=== PATIENT | female | born 1950 | race Caucasian/White ===

== ENCOUNTER 2023-10-31 00:42 | Outpatient (CLI) | payer MEDICARE, BC, SELFPAY ==
--- OUTSIDE RECORDS SUMMARY | 2023-11-02 17:06 | XMS_ITS | Encounter Summary ---
Author Organization [employer] Address [address], [place] [address] Care Team Providers Care Radiation Safety Officer Name Role Phone Trey Forrest PA-C Primary Care Provider [phone] Reason for Visit * Reason Onset Date Comments UPDATE 11/01/2023 Post-surgery upd ate. Encounter Details Date Type Department Care Team (Late st Contact Info) Description 11/01/2023 Telephone [facility] [phone] [facility] [place] [address] Kathy Sauceda, RN UPDATE (Post-surgery update.) Social History Tobacco Use Types Packs/Day Years [...] as of this encounter Nursing Notes * Kathy Sauceda RN - 11/01/2023 12:05 PM CDT Breast Cancer Post-Operative Call Surgery: Left seed localized lumpectomy with left sentinel lymph node biopsy Date: 10/27/[address] Kirkland Incision(s): No concerns. She tells me she is healing well. Activity: Completing ADL. Eboni called this morning to let me know that she had a syncopal episode on Wednesday, 10/29. She was on the toilet and passed out. Her was there to catch her and guideher on to the floor, so no injury. She tells me she had a loss of consciousness for about one minute. Prior to this time she had some sharp abdominal pain and diarrhea. [facility] called [facility] Lab work and CT scan were negative, with the exception of some atelectasis in her LLL. Output: No concerns. Except for the episode of diarrhea on Wednesday. Intake: No concerns. She did have some nausea on Wednesday prior to her syncopal episode, but this is now resolved. Pain: Patient has not require any medication to manage pain. She did not take oxycodone and only 2 ibuprofen. Plan: Will call patient once pathology report is available. Eboni is feeling better today. She was unable to get into see her PCP, so is following-up with a PA today. We discussed that this is likelyrelated to anesthesia and dehydration after surgery. We discussed pushing fluids and changing positions slowly. She will let us know if the PA is wanting to do anything further. They were to leave today for the [facility] today. However, now, her was worried enough to cancel this trip. She knows to call with any questions or concerns. OZZY Hussein, RN, OCN, CBCN Breast Cancer Nurse Navigator [phone] documented in this encounter Plan of Treatment Upcoming Encounters Date Type Department Care Team (Late st Contact Info) Description 11/09/2023 11:50 AM CDT Appointment Special[facility] 3931 General Surgery 39[address] [facility] [address] [place] [address] Viviana Kirkland MD [address] [facility] [address] [place] [address] 11/09/2023 2:30 PM CDT Appointment [facility] Care at [facility] Oncology [address] [place] [address] Shayla Bland MBBS [address] [place] [address] 11/15/2023 11:00 AM CDT Appointment [facility] [address] [place] [address] Thomas Hanks, OD [address] [place] [phone] documented as of this encounter Visit Diagnoses Not on filedocumented in this encounter Care Teams Radiation Safety Officer Relationship Specialty Start Date End Date Trey Forrest PA-C [address] [place] [address] [place] [address] PCP - General Physician Diversified Crops Supervisor 11/01/23 documented as of this encounter
--- OUTSIDE RECORDS SUMMARY | 2023-11-02 17:06 | XMS_ITS | Encounter Summary ---
Author Organization [facility] Address [address], [place] [address] Care Team Providers Care Heavy Lift Rigger Name Role Phone Connie Kuhn MD Primary Care Provider [phone] Reason for Referral * Procedure/Equipment (Routine) - Incomplete Specialty Diagnoses / Procedures Referred By Charlie t Referred To Contact Diagnoses Mass of left breast, unspecified quadrant Procedures NM Breast Sent Node Inj Lt Viviana Kirkland MD [address] [facility] [address] [place] [address] Referral ID Status Reason Start Date Expiration Date V isits Requested Visits Authorized [id number] Incomplete 10/12/2023 01/10/2025 6 6 Reason for Visit * Auth/Cert (Routine) Specialty Diagnoses / Procedures Referred By Charlie christianson Referred To Contact Diagnoses Mass of left breast, unspecified quadrant Procedures LUMPECTOMY LEFT BREAST WITH SEED LOCALIZATION AND SENTINEL LYMPH NODE BIOPSY Referral ID Status Reason Start Date Expiration Date Visits Re quested Visits Authorized [id number] 1 1 Encounter Details Date Type Department Care Team (Late st Contact Info) Description 10/27/2023 8:39 AM CDT - 10/27/2023 11:59 PM CDT Hospital Encounter [facility] [address] [facility] [place] [address] Viviana Kirkland MD [address] [facility] [address] [place] [address] Mass of left breast, unspecified quadrant Discharge [...] General Surgery [address] [facility] [address] [place] [address] Viviana Kirkland MD [address] [facility] [address] [place], [place] [address] 11/09/2023 2:30 PM CDT [facility]ment [facility] Oncology [address] [place] [address] Shayla Bland MBBS [address] [place] [address] 11/15/2023 11:00 AM CDT Appointment [facility] [address] [place] [address] Thomas Hanks, OD [address] [place] [phone] documented as of this encounter Procedures Procedure [...] millicuries documented in this encounter Care Teams Heavy Lift Rigger Relationship Specialty Start Date End Date Connie Kuhn MD [address] [place] [address] PCP - General Family Practice 05/23/18 10/31/23 documented as of this encounter
--- OUTSIDE RECORDS SUMMARY | 2023-11-02 17:06 | XMS_ITS | Encounter Summary ---
Author Organization [email or web address] Address [address] [address] Care Team Providers Care Mask Designer Name Role Phone Trey Shanks PA-C Primary Care Provider [phone] Reason for Visit * Reason Comments Appt. Work In Request Patient Calling Back Encounter Details Date Type Department Care Team (Late st Contact Info) Description 10/31/2023 Telephone [facility] [address] [place] [address] Connie Kuhn MD [address] [place] [address] [place] [address] Appt. Work In Request; Patient Calling Back Social History Tobacco Use [...] as of this encounter Nursing Notes * Fatoumata Dorman RN - 11/02/2023 1:53 PM CDT Spoke with patient. She has decided to change PCP to Trey Shanks PA-C. No other needs at this time. * Connie Kuhn MD - 11/01/2023 12:56 PM CDT I recommend she keep the apt as scheduled as my next same day slot is 11/15. She can follow up with me on 11/15 after she sees the provider today if she would like. * Yesika Hughes RN - 11/01/2023 9:22 AM CDT Clinician Action: Hospital Discharge Work-in Request Clinician Next Step: Route to CSS (Clinical Manager Search Engine) pool to follow up Specific Request(s): 1. Pt is requesting a hospital discharge visit within 2 days. Please advise. Pt was seen at [facility] for a syncopal episode on 10/30/23 and would like to seeP for follow up. Pt voices having had a breast biopsy on 10/27/23 and multiple health concerns recently that may have been related. Has upcoming appt with another provider today as below, pt voices she does not want to see another provider if at all possible. Future Appointments Date Time Provider Department Center 11/01/2023 11:30 AM Trey Shanks PA-C [facility] 11/09/2023 11:50 AM Viviana Kirkland MD [id number] [facility] PN 3931 11/09/2023 2:30 PM Shayla Bland MBBS [facility] 11/15/2023 11:00 AM Thomas Hanks, OD [facility] Routing to PCP * Sylvia Gillette - 11/01/2023 8:56 AM CDT The pt is calling back regarding seeing primary today for an ER F/U. * Winter Payne - 10/31/2023 9:59 AM CDT Appointments - Same Day/Next Day Is this a symptom? No Patient would like appointment with: PCP- Dr. Kuhn If requested clinician is unavailable, is it okay to be seen by another clinician? Yes Patient requesting appointment for: Hospital Discharge Wants/Needs to be seen within: 2 day(s) Additional comments: Preferred communication method: Phone Call. Is it okay to leave a detailed message on your voicemail? Yes documented in this encounter Plan of Treatment Upcoming Encounters Date Type Department Care Team (Late st Contact Info) Description 11/09/2023 11:50 AM CDT Appointment [facility] General Surgery [address] [facility] [address] [place], [place] [address] Viviana Kirkland MD [address] [facility] [address] [place], [place] [address] 11/09/2023 2:30 PM CDT Appointment [facility] Oncology [address] [place] [address] Shayla Bland MBBS [facility] [place], [place] [address] 11/15/2023 11:00 AM CDT Appointment [facility] [address] [place] [address] Thomas Hanks, OD [address] [place] [phone] documented as of this encounter Visit Diagnoses Not on filedocumented in this encounter Care Teams Mask Designer Relationship Specialty Start Date End Date Trey Shanks PA-C [address] [place] [id number] PCP - General Physician Water Softener Service Supervisor 11/01/23 documented as of this encounter
--- OUTSIDE RECORDS SUMMARY | 2023-11-02 17:06 | XMS_ITS | Encounter Summary ---
Author Organization [employer] Address [address], [place] [address] Care Team Providers Care Accelerator Operator Name Role Phone Connie Kuhn MD Primary Care Provider [phone] Encounter Details Date Type Department Care Team (Latest Contact Info) Description 10/27/2023 Orders Only HIM DEPARTMENT Provider, [place] [address] Social History Tobacco Use Types Packs/Day Years [...] Appointment [facility] 39[address] General Surgery [address] [facility] [address] [place] [address] Viviana Kirkland MD [address] [facility] [address] [place] [address] 11/09/2023 2:30 PM CDT Appointment [facility] [address] [place] [address] Shayla Bland MBBS [address] [place] [address] 11/15/2023 11:00 AM CDT Appointment [facility] [address] [place] [address] Thomas Hanks, OD [address] [place] [phone] documented as of this encounter Procedures Procedure Name Priority Date/Time Associated Diagnosis Comments EKG 10/27/2023 documented in this encounter Results * EKG (10/27/2023) Interface Provider EKG documented in this encounter Visit Diagnoses Not on filedocumented in this encounter Care Teams Accelerator Operator Relationship Specialty Start Date End Date Connie Kuhn MD [address] [place] [place] [id number] PCP - General Family Practice 05/23/18 10/31/23 documented as of this encounter
--- OUTSIDE RECORDS SUMMARY | 2023-11-02 17:06 | XMS_ITS | Clinical Summary ---
[facility] Organization [facility] Address [address] [address] Care Team Providers Care Pumping Station Supervisor Name Role Phone Trey Forrest PA-C Primary Care Provider [phone] Source Comments You are receiving this document as you are listed as the primary care provider,follow-up provider, or the patient has been referred to you for consultation.This is in compliance with the Medicare and[facility] EHR Incentive Program,which states Providers who transition their patient to another setting of careor provider of care or refers their patient to another provider of care shouldprovide summary care record for each transition of care or referral. [email or web address] Allergies No known active allergies Medications Medication [...] in clinic. 5 mL 1 08/03/2023 Active Additional Information Patient not taking.Reported on 11/01/2023 sertraline (ZOLOFT) 25 MG tabletIndications:M ixed emotional [...] Overview: Added automatically from request for surgery [id number] Acute iritis, left eye 07/19/2012 Adenomatous polyp of colon 04/11/2009 Overview: Colonoscopy completed 07/2020. Repeat in 5 years (07/2025). Pure hypercholesterolemia 11/17/2007 Overview: Not currently on treatment Prolapse of vaginal wall 10/22/2004 Overview: LW Onset: ; Rectocele Resolved Problems Problem Noted Date Diagnosed Date Resolved Date Sinusitis 06/12/2021 07/30/2022 S/P tonsillectomy 08/13/2014 07/30/2022 S/P bunionectomy 08/13/2014 07/30/2022 Overview: left foot, 2010 Anxiety 08/16/2012 09/16/2016 Emotional depression 08/16/2012 017 Acute upper respiratory infection 07/27/2007 07/26/2015 Overview: Upper Respiratory Infection Obesity 10/26/2005 10/09/2021 Overview: LW Onset: [id number] Depressive disorder 10/22/2004 10/23/19 Overview: LW Onset: 57Haj71 ; Depression NOS Symptomatic menopausal or fe male climacteric states 10/22/2004 03/07/2006 Overview: LW Onset: 78Qlp26 ; Hot Flashes 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 07/19/2012 Overview: LW Onset: 82Ani46 ; Iritis Encounters Date Type Department Care Team Description 11/01/2023 11:30 AM CDT Office Visit [facility] [address] [place] [address] Trey Forrest, PAVikasC Hospital discharge follow-up (Primary Dx); Vasovagal syncope; Mass of left breast, unspecified quadrant; Malignant neoplasm of overlapping sites of left breast in female, estrogen receptor negative (HRC); Elevated BP without diagnosis of hypertension; Mixed emotional features as adjustment reaction (HRC) 11/01/2023 Telephone [facility] [address] [place] [facility] [place], [place] [id number] Kathy Sauceda RN UPDATE (Post-surgery update.) 10/31/2023 Telephone [facility] [address] [place] [address] Connie Kuhn MD Appt. Work In Request; Patient Calling Back 10/27/2023 9:09 AM CDT Anesthesia Event [facility] [address] [place] [address]. [place] [address] Harris Conner MD Varberg, Lauren K, APRN, NICCI 10/27/2023 9:00 AM CDT Ancillary Procedure [facility] at [facility] [place] [address] [place] [address]. [place] [address] Viviana Kirkland MD Mass of left breast, unspecified quadrant 10/27/2023 8:39 AM CDT - 10/27/2023 11:59 PM CDT Hospital Encounter [facility] [address] [place] [address]. [place] [address] Viviana Kirkland MD Mass of left breast, unspecified quadrant Discharge Disposition: Home 10/27/2023 8:20 AM CDT - 10/27/2023 10:55 AM CDT Surgery [facility] [address] [place] [address]. [place] [address] Viviana Kirkland MD LUMPECTOMY LEFT BREAST WITH SEED LOCALIZATION AND SENTINEL LYMPH NODE BIOPSY 10/27/2023 6:38 AM CDT - 10/27/2023 1:07 PM CDT Hospital Encounter [facility] [address] [place] [address]. [place] [address] Viviana Kirkland MD Mass of left breast, unspecified quadrant Discharge Disposition: Home 10/27/2023 Orders Only HIM DEPARTMENT Provider, MD Nikita 10/25/2023 9:20 AM CDT Office Visit [facility] [address] [place] [address] Maria Alejandra Patel MD Pseudophakia, right eye (Primary Dx) 10/21/2023 11:00 AM CDT Lab Visit [facility] [address] [facility] [place] [address] Preop examination 10/21/2023 9:00 AM CDT Pre-Op Visit [facility] [address] [place] [address] Amelia Johnson PA-C Preop examination (Primary Dx) 10/20/2023 9:30 AM CDT Ancillary Procedure [facility] Mammography at [facility] [place] [address] [place] [address]. [place] [address] Viviana Kirkland MD Mass of left breast, unspecified quadrant 10/20/2023 9:00 AM CDT Ancillary Procedure [facility] [place] [facility] at [facility] [place] [address] [address] [facility] [place] [address] Viviana Kirkland MD Mass of left breast, unspecified quadrant 10/19/2023 9:20 AM CDT Office Visit [facility] [address] [place] [address] Maria Alejandra Patel MD Pseudophakia, right eye (Primary Dx) 10/18/2023 1:40 PM CDT - 10/18/2023 2:20 PM CDT Surgery [facility] [address] [place] [address] Maria Alejandra Patel MD CATARACT EXTRACTION WITH INTRAOCULAR LENS IMPLANT 10/18/2023 12:46 PM CDT Anesthesia Event [facility] [address] [place] [address] Owen Bar MD Jerdee, Jeremy J, HAND WORKER, SEPARATOR INSERTER 10/18/2023 11:50 AM CDT - 10/18/2023 1:27 PM CDT Hospital Encounter [facility] [address] [place] [address] Maria Alejandra Patel MD Combined forms of age-related cataract of both eyes Discharge Disposition: Home 10/15/2023 Telephone [facility] - General Surgery [address] [facility] [place], [place] [address] Jacqueline Gonzalez RN Pre-op Teaching 10/12/2023 11:30 AM CDT Office Visit [facility] 3931 General Surgery [address] [facility] [address] [place] [address] Viviana Kirkland MD Mass of left breast, unspecified quadrant (Primary Dx); Mild intermittent asthma without complication (HRC) 10/11/2023 1:00 PM CDT Office Visit [facility] [address] [place] [address] Thomas Hanks OD Postop check (Primary Dx); Pseudophakia, left eye; Abrasion of left conjunctiva, initial encounter 10/08/2023 E-Visit [address] [place] [address] Mychart, Generic Provider 10/08/2023 E-Visit [address] [place] [address] Mychart, Generic Provider 10/08/[address] [place] [address] Kathy Sauceda RN RESULTS, TEST (Breast biopsy results) 10/07/2023 1:30 PM CDT Ancillary Procedure [facility] at [facility] and [address] [place] [address] Connie Kuhn MD Abnormal finding on breast imaging 10/07/2023 1:00 PM CDT Ancillary Procedure [facility] at [facility] and [address] [place] [address] Connie Kuhn MD Abnormal finding on breast imaging (Primary Dx) 10/05/2023 10:30 AM CDT Ancillary Procedure [facility] at [facility] [place] [address] [address] [facility] [place] [address] Connie Kuhn MD Abnormal mammogram 10/05/2023 10:00 AM CDT Ancillary Procedure [facility] at [facility] [place] [address] [place] [address]. [place] [address] Connie Kuhn MD Abnormal mammogram 10/05/2023 8:00 AM CDT Office Visit [facility] [address] [place] [address] Maria Alejandra Patel MD Pseudophakia, left eye (Primary Dx) 10/04/2023 1:40 PM CDT - 10/04/2023 2:20 PM CDT Surgery [facility] [address] [place] [address] Maria Alejandra Patel MD CATARACT EXTRACTION WITH INTRAOCULAR LENS IMPLANT 10/04/2023 12:58 PM CDT Anesthesia Event [facility] [address] [place] [address] Nolan Stoner MD 10/04/2023 12:14 PM CDT - 10/04/2023 1:46 PM CDT Hospital Encounter [facility] [address] [place] [address] Maria Alejandra Patel MD Combined forms of age-related cataract of both eyes Discharge Disposition: Home 10/01/2023 10:50 AM CDT Lab Visit [facility] [address] [facility] [place], [place] [id number] Screening for diabetes mellitus; Screening, lipid 10/01/2023 10:40 AM CDT Ancillary Procedure [facility] at [facility] [place] [address] [address] [place] [address] Connie Kuhn MD Visit for screening mammogram 10/01/2023 9:00 AM CDT Office Visit [address] [place] [address] Connie Kuhn MD Encounter for Medicare annual wellness exam (Primary Dx); Screening, lipid; Screening for diabetes mellitus; Mixed emotional features as adjustment reaction (HRC); Pure hypercholesterolemi a; Mild intermittent asthma without complication (HRC) 10/01/20[address] [place] [address] Connie Kuhn MD Test Results 09/23/2023 9:30 AM CDT Pre-Op Visit [address] [place] [address] Amelia Johnson PA-C Preop examination (Primary Dx) 08/03/2023 Telephone [facility] 3900 Ophthalmology 3900 [facility] [place] [address] Maria Alejandra Patel MD CATARACTS (Pt sched surgery on 10-03 & 10-18-23. Pt would like combo easy drop from [facility]. ) from Last 3 Months Immunizations Name Administration Dates Next Due Flu Vac Preserv Free (3+yrs) 01/19/2013, 02/29/2012,02/11/2011,2008,02/27/2008,02/16/2007,02/17/2006 H1n1 Miv Sanofi 3+ Yr (Injected) 03/05/2009 Influenza IIV3 (Trivalent) F luzone Highdose, 65+ Yrs (37019) 03/20/2019,03/14/2018 Influenza IIV4 (Quadrivalent ) 0.5mL (97547) 03/23/2017,02/06/2016,01/31/2015,2013 Influenza IIV4 (Quadrivalent ) Fluad, 65+ Yrs 03/10/2021 Influenza IIV4 (Quadrivalent ) Fluzone, 65+ Yrs 01/28/2023,02/27/2022 Influenza, Unspecified Formulation 03/25/2003 Moderna 12+ 07/14/2023,01/28/2023 Moderna Bivalent 12+ 08/21/2022,02/27/2022 Moderna Monovalent 12+ 07/24/2021,2020,07/06/2020,2020 PCV20 ([id number]) 10/09/2021 TDAP (ADACEL) 11/17/2007 Td 06/05/1999 Tdap [...] Sign Reading Time Taken Comments Blood Pressure 151/88 11/01/2023 11:17 AM CDT Pulse 67 11/01/2023 11:17 AM CDT Temperature 36.7 ??C (98 ??F) 11/01/2023 11:14 AM CDT Respiratory Rate 16 10/27/2023 12:50 PM CDT [...] Appointment [facility] 3931 General Surgery 3931 [facility] [address] [place] [address] Viviana Kirkland MD [address] [facility] [address] [place] [address] 11/09/2023 2:30 PM CDT Appointment [facility] [address] [place], [place] [address] Shayla Bland MBBS [address] [place], [place] [address] 11/15/2023 11:00 AM CDT Appointment [facility] [address] [place], [place] [address] Thomas Hanks, PJ [address] [place] [phone] Health Maintenance Due Date Last Done Comments Influenza (#1) 2023 01/28/2023, 07/2021, 03/10/2021, Additional history exists Mammogram 2024 10/01/2023, 2023, 09/10/2021, Additional history exists Medicare Annual Wellness Visit 2024 10/01/2023, 09/29/2022, 10/09/2021, Additional history exists Colonoscopy 08/22/2025 08/22/2020, 09/25, 06/19/2011 (Completed), Additional history exists Dexa 01/13/2028 01/12/2023 DTaP/Tdap/Td (3 - Tdap) 05/23/2028 05/23/19, 11/17/2007, 06/05/1999 Cholesterol 2028 10/01/2023, 10/2022, 10/09/2021, [...] this topic Medical Devices Implanted Type Area Stenographer Secretary Device Identifier Shelf Expiration Date Model / Serial / Lot Lens Intraocular Dib00 21.5 - Eyhance - [id number] Implanted:Qty: 1 on 10/04/2023 by Maria Alejandra Patel MD at [facility] DEVICE Left: EYE [employer] 07/25/2026 [id number] / [id number] / Lens Intraocular Dib00 21.0 - Eyhance - [id number] Implanted:Qty: 1 on 10/18/2023 by Maria Alejandra Patel MD at [facility] DEVICE Right: EYE [employer] 05/03/2026 [id number] / [id number] / Procedures Procedure Name Priority Date/Time Associated Diagnosis Comments MM BREAST SPECIMEN Routine 10/27/2023 10 :04 AM CDT Mass of left breast, unspecified quadrant NM BREAST SENT NODE INJ LT Routine 10/26 8:58 AM CDT Mass of left breast, unspecified quadrant BREAST BIOPSY WITH RADIOACTIVE SEED LOCALIZATION AND SENTINEL LYMPH NODE BIOPSY 10/27/2023 8:42 AM CDT Mass of left breast, unspecified [...] 10/05/2023 10:3 1 AM CDT Abnormal mammogram YMM MAMMOGRAM DIAG LT W 3D ERIC Routine [...] Basic Metabolic Panel (10/21/2023 9:22 AM CDT) Pathologist [facility] Sodium 140 136 - 145 mmol/L 10/21/2023 5:04 PM [facility] Potassium 4.3 3.5 - 5.1 mmol/L 10/21/2023 5:04 PM [facility] Chloride 105 98 - 109 mmol/L 10/21/2023 5:04 PM [facility] CO2 24 20 - 29 mmol/L 10/21/2023 5:04 PM [facility] Anion Gap 11 6 - 16 mmol/L 10/21/2023 5:04 PM [facility] Calcium 9.8 8.4 - 10.4 mg/dL 10/21/2023 5:04 PM [facility] BUN 26 7 - 26 mg/dL 10/21/2023 5:04 PM [facility] Creatinine 0.99 0.55 - 1.02 mg/dL 10/21/2023 5:04 PM [facility] Glucose 99 70 - 100 mg/dL 10/21/2023 5:04 PM [facility] Comment:The given reference range is for the fasting state. Non-fasting reference range for glucose is 70 - 180 mg/dL. GFR, Estimated >60 >60 mL/min/1.7 3m2 10/21/2023 5:04 PM [facility] Hours Fasting 14.0 8 - 12 Hours 10/21/2023 5:04 PM [facility] (PN) Blood Venipuncture / Unknown 10/21/2023 9:22 AM CDT 10/21/2023 9:22 AM CDT Amelia Johnson PA-C LAB_1 [facility] [address] [place] [address], [facility] (PN) [address] [place] [address] * ECG 12 Lead Outpatient (10/21/2023 9:07 AM CDT) Ventricular Rate 61 BPM [facility] Atrial Rate 61 BPM [facility] P-R Interval 164 ms [facility] QRS Duration 76 ms [facility] QT 398 ms [facility] QTc 400 ms [facility] P [place] 62 degrees [facility] R [place] 18 degrees [facility] T [place] 48 degrees [facility] 10/21/2023 9:07 AM CDT Narrative [facility] - 10/21/2023 9:48 AM CDT Sinus rhythm Normal ECG When compared with ECG of 16-SEP-2016 10:20, Premature ventricular complexes are no longer Present Confirmed by Kuldeep Henning ([id number]) on 10/21/2023 9:48:51 AM Procedure Note Kuldeep Henning MD - 10/21/2023 Sinus rhythm Normal ECG When compared with ECG of 16-SEP-2016 10:20, Premature ventricular complexes are no longer Present Confirmed by Kuldeep Henning ([id number]) on 10/21/2023 9:48:51 AM Amelia Johnson PA-C PN ECG ORDERABLES Performing Organization Address City/State/[facility] Co de Phone Number [facility] [address] [place] [address] * MM Post Mammogram Lt (10/20/2023 9:02 [...] CK Mj, AE1AE3, 34BE12, CK5-6, S100, ER, NM, CD31, Sox10 and Gata3. ??The findings are [...] for CK Mj, AE1AE3,34BE12, CK5-6, S100, ER, NM, CD31, Sox10 and Gata3. The findings are notentirely specific, but a breast metaplastic carcinoma is favored over aprimary sarcoma or malignant phyllodes tumor. Recommend excision fordefinitive diagnosis. ? RAD/PATH CONCORDANCE: Concordant RECOMMENDATION: Surgical consultation Connie Kuhn MD RAD LEIA * Surgical Path, Breast (10/07/2023 11:51 AM CDT) Case Report Surgical Pathology ?Case: [id number] ? Authorizing Provider: ??Connie Kuhn MD ? Collected: ? 10/07/2023 1151 ? Ordering Location: ? [facility] ? Received: ?10/07/2023 1439 ? [facility] [place] [facility] [place] [address] ? Pathologist: ? Kyle Upton MD ? Specimen: ?Breast, left, 9: o'clock ultrasound ? 10/15/2023 1:37 PM CDT [facility] FINAL DIAGNOSIS A. Breast, left, 9: o'clock ultrasound, needle core biopsy: Malignant spindle cell neoplasm with necrosis, see comment Comment: Immunohistochemical stains performed show the neoplasm stains positive for p63, patchy positive for SMA, negative for CK Mj, AE1AE3, 34BE12, CK5-6, S100, ER, NM, CD31, Sox10 and Gata3. The findings are not entirely specific, but a breast metaplastic carcinoma is favored over a primary sarcoma or malignant phyllodes tumor. Recommend excision for definitive diagnosis. [facility] has reviewed this case and concurs with the diagnosis. 10/15/2023 1:37 PM CDT [facility] Addendum electronically signed by Kyle Upton [...] ?? Comment(s): ?HER2 Technical component performed at [place], [place] 10/15/2023 1:37 PM CDT [facility] Clinical Information non palpable 10/15/2023 1:37 PM CDT [facility] Microscopic Description Microscopic examination is performed. 10/15/2023 1:37 PM CDT [facility] Special Stains The stain controls have been reviewed and stain appropriately. 10/15/2023 1:37 PM CDT [facility] Gross Description A: The specimen is [...] 1 cassette. DJ 10/15/2023 1:37 PM CDT [facility] Embedded Images 10/15/2023 1:37 PM CDT [facility] Tissue BREAST STRUCTURE / Unknown 10/07/2023 11:51 AM CDT 10/07/2023 2:39 PM CDT Connie Kuhn MD LAB PATHOLOGY [facility] [address] * (ABNORMAL) [facility] US Breast Lt (10/05/2023 10:31 AM [...] with the patient and her . [facility] will attempt to schedule the [...] discussed with thepatient and her . [facility] will attempt to schedule the recommendedfollow up with the patient. IMPRESSION: ACR BI-RADS CATEGORY 4: Suspicious. Connie Kuhn MD RAD LE[facility] * (ABNORMAL) [facility] Mammogram Diag Lt W 3[address] Eric [...] with the patient and her . [facility] will attempt to schedule the [...] discussed with thepatient and her . The [facility] will attempt to schedule the recommendedfollow [...] the patient. As a result of the Century Cures Act, all medical imaging exams are released immediately to [facility]. ??You may be viewing this report [...] 0 - 199 mg/dL 10/01/2023 4:49 PM CDT [facility] Triglyceride 71 <=149 mg/dL 10/01/2023 4:49 PM T [facility] HDL Cholesterol 74 >=40 mg/dL 4 4:49 PM T [facility] LDL, Calculated 194(H) <130 mg/dL 4 4:49 PM [facility] Non HDL Chol, Calculated 208(H) <=159 mg/dL 10/01/2023 4:49 PM [facility] Cholesterol/HDL Ratio 3.8 <=5.0 10/01/2023 4:49 PM [facility] Hours Fasting 12.0 8 - 12 Hours 10/01/2023 4:49 PM [facility] (PN) Blood Venipuncture / Unknown 10/01/2023 9:53 AM CDT 10/01/2023 9:53 AM CDT Connie Kuhn MD LAB_1 [facility] [address] [place] [address], [facility] (PN) [address] [place] [address], [facility] * Glucose (10/01/2023 9:53 AM CDT) Glucose 85 70 - 100 mg/dL 10/01/2023 4:49 PM T [facility] Comment:The given reference range is for the fasting state. Non-fasting reference range for glucose is 70 - 180 mg/dL. Hours Fasting 12.0 8 - 12 Hours 10/01/2023 4:49 PM [facility]T [facility] (PN) Blood Venipuncture / Unknown 10/01/2023 9:53 AM CDT 10/01/2023 9:53 AM CDT Connie Kuhn MD LAB_1 [facility] [address] [place] [address] (PN) [address] [place] [address] * DXA Bone Density Spine/Hip (01/12/2023 8:55 AM CDT) DXA Hip Left Bone Mineral Density 0.849 [...] not included. Patient Name: Eboni Waggoner Densitometer: Snaps W Appt Dept/Resource: Pires Bone Density PIRES [...] trabecular bone, and is derived from the [id number] changes of bone density embedded in the [...] ? colon polyps. Providers: ? Leonardo Armando, Flro Ventura Referring MD: ?Connie Otooleser Medicines: ? Midazolam 4 mg IV, Fentanyl 150 ? micrograms IV Complications: ? No immediate complications. Procedure: ? After I obtained informed consent, ? the scope was passed under direct ? vision. Throughout the procedure, the ? patient's blood pressure, pulse, and ? oxygen saturations were monitored ? continuously. The [id number] was ? introduced through the anus and [...] Procedure Code(s): ?? --- Professional --- ? 07384, Colonoscopy, flexible; with ? removal of tumor(s), polyp(s), or ? other lesion(s) by snare technique ? 54631, Moderate sedation; each ? additional 15 minutes [...] (additional time may ? be reported with [address], as ? appropriate) Diagnosis Code(s): ?? --- Professional --- ? Z86.010, Personal history of colonic ? polyps ? K64.8, Other hemorrhoids ? K63.5, Polyp of colon CPT copyright 2019 [employer]. All rights reserved. The codes documented in this report are preliminary and upon curb hop review may be revised to meet current [...] note, her father had colon polyps. Providers: Leonardo Armando, Flor Ventura Referring MD: Connie Kuhn Medicines: Midazolam 4 mg IV, Fentanyl 150 micrograms IV Complications: No immediate complications. Procedure: After I obtained informed consent, the scope was passed under direct vision. Throughout the procedure, the patient's blood pressure, pulse, and oxygen saturations were monitored continuously. The [id number] was introduced through the anus and advanced [...] the patient. Procedure Code(s): --- Professional --- 54759, Colonoscopy, flexible; with removal of tumor(s), polyp(s), or other lesion(s) by snare technique 00381, Moderate sedation; each additional 15 minutes intraservice time G0500, Moderate sedation services provided by the same physician or other qualified health insurance healthcare consultant performing a gastrointestinal endoscopic service that sedation supports, requiring the presence of an independent trained observer to assist in the monitoring of the patient's level of consciousness and physiological status; initial 15 minutes of intra-service time; patient age 5 years or older (additional time may be reported with 99057, as appropriate) Diagnosis Code(s): --- Professional --- Z86.010, Personal history of colonic polyps K64.8, Other hemorrhoids K63.5, Polyp of colon CPT copyright 2019 [employer]. All rights reserved. The codes documented in this report are preliminary and upon curb hop review may be revised to meet current compliance requirements. Leonardo Armando, 08/22/2020 12:05:21 PM Number of Addenda: 0 Note Initiated On: 08/22/2020 11:16 AM Endoscopy Report Connie Kuhn MD PN GI PROCEDURE ORD ERABLES Performing Organization Address [facility] de Phone Number GI (PROVATION) [place], [place] * Hepatitis C Antibody, with Reflex (08/01/2013 5:15 PM CDT) Hepatitis C Antibody Non-React Non-Reacti ve HP CONVERSION Urine:clean catch 08/01/2013 5:15 PM CDT Karen Munson MD LAB_1 Performing Organization Address [facility] de Phone Number HP CONVERSION from Last 3 Months or [...] 11:05 AM 08/23/2014 2:05 PM Care Teams Pumping Station Supervisor Relationship Specialty Start Date End Date Trey Forrest, PAVikasC [address] [place] [id number] PCP - General Physician Supervisor Weaving 11/01/23
--- OUTSIDE RECORDS SUMMARY | 2023-11-02 17:06 | XMS_ITS | Encounter Summary ---
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 Pt reports she took a gummy on an empty stomach and had horrible stomach pain and passed out on Wednesday- I did it to myself, I fasted all day on Wednesday to support my . Pt was transported to [facility]. She reports she has malignant breast cancer but has not received all the results back from the biopsy. Encounter Details Date Type Department Care Team (Late st Contact Info) Description 11/01/2023 11:30 AM CDT Office Visit [facility] [address] [place], [place] [address] Trey Shanks PA-C [address] [place] [phone] Hospital discharge follow-up (Primary Dx); Vasovagal syncope; Mass of left breast, unspecified quadrant; Malignant neoplasm of overlapping sites of left breast in female, estrogen receptor negative (HRC); Elevated BP without diagnosis of hypertension; Mixed emotional features as adjustment reaction (HRC) Social History Tobacco Use Types Packs/Day [...] ??F) 11/01/2023 11:14 AM CDT Respiratory Rate - - Oxygen Saturation - - Inhaled Oxygen Concentration - - Weight - - Height - - Body Mass Index - - documented in this encounter Patient Instructions * Patient Instructions* Trey Shanks PA-C - 11/01/2023 11:30 AM CDT It was a pleasure to see you in clinic today! Continue to monitor for return of the syncopal episode/symptoms. If returns, I recommend ziopatch, further lab work (thyroid, vitamins, etc) May continue with IF, though no more than 14-16 hour fast Continue to monitor mental health, may consider going up on sertraline if stress continues Take BP at home 2-3 times per week, if consistently >140 or >90 reach out to myself or PCP documented in this encounter Progress Notes * Trey Shanks PA-C - 11/01/2023 11:30 AM CDT Yanna Campbell [id number] SUBJECTIVE: YANNA CAMPBELL is a 73 y.o. female who presents to the clinic for follow up regarding a recent emergency department visit. Patient recently had lumpectomy with sentinel lymph node biopsy for unspecified malignancy noted on core needle biopsy of the left breast. This took place 10/27/2023. Patient woke up overnight 10/30/2023 with intense stomach pain, diarrhea, tinnitus. Patient had a witnessed syncopal event while sitting on the toilet. Did not hit her head. Came to after an unspecified periodof time, likely seconds and immediately felt normal. Of note, patient was intermittent fasting all day for approximately 24- 30 hours prior to when this syncopal event happened. Despite feeling well, she went to the emergency department. Had a largely negative workup including negative EKG, normal electrolyte function, negative head CT, negative chest x- ray, negative troponin. Patient was discharged after receiving 1 L of fluids. Patient notes that she has not had any return of symptoms and feels as though her symptoms were attributed to dehydration. Additionally endorses that she was under a lot of stress as she was currently waiting final pathology reports of her lumpectomy and unclear cancer diagnosis. Denies any headaches, dizziness, chest pain, palpitations, difficulty breathing, abdominal symptoms. She has been eating and drinking per her normal over the past few days. Patient endorses that though her stress level is high, she feels like her mental health was well-controlled on sertraline 25 mg. She did try increasing to 50 mg in the past though did not wake the way she felt on this dosage. She has no additional concerns she would like to discuss today. PAST MEDICAL AND SURGICAL HISTORY REVIEWED IN [facility] FAMILY AND SOCIAL HISTORY REVIEWED IN [facility] MEDICATIONS: Outpatient Medications Prior to Visit Medication Sig ALBUterol sulfate HFA 108 (90 Base) MCG/ACT inhaler Inhale 2 Puffs every 4 hours as needed for Wheezing. oxyCODONE (ROXICODONE) 5 MG immediate release tablet Take 1 Tablet (5 mg) by mouth every 4 hours asneeded for Pain. hctqnsnuzpoc-uprgqbgfsvgl-xhhjohzrk (EASY DROPS) 1-0.5-0.075 % SUSP Place 1 Drop into left eye 4 times a day. Starting 1 day BEFORE cataract surgery, place 1 drop in the LEFT eye 4 times per day. Then follow the drop instructions given in clinic. cpvgilkfvihi-qiwzxcglwzds-vznlvggow (EASY DROPS) 1-0.5-0.075 % SUSP Place 1 Drop into right eye 4 times a day. Starting 1 day BEFORE cataract surgery, place 1 drop into the RIGHT eye 4 times per day.Then follow the drop instructions given in clinic. (Patient not taking: Reported on 11/01/2023) sertraline (ZOLOFT) 25 MG tablet Take 1 Tablet (25 mg) by mouth daily. Facility-Administered Medications Prior to Visit Medication Dose Frequency Provider Last Admin moxifloxacin (VIGAMOX) 0.5 % ophthalmic solution 1 Drop 1 Drop Other (See Comments) Maria Alejandra Patel MD moxifloxacin (VIGAMOX) 0.5 % ophthalmic solution 1 Drop 1 Drop Other (See Comments) Maria Alejandra Patel MD ALLERGIES: Patient has no known allergies. ROS:NO fever, chills, unexplained fatigue. No chest pain, shortness of breath, palpitations. No abdominal pain, nausea, vomiting, diarrhea. No black or bloody stools. No urinary symptoms. No abnormalheadaches or dizziness. OBJECTIVE BP (!) 151/88 (BP Location: Right Arm, BP Cuff Size: Large) Pulse 67 Temp 36.7 ??C (98 ??F) (Oral) GENERAL: This is a well-developed, well-nourished female in no acute distress. HEENT: Head AT/NC. External ears normal. TMs clear, bony landmarks visible. Nares patent, turbinates without lesions or drainage. Oropharynx non- erythematous. Uvula midline. Dentition in good condition. NECK: Supple, thyroid without enlargement or nodules. No lymphadenopathy. LUNGS: Symmetrical expansion, CTA in all ortiz bilaterally. HEART: Regular rate and rhythm. No murmurs. ABDOMEN: Soft, non-tender, no guarding or masses. No HSM. EXTREMITIES: No edema. Strong and equal peripheral pulses. SKIN: No obvious rashes or suspicious lesions PSYCH: Well-oriented. Appropriate mood and affect. NEURO: Speech and gait are normal. ASSESSMENT/PLAN: Yanna was seen today for hospital discharge follow-up. Diagnoses and all orders for this visit: Hospital discharge follow-up Vasovagal syncope Mass of left breast, unspecified quadrant Malignant neoplasm of overlapping sites of left breast in female, estrogen receptor negative (HRC) Elevated BP without diagnosis of hypertension Mixed emotional features as adjustment reaction (HRC) Patient stable on recheck today. We discussed that her vasovagal syncope was likely multifactorial in etiology. There was likely components of stress, dehydration, low blood sugar contributing. I didrecommend further lab evaluation for cause of the syncopal event with TSH, looking for vitamin deficiencies, ZIO patch though patient declined at this time. She understandably would like to wait until the results of her pathology report. Discussed that if she was return of symptoms, she should reach out to me and we will reconsider further lab workup. Additionally discussed with the patient that if she ever has desire in the future we can increase sertraline to 50 mg. For elevated BP, likely att ributed to stress. I recommend taking her BP 2 to 3 times per week at home and reaching out if consistently greater than 140 systolic or greater than 90 diastolic. Trey Shanks PA-C NB: A voice recognition dictation system was used for this note. Please excuse any typographical errors. documented in this encounter Plan of Treatment Upcoming Encounters Date Type Department Care Team (Late st Contact Info) Description 11/09/2023 11:50 AM CDT Appointment [facility] 39[facility] General Surgery [address] [facility] [address] [place], [place] [phone] Viviana Kirkland MD [address] [facility] [address] [place], [place] [address] 11/09/2023 2:30 PM CDT Appointment [facility] Care at [facility] Oncology [address] [place], [place] [address] Shayla Bland MBBS [address] [place], [place] [address] 11/15/2023 11:00 AM CDT Appointment [facility] [address] [place], [place] [address] Thomas Hanks, OD [address] [place] [phone] documented as of this encounter Visit Diagnoses Diagnosis Hospital discharge follow-up- Primary Other follow-up examination Vasovagal syncope Syncope and collapse Mass of left breast, unspecified quadrant Malignant neoplasm of overlapping sites of left breast in female, estrogen receptor negative (HRC) Elevated BP without diagnosis of hypertension Mixed emotional features as adjustment reaction (HRC) Adjustment disorder with mixed anxiety and depressed mood documented in this encounter Care Teams Tire Repairer Relationship Specialty Start Date End Date Trey Shanks PA-C [address] [facility] [place] [phone] PCP - General Physician Tung Nut Grower 11/01/23 documented as of this encounter
--- OUTSIDE RECORDS SUMMARY | 2023-11-02 17:07 | XMS_ITS | Encounter Summary ---
Author Organization [employer] Address [address], [place] [address] Care Team Providers Care Examination Grader Name Role Phone Connie Kuhn MD Primary Care Provider [phone] Reason for Visit * Reason Comments PRE-OP EXAM Encounter Details Date Type Department Care Team (Late st Contact Info) Description 10/21/2023 9:00 AM CDT Pre-Op Visit [facility] [address] [place] [address] [place] [id number] Amelia Johnson PA-C [address] [place] [address] [place] [id number] Preop examination (Primary Dx) Social History Tobacco [...] described above. In addition, please stop all snnx-wos-oqktflk medications including aspirin, ibuprofen (Advil, Motrin), naproxen [...] LOCALIZATION AND SENTINEL LYMPH NODE BIOPSY Location [facility] Procedure Date 10/27/2023 Donal Lyn is a [...] Note: Added automatically from request for surgery [id number] Acute iritis, left eye 07/19/2012 Adenomatous polyp [...] MCG/ACT inhaler 2 Puffs, Inhalation, Q4H PRN cakvlaitsitd-ienxommuhyqg-isbwinoza (EASY DROPS) 1-0.5-0.075 % SUSP 1 Drop, Left Eye, QID, Starting1 day BEFORE cataract surgery, place 1 drop in the LEFT eye 4 times per day. Then follow the drop instructions given in clinic. emlkxanynuqn-jnjthgsxyndd-qvhtrallx (EASY DROPS) 1-0.5-0.075 % SUSP 1 Drop, Right Eye, QID, Starting 1 day BEFORE cataract surgery, place 1 drop into the RIGHT eye 4 times per day. Then follow the drop instructions given in clinic. 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 ICD-10-CM 1. Preop examination Z01.818 Basic Metabolic Panel ECG 12 Lead Outpatient Special risks: Patient's pulmonary status medically optimized. Medication recommendations: Patient Instructions Follow your individualized medication recommendations as described above. In addition, please stop all nirh-udh-qqbymxk medications including aspirin, ibuprofen (Advil, Motrin), naproxen [...] [address] [facility] [address] [place] [address] Viviana Kirkland MD [address] [facility] [address] [place] [address] 11/09/2023 2:30 PM CDT Appointment [facility] Oncology [address] [place] [address] Shayla Bland MBBS [address] [place] [address] 11/15/2023 11:00 AM CDT Appointment [facility] [address] [place] [address] Thomas Hanks, OD [address] [place] [phone] documented as of this encounter Procedures Procedure Name Priority Date/Time Associated Diagnosis Comments ECG 12 LEAD OUTPATIENT Routine 10/21/2023 9:07 AM CDT Preop examination documented in this encounter Results * Basic Metabolic Panel (10/21/2023 9:22 AM CDT) Sodium 140 136 - 145 mmol/L 10/21/2023 5:04 PM [facility] Potassium 4.3 3.5 - 5.1 mmol/L 10/21/2023 5:04 PM [facility] Chloride 105 98 - 109 mmol/L 10/21/2023 5:04 PM [facility] CO2 24 20 - 29 mmol/L 10/21/2023 5:04 PM [facility] Anion Gap 11 6 - 16 mmol/L 10/21/2023 5:04 PM [facility] Calcium 9.8 8.4 - 10.4 mg/dL 10/21/2023 5:04 PM [facility] BUN 26 7 - 26 mg/dL 10/21/2023 5:04 PM [facility] Creatinine 0.99 0.55 - 1.02 mg/dL 10/21/2023 5:04 PM [facility] Glucose 99 70 - 100 mg/dL 10/21/2023 5:04 PM [facility] Comment:The given reference range is for the fasting state. Non-fasting reference range for glucose is 70 - 180 mg/dL. GFR, Estimated >60 >60 mL/min/1.7 3m2 10/21/2023 5:04 PM [facility] Hours Fasting 14.0 8 - 12 Hours 10/21/2023 5:04 PM [facility] (PN) Blood Venipuncture / Unknown 10/21/2023 9:22 AM CDT 10/21/2023 9:22 AM CDT Amelia Johnson PA-C LAB_1 [facility] [address] [place] [address], [facility] (PN) [address] [place] [address] * ECG 12 Lead Outpatient (10/21/2023 9:07 AM CDT) Ventricular Rate 61 BPM MUSE GHP Atrial Rate 61 BPM MUSE GHP P-R Interval 164 ms MUSE GHP QRS Duration 76 ms MUSE GHP QT 398 ms MUSE GHP QTc 400 ms MUSE GHP P Welda 62 degrees MUSE GHP R Welda 18 degrees MUSE GHP T Welda 48 degrees MUSE GHP 10/21/2023 9:07 AM CDT Narrative MUSE GHP - 10/21/2023 9:48 AM CDT Sinus rhythm Normal ECG When compared with ECG of 16-SEP-2016 10:20, Premature ventricular complexes are no longer Present Confirmed by Kuldeep Henning ([id number]) on 10/21/2023 9:48:51 AM Procedure Note Kuldeep Henning MD - 10/21/2023 Sinus rhythm Normal ECG When compared with ECG of 16-SEP-2016 10:20, Premature ventricular complexes are no longer Present Confirmed by Kuldeep Henning ([id number]) on 10/21/2023 9:48:51 AM Amelia Johnson PA-C PN ECG ORDERABLES MUSE [facility] [address] [place] [address] documented in this encounter Visit Diagnoses Diagnosis Preop examination- Primary Preoperative examination, unspecified documented in this encounter Care Teams Examination Grader Relationship Specialty Start Date End Date Connie Kuhn MD [address] [place] [address] PCP - General Family Practice 05/23/18 10/31/23 documented as of this encounter
--- OUTSIDE RECORDS SUMMARY | 2023-11-02 17:07 | XMS_ITS | Encounter Summary ---
Author Organization [employer] Address [address], [place] [address] Care Team Providers Care Lead Assistant Manager Name Role Phone Connie Kuhn MD Primary Care Provider [phone] Reason for Visit * Auth/Cert (Routine) Specialty Diagnoses / Procedures Referred By Charlie christianson Referred To Contact Diagnoses Mass of left breast, unspecified quadrant Procedures LUMPECTOMY LEFT BREAST WITH SEED LOCALIZATION AND SENTINEL LYMPH NODE BIOPSY Referral ID Status Reason Start Date Expiration Date Visits Re quested Visits Authorized [id number] 1 1 Encounter Details Date Type Department Care Team (Late st Contact Info) Description 10/27/2023 9:09 AM CDT Anesthesia Event [facility] Operating Room [address] [facility]. [place], [place] [address] Harris Conner MD [address] [place], [place] [address] Birdie Mcdonald APRN, CRNA [address] [place], [place] [phone] Anesthesia Record Procedure Summary Procedure Name Responsible [...] report Electronically signed by Birdie Mcdonald APRN, FORMWORK CARPENTER [id number] An Stop Care transferre d. Meds [...] Conner MD - 10/27/2023 2:04 PM CDT [facility] Anesthesia Post-op Note Patient: Eboni Waggoner Post-Op [...] Conner MD - 10/27/2023 7:00 AM CDT [facility] Anesthesia Pre-op Evaluation Procedure: LUMPECTOMY LEFT BREAST [...] LAP CHOLECYSTECTOMY 09/23/2016 Viviana Kirkland MD at [facility] SINUS SURGERY 05/24/2018 FESS, fungal ball removal TONSILLECTOMY VAGINAL HYSTERECTOMY LW Problem: Hysterectomy Vaginal s/p LW Modifier: w/ SSF, TVT 2000 LW Onset: Outpatient Medications as of 10/27/2023 Medication Sig ALBUterol sulfate HFA 108 (90 Base) MCG/ACT inhaler Inhale 2 Puffs every 4 hours as needed for Wheezing. zhmchdrectjj-hyoehvvgxqss-ktniszkju (EASY DROPS) 1-0.5-0.075 % SUSP Place 1 Drop into left eye 4 times a day. Starting 1 day BEFORE cataract surgery, place 1 drop in the LEFT eye 4 times per day. Then follow the drop instructions given in clinic. joejlsqvgzkc-qshtchzamwsm-wyqkxayuk (EASY DROPS) 1-0.5-0.075 % SUSP Place 1 [...] Appointment [facility] 3931 General Surgery [address] [facility] [address] [place] [address] Viviana Kirkland MD [address] [facility] [address] [place], [place] [address] 11/09/2023 2:30 PM CDT Appointment [facility] Oncology [address] [place], [place] [address] Shayla Bland MBBS [address] [place] [address] 11/15/2023 11:00 AM CDT Appointment [facility] [address] [place] [address] Thomas Hanks OD [address] [place] [phone] documented as of this encounter Visit Diagnoses [...] mL/hr documented in this encounter Care Teams Lead Assistant Manager Relationship Specialty Start Date End Date Connie Kuhn MD [address] [place] [address] PCP - General Family Practice 05/23/18 10/31/23 documented as of this encounter
--- OUTSIDE RECORDS SUMMARY | 2023-11-02 17:07 | XMS_ITS | Encounter Summary ---
Author Organization [employer] Address [address], [place] [address] Care Team Providers Care Call Box Wirer Name Role Phone Connie Kuhn MD Primary Care Provider [phone] Reason for Visit * Procedure/Equipment (Routine) - Incomplete Specialty Diagnoses / Procedures Referred By Charlie t Referred To Contact Diagnoses Mass of left breast, unspecified quadrant Procedures MM Breast Specimen Viviana Kirkland MD [address] [facility] [address] [place] [address] Referral ID Status Reason Start Date Expiration Date V isits Requested Visits Authorized [id number] Incomplete 10/12/2023 01/10/2025 1 1 Encounter Details Date Type Department Care Team (Late st Contact Info) Description 10/27/2023 9:00 AM CDT Ancillary Procedure [facility] Mamm[facility] at [facility] [place] [address] [address] [facility] [place], [place] [address] Viviana Kirkland MD [address] [facility] [address] [place], [place] [address] Mass of left breast, unspecified quadrant Social [...] Specialty Center 39[address] Surgery [address] [facility] [address] [place] [address] Viviana Kirkland MD [address] [facility] [address] [place] [address] 11/09/2023 2:30 PM CDT Appointment [facility] Oncology [address] [place] [address] Shayla Bland MBBS [address] [place] [address] 11/15/2023 11:00 AM CDT Appointment [facility] [address] [place] [address] Thomas Hanks, PJ [address] [place] [phone] documented as of this encounter Procedures Procedure [...] quadrant documented in this encounter Care Teams Call Box Wirer Relationship Specialty Start Date End Date Connie Kuhn MD [address] [place] [address] PCP - General Family Practice 05/23/18 10/31/23 documented as of this encounter
--- OUTSIDE RECORDS SUMMARY | 2023-11-02 17:07 | XMS_ITS | Encounter Summary ---
Author Organization [facility] Address [address], [place] [address] Care Team Providers Care Curb And Gutter Laborer Name Role Phone Trey Forrest PA-C Primary Care Provider [phone] Encounter Details Date Type Department Care Team (Late Contact Info) Description 10/08/2023 E-Visit [facility] [address] [facility] [address] [facility] [place] [address] [place], [place] [address] Social History Tobacco Use Types Packs/Day Years [...] Specialty Center 3931 General Surgery [address] [facility] [address] [place], [place] [address] Viviana Kirkland MD [address] [facility] [address] [place], [place] [phone] 11/09/2023 2:30 PM CDT Appointment [facility] Cancer Care at [facility] [place] [facility] [address] [place] [address] Shayla Bland MBBS [address] [place] [address] 11/15/2023 11:00 AM CDT Appointment [facility] [address] [place] [address] Thomas Hanks, OD [address] [place] [phone] documented as of this encounter Visit Diagnoses Not on filedocumented in this encounter Care Teams Curb And Gutter Laborer Relationship Specialty Start Date End Date Trey Forrest PA-C [address] [place] [address] [place] [address] PCP - General Physician Stars Analytical Lead 11/01/23 documented as of this encounter
--- OUTSIDE RECORDS SUMMARY | 2023-11-02 17:07 | XMS_ITS | Encounter Summary ---
Author Organization [employer] Address [address] [address] Care Team Providers Care Solution Make Up Operator Name Role Phone Connie Kuhn MD Primary Care Provider [phone] Reason for Referral * Procedure/Equipment (Routine) - Incomplete Specialty Diagnoses / Procedures Referred By Contac t Referred To Contact Diagnoses Mass of left breast, unspecified quadrant Procedures MM US Breast Seed Loc Lt Viviana Kirkland MD [address] [facility] [address] [place] [address] Referral ID Status Reason Start Date Expiration Date V isits Requested Visits Authorized [id number] Incomplete 10/12/2023 01/10/2025 1 1 * Procedure/Equipment (Routine) - Incomplete Specialty Diagnoses / Procedures Referred By Contac t Referred To Contact Diagnoses Mass of left breast, unspecified quadrant Procedures NM Breast Sent Node Inj Lt Viviana Kirkland MD [address] [facility] [address] [place] [address] Referral ID Status Reason Start Date Expiration Date V isits Requested Visits Authorized [id number] Incomplete 10/12/2023 01/10/2025 6 6 * Procedure/Equipment (Routine) - Incomplete Specialty Diagnoses / Procedures Referred By Charlie christianson Referred To Contact Diagnoses Mass of left breast, unspecified quadrant Procedures Case Request OR - General/Vascular Surg: LUMPECTOMY LEFT WITH SEED LOCALIZATION AND SENTINEL LYMPH NODE BIOPSY Viviana Kirkland MD [address] [facility] [address] [place] [address] Referral ID Status Reason Start Date Expiration Date V isits Requested Visits Authorized [id number] Incomplete 10/12/2023 01/10/2025 1 1 Reason for Visit * Reason Comments CONSULT Encounter Details Date Type Department Care Team (Late st Contact Info) Description 10/12/2023 11:30 AM CDT Office Visit Specialty Center 3931 General Surgery [address] [facility] [address] [place] [address] Viviana Kirkland MD [address] [facility] [address] [place] [address] Mass of left breast, unspecified quadrant (Primary [...] 5' 7 (170.2 cm) Wt 190 lb (10580 g) BMI 29.76 kg/m?? Alert and oriented, [...] multi-disciplinary nature of treatment of this at [facility] was discussed with the patient and her [...] the method in which this is performed. Daggett node biopsy will only be helpful in [...] Appointment Specialty Center 3931 General Surgery [address] [facility] [address] [place] [address] Viviana Kirkland MD [address] [facility] [address] [place], [place] [address] 11/09/2023 2:30 PM CDT Appointment [facility] Cancer Care at [facility] Oncology [address] [place] [address] Shayla Bland MBBS [address] [place] [address] 11/15/2023 11:00 AM CDT Appointment [facility] [address] [place], [place] [address] Thomas Hanks OD [address] [place] [phone] documented as of this encounter Results * [...] the left breast. Viviana Kirkland MD [facility] documented in this encounter Visit Diagnoses Diagnosis Mass of left breast, unspecified quadrant- Primary Mild intermittent asthma without complication (HRC) Unspecified asthma Mass of left breast, unspecified quadrant Mass of left breast, unspecified quadrant documented in this encounter Care Teams Solution Make Up Operator Relationship Specialty Start Date End Date Connie Kuhn MD [address] [place] [address] PCP - General Family Practice 05/23/18 10/31/23 documented as of this encounter
--- OUTSIDE RECORDS SUMMARY | 2023-11-02 17:07 | XMS_ITS | Encounter Summary ---
Author Organization [employer] Address [address] [address] Care Team Providers Care Fiber Optic Central Office Installer Name Role Phone Connie Kuhn MD Primary Care Provider [phone] Reason for Visit * Reason Comments Pre-op Teaching Encounter Details Date Type Department Care Team (Late st Contact Info) Description 10/15/2023 Telephone [facility] Specialty Center - General Surgery [address] [place], [place] [address] Jacqueline Gonzalez RN Pre-op Teaching Social History [...] if appropriate, 400-600 mg. of Ibuprofen every rshus-zy-xqf hours as needed. May alternate with Acetaminophen 650-1000 mg. every ckzba-ie-ace hours as needed. Recommended taking the narcotic [...] Surgery [address] [facility] [address] [place] [address] Viviana Kirkland MD [address] [facility] [address] [place] [address] 11/09/2023 2:30 PM CDT Appointment [facility] Cancer Care at [facility] Oncology [address] [place] [address] Shayla Bland, JAMES [address] [place] [address] 11/15/2023 11:00 AM CDT Appointment [facility] [address] [place], [place] [phone] Thomas Hanks, OD [address] [place] [phone] documented as of this encounter Visit Diagnoses Not on filedocumented in this encounter Care Teams Fiber Optic Central Office Installer Relationship Specialty Start Date End Date Connie Kuhn MD [address] [place] [id number] PCP - General Family Practice 05/23/18 10/31/23 documented as of this encounter
--- OUTSIDE RECORDS SUMMARY | 2023-11-02 17:07 | XMS_ITS | Encounter Summary ---
Author Organization [employer] Address [address], [place] [address] Care Team Providers Care Coding Quality Analyst Name Role Phone Connie Kuhn MD Primary Care Provider [phone] Reason for Visit * Auth/Cert (Routine) Specialty Diagnoses / Procedures Referred By Charlie t Referred To Contact Diagnoses Mass of left breast, unspecified quadrant Procedures LUMPECTOMY LEFT BREAST WITH SEED LOCALIZATION AND SENTINEL LYMPH NODE BIOPSY Referral ID Status Reason Start Date Expiration Date Visits Re quested Visits Authorized [id number] 1 1 Encounter Details Date Type Department Care Team (Late st Contact Info) Description 10/27/2023 6:38 AM CDT - 10/27/2023 1:07 PM T Hospital Encounter [facility] [address] [facility] [place], [place] [address] Viviana Kirkland MD [address] [facility] [address] [place], [place] [address] Mass of left breast, unspecified quadrant Discharge [...] 8 pm Please call surgery clinic at [phone] Isael Phillips's nurse if [...] LOCALIZATION AND SENTINEL LYMPH NODE BIOPSY Location [facility] Procedure Date 10/27/2023 Donal Lyn is a [...] Note: Added automatically from request for surgery [id number] Acute iritis, left eye 07/19/2012 Adenomatous polyp [...] LAP CHOLECYSTECTOMY 09/23/2016 Viviana Kirkland MD at [facility] SINUS SURGERY 05/24/2018 FESS, fungal ball removal TONSILLECTOMY VAGINAL HYSTERECTOMY LW Problem: Hysterectomy Vaginal s/p LW Modifier: w/ SSF, TVT 2000 LW Onset: Current Outpatient Medications Medication Instructions ALBUterol sulfate HFA 108 (90 Base) MCG/ACT inhaler 2 Puffs, Inhalation, Q4H PRN godsrylosxfk-toeggjnztacz-xzazytmzp (EASY DROPS) 1-0.5-0.075 % SUSP 1 Drop, Left Eye, QID, Starting1 day BEFORE cataract surgery, place 1 drop in the LEFT eye 4 times per day. Then follow the drop instructions given in clinic. pyxprgixqwtp-sypyragsgdou-zsybrpeat (EASY DROPS) 1-0.5-0.075 % SUSP 1 Drop, Right Eye, QID, Starting 1 day BEFORE cataract surgery, place 1 drop into the RIGHT eye 4 times per day. Then follow the drop instructions given in clinic. 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 ICD-10-CM 1. Preop examination Z01.818 Basic Metabolic Panel ECG 12 Lead Outpatient Special risks: Patient's pulmonary status medically optimized. Medication recommendations: Patient Instructions Follow your individualized medication recommendations as described above. In addition, please stop all rkmc-uhu-qnkqiok medications including aspirin, ibuprofen (Advil, Motrin), naproxen [...] PROCEDURES: 1. left breast partial mastectomy using [employer] SmartClip navigation. 2. left deep axillary sentinel [...] removed. N/A ATTENDING SURGEON: Viviana Kirkland MD PRESIDENT CELEBRITY ACQUISTION: Chantell Lewis MD - [facility] [place] [facility] Surgery Resident ANESTHESIA: General EBL: 30 [...] [facility] [address] [place] [address] Viviana Kirkland MD [address] [facility] [address] [place] [address] 11/09/2023 2:30 PM CDT Appointment [facility] Oncology [address] [place] [address] Shayla Bland, MBBS [address] [place] [address] 11/15/2023 11:00 AM CDT Appointment [facility] [address] [place], [place] [address] Thomas Hanks, OD [address] [place] [phone] Pending Results Name Type Priority Associated Diagnoses Date /Time Surgical Path Lab Routine Mass of left breast, unspecified quadrant 10/27/2023 9:59 AM CDT Scheduled Orders Name Type Priority Associated Diagnoses Orde r Schedule Surgical Path Lab Routine Mass of left breast, unspecified quadrant Release Upon Ordering for 1 Occurrences starting 10/27/2023 until 10/31/2023, 1 completed documented as of this encounter Procedures Procedure Name Priority Date/Time Associated Diagnosis Comments BREAST BIOPSY WITH RADIOACTIVE SEED LOCALIZATION AND SENTINEL LYMPH NODE BIOPSY 10/27/2023 8:42 AM CDT Mass of left breast, unspecified quadrant documented in this encounter Visit Diagnoses Diagnosis Mass of left breast, unspecified quadrant documented in this encounter Admitting Diagnoses Diagnosis Mass of left breast Lump or mass in breast documented in this encounter Administered Medications Inactive Administered Medications - up to 3 most recent administrations Medication Order MAR Action Action Date Dose Rate Site BUPivacaine-EPINEPHrine (SENSORCAINE) 0.25% -1:292279 injection ONCE PRN, Starting on Wed10/27/23 at [...] [id number] (Given - Provider: Birdie Mcdonald APRN, NICCI) Continuous Medication Order 10/25/2023 10/26/2023 10/27/2023 lactated [...] (all pain scores)., Post-op BUPivacaine-EPINEPHrine (SENSORCAINE) 0.25% -1:286622 injection ONCE PRN, Starting on Wed10/27/23 at [...] Pre-op documented in this encounter Care Teams Coding Quality Analyst Relationship Specialty Start Date End Date Connie Kuhn MD [address] [place] [address] PCP - General Family Practice 05/23/18 10/31/23 documented as of this encounter
--- OUTSIDE RECORDS SUMMARY | 2023-11-02 17:07 | XMS_ITS | Encounter Summary ---
Author Organization [employer] Address [address] [address] Care Team Providers Care Oil Mixer Name Role Phone Connie Kuhn MD Primary Care Provider [phone] Reason for Visit * Reason Comments Post-Op Check Encounter Details Date Type Department Care Team (Late st Contact Info) Description 10/19/2023 9:20 AM CDT Office Visit [facility] [address] [place] [address] [place] [address] [place], [place] [address] Pseudophakia, right eye (Primary Dx) Social History [...] Alejandra Patel MD Comprehensive [facility] documented in this encounter Plan of Treatment Upcoming Encounters Date Type Department Care Team (Late st Contact Info) Description 11/09/2023 11:50 AM CDT Appointment Specialty Center 3931 General Surgery [address] [facility] [address] [place] [address] Viviana Kirkland MD [address] [facility] [address] [place] [address] 11/09/2023 2:30 PM CDT Appointment [facility] Cancer Care at [facility] Oncology [address] [place] [address] Shayla Bland MBBS [address] [place] [address] 11/15/2023 11:00 AM CDT Appointment [facility] [address] [place] [address] Thomas Hanks, OD [address] [place] [phone] documented as of this encounter Visit Diagnoses Diagnosis Pseudophakia, right eye- Primary Lens replaced by other means documented in this encounter Care Teams Oil Mixer Relationship Specialty Start Date End Date Connie Kuhn MD [address] [place] [address] PCP - General Family Practice 05/23/18 10/31/23 documented as of this encounter
--- OUTSIDE RECORDS SUMMARY | 2023-11-02 17:07 | XMS_ITS | Encounter Summary ---
Author Organization [employer] Address [address], [place] [address] Care Team Providers Care Sample Washer Name Role Phone Connie Kuhn MD Primary Care Provider [phone] Encounter Details Date Type Department Care Team (Late st Contact Info) Description 10/21/2023 11:00 AM CDT Lab Visit [facility] [address] [place] [address] [id number] Preop examination Social History Tobacco Use Types [...] Surgery [address] [facility] [address] [place], [place] [address] Viviana Kirkland MD [address] [facility] [address] [place], [place] [address] 11/09/2023 2:30 PM CDT Appointment [facility] Oncology [address] [place], [place] [address] Shayla Bland MBBS [address] [place] [address] 11/15/2023 11:00 AM CDT Appointment [facility] [address] [place], [place] [address] Thomas Hanks, OD [address] [place] [phone] documented as of this encounter Procedures Procedure Name Priority Date/Time Associated Diagnosis Comments BASIC METABOLIC PANEL Routine 10/21/2023 9:22 AM CDT Preop examination documented in this encounter Results * Basic Metabolic Panel (10/21/2023 9:22 AM CDT) Sodium 140 136 - 145 mmol/L 10/21/2023 5:04 PM [facility] Potassium 4.3 3.5 - 5.1 mmol/L 10/21/2023 5:04 PM [facility] Chloride 105 98 - 109 mmol/L 10/21/2023 5:04 PM [facility] CO2 24 20 - 29 mmol/L 10/21/2023 5:04 PM [facility] Anion Gap 11 6 - 16 mmol/L 10/21/2023 5:04 PM [facility] Calcium 9.8 8.4 - 10.4 mg/dL 10/21/2023 5:04 PM [facility] BUN 26 7 - 26 mg/dL 10/21/2023 5:04 PM [facility] Creatinine 0.99 0.55 - 1.02 mg/dL 10/21/2023 5:04 PM [facility] Glucose 99 70 - 100 mg/dL 10/21/2023 5:04 PM [facility] Comment:The given reference range is for the fasting state. Non-fasting reference range for glucose is 70 - 180 mg/dL. GFR, Estimated >60 >60 mL/min/1.7 3m2 10/21/2023 5:04 PM CDT [facility] Hours Fasting 14.0 8 - 12 Hours 10/21/2023 5:04 PM CDT [facility] (PN) Blood Venipuncture / Unknown 10/21/2023 9:22 AM CDT 10/21/2023 9:22 AM CDT Amelia Johnson PA-C LAB_1 [facility] [address] [place] [address], [facility] (PN) [facility] [place] [address] documented in this encounter Visit Diagnoses Diagnosis Preop examination Preoperative examination, unspecified documented in this encounter Care Teams Sample Washer Relationship Specialty Start Date End Date Connie Kuhn MD [address] [place] [address] [place] [address] PCP - General Family Practice 05/23/18 10/31/23 documented as of this encounter
--- OUTSIDE RECORDS SUMMARY | 2023-11-02 17:07 | XMS_ITS | Encounter Summary ---
Author Organization [employer] Address [address], [place] [address] Care Team Providers Care Assistant Director Of Plant Operations Name Role Phone Connie Kuhn MD Primary Care Provider [phone] Reason for Visit * Auth/Cert (Routine) Specialty Diagnoses / Procedures Referred By Charlie t Referred To Contact Diagnoses Combined forms of age-related cataract of both eyes Procedures CATARACT EXTRACTION WITH INTRAOCULAR LENS IMPLANT Referral ID Status Reason Start Date Expiration Date Visits Re quested Visits Authorized [id number] 1 1 Encounter Details Date Type Department Care Team (Late st Contact Info) Description 10/18/2023 1:40 PM CDT - 10/18/2023 2:20 PM CDT [facility] [address] [place] [phone] [place] [address] [place], [place] [address] CATARACT EXTRACTION WITH INTRAOCULAR LENS IMPLANT Social [...] AM CDT PPA call completed by calling [phone] and spoke to patient. Advised of arrival [...] Amb PreOp Assessment Details Procedure Cataracts Location [facility] Ambulatory Surgery Procedure Date 10/04/2023 Second [...] Note: Added automatically from request for surgery [id number] Acute iritis, left eye 07/19/2012 Adenomatous polyp [...] LAP CHOLECYSTECTOMY 09/23/2016 Viviana Kirkland MD at [facility] SINUS SURGERY 05/24/2018 FESS, fungal ball removal [...] Then follow the instructions given in clinic. anspqxevxluz-vhkhoyrljldj-lfhmawqdy (EASY DROPS) 1-0.5-0.075 % SUSP 1 Drop, Left Eye, QID, Starting1 day BEFORE cataract surgery, place 1 drop in the LEFT eye 4 times per day. Then follow the drop instructions given in clinic. zqdjfttskbfm-ncvumupwbrpy-yyzhurroe (EASY DROPS) 1-0.5-0.075 % SUSP 1 Drop, Right Eye, QID, Starting 1 day BEFORE cataract surgery, place 1 drop into the RIGHT eye 4 times per day. Then follow the drop instructions given in clinic. 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 In addition, please stop all hlch-mwk-lfrchwx medications including aspirin, ibuprofen (Advil, Motrin), naproxen [...] diopter lens SURGEON: Maria Alejandra Patel MD COW PUNCHER: None. ANESTHESIA: Monitored anesthesia care/Topical and intraocular [...] Implant Name Type Inv. Item Serial No. Vending Machine Operator Lot No. LRB No. Used Action LENS INTRAOCULAR DIB00 21.0 - EYHANCE - [id number] DEVICE LENS INTRAOCULAR DIB00 21.0 - EYHANCE [id number] [employer] Right 1 Implanted documented in this encounter Plan of Treatment Upcoming Encounters Date Type Department Care Team (Late st Contact Info) Description 11/09/2023 11:50 AM CDT Appointment Specialty Center 3931 General Surgery [address] [facility] [address] [place] [address] Viviana Kirkland MD [address] [facility] [address] [place] [address] 11/09/2023 2:30 PM CDT Appointment [facility] at [facility] Oncology [address] [place] [address] Shayla Bland MBBS [address] [place] [address] 11/15/2023 11:00 AM CDT Appointment [facility] [address] [place] [address] Thomas Hanks, OD [address] [place] [phone] documented as of this encounter Procedures Procedure [...] (SUBLIMAZE) injection 50 mcg 50 mcg, Intravenous, [id number], Pain, The immediate postop period when faster [...] (DEMEROL) injection 12.5 mg 12.5 mg, Intravenous, [id number], Shivering, Starting on Wed10/18/23 at 1156, Until [...] (SUBLIMAZE) injection 50 mcg 50 mcg, Intravenous, [id number], Pain, The immediate postop period when faster [...] (DEMEROL) injection 12.5 mg 12.5 mg, Intravenous, [id number], Shivering, Starting on Wed10/18/23 at 1156, Until [...] Pre-op documented in this encounter Care Teams Assistant Director Of Plant Operations Relationship Specialty Start Date End Date Connie Kuhn MD [address] [place] [address] PCP - General Family Practice 05/23/18 10/31/23 documented as of this encounter
--- OUTSIDE RECORDS SUMMARY | 2023-11-02 17:07 | XMS_ITS | Encounter Summary ---
Author Organization [employer] Address [address] [address] Care Team Providers Care Stonecutter Name Role Phone Connie Kuhn MD Primary Care Provider [phone] Reason for Visit * Auth/Cert (Routine) Specialty Diagnoses / Procedures Referred By Charlie christianson Referred To Contact Diagnoses Mass of left breast, unspecified quadrant Procedures LUMPECTOMY LEFT BREAST WITH SEED LOCALIZATION AND SENTINEL LYMPH NODE BIOPSY Referral ID Status Reason Start Date Expiration Date Visits Re quested Visits Authorized [id number] 1 1 Encounter Details Date Type Department Care Team (Late st Contact Info) Description 10/27/2023 8:20 AM CDT - 10/27/2023 10:55 AM CDT Surgery [facility] Operating [facility] [address] [facility] [place], [place] [address] Viviana Kirkland MD [address] [facility] [address] [place], [place] [address] LUMPECTOMY LEFT BREAST WITH SEED LOCALIZATION AND [...] 8 pm Please call surgery clinic at [phone] Isael Phillips's nurse if [...] LOCALIZATION AND SENTINEL LYMPH NODE BIOPSY Location [facility] Procedure Date 10/27/2023 Donal Lyn is a [...] Note: Added automatically from request for surgery [id number] Acute iritis, left eye 07/19/2012 Adenomatous polyp [...] [facility] SINUS SURGERY 05/24/2018 FESS, fungal ball removal TONSILLECTOMY VAGINAL HYSTERECTOMY LW Problem: Hysterectomy Vaginal s/p LW Modifier: w/ SSF, TVT 2000 LW Onset: Current Outpatient Medications Medication Instructions ALBUterol sulfate HFA 108 (90 Base) MCG/ACT inhaler 2 Puffs, Inhalation, Q4H PRN vkoegbyxbffx-qzvqadcircju-ioojqodlr (EASY DROPS) 1-0.5-0.075 % SUSP 1 Drop, Left Eye, QID, Starting1 day BEFORE cataract surgery, place 1 drop in the LEFT eye 4 times per day. Then follow the drop instructions given in clinic. oiqfostrrdbl-pryieycjoect-qwmsjbvsc (EASY DROPS) 1-0.5-0.075 % SUSP 1 Drop, Right Eye, QID, Starting 1 day BEFORE cataract surgery, place 1 drop into the RIGHT eye 4 times per day. Then follow the drop instructions given in clinic. 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 ICD-10-CM 1. Preop examination Z01.818 Basic Metabolic Panel ECG 12 Lead Outpatient Special risks: Patient's pulmonary status medically optimized. Medication recommendations: Patient Instructions Follow your individualized medication recommendations as described above. In addition, please stop all nkqb-yht-jjxmxdz medications including aspirin, ibuprofen (Advil, Motrin), naproxen [...] PROCEDURES: 1. left breast partial mastectomy using [employer] SmartClip navigation. 2. left deep axillary sentinel [...] removed. N/A ATTENDING SURGEON: Viviana Kirkland MD SURFACER OPERATOR: Chantell Lewis MD - [facility] Surgery Resident ANESTHESIA: General EBL: 30 ccs [...] Appointment Specialty Center 3931 General Surgery [address] [facility] [address] [place] [address] Viviana Kirkland MD [address] [facility] [address] [place] [address] 11/09/2023 2:30 PM CDT Appointment [facility] Oncology [address] [place] [address] Shayla Bland, JAMES [address] [place] [address] 11/15/2023 11:00 AM CDT Appointment [facility] [address] [place], [place] [address] Thomas Hanks, OD [address] [place] [phone] Pending Results Name Type Priority Associated Diagnoses [...] Date Dose Rate Site BUPivacaine-EPINEPHrine (SENSORCAINE) 0.25% -1:232504 injection ONCE PRN, Starting on Wed10/27/23 at [...] (all pain scores)., Post-op BUPivacaine-EPINEPHrine (SENSORCAINE) 0.25% -1:298598 injection ONCE PRN, Starting on Wed10/27/23 at [...] Pre-op documented in this encounter Care Teams Stonecutter Relationship Specialty Start Date End Date Connie Kuhn MD [address] [place] [address] PCP - General Family Practice 05/23/18 10/31/23 documented as of this encounter
--- OUTSIDE RECORDS SUMMARY | 2023-11-02 17:07 | XMS_ITS | Encounter Summary ---
Author Organization [employer] Address [address] [address] Care Team Providers Care Medical Office Professional Instructor Name Role Phone Connie Kuhn MD Primary Care Provider [phone] Reason for Visit * Auth/Cert (Routine) Specialty Diagnoses / Procedures Referred By Charlie t Referred To Contact Diagnoses Combined forms of age-related cataract of both eyes Procedures CATARACT EXTRACTION WITH INTRAOCULAR LENS IMPLANT Referral ID Status Reason Start Date Expiration Date Visits Re quested Visits Authorized [id number] 1 1 Encounter Details Date Type Department Care Team (Latest Contact Info) Description 10/18/2023 11:50 AM CDT - 10/18/2023 1:27 PM CDT Hospital Encounter [facility] [address] [place] [phone] [place] [address] [place], [place] [address] Combined forms of age-related cataract of both [...] AM CDT PPA call completed by calling [phone] and spoke to patient. Advised of arrival [...] Amb PreOp Assessment Details Procedure Cataracts Location [facility] Ambulatory Surgery Procedure Date 10/04/2023 Second Procedure [...] Note: Added automatically from request for surgery [id number] Acute iritis, left eye 07/19/2012 Adenomatous polyp [...] [facility] SINUS SURGERY 05/24/2018 FESS, fungal ball removal [...] Then follow the instructions given in clinic. ffgxygkabcvo-ilwhttuhchqa-xkidatvit (EASY DROPS) 1-0.5-0.075 % SUSP 1 Drop, Left Eye, QID, Starting1 day BEFORE cataract surgery, place 1 drop in the LEFT eye 4 times per day. Then follow the drop instructions given in clinic. kckrrxlxwcho-pstppfbxaxee-kpvyafhsk (EASY DROPS) 1-0.5-0.075 % SUSP 1 Drop, [...] described above. In addition, please stop all ryiz-gzc-cswdjhn medications including aspirin, ibuprofen (Advil, Motrin), naproxen [...] diopter lens SURGEON: Maria Alejandra Patel MD VISUAL SPECIALIST: None. ANESTHESIA: Monitored anesthesia care/Topical and intraocular [...] Implant Name Type Inv. Item Serial No. Almond Blancher Hand Lot No. LRB No. Used Action LENS INTRAOCULAR DIB00 21.0 - EYHANCE - [id number] DEVICE LENS INTRAOCULAR DIB00 21.0 - EYHANCE [id number] Demario & Demario Vision Right 1 Implanted documented in this encounter Plan of Treatment Upcoming Encounters Date Type Department Care Team (Late st Contact Info) Description 11/09/2023 11:50 AM CDT Appointment Specialty [facility] 3931 General Surgery [address] [facility] [address] [place] [address] Viviana Kirkland MD [address] [facility] [address] [place] [address] 11/09/2023 2:30 PM CDT Appointment [facility] at [facility] Oncology [address] [place] [address] Shayla Bland MBBS [address] [place] [address] 11/15/2023 11:00 AM CDT Appointment [facility] [address] [place] [address] Thomas Hanks, OD [address] [place] [phone] documented as of this encounter Procedures Procedure [...] (SUBLIMAZE) injection 50 mcg 50 mcg, Intravenous, [id number], Pain, The immediate postop period when faster [...] (DEMEROL) injection 12.5 mg 12.5 mg, Intravenous, [id number], Shivering, Starting on Wed10/18/23 at 1156, Until [...] (SUBLIMAZE) injection 50 mcg 50 mcg, Intravenous, [id number], Pain, The immediate postop period when faster [...] (DEMEROL) injection 12.5 mg 12.5 mg, Intravenous, [id number], Shivering, Starting on Wed10/18/23 at 1156, Until [...] Pre-op documented in this encounter Care Teams Medical Office Professional Instructor Relationship Specialty Start Date End Date Connie Kuhn MD [address] [place] [address] PCP - General Family Practice 05/23/18 10/31/23 documented as of this encounter
--- OUTSIDE RECORDS SUMMARY | 2023-11-02 17:07 | XMS_ITS | Encounter Summary ---
Author Organization [employer] Address [address], [place] [address] Care Team Providers Care Application Support Consultant Name Role Phone Connie Kuhn MD Primary Care Provider [phone] Reason for Visit * Procedure/Equipment (Routine) - Incomplete Specialty Diagnoses / Procedures Referred By Charlie t Referred To Contact Diagnoses Mass of left breast, unspecified quadrant Procedures MM Post Mammogram Lt Viviana Kirkland MD [address] [facility] [address] [place] [address] Referral ID Status Reason Start Date Expiration Date V isits Requested Visits Authorized [id number] Incomplete 10/12/2023 01/10/2025 1 1 Encounter Details Date Type Department Care Team (Late st Contact Info) Description 10/20/2023 9:30 AM CDT Ancillary Procedure [facility] Mammography at [facility] and [facility] [place] [address] [address] [facility] [place], [place] [address] Viviana Kirkland MD [address] [facility] [address] [place], [place] [address] Mass of left breast, unspecified quadrant Social [...] Appointment Specialty Center 3931 General Surgery [address] [facility] [address] [place] [address] Viviana Kirkland MD [address] [facility] [address] [place], [place] [address] 11/09/2023 2:30 PM CDT Appointment [facility] Cancer Care at [facility] Oncology [address] [place] [address] Shayla Bland MBBS [address] [place] [address] 11/15/2023 11:00 AM CDT Appointment [facility] [address] [place] [address] Thomas Hanks, OD [address] [place] [phone] documented as of this encounter Procedures Procedure [...] the left breast. ?? Narrative Procedure Note aRni Garcia MD - 10/20/2023 IMPRESSION ULTRASOUND GUIDED [...] the left breast. Viviana Kirkland MD RAD [facility] documented in this encounter Visit Diagnoses Diagnosis Mass of left breast, unspecified quadrant Mass of left breast, unspecified quadrant documented in this encounter Care Teams Application Support Consultant Relationship Specialty Start Date End Date Connie Kuhn MD [address] [place] [address] PCP - General Family Practice 05/23/18 10/31/23 documented as of this encounter
--- OUTSIDE RECORDS SUMMARY | 2023-11-02 17:07 | XMS_ITS | Encounter Summary ---
Author Organization [employer] Address [address], [place] [address] Care Team Providers Care Trimmer Machine Name Role Phone Connie Kuhn MD Primary Care Provider [phone] Reason for Visit * Procedure/Equipment (Routine) - Incomplete Specialty Diagnoses / Procedures Referred By Charlyac t Referred To Contact Diagnoses Mass of left breast, unspecified quadrant Procedures MM US Breast Seed Loc Lt Viviana Kirkland MD [address] [facility] [address] [place] [address] Referral ID Status Reason Start Date Expiration Date V isits Requested Visits Authorized [id number] Incomplete 10/12/2023 01/10/2025 1 1 Encounter Details Date Type Department Care Team (Late st Contact Info) Description 10/20/2023 9:00 AM CDT Ancillary Procedure [facility] Mammography at [facility] and [facility] [place] [address] [address] [facility] [place], [place] [address] Viviana Kirkland MD [address] [facility] [address] [place], [place] [phone] Mass of left breast, unspecified quadrant Social [...] [facility] [address] [place] [address] Viviana Kirkland MD [address] [facility] [address] [place], [place] [address] 11/09/2023 2:30 PM CDT Appointment [facility] Oncology [address] [place] [address] Shayla Bland MBBS [address] [place] [address] 11/15/2023 11:00 AM CDT Appointment [facility] [address] [place] [address] Thomas Hansk, OD [address] [place] [phone] documented as of this encounter Procedures Procedure [...] the left breast. Viviana Kirkland MD RAD [facility] documented in this encounter Visit Diagnoses [...] Other documented in this encounter Care Teams Trimmer Machine Relationship Specialty Start Date End Date Connie Kuhn MD [address] [place] [address] PCP - General Family Practice 05/23/18 10/31/23 documented as of this encounter
--- OUTSIDE RECORDS SUMMARY | 2023-11-02 17:07 | XMS_ITS | Encounter Summary ---
Author Organization [facility] Address [address], [place] [address] Care Team Providers Care Hospice Spiritual Care Coordinator Name Role Phone Trey Forrest PA-C Primary Care Provider [phone] Encounter Details Date Type Department Care Team (Late Contact Info) Description 10/08/2023 E-Visit [facility] [address] [facility] [address] [place] [address] [place], [place] [address] Social History Tobacco Use Types Packs/Day Years [...] Appointment Specialty Center 3931 General Surgery [address] [facility] [address] [place], [place] [address] Viviana Kirkland MD [address] [facility] [address] [place], [place] [address] 11/09/2023 2:30 PM CDT [facility]ointment [facility] [address] [place] [address] Shayla Bland MBBS [address] [place] [address] 11/15/2023 11:00 AM CDT Appointment [facility] [address] [place] [address] Thomas Hanks, OD [address] [place] [phone] documented as of this encounter Visit Diagnoses Not on filedocumented in this encounter Care Teams Hospice Spiritual Care Coordinator Relationship Specialty Start Date End Date Trey Forrest PA-C [address] [place] [address] [place] [address] PCP - General Physician Storm Sash Maker 11/01/23 documented as of this encounter
--- OUTSIDE RECORDS SUMMARY | 2023-11-02 17:07 | XMS_ITS | Encounter Summary ---
Author Organization [employer] Address [address] [address] Care Team Providers Care Linen Room Custodian Name Role Phone Connie Kuhn MD Primary Care Provider [phone] Reason for Visit * Reason Comments Post-Op Check Encounter Details Date Type Department Care Team (Late st Contact Info) Description 10/25/2023 9:20 AM CDT Office Visit [facility] [address] [place] [address] [place] [address] [place], [place] [address] Pseudophakia, right eye (Primary Dx) Social History [...] Cylinder Dist VA Add Near VA Right [place] 20/15 +2.50 J1+ Left -0.50 [place] 20/15 [...] prn. Maria Alejandra Patel MD [facility] documented in this encounter Plan of Treatment Upcoming Encounters Date Type Department Care Team (Late st Contact Info) Description 11/09/2023 11:50 AM CDT Appointment Specialty Center 3931 General Surgery [address] [facility] [address] [place] [address] Viviana Kirkland MD [address] [facility] [address] [place], [place] [address] 11/09/2023 2:30 PM CDT Appointment [facility] Care at [facility] Oncology [address] [place] [address] Shayla Bland MBBS [address] [place] [address] 11/15/2023 11:00 AM CDT Appointment [facility] [address] [place], [place] [address] Thomas Hanks, OD [address] [place] [phone] documented as of this encounter Visit Diagnoses Diagnosis Pseudophakia, right eye- Primary Lens replaced by other means documented in this encounter Care Teams Linen Room Custodian Relationship Specialty Start Date End Date Connie Kuhn MD [address] [place] [id number] PCP - General Family Practice 05/23/18 10/31/23 documented as of this encounter
--- OUTSIDE RECORDS SUMMARY | 2023-11-02 17:07 | XMS_ITS | Encounter Summary ---
Author Organization [employer] Address [address] [address] Care Team Providers Care Sawdust Drier Name Role Phone Connie Kuhn MD Primary Care Provider [phone] Reason for Visit * Auth/Cert (Routine) Specialty Diagnoses / Procedures Referred By Contbabar t Referred To Contact Diagnoses Combined forms of age-related cataract of both eyes Procedures CATARACT EXTRACTION WITH INTRAOCULAR LENS IMPLANT Referral ID Status Reason Start Date Expiration Date Visits Re quested Visits Authorized [id number] 1 1 Encounter Details Date Type Department Care Team (Late st Contact Info) Description 10/18/2023 12:46 PM CDT Anesthesia Event [facility] [address] [place] [address] Owen Bar MD [facility] [place] [address] Riley Petersen APRN, CRNA [address] [place] [address] Anesthesia Record Procedure Summary Procedure Name Responsible Anesthesiologist Anesthesia Start Time Anesthesia Stop Time CATARACT EXTRACTION WITH INTRAOCULAR LENS IMPLANT (Right: Eye) Owen Bar MD 10/18/23 1246 10/18/23 1315 Events Date Time Event Comment 10/18/2023 1242 1246 An Start Anesthesia star t time denotes sedation started by OBEDIENCE TRAINER currently on case; patient continuously monitored to O.R. By OBEDIENCE TRAINER 1249 An Start Data 1250 MD/DO Present [...] 09/23/2016 Viviana Kirkland MD at [facility] SINUS SURGERY 05/24/2018 FESS, fungal ball [...] Appointment Specialty Center 3931 General Surgery 3931 [facility] [address] [place] [address] Viviana Kirkland MD 39[address] [facility] [address] [place], [place] [address] 11/09/2023 2:30 PM CDT [facility]ment [facility] Oncology [address] [place] [address] Shayla Bland MBBS [address] [place] [address] 11/15/2023 11:00 AM CDT Appointment [facility] [address] [place] [address] Thomas Hanks OD [address] [place] [phone] documented as of this encounter Visit Diagnoses [...] mL documented in this encounter Care Teams Sawdust Drier Relationship Specialty Start Date End Date Connie Kuhn MD [address] [place] [address] PCP - General Family Practice 05/23/18 10/31/23 documented as of this encounter
--- OUTSIDE RECORDS SUMMARY | 2023-11-02 17:07 | XMS_ITS | Encounter Summary ---
Author Organization [employer] Address [address], [place] [address] Care Team Providers Care Financial Services Internship Name Role Phone Connie Kuhn MD Primary Care Provider [phone] Reason for Visit * Reason Comments POST-OP,EXAM Encounter Details Date Type Department Care Team (Late st Contact Info) Description 10/11/2023 1:00 PM CDT Office Visit [facility] [address] [place], [place] [address] Thomas Hanks, OD [address] [place] [address] Postop check (Primary Dx); Pseudophakia, [...] Appointment Specialty Center 3931 General Surgery [address] [facility] [address] [place] [address] Viviana Kirkland MD [address] [facility] [address] [place], [place] [address] 11/09/2023 2:30 PM CDT Appointment [facility] Cancer Care at [facility] Oncology [address] [place] [address] Shayla Bland MBBS [address] [place] [address] 11/15/2023 11:00 AM CDT Appointment [facility] [address] [place] [address] Thomas Hanks, OD [address] [place] [phone] documented as of this encounter Visit Diagnoses Diagnosis Postop check- Primary Follow-up examination, following unspecified surgery Pseudophakia, left eye Lens replaced by other means Abrasion of left conjunctiva, initial encounter documented in this encounter Care Teams Financial Services Internship Relationship Specialty Start Date End Date Connie Kuhn MD [address] [place] [address] PCP - General Family Practice 05/23/18 10/31/23 documented as of this encounter
--- OUTSIDE RECORDS SUMMARY | 2023-11-02 17:08 | XMS_ITS | Encounter Summary ---
Author Organization [facility] Address [address], [place] [address] Care Team Providers Care Director Law Enforcement Name Role Phone Connie Kuhn MD Primary Care Provider [phone] Encounter Details Date Type Department Care Team (Latest Contact Info) Description 07/20/2023 Orders Only [facility] Provider, [place] [address] Social History Tobacco Use Types Packs/Day Years [...] [facility] [address] [place] [address] Viviana Kirkland MD [address] [facility] [address] [place] [address] 11/09/2023 2:30 PM CDT Appointment Replaced by [facility] Cancer Care at [facility] Oncology [address] [place] [address] Shayla Bland MBBS [address] [place] [address] 11/15/2023 11:00 AM CDT Appointment [facility] [address] [place], [place] [address] Thomas Hanks, OD [address] [place] [phone] documented as of this encounter Procedures Procedure Name Priority Date/Time Associated Diagnosis Comments EYE PENTACAM 07/20/2023 documented in this encounter Results * EYE PENTACAM (07/20/2023) Interface Provider MD DUMMY/OTHER/AR documented in this encounter Visit Diagnoses Not on filedocumented in this encounter Care Teams Director Law Enforcement Relationship Specialty Start Date End Date Connie Kuhn MD [address] [place] [address] PCP - General Family Practice 05/23/18 10/31/23 documented as of this encounter
--- OUTSIDE RECORDS SUMMARY | 2023-11-02 17:08 | XMS_ITS | Encounter Summary ---
Author Organization [employer] Address [address] [address] Care Team Providers Care Hydrotherapist Name Role Phone Connie Kuhn MD Primary Care Provider [phone] Reason for Visit * Auth/Cert (Routine) Specialty Diagnoses / Procedures Referred By Charlie t Referred To Contact Diagnoses Combined forms of age-related cataract of both eyes Procedures CATARACT EXTRACTION WITH INTRAOCULAR LENS IMPLANT Referral ID Status Reason Start Date Expiration Date Visits Re quested Visits Authorized [id number] 1 1 Encounter Details Date Type Department Care Team (Late st Contact Info) Description 10/04/2023 1:40 PM CDT - 10/04/2023 2:20 PM CDT Surgery [facility] [address] [place] [phone] [place] [address] [place], [place] [address] CATARACT EXTRACTION WITH INTRAOCULAR LENS IMPLANT Social [...] AM CDT PPA call completed by calling [phone] and spoke to patient. Advised of arrival [...] Note: Added automatically from request for surgery [id number] Acute iritis, left eye 07/19/2012 Adenomatous polyp of colon 04/11/2009 Overview Note: Colonoscopy completed 07/2020. Repeat in 5 years (07/2025). Pure hypercholesterolemia 11/17/2007 Overview Note: Not currently on treatment Prolapse of vaginal wall 10/22/2004 Overview Note: LW Onset: [id number] ; Rectocele Past Medical History: Diagnosis Date Breast injury 01/24/2019 left breast- fell. lateral breast bruise. large Cataract Iritis (ACG) S/P bunionectomy 08/13/2014 left foot, 2010 S/P foot surgery 08/23/2014 Left 2nd MTPJ capsule repair and metatarsal osteotomy S/P tonsillectomy 08/13/2014 Past Surgical History: Procedure Laterality Date ADENOIDECTOMY ECTOPIC SURGERY LAP CHOLECYSTECTOMY 09/23/2016 Viviana Kirkland MD at [facility] SINUS SURGERY 05/24/2018 FESS, fungal ball [...] Then follow the instructions given in clinic. blqmnfxdhbca-hajbjhjbktms-risjjuqrm (EASY DROPS) 1-0.5-0.075 % SUSP 1 Drop, Left Eye, QID, Starting1 day BEFORE cataract surgery, place 1 drop in the LEFT eye 4 times per day. Then follow the drop instructions given in clinic. ldanmgyicuqy-kieicpavuwmq-uesktiajd (EASY DROPS) 1-0.5-0.075 % SUSP 1 Drop, Right Eye, QID, Starting 1 day BEFORE cataract surgery, place 1 drop into the RIGHT eye 4 times per day. Then follow the drop instructions given in clinic. 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 In addition, please stop all gbrw-ety-bokkfbx medications including aspirin, ibuprofen (Advil, Motrin), naproxen [...] voiced understanding and wishes to proceed with [facility]. All questions were answered to the patient's satisfaction. The stated procedure is still clinically indicated. PROCEDURE: 1. Phacoemulsification and extraction of lens, Left eye 2. Intraocular lens implantation, Left eye LENS IMPLANT: Demario & Demario DIB00 21.5 diopter lens SURGEON: Maria Alejandra Patel MD VISION MIXER: None. ANESTHESIA: Monitored anesthesia care/Topical and intraocular [...] Implant Name Type Inv. Item Serial No. Microsoft Application Developer Lot No. LRB No. Used Action LENS INTRAOCULAR DIB00 21.5 - EYHANCE - [id number] DEVICE LENS INTRAOCULAR DIB00 21.5 - EYHANCE [id number] Demario & Demario Vision Left 1 Implanted documented in this encounter Plan of Treatment Upcoming Encounters Date Type Department Care Team (Late st Contact Info) Description 11/09/2023 11:50 AM CDT Appointment Specialty Center 3931 General Surgery [address] [facility] [address] [place] [address] Viviana Kirkland MD [address] [facility] [address] [place] [address] 11/09/2023 2:30 PM CDT Appointment [facility] Cancer Care at [facility] Oncology [address] [place] [address] Shayla Bland MBBS [address] [place], [place] [address] 11/15/2023 11:00 AM CDT Appointment [facility] [address] [place] [address] Thomas Hanks, OD [address] [place] [phone] documented as of this encounter Procedures Procedure [...] (SUBLIMAZE) injection 25 mcg 25 mcg, Intravenous, [id number], Pain, The immediate postop period when faster [...] (SUBLIMAZE) injection 25-50 mcg 25-50 mcg, Intravenous, [id number], Pain, Procedure, Starting on Wed10/04/23 at 1230, [...] (VERSED) injection 1-2 mg 1-2 mg, Intravenous, [id number], Sedation, Anxiety, Procedure, Starting on Wed10/04/23 at [...] (SUBLIMAZE) injection 25 mcg 25 mcg, Intravenous, [id number], Pain, The immediate postop period when faster [...] (SUBLIMAZE) injection 25-50 mcg 25-50 mcg, Intravenous, [id number], Pain, Procedure, Starting on Wed10/04/23 at 1230, [...] (VERSED) injection 1-2 mg 1-2 mg, Intravenous, [id number], Sedation, Anxiety, Procedure, Starting on Wed10/04/23 at [...] Pre-op documented in this encounter Care Teams Hydrotherapist Relationship Specialty Start Date End Date Connie Kuhn MD [address] [place] [address] PCP - General Family Practice 05/23/18 10/31/23 documented as of this encounter
--- OUTSIDE RECORDS SUMMARY | 2023-11-02 17:08 | XMS_ITS | Encounter Summary ---
Author Organization [employer] Address [address], [place] [address] Care Team Providers Care Banquet Pilot Name Role Phone Connie Kuhn MD Primary Care Provider [phone] Reason for Visit * Procedure/Equipment (Routine) - Incomplete Specialty Diagnoses / Procedures Referred By Charlie christianson Referred To Contact Diagnoses Abnormal mammogram Procedures [facility] Mammogram Diag Lt W 3D Eric Connie Kuhn MD [address] [place] [id number] Referral ID Status Reason Start Date Expiration Date V isits Requested Visits Authorized [id number] Incomplete 10/01/2023 12/30/2024 1 1 Encounter Details Date Type Department Care Team (Late st Contact Info) Description 10/05/2023 10:00 AM CDT Ancillary Procedure [facility] Mammography at [facility] [place] [address] [address] [facility] [place] [address] Connie Kuhn MD [address] [id number] Abnormal mammogram Social History Tobacco Use Types [...] Appointment Specialty Center 3931 General Surgery 3931 [facility] [address] [place] [address] Viviana Kirkland MD 3931 [facility] [address] [place] [address] 11/09/2023 2:30 PM CDT [facility]ointment [facility] at [facility] Oncology [address] [place] [address] Shayla Bland MBBS 3931 [place] [address] 11/15/2023 11:00 AM CDT Appointment [facility] [address] [place] [address] Thomas Hanks OD 3900 [place] [phone] documented as of this encounter Procedures Procedure Name Priority Date/Time Associated Diagnosis Comments [facility] MAMMOGRAM DIAG LT W 3D ERIC Routine 10/05/2023 10:00 AM CDT Abnormal mammogram documented in this encounter Results * (ABNORMAL) [facility] US Breast Lt (10/05/2023 10:31 AM [...] with the patient and her . [facility] will attempt to schedule the recommended follow [...] discussed with thepatient and her . [facility] will attempt to schedule the recommendedfollow up with the patient. IMPRESSION: ACR BI-RADS CATEGORY 4: Suspicious. Connie Kuhn MD RAD LEIA * (ABNORMAL) [facility] Mammogram Diag Lt W 3D Eric [...] with the patient and her . [facility] will attempt to schedule the recommended follow [...] discussed with thepatient and her . [facility] will attempt to schedule the recommendedfollow up with the patient. IMPRESSION: ACR BI-RADS CATEGORY 4: Suspicious. Connie Kuhn MD RAD LEIA documented in this encounter Visit Diagnoses Diagnosis Abnormal mammogram Abnormal mammogram, unspecified Abnormal mammogram Abnormal mammogram, unspecified documented in this encounter Care Teams Banquet Pilot Relationship Specialty Start Date End Date Connie Kuhn MD [address] [place] [address] PCP - General Family Practice 05/23/18 10/31/23 documented as of this encounter
--- OUTSIDE RECORDS SUMMARY | 2023-11-02 17:08 | XMS_ITS | Encounter Summary ---
Author Organization [employer] Address [address], [place] [address] Care Team Providers Care Health Researcher Name Role Phone Connie Kuhn MD Primary Care Provider [phone] Reason for Visit * Procedure/Equipment (Routine) - Incomplete Specialty Diagnoses / Procedures Referred By Charlie christianson Referred To Contact Diagnoses Abnormal finding on breast imaging Procedures [facility] Post Mammogram Lt Connie Kuhn MD [address] [place] [id number] Referral ID Status Reason Start Date Expiration Date V isits Requested Visits Authorized [id number] Incomplete 10/05/2023 01/03/2025 1 1 Encounter Details Date Type Department Care Team (Late st Contact Info) Description 10/07/2023 1:30 PM CDT Ancillary Procedure [facility] Mammography at [facility] and [facility] [place] [address] [place] [address]. [place] [address] Connie Kuhn MD [address] [id number] Abnormal finding on breast imaging Social History [...] Appointment Specialty Center 3931 General Surgery 3931 [facility] [address] [place] [address] Viviana Kirkland MD 3931 [facility] [address] [place] [address] 11/09/2023 2:30 PM CDT Appointment [facility] Oncology [address] [place] [address] Shayla Bland MBBS 3931 [place] [address] 11/15/2023 11:00 AM CDT Appointment [facility] [address] [place] [address] Thomas Hanks, OD [address] [place] [phone] documented as of this encounter Procedures Procedure [...] CK Mj, AE1AE3, 34BE12, CK5-6, S100, ER, [place], CD31, Sox10 and Gata3. ??The findings are [...] for CK Mj, AE1AE3,34BE12, CK5-6, S100, ER, [place], CD31, Sox10 and Gata3. The findings are [...] CK Mj, AE1AE3, 34BE12, CK5-6, S100, ER, [place], CD31, Sox10 and Gata3. ??The findings are [...] for CK Mj, AE1AE3,34BE12, CK5-6, S100, ER, [place], CD31, Sox10 and Gata3. The findings are [...] breast documented in this encounter Care Teams Health Researcher Relationship Specialty Start Date End Date Connie Kuhn MD [address] [place] [address] PCP - General Family Practice 05/23/18 10/31/23 documented as of this encounter
--- OUTSIDE RECORDS SUMMARY | 2023-11-02 17:08 | XMS_ITS | Encounter Summary ---
Author Organization [employer] Address [address], [place] [address] Care Team Providers Care Film Composer Name Role Phone Connie Kuhn MD Primary Care Provider [phone] Reason for Visit * Auth/Cert (Routine) Specialty Diagnoses / Procedures Referred By Charlie t Referred To Contact Diagnoses Combined forms of age-related cataract of both eyes Procedures CATARACT EXTRACTION WITH INTRAOCULAR LENS IMPLANT Referral ID Status Reason Start Date Expiration Date Visits Re quested Visits Authorized [id number] 1 1 Encounter Details Date Type Department Care Team (Latest Contact Info) Description 10/04/2023 12:14 PM CDT - 10/04/2023 1:46 PM CDT Hospital Encounter [facility] [address] [place] [phone] [place] [address] [place], [place] [address] Combined forms of age-related cataract of both [...] AM CDT PPA call completed by calling [phone] and spoke to patient. Advised of arrival [...] Amb PreOp Assessment Details Procedure Cataracts Location [facility] Procedure Date 10/04/2023 Second [...] Note: Added automatically from request for surgery [id number] Acute iritis, left eye 07/19/2012 Adenomatous polyp of colon 04/11/2009 Overview Note: Colonoscopy completed 07/2020. Repeat in 5 years (07/2025). Pure hypercholesterolemia 11/17/2007 Overview Note: Not currently on treatment Prolapse of vaginal wall 10/22/2004 Overview Note: LW Onset: 34Vyv72 ; Rectocele Past Medical History: Diagnosis Date Breast injury 01/24/2019 left breast- fell. lateral breast bruise. large Cataract Iritis (ACG) S/P bunionectomy 08/13/2014 left foot, 2010 S/P foot surgery 08/23/2014 Left 2nd MTPJ capsule repair and metatarsal osteotomy S/P tonsillectomy 08/13/2014 Past Surgical History: Procedure Laterality Date ADENOIDECTOMY ECTOPIC SURGERY LAP CHOLECYSTECTOMY 09/23/2016 Viviana Kirkland MD at [facility] SINUS SURGERY 05/24/2018 FESS, fungal ball [...] Then follow the instructions given in clinic. tcxecatbbbox-tbwghpjcgcql-uxazqwsxo (EASY DROPS) 1-0.5-0.075 % SUSP 1 Drop, Left Eye, QID, Starting1 day BEFORE cataract surgery, place 1 drop in the LEFT eye 4 times per day. Then follow the drop instructions given in clinic. wfubnoormhsp-ozjrvjvtefgz-lpgtctefg (EASY DROPS) 1-0.5-0.075 % SUSP 1 Drop, Right Eye, QID, Starting 1 day BEFORE cataract surgery, place 1 drop into the RIGHT eye 4 times per day. Then follow the drop instructions given in clinic. 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 In addition, please stop all hlmc-vsq-ysyphfp medications including aspirin, ibuprofen (Advil, Motrin), naproxen [...] voiced understanding and wishes to proceed with [facility]. All questions were answered to the patient's satisfaction. The stated procedure is still clinically indicated. PROCEDURE: 1. Phacoemulsification and extraction of lens, Left eye 2. Intraocular lens implantation, Left eye LENS IMPLANT: [employer] DIB00 21.5 diopter lens SURGEON: Maria Alejandra Patel MD MORTGAGE BROKER: None. ANESTHESIA: Monitored anesthesia care/Topical and intraocular [...] Implant Name Type Inv. Item Serial No. Sales And Distribution Clerk Lot No. LRB No. Used Action LENS INTRAOCULAR DIB00 21.5 - EYHANCE - [id number] DEVICE LENS INTRAOCULAR DIB00 21.5 - EYHANCE [id number] [employer] Vision Left 1 Implanted documented in this encounter Plan of Treatment Upcoming Encounters Date Type Department Care Team (Late st Contact Info) Description 11/09/2023 11:50 AM CDT Appointment Specialty Center 3931 General Surgery 3931 [facility] [address] [place] [address] Viviana Kirkland MD 3931 [facility] [address] [place] [address] 11/09/2023 2:30 PM CDT Appointment [facility] Cancer Care at [facility] Oncology [address] [place] [address] Shayla Bland MBBS 3931 [place], [place] [address] 11/15/2023 11:00 AM CDT Appointment [facility] [address] [place] [address] Thomas Hanks, OD [address] [place] [phone] documented as of this encounter Procedures Procedure [...] (SUBLIMAZE) injection 25 mcg 25 mcg, Intravenous, [id number], Pain, The immediate postop period when faster [...] (SUBLIMAZE) injection 25-50 mcg 25-50 mcg, Intravenous, [id number], Pain, Procedure, Starting on Wed10/04/23 at 1230, [...] (VERSED) injection 1-2 mg 1-2 mg, Intravenous, [id number], Sedation, Anxiety, Procedure, Starting on Wed10/04/23 at [...] (SUBLIMAZE) injection 25 mcg 25 mcg, Intravenous, [id number], Pain, The immediate postop period when faster [...] (SUBLIMAZE) injection 25-50 mcg 25-50 mcg, Intravenous, V5HTXSPG, Pain, Procedure, Starting on Wed10/04/23 at 1230, [...] (VERSED) injection 1-2 mg 1-2 mg, Intravenous, U5HZNJYV, Sedation, Anxiety, Procedure, Starting on Wed10/04/23 at [...] Pre-op documented in this encounter Care Teams Film Composer Relationship Specialty Start Date End Date Connie Kuhn MD [address] [place] [address] PCP - General Family Practice 05/23/18 10/31/23 documented as of this encounter
--- OUTSIDE RECORDS SUMMARY | 2023-11-02 17:08 | XMS_ITS | Encounter Summary ---
Author Organization [employer] Address [address], [place] [address] Care Team Providers Care Can Carrier Name Role Phone Connie Kuhn MD Primary Care Provider [phone] Reason for Visit * Reason Comments Test Results Encounter Details Date Type Department Care Team (Late st Contact Info) Description 10/01/2023 Telephone [facility] [address] [place] [address] [place] [phone] Connie Kuhn MD [address] [place], [place] [address] [phone] Test Results Social History Tobacco Use Types [...] test are you calling about? mammogram Primary Radiologic Technician: Connie Kuhn MD Who ordered the test? annual When and where was the test done? 10/01/23 [facility] Additional comments (related to the above concern): [...] Appointment Specialty Center 3931 General Surgery 3931 [facility] [address] [place] [address] Viviana Kirkland MD [address]31 [facility] [address] [place], [place] [address] 11/09/2023 2:30 PM CDT [facility] Oncology [address] [place] [address] Shayla Bland MBBS 3931 [place] [address] 11/15/2023 11:00 AM CDT Appointment [facility] [address] [place], [place] [address] Thomas Hanks, PJ [address]00 [place] [phone] documented as of this encounter Visit Diagnoses Not on filedocumented in this encounter Care Teams Can Carrier Relationship Specialty Start Date End Date Connie Kuhn MD [address] [place] [address] PCP - General Family Practice 05/23/18 10/31/23 documented as of this encounter
--- OUTSIDE RECORDS SUMMARY | 2023-11-02 17:08 | XMS_ITS | Encounter Summary ---
Author Organization [employer] Address [address] [address] Care Team Providers Care Rehabilitation Construction Specialist Name Role Phone Connie Kuhn MD Primary Care Provider [phone] Encounter Details Date Type Department Care Team (Late st Contact Info) Description 10/01/2023 10:50 AM CDT Lab Visit [facility] [address] [place] [address] [id number] Screening for diabetes mellitus; Screening, lipid Social [...] Appointment Specialty Center 3931 General Surgery 3931 [facility] [address] [place], [place] [address] Viviana Kirkland MD 3931 [facility] [address] [place], [place] [address] 11/09/2023 2:30 PM CDT [facility] [address] [place], [place] [address] Shayla Bland MBBS 3931 [place] [address] 11/15/2023 11:00 AM CDT Appointment [facility] [address] [place], [place] [phone] Thomas Hanks, OD 3900 [place] [phone] documented as of this encounter Procedures Procedure [...] - 199 mg/dL 10/01/2023 4:49 PM [facility] Triglyceride 71 <=149 mg/dL 10/01/2023 4:49 PM [facility] HDL Cholesterol 74 >=40 mg/dL 4:49 PM [facility] LDL, Calculated 194(H) <130 mg/dL 4:49 PM [facility] Non HDL Chol, Calculated 208(H) <=159 mg/dL 10/01/2023 4:49 PM [facility] Cholesterol/HDL Ratio 3.8 <=5.0 10/01/2023 4:49 PM [facility] Hours Fasting 12.0 8 - 12 Hours 10/01/2023 4:49 PM [facility] (PN) Blood Venipuncture / Unknown 10/01/2023 9:53 AM CDT 10/01/2023 9:53 AM CDT Connie Kuhn MD LAB_1 Performing Organization Address [facility]/ZIP Co de Phone Number [facility] [address] [place] [address], [facility] (PN) [address] [place] [phone] * Glucose (10/01/2023 9:53 AM CDT) [facility] Signature Glucose 85 70 - 100 mg/dL 10/01/2023 4:49 PM CDT [facility] Comment:The given reference range is for the fasting state. Non-fasting reference range for glucose is 70 - 180 mg/dL. Hours Fasting 12.0 8 - 12 Hours 10/01/2023 4:49 PM CDT [facility] (PN) Blood Venipuncture / Unknown 10/01/2023 9:53 AM CDT 10/01/2023 9:53 AM CDT Connie Kuhn MD LAB_1 Performing Organization Address [facility] Co de Phone Number [facility] [address] [place] [address], [facility] (PN) [address] [place] [phone] documented in this encounter Visit Diagnoses Diagnosis Screening for diabetes mellitus Screening, lipid Screening for lipoid disorders documented in this encounter Care Teams Rehabilitation Construction Specialist Relationship Specialty Start Date End Date Connie Kuhn MD [address] [place], [place] [address] [address] PCP - General Family Practice 05/23/18 10/31/23 documented as of this encounter
--- OUTSIDE RECORDS SUMMARY | 2023-11-02 17:08 | XMS_ITS | Encounter Summary ---
Author Organization [employer] Address [address], [place] [address] Care Team Providers Care Humanities Department Chair Name Role Phone Connie Kuhn MD Primary Care Provider [phone] Reason for Visit * Reason Comments PRE-OP EXAM Encounter Details Date Type Department Care Team (Late st Contact Info) Description 09/23/2023 9:30 AM CDT Pre-Op Visit [facility] [address] [place] [address] [place] [phone] Amelia Johnson PA-C [address] [place] [address] [place] [phone] Preop examination (Primary Dx) Social History Tobacco [...] described above. In addition, please stop all qrlm-khf-nqfzdin medications including aspirin, ibuprofen (Advil, Motrin), naproxen [...] Amb PreOp Assessment Details Procedure Cataracts Location [facility] Ambulatory Surgery Procedure Date 10/04/2023 [...] Note: Added automatically from request for surgery [id number] Acute iritis, left eye 07/19/2012 Adenomatous polyp [...] LAP CHOLECYSTECTOMY 09/23/2016 Viviana Kirkland MD at [facility] SINUS SURGERY 05/24/2018 FESS, fungal [...] Then follow the instructions given in clinic. jaawtxwcolgd-uogapgsfdwys-icuwxozrf (EASY DROPS) 1-0.5-0.075 % SUSP 1 Drop, Left Eye, QID, Starting1 day BEFORE cataract surgery, place 1 drop in the LEFT eye 4 times per day. Then follow the drop instructions given in clinic. xhesuzkqzlnt-slobummzyhko-unemckeao (EASY DROPS) 1-0.5-0.075 % SUSP 1 Drop, Right Eye, QID, Starting 1 day BEFORE cataract surgery, place 1 drop into the RIGHT eye 4 times per day. Then follow the drop instructions given in clinic. 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 In addition, please stop all mksy-rmk-yhoxnwo medications including aspirin, ibuprofen (Advil, Motrin), naproxen [...] Appointment Specialty Center 3931 General Surgery 3931 [facility] [address] [place] [address] Viviana Kirkland MD 3931 [facility] [address] [place] [address] 11/09/2023 2:30 PM CDT Appointment [facility] Cancer Care at [facility] Oncology [address] [place] [address] Shayla Bland MBBS [address] [place], [place] [address] 11/15/2023 11:00 AM CDT Appointment [facility] [address] [place] [address] Thomas Hanks, OD [address] [place] [phone] documented as of this encounter Visit Diagnoses Diagnosis Preop examination- Primary Preoperative examination, unspecified documented in this encounter Care Teams Humanities Department Chair Relationship Specialty Start Date End Date Connie Kuhn MD [address] [place] [address] PCP - General Family Practice 05/23/18 10/31/23 documented as of this encounter
--- OUTSIDE RECORDS SUMMARY | 2023-11-02 17:08 | XMS_ITS | Encounter Summary ---
Author Organization [employer] Address [address] [place] [address] Care Team Providers Care Television Tube Inspector Name Role Phone LenaNirmal beltranyamile Beltran PA-C Primary Care Provider [phone] Reason for Visit * Reason Comments Patient Calling Back Encounter Details Date Type Department Care Team (Late st Contact Info) Description 08/15/2012 Nurse Triage [facility] [address] [place], [place] [phone] Serina Landin MD [address] [place] [address] Patient Calling Back Social History Tobacco [...] Please advise on appt. for today. 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 Protocol: LLUIHXTPLA-JDWKM-XZ Affirmative: Patient sounds very upset or severely [...] Surgery 3931 [facility] [address] [place] [address] Viviana Kirkland MD [address]31 [facility] [address] [place] [address] 11/09/2023 2:30 PM CDT Appointment [facility] Cancer Care at [facility] Oncology [address] [place] [address] Shayla Bland MBBS [address] [place], [place] [address] 11/15/2023 11:00 AM CDT Appointment [facility] [address] [place] [address] Thomas Hanks, OD [address] [place] [phone] documented as of this encounter Visit Diagnoses Not on filedocumented in this encounter Care Teams Television Tube Inspector Relationship Specialty Start Date End Date Trey Forrest PA-C [address] [place] [phone] PCP - General Physician Service Unit Operator 11/01/23 documented as of this encounter
--- OUTSIDE RECORDS SUMMARY | 2023-11-02 17:08 | XMS_ITS | Encounter Summary ---
Author Organization [email or web address] Address [address] [address] Care Team Providers Care Electrician Elevator Maintenance Name Role Phone Connie Kuhn MD Primary Care Provider [phone] Reason for Visit * Auth/Cert (Routine) Specialty Diagnoses / Procedures Referred By Contac t Referred To Contact Diagnoses Combined forms of age-related cataract of both eyes Procedures CATARACT EXTRACTION WITH INTRAOCULAR LENS IMPLANT Referral ID Status Reason Start Date Expiration Date Visits Re quested Visits Authorized [id number] 1 1 Encounter Details Date Type Department Care Team (Late st Contact Info) Description 10/04/2023 12:58 PM CDT Anesthesia Event [facility] [address] [place] [phone] Nolan Stoner MD [address] [place] [address] Anesthesia Record Procedure Summary Procedure Name Responsible Anesthesiologist Anesthesia Start Time Anesthesia Stop Time CATARACT EXTRACTION WITH INTRAOCULAR LENS IMPLANT (Left: Eye) Nolan Stoner MD 10/04/23 1258 10/04/23 1326 Events Date Time Event Comment 10/04/2023 1253 1258 An Start Anesthesia star t time denotes sedation started by LAB TECHNICIAN currently on case; patient continuously monitored to O.R. By LAB TECHNICIAN 1301 An Start Data 1301 Nasal Canula/O2 [...] Eye; Left; 10/04/23; 1343 10/04/23 1309 by nAh Figueroa RN 10/04/23 1343 by Erika Wilde [...] LAP CHOLECYSTECTOMY 09/23/2016 Viviana Kirkland MD at [facility] SINUS SURGERY 05/24/2018 FESS, fungal ball removal [...] Appointment Specialty Center 3931 General Surgery 3931 [facility] [address] [place] [address] Viviana Kirkland MD 3931 [facility] [address] [place], [place] [address] 11/09/2023 2:30 PM CDT Appointment [facility] Care at [facility] [address] [place] [address] Shayla Bland MBBS [address] [place], [place] [address] 11/15/2023 11:00 AM CDT Appointment [facility] [address] [place], [place] [address] Thomas Hanks, OD [address] [place] [phone] documented as of this encounter Visit Diagnoses [...] mL documented in this encounter Care Teams Electrician Elevator Maintenance Relationship Specialty Start Date End Date Connie Kuhn MD [address] [place] [address] PCP - General Family Practice 05/23/18 10/31/23 documented as of this encounter
--- OUTSIDE RECORDS SUMMARY | 2023-11-02 17:08 | XMS_ITS | Encounter Summary ---
Author Organization [employer] Address [address] [address] Care Team Providers Care Speech Language Specialist Name Role Phone Connie Kuhn MD Primary Care Provider [phone] Reason for Visit * Reason Comments Medicare Annual Wellness Encounter Details Date Type Department Care Team (Late st Contact Info) Description 10/01/2023 9:00 AM CDT Office Visit [facility] [address] [facility] [place] [address] Connie Kuhn MD [address] [place] [address] [place] [address] Encounter for Medicare annual wellness exam [...] most cost-effective medications near you, go to https://www.Roomorama/hp/pharmacy/drug-cost/index.html You can also find more information in this handout. Health care can be complicated. Sometimes, it can help to share your health information with your family or caregivers. (Caregivers can be friends as well as family.) How much you share is up to you.Here is a helpful link: https://www.Anafore.Infoflow/blog/fzikyu-pkiv-mavet-benefits/ We care about nutrition, how much physical [...] effects. Heart Health: As recommended by the [place] [employer], we use information about your [...] General Surgery [address] [facility] [address] [place] [address] Viviana Kirkland MD [address] [facility] [address] [place], [place] [address] 11/09/2023 2:30 PM CDT [facility]ointment [facility] at [facility] Oncology [address] [place] [address] Shayla Bland MBBS [address] [place], [place] [address] 11/15/2023 11:00 AM CDT Appointment [facility] [address] [place], [place] [address] Thomas Hanks, PJ [address] [place] [phone] documented as of this encounter Results * (ABNORMAL) Lipid Panel & Direct LDL (if Needed) (10/01/2023 9:53 AM CDT) Cholesterol 282(H) 0 - 199 mg/dL 10/01/2023 4:49 PM [facility] Triglyceride 71 <=149 mg/dL 10/01/2023 4:49 PM [facility] HDL Cholesterol 74 >=40 mg/dL 4:49 PM [facility] LDL, Calculated 194(H) <130 mg/dL 4:49 PM [facility] Non HDL Chol, Calculated 208(H) <=159 mg/dL 10/01/2023 4:49 PM [facility] Cholesterol/HDL Ratio 3.8 <=5.0 10/01/2023 4:49 PM [facility] Hours Fasting 12.0 8 - 12 Hours 10/01/2023 4:49 PM [facility] (PN) Blood Venipuncture / Unknown 10/01/2023 9:53 AM CDT 10/01/2023 9:53 AM CDT Connie Kuhn MD LAB_1 Performing Organization Address [facility]/ZIP Co de Phone Number [facility] [address] [place] [address], [facility] (PN) [address] [place] [address] * Glucose (10/01/2023 9:53 AM CDT) Glucose 85 70 - 100 mg/dL 10/01/2023 4:49 PM CDT [facility] Comment:The given reference range is for the fasting state. Non-fasting reference range for glucose is 70 - 180 mg/dL. Hours Fasting 12.0 8 - 12 Hours 10/01/2023 4:49 PM [facility] (PN) Blood Venipuncture / Unknown 10/01/2023 9:53 AM CDT 10/01/2023 9:53 AM CDT Connie Kuhn MD LAB_1 Performing Organization Address [facility]/ZIP Co de Phone Number [facility] [address] [place] [address], [facility] (PN) [address] [facility] [place] [address], [facility] documented in this encounter Visit Diagnoses Diagnosis Encounter for Medicare annual wellness exam- Primary Screening, lipid Screening for lipoid disorders Screening for diabetes mellitus Mixed emotional features as adjustment reaction (HRC) Adjustment disorder with mixed anxiety and depressed mood Pure hypercholesterolemia Mild intermittent asthma without complication (HRC) Unspecified asthma documented in this encounter Care Teams Speech Language Specialist Relationship Specialty Start Date End Date Connie Kuhn MD [facility] [place] [id number] PCP - General Family Practice 05/23/18 10/31/23 documented as of this encounter
--- OUTSIDE RECORDS SUMMARY | 2023-11-02 17:08 | XMS_ITS | Encounter Summary ---
Author Organization [employer] Address [address] [address] Care Team Providers Care Care Associate Name Role Phone Connie Kuhn MD Primary Care Provider [phone] Encounter Details Date Type Department Care Team (Latest Contact Info) Description 07/26/2023 Orders Only HIM DEPARTMENT Provider, [place] [address] Social History Tobacco Use Types Packs/Day Years [...] Surgery [address] [facility] [address] [place] [address] Viviana Kirkland MD [address] [facility] [address] [place] [address] 11/09/2023 2:30 PM CDT Appointment [facility] Cancer Care at [facility] Oncology [address] [place] [address] Shayla Bland MBBS [address] [place] [address] 11/15/2023 11:00 AM CDT Appointment [facility] [address] [place] [address] Thomas Hanks, OD [address] [place] [phone] documented as of this encounter Procedures Procedure Name Priority Date/Time Associated Diagnosis Comments EYE PENTACAM 07/26/2023 documented in this encounter Results * EYE PENTACAM (07/26/2023) Interface Provider DUMMY/OTHER/AR documented in this encounter Visit Diagnoses Not on filedocumented in this encounter Care Teams Care Associate Relationship Specialty Start Date End Date Connie Kuhn MD [address] [id number] PCP - General Family Practice 05/23/18 10/31/23 documented as of this encounter
--- OUTSIDE RECORDS SUMMARY | 2023-11-02 17:08 | XMS_ITS | Encounter Summary ---
Author Organization [employer] Address [address] [address] Care Team Providers Care Vice President Of Business Development Name Role Phone Connie Kuhn MD Primary Care Provider [phone] Reason for Visit * Reason Comments Post-Op Check Encounter Details Date Type Department Care Team (Late st Contact Info) Description 10/05/2023 8:00 AM CDT Office Visit [facility] [address] [place] [address] [place] [address] [place], [place] [address] Pseudophakia, left eye (Primary Dx) Social History [...] prn. Maria Alejandra Patel MD [facility] documented in this encounter Plan of Treatment Upcoming Encounters Date Type Department Care Team (Late st Contact Info) Description 11/09/2023 11:50 AM CDT Appointment Specialty [facility] 3931 General Surgery [address] [facility] [address] [place] [address] Viviana Kirkland MD [address] [facility] [address] [place] [address] 11/09/2023 2:30 PM CDT Appointment [facility] Care at [facility] Oncology [address] [place] [address] Shayla Bland MBBS [address] [place] [address] 11/15/2023 11:00 AM CDT Appointment [facility] [address] [place] [address] Thomas Hanks, OD [address] [place] [phone] documented as of this encounter Visit Diagnoses Diagnosis Pseudophakia, left eye- Primary Lens replaced by other means documented in this encounter Care Teams Vice President Of Business Development Relationship Specialty Start Date End Date Connie Kuhn MD [address] [place] [address] PCP - General Family Practice 05/23/18 10/31/23 documented as of this encounter
--- OUTSIDE RECORDS SUMMARY | 2023-11-02 17:08 | XMS_ITS | Encounter Summary ---
Author Organization [employer] Address [address], [place] [address] Care Team Providers Care Cat Tender Name Role Phone Connie Kuhn MD Primary Care Provider [phone] Reason for Visit * Procedure/Equipment (Routine) - Incomplete Specialty Diagnoses / Procedures Referred By Charlie christianson Referred To Contact Diagnoses Visit for screening mammogram Procedures MM Mammogram Screening Bilat W 3D Eric W CAD Connie Kuhn MD [address] [place], [place] [address] Referral ID Status Reason Start Date Expiration Date V isits Requested Visits Authorized [id number] Incomplete 09/13/2023 12/12/2024 1 1 Encounter Details Date Type Department Care Team (Late st Contact Info) Description 10/01/2023 10:40 AM CDT [facility]illary [facility] [address] [address] Connie Kuhn MD [address] [place] [id number] Visit for screening [...] Surgery [address] [facility] [address] [place] [address] Viviana Kirkland MD [address] [facility] [address] [place] [address] 11/09/2023 2:30 PM CDT Appointment [facility] Cancer Care at [facility] Oncology [address] [place] [address] Shayla Bland MBBS 3931 [place] [address] 11/15/2023 11:00 AM CDT Appointment [facility] [address] [place] [address] Thomas Hanks, PJ [address] [place] [phone] documented as of this encounter Procedures Procedure [...] medical imaging exams are released immediately to [facility]. ??You may be viewing this report [...] mammogram documented in this encounter Care Teams Cat Tender Relationship Specialty Start Date End Date Connie Kuhn MD [address] [place] [address] PCP - General Family Practice 05/23/18 10/31/23 documented as of this encounter
--- OUTSIDE RECORDS SUMMARY | 2023-11-02 17:08 | XMS_ITS | Encounter Summary ---
Author Organization [employer] Address [address], [place] [address] Care Team Providers Care Contact Agent Name Role Phone Connie Kuhn MD Primary Care Provider [phone] Reason for Visit * Procedure/Equipment (Routine) - Incomplete Specialty Diagnoses / Procedures Referred By Charlie christianson Referred To Contact Diagnoses Abnormal mammogram Procedures [facility] Breast Connie Kuhn MD [address] [place] [id number] Referral ID Status Reason Start Date Expiration Date V isits Requested Visits Authorized [id number] Incomplete 10/01/2023 12/30/2024 1 1 Encounter Details Date Type Department Care Team (Late st Contact Info) Description 10/05/2023 10:30 AM CDT Ancillary Procedure [facility] at [facility] [place] [address] [place] [address]. [place] [address] Connie Kuhn MD [address] [place] [id number] Abnormal mammogram Social History Tobacco Use Types [...] Surgery [address] [facility] [address] [place] [address] Viviana Kirkland MD [address] [facility] [address] [place] [address] 11/09/2023 2:30 PM CDT Appointment [facility] Oncology [address] [place] [address] Shayla Bland MBBS [address]31 [place] [address] 11/15/2023 11:00 AM CDT Appointment [facility] [address] [place] [address] Thomas Hanks, OD [address] [place] [phone] documented as of this encounter Procedures Procedure Name Priority Date/Time Associated Diagnosis Comments [facility] US BREAST LT Routine 10/05/2023 10:3 1 AM CDT Abnormal mammogram documented in this encounter Results * (ABNORMAL) [facility] US Breast Lt (10/05/2023 10:31 AM [...] with the patient and her . [facility] will attempt to schedule the [...] discussed with thepatient and her . [facility] will attempt to schedule the recommendedfollow up with the patient. IMPRESSION: ACR BI-RADS CATEGORY 4: Suspicious. Connie Kuhn MD RAD LEIA * (ABNORMAL) [facility] Mammogram Diag Lt W 3D Eric [...] with the patient and her . [facility] will attempt to schedule the [...] thepatient and her . [facility] Breast [facility] will attempt to schedule the recommendedfollow up with the patient. IMPRESSION: ACR BI-RADS CATEGORY 4: Suspicious. Connie Kuhn MD RAD LEIA documented in this encounter Visit Diagnoses Diagnosis Abnormal mammogram Abnormal mammogram, unspecified Abnormal mammogram Abnormal mammogram, unspecified documented in this encounter Care Teams Contact Agent Relationship Specialty Start Date End Date Connie Kuhn MD [address] [place] [address] PCP - General Family Practice 05/23/18 10/31/23 documented as of this encounter
--- OUTSIDE RECORDS SUMMARY | 2023-11-02 17:08 | XMS_ITS | Encounter Summary ---
Author Organization [employer] Address [address] [address] Care Team Providers Care Office Machines Teacher Name Role Phone Connie Kuhn MD Primary Care Provider [phone] Encounter Details Date Type Department Care Team (Latest Contact Info) Description 07/20/2023 Orders Only HIM DEPARTMENT Provider, MD [place] [address] Social History Tobacco Use Types Packs/Day Years [...] Appointment Specialty [facility] 3931 General Surgery [address] [facility] [address] [place] [address] Viviana Kirkland MD [address] [facility] [address] [place] [address] 11/09/2023 2:30 PM CDT Appointment [facility] Cancer Care at [facility] Oncology [address] [place] [address] Shayla Bland MBBS [address] [place] [address] 11/15/2023 11:00 AM CDT Appointment [facility] [address] [place] [address] Thomas Hanks, OD [address] [place] [phone] documented as of this encounter Procedures Procedure Name Priority Date/Time Associated Diagnosis Comments EYE PENTACAM 07/20/2023 documented in this encounter Results * EYE PENTACAM (07/20/2023) Interface Provider DUMMY/OTHER/AR documented in this encounter Visit Diagnoses Not on filedocumented in this encounter Care Teams Office Machines Teacher Relationship Specialty Start Date End Date Connie Kuhn MD [address] [id number] PCP - General Family Practice 05/23/18 10/31/23 documented as of this encounter
--- OUTSIDE RECORDS SUMMARY | 2023-11-02 17:08 | XMS_ITS | Encounter Summary ---
Author Organization [employer] Address [address] [place] [address] Care Team Providers Care Customs Inspector Name Role Phone Connie Kuhn MD Primary Care Provider [phone] Reason for Visit * Reason Comments Procedure Encounter Details Date Type Department Care Team (Late st Contact Info) Description 07/26/2023 3:15 PM CDT Office Visit [facility] [address] [place] [address] Combined forms of age-related cataract of both [...] Appointment Specialty Center 3931 General Surgery [address] [facility] [address] [place] [address] Viviana Kirkland MD [address] [facility] [address] [place] [address] 11/09/2023 2:30 PM CDT Appointment [facility] Cancer Care at [facility] Oncology [address] [place] [address] Shayla Bland MBBS [address] [place], [place] [address] 11/15/2023 11:00 AM CDT Appointment [facility] [address] [place] [address] Thomas Hanks, OD [address] [place] [phone] documented as of this encounter Visit Diagnoses Diagnosis Combined forms of age-related cataract of both eyes- Primary Other and combined forms of senile cataract documented in this encounter Care Teams Customs Inspector Relationship Specialty Start Date End Date Connie Kuhn MD [address] [place] [address] PCP - General Family Practice 05/23/18 10/31/23 documented as of this encounter
--- OUTSIDE RECORDS SUMMARY | 2023-11-02 17:08 | XMS_ITS | Encounter Summary ---
Author Organization [employer] Address [address], [place] [address] Care Team Providers Care Trimmer Tailer Name Role Phone Connie Kuhn MD Primary Care Provider [phone] Reason for Visit * Reason Comments CATARACTS Pt sched surgery on 10-03 & 10-18-23. Pt would like combo easy drop from [facility]. Encounter Details Date Type Department Care Team (Late Contact Info) Description 08/03/[address] [facility] 3900 Ophthalmology [address] [facility] [address] [place] [address] [place] [id number] CATARACTS (Pt sched surgery on 10-03 & 10-18-23. Pt would like combo easy drop from [facility]. ) Social History Tobacco Use Types [...] Surgery [address] [facility] [address] [place] [address] Viviana Kirkland MD [address] [facility] [address] [place] [address] 11/09/2023 2:30 PM CDT Appointment [facility] Cancer Care at [facility] Oncology [address] [place] [address] Shayla Bland MBBS [address] [place], [place] [address] 11/15/2023 11:00 AM CDT Appointment [facility] [address] [place] [address] Thomas Hanks, OD [address] [place] [phone] documented as of this encounter Visit Diagnoses Not on filedocumented in this encounter Care Teams Trimmer Tailer Relationship Specialty Start Date End Date Connie Kuhn MD [address] [place] [address] PCP - General Family Practice 05/23/18 10/31/23 documented as of this encounter
--- OUTSIDE RECORDS SUMMARY | 2023-11-02 17:08 | XMS_ITS | Encounter Summary ---
Author Organization [email or web address] Address [address], [place] [address] Care Team Providers Care Potato Chip Sacking Machine Operator Name Role Phone Connie Kuhn MD Primary Care Provider [phone] Reason for Referral * Therapies (Routine) - New Request Specialty Diagnoses / Procedures Referred By Contac t Referred To Contact Diagnoses Malignant neoplasm of overlapping sites of left breast in female, estrogen receptor negative (HRC) Viviana Kirkland MD [address] [facility] [address] [place] [address] Referral ID Status Reason Start Date Expiration Date V isits Requested Visits Authorized [id number] New Request 10/13/2023 12/12/2023 1 1 Scheduling [...] with Dr. Kirkland on 10/27/23. Would like [facility]. * Consult/Transfer Care (Routine) - New Request Specialty Diagnoses / Procedures Referred By Charlie t Referred To Contact Diagnoses Malignant neoplasm of overlapping sites of left breast in female, estrogen receptor negative (HRC) Viviana Kirkland MD [address] [facility] [address] [place] [address] Referral ID Status Reason Start Date Expiration Date V isits Requested Visits Authorized [id number] New Request 10/13/2023 01/11/2025 1 1 Scheduling Instructions Your clinician has recommended an appointment with [facility]. You can quickly make your appointment online at [email or web address]. You can also call [phone] for help scheduling your appointment. We suggest [...] (Late st Contact Info) Description 10/08/2023 Telephone [facility] [address] [facility] [address] [facility] [place], [place] [id number] Celso Dejesus RN RESULTS, TEST (Breast biopsy [...] diagnosis of breast cancer. Introduced self as [facility] Breast Cancer Nurse Specialist and role as [...] Dr. Kirkland as she was a former [employer] and Dr. Kirkland also did her cholecystectomy. [] Genetic counseling. Does not meet criteria. [x] Radiation oncology consult. Will help arrange if lumpectomy is pursued. [x] Medical oncology consult. Will help arrange once surgery date is known. [x] Plastic surgery consult. Will offer to arrange if mastectomy is pursued. [x] Support services. Began discussion Demographics: Age: 73 [facility] Insurance: Medicare and BCBS Medicare supplement. Presentation: [...] no sisters. She has no known Ashkenazi Congregation ancestry. Other Relevant Medical History: Asthma, hypercholesterolemia, [...] daughter named Rani. 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 They just moved into her dream home in [place]. They are getting a new puppy this [...] targeted therapy. [x] Educational materials provided. [] GeoMehart message sent with written information. Breast cancer guide. [] GeoMehart message sent with surgical drain video. Patient aware this note will be routed to ordering provider to provide update regarding notification of breast cancer. Eboni had done some research on metaplastic breast cancer, <1% of all breast cancers, before I called her this afternoon. She is on vacation from 10/24 to 10/29 and then they will be driving their RV to the [facility] on 11/01. Will continue to follow case and be a resource for patient moving forward. Patient was encouraged to call with any questions or concerns. Direct phone number provided. Patient verbalized understanding of conversation. CARISA HusseinN, RN, OCN, CBCN Breast Cancer Nurse Navigator [phone] documented in this encounter Plan of Treatment Upcoming Encounters Date Type Department Care Team (Late st Contact Info) Description 11/09/2023 11:50 AM CDT Appointment Specialty Center 3931 General Surgery [address] [facility] [address] [place] [address] Viviana Kirkland MD 39[address] [facility] [address] [place] [address] 11/09/2023 2:30 PM CDT Appointment [facility] Oncology [address] [place] [address] Shayla Bland MBBS [address] [place] [address] 11/15/2023 11:00 AM CDT Appointment [facility] [address] [place] [address] Thomas Hanks, OD [address]00 [place] [phone] Scheduled Referrals Name Type Priority Associated Diagnoses [...] Primary documented in this encounter Care Teams Potato Chip Sacking Machine Operator Relationship Specialty Start Date End Date Connie Kuhn MD [address] [place] [address] PCP - General Family Practice 05/23/18 10/31/23 documented as of this encounter
--- OUTSIDE RECORDS SUMMARY | 2023-11-02 17:08 | XMS_ITS | Encounter Summary ---
Author Organization [employer] Address [address], [place] [address] Care Team Providers Care Childcare Aide Name Role Phone Trey Forrest PA-C Primary Care Provider [phone] Reason for Visit * Reason Comments BACK PAIN, LOW Encounter Details Date Type Department Care Team (Late st Contact Info) Description 10/06/2018 Nurse Triage [facility] [address] [place], [place] [id number] [place] [address] [place] [address] [place] [address] BACK PAIN, LOW Social History Tobacco Use [...] at times. 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[employer] and she said the hard rashid does [...] AND [2] one leg Protocols used: BACK [id number]-OH-MODIFIED FOR PNHS - PN TRIAGE ONLY * [...] General Surgery [address] [facility] [address] [place], [place] [address] Viviana Kirkland MD [address] [facility] [address] [place], [place] [address] 11/09/2023 2:30 PM CDT Appointment [facility] Cancer Care at [facility] Oncology [address] [place] [address] Shayla Bland MBBS [address] [place], [place] [address] 11/15/2023 11:00 AM CDT Appointment [facility] [address] [place] [address] Thomas Hanks, PJ [address] [place] [phone] documented as of this encounter Visit Diagnoses Not on filedocumented in this encounter Care Teams Childcare Aide Relationship Specialty Start Date End Date Trey Forrest PA-C [address] [place] [address] [place] [address] PCP - General Physician Development And Housing Director 11/01/23 documented as of this encounter
--- OUTSIDE RECORDS SUMMARY | 2023-11-02 17:08 | XMS_ITS | Encounter Summary ---
Author Organization [employer] Address [address] [address] Care Team Providers Care Reactor Kettle Operator Name Role Phone Connie Kuhn MD Primary Care Provider [phone] Reason for Visit * Procedure/Equipment (Routine) - Incomplete Specialty Diagnoses / Procedures Referred By Charlie christianson Referred To Contact Diagnoses Abnormal finding on breast imaging Procedures MM US Bx Breast Lt Connie Kuhn MD [address] [place] [address] Referral ID Status Reason Start Date Expiration Date V isits Requested Visits Authorized [id number] Incomplete 10/05/2023 01/03/2025 1 1 Encounter Details Date Type Department Care Team (Late st Contact Info) Description 10/07/2023 1:00 PM CDT Ancillary Procedure [facility] at [facility] [place] [address] [address] [facility] [place] [address] Connie Kuhn MD [address] [id number] Abnormal finding on breast imaging (Primary Dx) [...] [facility] [address] [place] [address] Viviana Kirkland MD [address] [facility] [address] [place], [place] [id number] 11/09/2023 2:30 PM CDT Appointment [facility] [address] [place] [address] Shayla Bland MBBS [address] [place] [address] 11/15/2023 11:00 AM CDT Appointment [facility] [address] [place], [place] [id number] Thomas Hanks OD [address] [place] [phone] documented as of this encounter Procedures Procedure [...] CK Mj, AE1AE3, 34BE12, CK5-6, S100, ER, KS, CD31, Sox10 and Gata3. ??The findings are [...] for CK Mj, AE1AE3,34BE12, CK5-6, S100, ER, KS, CD31, Sox10 and Gata3. The findings are [...] CK Mj, AE1AE3, 34BE12, CK5-6, S100, ER, KS, CD31, Sox10 and Gata3. ??The findings are [...] for CK Mj, AE1AE3,34BE12, CK5-6, S100, ER, KS, CD31, Sox10 and Gata3. The findings are notentirely specific, but a breast metaplastic carcinoma is favored over aprimary sarcoma or malignant phyllodes tumor. Recommend excision fordefinitive diagnosis. ? RAD/PATH CONCORDANCE: Concordant RECOMMENDATION: Surgical consultation Connie Kuhn MD RAD LEIA * Surgical Path, Breast (10/07/2023 11:51 AM CDT) Case Report Surgical Pathology ?Case: [id number] ? Authorizing Provider: ??Connie Kuhn MD ? Collected: ? 10/07/2023 1151 ? Ordering Location: ? [facility] ? Received: ?10/07/2023 1439 ? [facility] [place] ? [address] ? Pathologist: ? Kyle Upton MD ? Specimen: ?Breast, left, 9: o'clock ultrasound ? 10/15/2023 1:37 PM CDT [facility] FINAL DIAGNOSIS A. Breast, left, 9: o'clock ultrasound, needle core biopsy: Malignant spindle cell neoplasm with necrosis, see comment Comment: Immunohistochemical stains performed show the neoplasm stains positive for p63, patchy positive for SMA, negative for CK Mj, AE1AE3, 34BE12, CK5-6, S100, ER, KS, CD31, Sox10 and Gata3. The findings are not entirely specific, but a breast metaplastic carcinoma is favored over a primary sarcoma or malignant phyllodes tumor. Recommend excision for definitive diagnosis. [facility] has reviewed this case and concurs with the diagnosis. 10/15/2023 1:37 PM CDT [facility] Addendum electronically signed by Kyle Upton [...] ?? Comment(s): ?HER2 Technical component performed at [place], [place] 10/15/2023 1:37 PM CDT [facility] Clinical Information non palpable 10/15/2023 1:37 PM CDT [facility] Microscopic Description Microscopic examination is performed. 10/15/2023 1:37 PM CDT [facility] Special Stains The stain controls have been reviewed and stain appropriately. 10/15/2023 1:37 PM CDT [facility] Gross Description A: The specimen is [...] 1 cassette. DJ 10/15/2023 1:37 PM CDT [facility] Embedded Images 10/15/2023 1:37 PM CDT [facility] Tissue BREAST STRUCTURE / Unknown 10/07/2023 11:51 AM CDT 10/07/2023 2:39 PM CDT Connie Kuhn MD LAB PATHOLOGY [facility] [address] [place], [place] [address] documented in this encounter Visit [...] Other documented in this encounter Care Teams Reactor Kettle Operator Relationship Specialty Start Date End Date Connie Kuhn MD [facility] [place] [address] PCP - General Family Practice 05/23/18 10/31/23 documented as of this encounter
--- OUTSIDE RECORDS SUMMARY | 2023-11-02 17:08 | XMS_ITS | Encounter Summary ---
Author Organization [facility] Address [address], [place] [address] Care Team Providers Care Plant Safety Engineer Name Role Phone Connie Kuhn MD Primary Care Provider [phone] Encounter Details Date Type Department Care Team (Latest Contact Info) Description 07/26/2023 Orders Only [facility] DEPARTMENT Provider, [place] [address] Social History Tobacco Use Types Packs/Day Years [...] General Surgery [address] [facility] [address] [place] [address] Viviana Kirkland MD [address] [facility] [address] [place] [address] 11/09/2023 2:30 PM CDT Appointment [facility] [address] [place] [address] Shayla Bland MBBS [address] [place] [address] 11/15/2023 11:00 AM CDT Appointment [facility] [address] [place], [place] [address] Thomas Hanks, OD [address] [place] [phone] documented as of this encounter Procedures Procedure Name Priority Date/Time Associated Diagnosis Comments EYE PENTACAM 07/26/2023 documented in this encounter Results * EYE PENTACAM (07/26/2023) Interface Provider MD DUMMY/OTHER/AR documented in this encounter Visit Diagnoses Not on filedocumented in this encounter Care Teams Plant Safety Engineer Relationship Specialty Start Date End Date Connie Kuhn MD [address] [place] [address] PCP - General Family Practice 05/23/18 10/31/23 documented as of this encounter
== END 2023-10-31 00:43 | disposition home or self-care (01) ==
LOC: AMB 11-02 17:04
PROVIDERS: Visit Provider Internal Medicine
DX: R55 Syncope and collapse (principal)
CPT/HCPCS: A0425; A0427

== ENCOUNTER 2023-10-31 01:16 | Emergency (ER) | payer MEDICARE, BC, SELFPAY ==
[2023-10-31] VITALS (9 sets, daily range): BP systolic 155–173; BP diastolic 80–104; PULSE 64–79; RESP 18; TEMP 35.6; O2SAT 94–97; BMI 30.7
--- NOTE | 2023-10-31 01:19 | CRLHL7_ITS ---
For Patients: As a result of the Cures Act, medical imaging exams and procedure reports are released immediately into your electronic medical record. You may view this report before your referring provider. If you have questions, please contact your health care provider. INDICATION: Syncope TECHNIQUE: Chest radiograph 1 view COMPARISON: None FINDINGS: The sensitivity and specificity of the exam are moderately limited by the patient`s body habitus. Mediastinum: There is a mildly convex right mediastinal border which may be due to a tortuous or enlarged ascending aorta. The heart silhouette is normal in size and morphology. Lung: Linear scarring atelectasis is seen in the left lung base. No sign of pleural effusion seen. No pneumothorax is identified. Bone and Soft tissue: Unremarkable for age. IMPRESSION: 1. Linear scarring atelectasis is seen in the left lung base. Dictated by Selwyn Briseno MD @ 10/31/2023 1:42:57 AM Dictated by: Selwyn Briseno MD @ 10/31/2023 01:43:00 (Electronically Signed)
--- NOTE | 2023-10-31 01:19 | CRLHL7_ITS ---
For Patients: As a result of the Century Cures Act, medical imaging exams and procedure reports are released immediately into your electronic medical record. You may view this report before your referring provider. If you have questions, please contact your health care provider. INDICATION: Syncope, loss of consciousness TECHNIQUE: CT Head without i.v. contrast. Coronal and sagittal reformats were obtained. COMPARISON: None FINDINGS: CSF space: Unremarkable for age. Brain: No evidence of mass, acute infarction or hemorrhage is seen. No mass-effect or midline shift is seen. Mild diffuse cortical atrophy is noted. The brain parenchyma is otherwise normal in appearance with preservation of the huffman-white matter junction. Calvarium: The visualized paranasal sinuses are well aerated. The mastoid air cells are clear. The patient is status post prior bilateral cataract removal. The visualized orbits are grossly unremarkable. The calvarium is unremarkable in appearance with no fractures identified. IMPRESSION: 1. No evidence of acute infarction, intracranial hemorrhage, or mass-effect seen. Please note that all CT scans at this facility use dose modulation, iterative reconstruction, and/or weight-based dosing when appropriate to reduce radiation dose to as low as reasonably achievable. Dictated by: Selwyn Briseno MD @ 10/31/2023 01:59:36 (Electronically Signed)
--- NOTE | 2023-10-31 01:20 | ED.SYNCOPE ---
HPI - Syncope General Chief Complaint: Syncope/Fainted Stated Complaint: syncope Time Seen by Provider: 10/31/23 01:19 History of Present Illness HPI narrative: Patient is a 73-year-old woman who apparently is camping near . She had a lumpectomy several days ago and is healing well from her lumpectomy. She is fasting for reasons that are unclear to me and has had no solid-food last 24 hours she did have a small amount of water. She has had no fevers no chills no night sweats no cough no shortness of breath but did have some crampy abdominal pain when she got up to have a bowel movement she successfully made to the toilet but then passed out due to lightheadedness. Her caught her and the patient is on injured. She did not lose her consciousness or more than a few seconds and now is back feeling fine. She has had no change in her medication and otherwise has no complaints at this time. She came in by ambulance to make sure that there is not something more serious Curry. Related Data Home Medications ?Medication ?Instructions ?Recorded ?Confirmed sertraline 25 mg tablet (Zoloft) 25 mg PO DAILY 10/31/23 10/31/23 Allergies Allergy/AdvReac Type Severity Reaction Status Date / Time No Known Drug Allergies Allergy Verified 10/31/23 01:23 Review of Systems Status of ROS: Reports: 10 or more systems reviewed and unremarkable except as noted in History and below [facility] Social History Smoking Status: Never smoker Non-prescribed substance use: other Non-prescribed substance use details: [facility] [employer] service: No Exam Narrative: Exam Narrative: EXAM GENERAL: Patient appears comfortable and well. EYES: No scleral icterus. LYMPH: No supraclavicular or cervical lymphadenopathy. SKIN: Visible skin seen during exam normal or with benign process only. EXT: No dependent lower extremity pedal edema. HEART: Regular rate and rhythm with no murmurs, rubs, or gallops. LUNGS: Clear to auscultation bilaterally with no crackles or wheezes. ABD: Soft, non tender, non distended. PSYCH: Good eye contact, speech is not pressured. GCS 15 Neurologic cranial nerves 2-12 grossly intact no focal defects. Const: Vital Signs, click to edit/add: Vital Signs - 24 hr 10/31/23 01:19 Temperature 96.0 F L Pulse Rate [Left P ulse Oximeter] 69 Respiratory Rate 18 Blood Pressure [Ri ght Upper Arm] 155/80 H Pulse Oximetry 96 Oxygen Delivery Me thod Room Air Course Course ED Course: Patient seen and examined. CBC CT of the head chest x-ray basic metabolic panel troponin urinalysis pending. Vital Signs Vital signs: Initial Vital Signs Temperature 96.0 F L 10/31/23 01:19 Temperature Source Temporal Artery Scan 10/31/23 01:19 Pulse Rate 69 10/31/23 01:19 Pulse Rhythm Regular 10/31/23 01:19 Respiratory Rate 18 10/31/23 01:19 Blood Pressure 155/80 H 10/31/23 01:19 Blood Pressure Mean 105 10/31/23 01:19 Blood Pressure Position Semi-Fowlers 10/31/23 01:19 Pulse Oximetry 96 10/31/23 01:19 Oxygen Delivery Method Room Air 10/31/23 01:19 Vital Signs Temperature 96.0 F L 10/31/23 01:19 Pulse Rate 69 10/31/23 01:19 Respiratory Rate 18 10/31/23 01:19 Blood Pressure 155/80 H 10/31/23 01:19 Pulse Oximetry 96 10/31/23 01:19 Oxygen Delivery Method Room Air 10/31/23 01:19 Temperature 96.0 F L 10/31/23 01:19 Pulse Rate 69 10/31/23 01:19 Respiratory Rate 18 10/31/23 01:19 Blood Pressure 155/80 H 10/31/23 01:19 Pulse Oximetry 96 10/31/23 01:19 Oxygen Delivery Method Room Air 10/31/23 01:19 MDM - Syncope MDM Narrative Medical decision making narrative: Patient is a 73-year-old woman who has been fasting for 24 hours who had a syncope/presyncope episode while on the toilet. She did not fall and hit her head. She had no seizure activities. She has regained full level of functioning. EKG is reassuring. Blood count is reasonable. We were unable to do D-dimer electrolytes tonight. Point of care troponin is unremarkable chest x-ray shows no acute findings and CT of the head is unremarkable. At this time I offered reassurance and asked them not to continue their fast. They will advance her diet activity as tolerated follow-up with her primary physician as directed did give her L of normal saline differential diagnosis includes but not limited to dehydration hyponatremia seizure disorder a arrhythmia pulmonary embolism. Lab Data Labs: Lab Results 10/31/23 Range/Units 01:40 WBC 7.61 (4.50-11.00) K/uL RBC 4.87 (4.00-5.20) m/uL Hgb 14.2 (12.0-16.0) gm/dL Hct 43.2 (33.0-51.0) % MCV 89 (80-100) fL MCH 29 (26-34) pg MCHC 33 (32-36) gm/dL RDW Coeff of Tiffanie 12.5 (11.5-15.5) % Plt Count 211 (140-440) K/uL Neut % (Auto) 46.9 (42.0-72.0) % Lymph % (Auto) 40.5 (20-44) % Pratt % (Auto) 8.3 (0.0-11.0) % Eos % (Auto) 3.9 (0.0-7.0) % Baso % (Auto) 0.3 (0.0-3.0) % Neut # (Auto) 3.57 (1.7-7.0) K/uL Lymph # (Auto) 3.08 H (0.90-2.90) K/uL Pratt # (Auto) 0.60 (0.00-0.90) K/UL Eos # (Auto) 0.30 (0.00-0.50) K/uL Baso # (Auto) 0.02 (0.00-0.30) K/uL Abs Immat Gran (auto) 0.01 (0.00-0.30) K/uL Imm/Tot Granulo (auto) 0.1 % Discharge Plan Discharge Clinical Impression: Vasovagal syncope Patient Disposition: Home, Self-Care Condition: Stable Instructions: Syncope (ED) Additional Instructions: Hydrate Continue current medications Follow-up with your doctor within the next week. Activity Level: No Restrictions Discharge Diet: Regular Prescriptions: No Action sertraline [Zoloft] 25 mg tablet 25 mg PO DAILY Follow Up/Referrals: Provider,Not a Local [Primary Care Provider] - Stand Alone Forms: [employer] [facility] Info Instructions
[2023-10-31] MEDS: 0.9 % SODIUM CHLORIDE 1000 ml 1,000 ML IV (01:35)
[2023-10-31 01:45] LABS: Basophils Absolute Auto 0.02 K/uL (0.00-0.30); Basophils Percent Auto 0.3 % (0.0-3.0); Eosinophils Percent Auto 3.9 % (0.0-7.0); Hematocrit 43.2 % (33.0-51.0); Hemoglobin* 14.2 gm/dL (12.0-16.0); Immature Granulocytes Abs Auto 0.01 K/uL (0.00-0.30); Immature Granulocytes Pct Auto 0.1 %; Lymphocytes Absolute Auto 3.08 K/uL (0.90-2.90); Lymphocytes Percent Auto 40.5 % (20-44); Mean Corpuscular HGB Conc 33 gm/dL (32-36); Mean Corpuscular Hemoglobin 29 pg (26-34); Mean Corpuscular Volume 89 fL (80-100); Monocytes Percent Auto 8.3 % (0.0-11.0); Neutrophils Absolute Auto 3.57 K/uL (1.7-7.0); Neutrophils Percent Auto 46.9 % (42.0-72.0); Platelet Count* 211 K/uL (140-440); RDW Coefficient of Variation % 12.5 % (11.5-15.5); Red Blood Count 4.87 m/uL (4.00-5.20); White Blood Count* 7.61 K/uL (4.50-11.00)
[2023-10-31 01:58] LABS: Slide Review Reflex No
--- OUTSIDE RECORDS SUMMARY | 2023-10-31 02:15 | XMS_ITS | Encounter Summary ---
Author Organization [employer] Address [address], [place] [address] Care Team Providers Care Coconut Cooker Name Role Phone Connie Kuhn MD Primary Care Provider [phone] Encounter Details Date Type Department Care Team (Late st Contact Info) Description 10/21/2023 11:00 AM CDT Lab Visit [facility] [address] [place] [address] [phone] Preop examination Social History Tobacco Use Types Packs/Day Years Used Date Smoking Tobacco: Former Cigarettes 1 32 0 04/26/1968 - 04/26/1988 Smokeless Tobacco: Never Alcohol Use Standard Drinks/Week Comments Yes 1 (1 standard drink = 0.6 oz pur e alcohol) Social drinker...wine PHQ-2 Answer Date Recorded PHQ-2 Score 0 10/01/2023 Sex and Gender Information Value Date Recorded Sex Assigned at Not on file Gender Identity Not on file Sexual Orientation Not on file documented as of this encounter Plan of Treatment Upcoming Encounters Date Type Department Care Team (Late st Contact Info) Description 11/09/2023 11:50 AM CDT Appointment [facility] General Surgery [address] [facility] [address] [place], [place] [id number] Viviana Kirkland MD [address] [facility] [address] [place], [place] [address] 11/09/2023 2:30 PM CDT Appointment [facility] [address] [place], [place] [address] Shayla Bland MBBS [address] [place] [address] 11/15/2023 11:00 AM CDT Appointment [facility] [address] [place], [place] [id number] Thomas Hanks, OD [address] [place] [phone] documented as of this encounter Procedures Procedure Name Priority Date/Time Associated Diagnosis Comments BASIC METABOLIC PANEL Routine 10/21/2023 9:22 AM CDT Preop examination documented in this encounter Results * Basic Metabolic Panel (10/21/2023 9:22 AM CDT) Sodium 140 136 - 145 mmol/L 10/21/2023 5:04 PM [facility] Potassium 4.3 3.5 - 5.1 mmol/L 10/21/2023 5:04 PM [facility] Chloride 105 98 - 109 mmol/L 10/21/2023 5:04 PM [facility] CO2 24 20 - 29 mmol/L 10/21/2023 5:04 PM [facility] Anion Gap 11 6 - 16 mmol/L 10/21/2023 5:04 PM [facility] Calcium 9.8 8.4 - 10.4 mg/dL 10/21/2023 5:04 PM [facility] BUN 26 7 - 26 mg/dL 10/21/2023 5:04 PM [facility] Creatinine 0.99 0.55 - 1.02 mg/dL 10/21/2023 5:04 PM [facility] Glucose 99 70 - 100 mg/dL 10/21/2023 5:04 PM [facility] Comment:The given reference range is for the fasting state. Non-fasting reference range for glucose is 70 - 180 mg/dL. GFR, Estimated >60 >60 mL/min/1.7 3m2 10/21/2023 5:04 PM CDT [facility] Hours Fasting 14.0 8 - 12 Hours 10/21/2023 5:04 PM CDT ED LABORATORY (PN) Blood Venipuncture / Unknown 10/21/2023 9:22 AM CDT 10/21/2023 9:22 AM CDT Amelia Johnson PA-C LAB_1 [facility] [address] [place] [phone], [facility] (PN) [address] [place], [place] [address], [place] [address] documented in this encounter Visit Diagnoses Diagnosis Preop examination Preoperative examination, unspecified documented in this encounter Care Teams Coconut Cooker Relationship Specialty Start Date End Date Connie Kuhn MD [address] [place] [address] [place] [address] PCP - General Family Practice 05/23/18 documented as of this encounter
--- OUTSIDE RECORDS SUMMARY | 2023-10-31 02:15 | XMS_ITS | Encounter Summary ---
Author Organization [facility] Address [address], [place] [address] Care Team Providers Care Photographic Equipment Mechanic Name Role Phone Connie Kuhn MD Primary Care Provider [phone] Reason for Visit * Auth/Cert (Routine) Specialty Diagnoses / Procedures Referred By Charlie t Referred To Contact Diagnoses Mass of left breast, unspecified quadrant Procedures LUMPECTOMY LEFT BREAST WITH SEED LOCALIZATION AND SENTINEL LYMPH NODE BIOPSY Referral ID Status Reason Start Date Expiration Date Visits Re quested Visits Authorized [id number] 1 1 Encounter Details Date Type Department Care Team (Late st Contact Info) Description 10/27/2023 6:38 AM CDT - 10/27/2023 1:07 PM T Hospital Encounter [facility] Operating Room [address] [facility]. [place], [place] [address] Viviana Kirkland MD [address] [facility] [address] [place], [place] [address] Mass of left breast, unspecified quadrant Discharge Disposition: Home Social History Tobacco Use Types Packs/Day Years Used Date Smoking Tobacco: Former Cigarettes 1 32 0 04/26/1968 - 04/26/1988 Smokeless Tobacco: Never Alcohol Use Standard Drinks/Week Comments Yes 1 (1 standard drink = 0.6 oz pur e alcohol) Social drinker...wine Humiliation, Afraid, Rape, and Kick questionnair e Answer Date Recorded Fear of Current or Ex-Partner Not on file Within the last year, have y ou been humiliated or emotionally abused in other ways by your partner or ex-partner? No 10/27/2023 Within the last year, have y ou been kicked, hit, slapped, or otherwise physically hurt by your partner or ex-partner? No 10/27/2023 Within the last year, have y ou been raped or forced to have any kind of sexual activity by your partner or ex-partner? No 10/27/2023 PHQ-2 Answer Date Recorded PHQ-2 Score 0 10/01/2023 Sex and Gender Information Value Date Recorded Sex Assigned at Not on file Gender Identity Not on file Sexual Orientation Not on file documented as of this encounter Last Filed Vital Signs Vital Sign Reading Time Taken Comments Blood Pressure 112/68 10/27/2023 12:50 PM CDT Pulse 88 10/27/2023 12:50 PM CDT Temperature 36.2 ??C (97.1 ??F) 10/27/2023 11:22 AM C DT Respiratory Rate 16 10/27/2023 12:50 PM CDT Oxygen Saturation 96% 10/27/2023 12:50 PM CDT Inhaled Oxygen Concentration - - Weight 86.2 kg (190 lb) 10/27/2023 7:30 AM CDT Height 170.2 cm (5' 7) 10/15/2023 1:23 PM CDT Body Mass Index 29.76 10/15/2023 1:23 PM CDT documented in this encounter Discharge Instructions * Discharge Instr - Other Orders* Viviana Kirkland MD - 10/27/2023 9:06 AM CDT Diet: Regular diet as tolerated. Drink lots of fluids and stay hydrated. Activity: As tolerated. Wound Care: You may shower 24 hours after surgery; do not bathe/swim/soak incisions for 2 weeks or until fully healed. Surgical glue was used, this will flake off on its own - do not put lotions overthis for the first week after surgery Other: Do not drive a motor vehicle or operate heavy machinery while taking narcotic pain medication. Do not return to work while taking narcotic pain medication. Do not drive a motor vehicle until you feel comfortable slamming on the brakes if you would need to do so during an emergency. Unless you have been advised by your primary physician not to take ibuprofen or if you have kidney problems you should start alternating 600 mg of ibuprofen every 6 hours to help with pain control. You should also take acetaminophen in addition to this 1000 mg every 6 hours (not to exceed 4000 mg total of acetaminophen per 24 hour period.) For Example: Ibuprofen 600 mg at 8 am Tylenol 1000 mg at 11 am Ibuprofen 600 mg at 2 pm Tylenol 1000 mg at 5 pm Ibuprofen 600 mg at 8 pm Tylenol 1000 mg at 11 pm OR Ibuprofen 600 mg at 8 am and Tylenol 1000 mg at 8 am Ibuprofen 600 mg at 2 pm and Tylenol 1000 mg at 2 pm Ibuprofen 600 mg at 8 pm Tylenol 1000 mg at 8 pm Please call surgery clinic at [phone] Isael Phillips's nurse if you experience any of the following: -Fever 101.3 or greater. -New redness, swelling or purulent (cream colored) drainage from your incision. -New nausea/vomiting or inability to tolerate oral intake. -New/significant pain not relieved by pain medications. -Please call if you have any other questions or concerns. documented in this encounter Medications at Time of Discharge Medication Sig Dispensed Refills Start Date End Date ALBUterol sulfate HFA 108 (90 Base) MCG/ACT inhalerIndications:Mil d intermittent asthma without complication (HRC) Inhale 2 Puffs every 4 hours as needed for Wheezing. 8.5 g 3 10/01/2023 oxyCODONE (ROXICODONE) 5 MG immediate release tablet Take 1 Tablet (5 mg) by mouth every 4 hours as needed for Pain. 10 Tablet 10/27/2023 prednisolone-moxifloxa adam-bromfenac (EASY DROPS) 1-0.5-0.075 % SUSP Place 1 Drop into left eye 4 times a day. Starting 1 day BEFORE cataract surgery, place 1 drop in the LEFT eye 4 times per day. Then follow the drop instructions given in clinic. 5 mL 1 08/03/2023 prednisolone-moxifloxa adam-bromfenac (EASY DROPS) 1-0.5-0.075 % SUSP Place 1 Drop into right eye 4 times a day. Starting 1 day BEFORE cataract surgery, place 1 drop into the RIGHT eye 4 times per day. Then follow the drop instructions given in clinic. 5 mL 1 08/03/2023 sertraline (ZOLOFT) 25 MG tabletIndications:Mixe d emotional features as adjustment reaction (HRC) Take 1 Tablet (25 mg) by mouth daily. 90 Tablet 3 10/01/2023 2024 documented as of this encounter H&P Notes * Viviana Kirkland MD - 10/27/2023 9:04 AM CDT Surgery Update for Preop History and Physical For 10/27/2023 scheduled procedure Update to H&P includes: Patient and/or family denies any health changes since the H&P This patient has been evaluated by me today and has been found to be a suitable candidate for surgery. 10/27/2023 Source Note - Amelia Johnson PA-C - 10/21/2023 9:00 AM CDT Pre-Operative Assessment 10/21/2023 ET Amb PreOp Assessment Details Procedure LUMPECTOMY LEFT WITH SEED LOCALIZATION AND SENTINEL LYMPH NODE BIOPSY Location [facility] Procedure Date 10/27/2023 Donal Lyn is a 73 y.o. old female here for pre-operative evaluation for procedure noted above. 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 Repeat in 5 years (07/2025). Pure hypercholesterolemia 11/17/2007 Overview Note: Not currently on treatment Prolapse of vaginal wall 10/22/2004 Overview Note: LW Onset: ; Rectocele Past Medical History: Diagnosis Date Breast cancer (HRC) Cataract Iritis (ACG) S/P bunionectomy 08/13/2014 left foot, 2010 S/P foot surgery 08/23/2014 Left 2nd MTPJ capsule repair and metatarsal osteotomy S/P tonsillectomy 08/13/2014 Past Surgical History: Procedure Laterality Date ADENOIDECTOMY CATARACT REMOVAL Left 10/04/2023 [employer] DIB00 21.5 diopter lens CATARACT REMOVAL Right 10/18/2023 [employer] DIB00 21.0 diopter lens JSKL ECTOPIC SURGERY LAP CHOLECYSTECTOMY 09/23/2016 Viviana Kirkland MD at [facility] SINUS SURGERY 05/24/2018 FESS, fungal ball removal TONSILLECTOMY VAGINAL HYSTERECTOMY LW Problem: Hysterectomy Vaginal s/p LW Modifier: w/ SSF, TVT 2000 LW Onset: Current Outpatient Medications Medication Instructions ALBUterol sulfate HFA 108 (90 Base) MCG/ACT inhaler 2 Puffs, Inhalation, Q4H PRN csmbmgaktbnw-khsdbhzonqhh-lfkfokpvf (EASY DROPS) 1-0.5-0.075 % SUSP 1 Drop, Left Eye, QID, Starting1 day BEFORE cataract surgery, place 1 drop in the LEFT eye 4 times per day. Then follow the drop instructions given in clinic. ncsaxjkrvzyo-ipslfiykshmb-zitzwwedu (EASY DROPS) 1-0.5-0.075 % SUSP 1 Drop, Right Eye, QID, Starting 1 day BEFORE cataract surgery, place 1 drop into the RIGHT eye 4 times per day. Then follow the drop instructions given in clinic. 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 Patient is postmenopausal. Family History Problem Relation Age of Onset Coronary Artery Disease Mother 60 smoker Cataract Mother Hypertension Mother Heart Disease Mother Cancer, Lung Father Cancer Father Cancer, Breast Maternal Grandmother 60 Hypertension Brother Depression Brother Hyperlipidemia Brother Obesity Brother Glaucoma Negative Family History Retinal Detachment Negative Family History Macular Degeneration Negative Family History Amblyopia/Strabismus Negative Family History Review of Systems: 10/21/2023 ET Amb PreOp Assessment Sx Have you had a heart attack in the last 30 days? No Have you experienced chest tightening or chest pressure with activity? No Do you wake at night with difficulty breathing? No Do you have swelling in your feet or ankles? No Do you get short of breath if lying flat at night? No Do you hear wheezing or whistling when you breathe? No Have you had a cough, runny nose, or cold symptoms in the last 2 weeks? No Have you tested positive for Covid in the last 6 months? No Do you have a long-standing cough? No Do you snore or are you sleepy during the day? No Do you have any symptoms due to a recent concussion? No Do you or close relatives have bleeding or clotting problems? No Have you taken Aspirin, Ibuprofen (Advil) or Naproxen (Aleve) in the last 7 days? No Do you or close relatives have a history of a severe or life-threatening reaction to anesthesia? No Estimated Functional Capacity: Can you climb one flight of stairs, or walk up a gradual uphill without stopping? yes, functional capacity is more than or equal to 4 METS Objective BP 134/74 (BP Location: Right Arm, BP Cuff Size: Regular - Long) Pulse 63 Wt 190 lb (86.2 kg) BMI 29.76 kg/m?? Physical Exam: General Appearance: alert, well appearing, and in no apparent distress Eyes: lids normal, sclera clear, and conjunctiva normal ENT: oropharynx clear, ear canals clear, and TMs normal Neck: no lymphadenopathy and no thyromegaly or nodules Heart: regular rate and rhythm and no murmurs, gallops or rubs Lungs: clear to auscultation and no wheezes, rales or rhonchi Abdomen: soft, nondistended, nontender, no palpable masses, and no organomegaly Extremities: no edema Skin: no rashes or worrisome lesions Neurologic: normal speech, no facial droop, and normal gait Data: Labs: Yes: Sodium Date Value Ref Range Status 10/21/2023 140 136 - 145 mmol/L Final Potassium Date Value Ref Range Status 10/21/2023 4.3 3.5 - 5.1 mmol/L Final Creatinine Date Value Ref Range Status 10/21/2023 0.99 0.55 - 1.02 mg/dL Final Hemoglobin Date Value Ref Range Status 05/23/2018 15.1 11.8 - 15.5 g/dL Final HGB A1C Date Value Ref Range Status 05/23/2018 5.5 4.0 - 5.6 % Final Glucose Date Value Ref Range Status 10/21/2023 99 70 - 100 mg/dL Final Comment: The given reference range is for the fasting state. Non-fasting reference range for glucose is 70 -180 mg/dL. ECG: Today: Sinus rhythm Normal ECG When compared with ECG of 16-SEP-2016 10:20, Premature ventricular complexes are no longer Present Confirmed by Kuldeep Henning ([id number]) on 10/21/2023 9:48:51 AM Assessment/Plan Patient is medically optimized for planned procedure(s). ICD-10-CM 1. Preop examination Z01.818 Basic Metabolic Panel ECG 12 Lead Outpatient Special risks: Patient's pulmonary status medically optimized. Medication recommendations: Patient Instructions Follow your individualized medication recommendations as described above. In addition, please stop all xpno-kix-ysomdxe medications including aspirin, ibuprofen (Advil, Motrin), naproxen (Aleve, Naprosyn), herbal remedies and supplements one week prior to procedure unless directed otherwise by your care team. You may continue to take acetaminophen (Tylenol) up to the dayof your procedure. Continue all other medications as currently taking. Let your care team know if you have questions. On the day of your procedure, do not wear any hair product including hair sprays and gels and avoidusing body sprays and deodorants/antiperspirants. Bring with you to the site of the procedure: Any oral appliances or CPAP equipment related to sleep apnea Any other health-related equipment or devices you use daily Electronically signed by: Amelia Johnson PA-C 10/21/2023, 7:21 AM documented in this encounter Procedure Notes * Viviana Kirkland MD - 10/27/2023 10:50 AM CDT Operative Note 10/27/2023 SURGEON: Viviana Kirkland MD INDICATIONS: The patient is a 73 year-old female with biopsy-proven left breast carcinoma of undetermined etiology. The risks and benefits of a partial mastectomy and sentinel lymph node biopsy were discussed with the patient and she agreed to proceed. PREOPERATIVE DIAGNOSIS: Carcinoma of the left breast. POSTOPERATIVE DIAGNOSES: Carcinoma of the left breast. PROCEDURES: 1. left breast partial mastectomy using beModelisio SmartClip navigation. 2. left deep axillary sentinel lymph node biopsy. 3. Injection of Lymphazurin blue for sentinel lymph node mapping. 4. Injection of technetium labeled sulfur colloid for sentinel lymph node mapping. Operation performed with curative intent. Yes Tracer(s) used to identify sentinel nodes in the upfront surgery (non-neoadjuvant) setting (select all that apply). Dye and Radioactive tracer Tracer(s) used to identify sentinel nodes in the neoadjuvant setting (select all that apply). N/A All nodes (colored or non-colored) present at the end of a dye-filled lymphatic channel were Removed. Yes All significantly radioactive nodes were removed. Yes All palpably suspicious nodes were removed. N/A Biopsy-proven positive nodes marked with clips prior to chemotherapy were identified and removed. N/A ATTENDING SURGEON: Viviana Kirkland MD WATER PROJECT ENGINEER: Chantell Lewis MD - [facility] Surgery Resident ANESTHESIA: General EBL: 30 ccs OPERATIVE PROCEDURE IN DETAIL: After placement of a localizing SmartClip at the breast center, the patient was brought to surgery.General anesthesia was induced. A time out procedure was performed and then the patient's left breast was injected with 3 mL of Lymphazurin blue followed by an injection of 2 mL of technetium labeled sulfur colloid. The breast and axilla were then prepped and draped in the usual sterile fashion. A time out procedure with patient and procedural identification were performed. The approximate site of the Envisio SmartClip was located with the probe. A curved elliptical incision was made parallel to the areola over this location. Skin flaps were raised and then electrocautery was used to excise the tissue from the left breast. The SmartClip, probe and mammography were used to guide excision. A radiograph was obtained which confirmed the SmartClip and the biopsy marker were in the specimen in good position. The specimen was brought to Pathology for gross evaluation. Meanwhile, the Neoprobe was used to locate the approximate site of the sentinel lymph node. A small axillary incision was made over this location and electrocautery was used to dissect down through the subcutaneous tissues and into the deep axillary fat. All lymph nodes which were blue, radioactive or radioactive and blue lymph were found and excised. This specimen was sent for routine pathologic examination. We had now heard back from pathology and were told that immediate gross inspection revealed an adequate gross marginbut the anterior margin was 3 mm - as such this was re-excised. Both wounds were inspected for hemostasis which was satisfactory. Local anesthetic was instilled. Both incisions were then closed with interrupted subdermal 3-0 Vicryl sutures followed by running 4-0 subcuticular monocryl. Surgical glue was applied. At the completion of the procedure all sponge, needle and instrument counts were correct x2. The patient tolerated the procedure well, she was taken to the post-operative unit in good condition. Viviana Kirkland MD 10/27/2023, 10:52 AM documented in this encounter Plan of Treatment Upcoming Encounters Date Type Department Care Team (Late st Contact Info) Description 11/09/2023 11:50 AM CDT Appointment [facility] General Surgery [address] [facility] [address] [place] [address] Viviana Kirkland MD [address] [facility] [address] [place] [address] 11/09/2023 2:30 PM CDT Appointment [facility] [address] [place] [address] Shayla Bland, LESBS [address] [place] [address] 11/15/2023 11:00 AM CDT Appointment [facility] [address] [place], [place] [phone] Thomas Hanks, OD [address] [place] [phone] Pending Results Name Type Priority Associated Diagnoses Date /Time Surgical Path Lab Routine Mass of left breast, unspecified quadrant 10/27/2023 9:59 AM CDT Scheduled Orders Name Type Priority Associated Diagnoses Orde r Schedule Surgical Path Lab Routine Mass of left breast, unspecified quadrant Release Upon Ordering for 1 Occurrences starting 10/27/2023 until 10/31/2023, 1 completed documented as of this encounter Visit Diagnoses Diagnosis Mass of left breast, unspecified quadrant documented in this encounter Admitting Diagnoses Diagnosis Mass of left breast Lump or mass in breast documented in this encounter Administered Medications Inactive Administered Medications - up to 3 most recent administrations Medication Order MAR Action Action Date Dose Rate Site BUPivacaine-EPINEPHrine (SENSORCAINE) 0.25% -1:[id number] injection ONCE PRN, Starting on Wed10/27/23 at 1045, Until Wed10/27/23 at 1507, Intra-op Given 10/27/2023 10:45 AM CDT 40 mL isosulfan blue (LYMPHAZURIN) injection ONCE PRN, Starting on Wed10/27/23 at 0923, Until Wed10/27/23 at 1507, Intra-op Given 10/27/2023 9:23 AM CDT 2 mL lactated ringers infusion 25 mL/hr, Intravenous, CONTINUOUS, Starting on Wed10/27/23 at 0715, Administer on all preop surgery patients, ages 12 and older, unless specified differently in the Protocol for Preop Initiation of IV fluids Order Set., Pre-op Continued by Anesthesia 10/27/2023 9:09 AM CDT 25 mL/hr Started 10/27/2023 7:30 AM CDT 25 mL/hr 25 mL/hr lidocaine PF (XYLOCAINE) 1 % injection - ADS Override Pull Starting on Wed10/27/23 at 0650, For 1 dose, Carmelina Weeks: cabinet override lidocaine PF (XYLOCAINE) 1 % injection 0.1-0.3 mL 0.1-0.3 mL, Intradermal, ONCE, On Wed10/27/23 at 0715, For 1 dose, Lidocaine to be used for IV starts unless patient refuses., Pre-op Given 10/27/2023 7:25 AM CDT 0.2 mL lidocaine PF (XYLOCAINE) 1 % injection 0.1-0.3 mL 0.1-0.3 mL, Intradermal, PRN, Other, for additional IV starts, Starting on Wed10/27/23 at 0649, Pre-op octyl 2-cyanoacrylate (LIQUIBAND/DERMABOND) adhesive ONCE PRN, Starting on Wed10/27/23 at 0100, Intra-op Given 10/27/2023 1:00 AM CDT 1 Each Other (Comment) sodium chloride 0.9% injection 10 mL 10 mL, Intravenous, PRN SEE ADMIN INSTRUCTIONS, Line Patency, Starting on Wed10/27/23 at 0649, Until Wed10/27/23 at 1507, Pre-op documented in this encounter Active and Recently Administered Medications Times are shown in CDT. Scheduled Medication Order 10/25/2023 10/26/2023 10/27/2023 lidocaine PF (XYLOCAINE) 1 % injection 0.1-0.3 mL (COMPLETED)(Linked Group 1) 0.1-0.3 mL, Intradermal, ONCE, On Wed10/27/23 at 0715, For 1 dose, Lidocaine to be used for IV starts unless patient refuses., Pre-op 0725 (Given - Provid er: Carmelina Weeks RN) NO pre-op antibiotics needed (COMPLETED) ONCE, On Wed10/27/23 at 0715, For 1 dose, Pre-op 0657 (Noted - Provid er: Carmelina Weeks RN)0915 (Given - Provider: Birdie Mcdonald, FOOT GATHERER, WIND TURBINE MECHANICAL ENGINEER) Continuous Medication Order 10/25/2023 10/26/2023 10/27/2023 lactated ringers infusion 25 mL/hr, Intravenous, CONTINUOUS, Starting on Wed10/27/23 at 0715, Administer on all preop surgery patients, ages 12 and older, unless specified differently in the Protocol for Preop Initiation of IV fluids Order Set., Pre-op 0730 (Started - Prov ider: Carmelina Weeks RN)0909 (Continued by Anesthesia - Provider: Birdie Mcdonald APRN, NICCI)1035 (Infused - Provider: Birdie Mcdonald APRN, NICCI)1254 (Stopped - Provider: Michael Garcia RN) PRN Medication Order 10/25/2023 10/26/2023 10/27/2023 acetaminophen (TYLENOL) tablet 325-650 mg 325-650 mg, Oral, Q4H PRN, Other, Mild Pain (pain score 1-4), Starting on Wed10/27/23 at 1127, Until Wed10/27/23 at 1507, Give for mild pain or if patient prefers acetaminophen over other options for pain (all pain scores)., Post-op BUPivacaine-EPINEPHrine (SENSORCAINE) 0.25% -1:[id number] injection ONCE PRN, Starting on Wed10/27/23 at 1045, Until Wed10/27/23 at 1507, Intra-op 1045 (Given - Provid er: Viviana Kirkland MD) isosulfan blue (LYMPHAZURIN) injection ONCE PRN, Starting on Wed10/27/23 at 0923, Until Wed10/27/23 at 1507, Intra-op 0923 (Given - Provid er: Viviana Kirkland MD) lidocaine PF (XYLOCAINE) 1 % injection 0.1-0.3 mL(Linked Group 1) 0.1-0.3 mL, Intradermal, PRN, Other, for additional IV starts, Starting on Wed10/27/23 at 0649, Pre-op octyl 2-cyanoacrylate (LIQUIBAND/DERMABOND) adhesive ONCE PRN, Starting on Wed10/27/23 at 0100, Intra-op 0100 (Given - Provid er: Viviana Kirkland MD - Comment: Left breast and axilla) oxyCODONE (ROXICODONE) immediate release tablet 5-10 mg 5-10 mg, Oral, Q4H PRN, Other, Moderate Pain (pain score 5-7), Starting on Wed10/27/23 at 1127, Until Wed10/27/23 at 1507, Post-op sodium chloride 0.9% injection 10 mL 10 mL, Intravenous, PRN SEE ADMIN INSTRUCTIONS, Line Patency, Starting on Wed10/27/23 at 0649, Until Wed10/27/23 at 1507, Pre-op Linked Groups Order Group 1: lidocaine PF (XYLOCAINE) 1 % injection 0.1-0.3 mL (COMPLETED)Jump to med 0.1-0.3 mL, Intradermal, ONCE, On Wed10/27/23 at 0715, For 1 dose, Lidocaine to be used for IV starts unless patient refuses., Pre-op And lidocaine PF (XYLOCAINE) 1 % injection 0.1-0.3 mLJump to med 0.1-0.3 mL, Intradermal, PRN, Other, for additional IV starts, Starting on Wed10/27/23 at 0649, Pre-op documented in this encounter Care Teams Photographic Equipment Mechanic Relationship Specialty Start Date End Date Connie Kuhn MD [address] [place] [address] PCP - General Family Practice 05/23/18 documented as of this encounter
--- OUTSIDE RECORDS SUMMARY | 2023-10-31 02:15 | XMS_ITS | Encounter Summary ---
Author Organization [employer] Address [address], [place] [address] Care Team Providers Care Pc Network Technician Name Role Phone Connie Kuhn MD Primary Care Provider [phone] Encounter Details Date Type Department Care Team (Latest Contact Info) Description 10/27/2023 Orders Only HIM DEPARTMENT Provider, [place] [address] Social History Tobacco Use Types Packs/Day Years [...] Appointment [facility] [address] General Surgery [address] [facility] [address] [place] [address] Viviana Kirkland MD [address] [facility] [address] [place] [address] 11/09/2023 2:30 PM CDT Appointment [facility] Oncology [address] [place] [address] Shayla Bland MBBS [address] [place] [address] 11/15/2023 11:00 AM CDT Appointment [facility] [address] [place] [address] Thomas Hanks, OD [address] [place] [phone] documented as of this encounter Procedures Procedure Name Priority Date/Time Associated Diagnosis Comments EKG 10/27/2023 documented in this encounter Results * EKG (10/27/2023) Interface Provider EKG documented in this encounter Visit Diagnoses Not on filedocumented in this encounter Care Teams Pc Network Technician Relationship Specialty Start Date End Date Connie Kuhn MD [address] [place] [phone] PCP - General Family Practice 05/23/18 documented as of this encounter
--- OUTSIDE RECORDS SUMMARY | 2023-10-31 02:15 | XMS_ITS | Encounter Summary ---
Author Organization [employer] Address [address] [address] Care Team Providers Care Cloud Systems Architect Name Role Phone Connie Kuhn MD Primary Care Provider [phone] Reason for Visit * Procedure/Equipment (Routine) - Incomplete Specialty Diagnoses / Procedures Referred By Charlie t Referred To Contact Diagnoses Mass of left breast, unspecified quadrant Procedures MM Breast Specimen Viviana Kirkland MD [address] [facility] [address] [place] [address] Referral ID Status Reason Start Date Expiration Date V isits Requested Visits Authorized [id number] Incomplete 10/12/2023 01/10/2025 1 1 Encounter Details Date Type Department Care Team (Late st Contact Info) Description 10/27/2023 9:00 AM CDT Ancillary Procedure [facility] at [facility] [place] [address] [address] [facility] [place], [place] [id number] Viviana Kirkland MD [address] [facility] [address] [place], [place] [address] Mass of left breast, unspecified quadrant Social History Tobacco Use Types Packs/Day Years [...] General Surgery [address] [facility] [address] [place] [address] Viviana Kirkland MD [address] [facility] [address] [place] [address] 11/09/2023 2:30 PM CDT Appointment [facility] Oncology [address] [place] [address] Shayla Bland MBBS [address] [place] [address] 11/15/2023 11:00 AM CDT Appointment [facility] [address] [place] [address] Thomas Hanks, PJ [address] [place] [phone] documented as of this encounter Procedures Procedure Name Priority Date/Time Associated Diagnosis Comments MM BREAST SPECIMEN Routine 10/27/2023 10 :04 AM CDT Mass of left breast, unspecified quadrant documented in this encounter Results * MM Breast Specimen (10/27/2023 10:04 AM CDT) Anatomical Region Laterality Modality Breast Digital Radiogra phy 10/27/2023 10:0 4 AM CDT Impressions 10/27/2023 10:09 AM CDT Specimen radiograph was performed. The seed, coil marking clip and mass are within the specimen. Narrative Procedure Note Rani Garcia MD - 10/27/2023 IMPRESSION Specimen radiograph was performed. The seed, coil marking clip and massare within the specimen. Viviana Kirkland MD RAD [facility]IA documented in this encounter Visit Diagnoses Diagnosis Mass of left breast, unspecified quadrant documented in this encounter Care Teams Cloud Systems Architect Relationship Specialty Start Date End Date Connie Kuhn MD [address] [place] [address] PCP - General Family Practice 05/23/18 documented as of this encounter
--- OUTSIDE RECORDS SUMMARY | 2023-10-31 02:15 | XMS_ITS | Clinical Summary ---
Author Organization [facility] Address [address], [place] [address] Care Team Providers Care Cytotechnologist/Cytology Supervisor Name Role Phone Connie Kuhn MD Primary Care Provider [phone] Source Comments You are receiving this document as you are listed as the primary care provider,follow-up provider, or the patient has been referred to you for consultation.This is in compliance with the Medicare and[facility] EHR Incentive Program,which states Providers who transition their patient to another setting of careor provider of care or refers their patient to another provider of care shouldprovide summary care record for each transition of care or referral. [employer] Allergies No known active allergies Medications Medication Sig Dispensed Refills Start Date End Date Status prednisolone-moxifl oxacin-bromfenac (EASY DROPS) 1-0.5-0.075 % SUSP Place 1 Drop into left eye 4 times a day. Starting 1 day BEFORE cataract surgery, place 1 drop in the LEFT eye 4 times per day. Then follow the drop instructions given in clinic. 5 mL 1 08/03/2023 Active prednisolone-moxifl oxacin-bromfenac (EASY DROPS) 1-0.5-0.075 % SUSP Place 1 Drop into right eye 4 times a day. Starting 1 day BEFORE cataract surgery, place 1 drop into the RIGHT eye 4 times per day. Then follow the drop instructions given in clinic. 5 mL 1 08/03/2023 Active sertraline (ZOLOFT) 25 MG tabletIndications:M ixed emotional features as adjustment reaction (HRC) Take 1 Tablet (25 mg) by mouth daily. 90 Tablet 3 10/01/2023 2024 Active ALBUterol sulfate HFA 108 (90 Base) MCG/ACT inhalerIndications: Mild intermittent asthma without complication (HRC) Inhale 2 Puffs every 4 hours as needed for Wheezing. 8.5 g 3 10/01/2023 Active oxyCODONE (ROXICODONE) 5 MG immediate release tablet Take 1 Tablet (5 mg) by mouth every 4 hours as needed for Pain. 10 Tablet 10/27/2023 Active Hospital, Clinic, or Other Facility Administered Medication Ordered Dose Route Frequency Start Date End Date Status moxifloxacin (VIGAMOX) 0.5 % ophthalmic solution 1 DropIndications:Combin ed forms of age-related cataract of both eyes 1 Drop See Admin In OTHER 07/20/2023 Active moxifloxacin (VIGAMOX) 0.5 % ophthalmic solution 1 DropIndications:Combin ed forms of age-related cataract of both eyes 1 Drop See Admin In OTHER 07/20/2023 Active Active Problems Problem Noted Date Diagnosed Date Mass of left breast 10/12/2023 Malignant neoplasm of overla pping sites of left breast in female, estrogen receptor negative 10/08/2023 Mixed emotional features as adjustment reaction 10/01/2023 Combined forms of age-related cataract of both e yes 07/20/2023 Osteopenia of left hip 01/15/2023 Overview: Noted on DEXA December 2022 Mild intermittent asthma without complication Chronic maxillary sinusitis 05/20/2018 Overview: Added automatically from request for surgery [id number] Acute iritis, left eye 07/19/2012 Adenomatous polyp of colon 04/11/2009 Overview: Colonoscopy completed 07/2020. Repeat in 5 years (07/2025). Pure hypercholesterolemia 11/17/2007 Overview: Not currently on treatment Prolapse of vaginal wall 10/22/2004 Overview: LW Onset: 58Hqr10 ; Rectocele Resolved Problems Problem Noted Date Diagnosed Date Resolved Date Sinusitis 06/12/2021 07/30/2022 S/P tonsillectomy 08/13/2014 07/30/2022 S/P bunionectomy 08/13/2014 07/30/2022 Overview: left foot, 2010 Anxiety 08/16/2012 09/16/2016 Emotional depression 08/16/2012 017 Acute upper respiratory infection 07/27/2007 07/26/2015 Overview: Upper Respiratory Infection Obesity 10/26/2005 10/09/2021 Overview: LW Onset: [id number] Depressive disorder 10/22/2004 10/23/19 Overview: LW Onset: 91Fyj38 ; Depression NOS Symptomatic menopausal or fe male climacteric states 10/22/2004 03/07/2006 Overview: LW Onset: 64Xfp79 ; Hot Flashes 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 [place] [address] Harris Conner MD Varberg, Lauren K, CARTOON ARTIST, FLIGHT TEST SHOP MECHANIC 10/27/2023 9:00 AM CDT Ancillary Procedure [facility] Mammography at [facility] [address] [place] [address] Viviana Kirkland MD Mass of left breast, unspecified quadrant 10/27/2023 8:39 AM CDT - 10/27/2023 11:59 PM CDT Hospital Encounter [facility] [address] [place] [address]. [place] [address] Viviana Kirkland MD Mass of left breast, unspecified quadrant Discharge Disposition: Home 10/27/2023 8:20 AM CDT - 10/27/2023 10:55 AM CDT Surgery [facility] [address] [facility] [place] [address] Viviana Kirkland MD LUMPECTOMY LEFT BREAST WITH SEED LOCALIZATION AND SENTINEL LYMPH NODE BIOPSY 10/27/2023 6:38 AM CDT - 10/27/2023 1:07 PM CDT Hospital Encounter [facility] [address] [facility] [place] [address] Viviana Kirkland MD Mass of left breast, unspecified quadrant Discharge Disposition: Home 10/27/2023 Orders Only HIM DEPARTMENT Provider, MD Nikita 10/25/2023 9:20 AM CDT Office Visit [facility] [id number] [place] [address] Maria Alejandra Patel MD Pseudophakia, right eye (Primary Dx) 10/21/2023 11:00 AM CDT Lab Visit [facility] [address] [place] [address] Preop examination 10/21/2023 9:00 AM CDT Pre-Op Visit [facility] Medicine [address] [place] [address] Amelia Johnson PA-C Preop examination (Primary Dx) 10/20/2023 9:30 AM CDT Ancillary Procedure [facility] Mammography at [facility] [address] [place] [address] Viviana Kirkland MD Mass of left breast, unspecified quadrant 10/20/2023 9:00 AM CDT Ancillary Procedure [facility] Mammography at [facility] and [address] [place] [address] Viviana Kirkland MD Mass of left breast, unspecified quadrant 10/19/2023 9:20 AM CDT Office Visit [facility] [address] [place] [address] Maria Alejandra Patel MD Pseudophakia, right eye (Primary Dx) 10/18/2023 1:40 PM CDT - 10/18/2023 2:20 PM CDT Surgery [facility] [address] [place] [address] Maria Alejandra Patel MD CATARACT EXTRACTION WITH INTRAOCULAR LENS IMPLANT 10/18/2023 12:46 PM CDT Anesthesia Event [facility] [address] [place] [address] Owen Bar MD Jerdee, Jeremy J, CARTOON ARTIST, FLIGHT TEST SHOP MECHANIC 10/18/2023 11:50 AM CDT - 10/18/2023 1:27 PM CDT Hospital Encounter [facility] [address] [place] [address] Maria Alejandra Patel MD Combined forms of age-related cataract of both eyes Discharge Disposition: Home 10/15/2023 Telephone [facility] - General Surgery [address] [place], [place] [address] Jacqueline Gonzalez RN Pre-op Teaching 10/12/2023 11:30 AM CDT Office Visit [facility] [place] [address] [facility] [address] [place] [address] Viviana Kirkland MD Mass of left breast, unspecified quadrant (Primary Dx); Mild intermittent asthma without complication (HRC) 10/11/2023 1:00 PM CDT Office Visit [facility] [address] [place], [place] [phone] Thomas Hanks, PJ Postop check (Primary Dx); Pseudophakia, left eye; Abrasion of left conjunctiva, initial encounter 10/08/2023 E-Visit [address] [facility]. [place], [place] [id number] Mychart, Generic Provider 10/08/2023 E-Visit [address] [facility] [place] [address] Mychart, Generic Provider 10/08/[address] [place] [address] Kathy Sauceda, RN RESULTS, TEST (Breast biopsy results) 10/07/2023 1:30 PM CDT Ancillary Procedure [facility] Mammography at [address] [place] [address] Connie Kuhn MD Abnormal finding on breast imaging 10/07/2023 1:00 PM CDT Ancillary Procedure [facility] Mammography at [facility] and [address] [place] [address] Connie Kuhn MD Abnormal finding on breast imaging (Primary Dx) 10/05/2023 10:30 AM CDT Ancillary Procedure [facility] Mammography at [address] [place] [address] Connie Kuhn MD Abnormal mammogram 10/05/2023 10:00 AM CDT Ancillary Procedure [facility] Mammography at [address] [place] [address] Connie Kuhn MD Abnormal mammogram 10/05/2023 8:00 AM CDT Office Visit [facility] [address] [place] [address] Maria Alejandra Patel MD Pseudophakia, left eye (Primary Dx) 10/04/2023 1:40 PM CDT - 10/04/2023 2:20 PM CDT Surgery [facility] [address] [place] [phone] Maria Alejandra Patel MD CATARACT EXTRACTION WITH INTRAOCULAR LENS IMPLANT 10/04/2023 12:58 PM CDT Anesthesia Event [facility] [address] [place] [address] Nolan Stoner MD 10/04/2023 12:14 PM CDT - 10/04/2023 1:46 PM CDT Hospital Encounter [facility] [address] [place] [address] Maria Alejandra Patel MD Combined forms of age-related cataract of both eyes Discharge Disposition: Home 10/01/2023 10:50 AM CDT Lab Visit [facility] [address] [place] [address] Screening for diabetes mellitus; Screening, lipid 10/01/2023 10:40 AM CDT Ancillary Procedure [facility] Mammography at [facility] [place] [address] [address] [address] [place] [address] Connie Kuhn MD Visit for screening mammogram 10/01/2023 9:00 AM CDT Office Visit [facility] Medicine [address] [place] [address] Connie Kuhn MD Encounter for Medicare annual wellness exam (Primary Dx); Screening, lipid; Screening for diabetes mellitus; Mixed emotional features as adjustment reaction (HRC); Pure hypercholesterolemi a; Mild intermittent asthma without complication (HRC) 10/01/2023 Telephone [facility] Medicine [address] [place] [address] Connie Kuhn MD Test Results 09/23/2023 9:30 AM CDT Pre-Op Visit [address] [address] Amelia Johnson PA-C Preop examination (Primary Dx) 08/03/[address] [facility] [address] Ophthalmology [address] [place] [address] Maria Alejandra Patel MD CATARACTS (Pt sched surgery on 6-10 & 10-18-23. Pt would like combo easy drop from [facility]. ) from Last 3 Months Immunizations Name Administration Dates Next Due Flu Vac Preserv Free (3+yrs) 01/19/2013, 02/29/2012,02/11/2011,2008,02/27/2008,02/16/2007,02/17/2006 H1n1 Miv Sanofi 3+ Yr (Injected) 03/05/2009 Influenza IIV3 (Trivalent) F luzone Highdose, 65+ Yrs (59696) 03/20/2019,03/14/2018 Influenza IIV4 (Quadrivalent ) 0.5mL (74686) 03/23/2017,02/06/2016,01/31/2015,2013 Influenza IIV4 (Quadrivalent ) Fluad, 65+ Yrs 03/10/2021 Influenza IIV4 (Quadrivalent ) Fluzone, 65+ Yrs 01/28/2023,02/27/2022 Influenza, Unspecified Formulation 03/25/2003 Moderna 12+ 07/14/2023,01/28/2023 Moderna Bivalent 12+ 08/21/2022,02/27/2022 Moderna Monovalent 12+ 07/24/2021,2020,07/06/2020,2020 PCV20 ([id number]) 10/09/2021 TDAP (ADACEL) 11/17/2007 Td 06/05/1999 Tdap 05/23/2018 Zoster RZV (Shingrix) 12/01/2020,10/01/2020 Family History Medical History Relation Name Comments Cancer Father Father Cancer, Lung Father Father Cataract Mother Mother Coronary Artery Disease Mother Mother smok er Heart Disease Mother Mother Hypertension Mother Mother Depression Brother 1 Brother Hypertension Brother 1 Brother Hyperlipidemia Brother 2 Obesity Brother 2 Cancer, Breast Maternal Grandmother Amblyopia/Strabismus Negative Family History Glaucoma Negative Family History Macular Degeneration Negative Family History Retinal Detachment Negative Family History Relation Name Status Comments Father Father Mother Mother Brother 1 Brother Alive Brother 2 Alive Brother 3 Alive Brother 4 Alive Brother 5 Alive Maternal Grandmother Social History Tobacco Use Types Packs/Day Years Used Date Smoking Tobacco: Former Cigarettes 1 32 0 04/26/1968 - 04/26/1988 Smokeless Tobacco: Never Tobacco Cessation:Counseling Given: Not Answered Alcohol Use Standard Drinks/Week Comments Yes 1 [...] on file Sexual Orientation Not on file Last Filed Vital Signs Vital Sign Reading [...] Mass Index 29.76 10/15/2023 1:23 PM CDT Plan of Treatment Upcoming Encounters Date Type Department Care Team (Late st Contact Info) Description 11/09/2023 11:50 AM CDT Appointment [facility] [address] [facility] [address] [place] [address] Viviana Kirkland MD [address] [facility] [address] [place] [address] 11/09/2023 2:30 PM CDT [facility] Oncology [address] [place] [address] Shayla Bland MBBS [address] [place], [place] [address] 11/15/2023 11:00 AM CDT Appointment [facility] [address] [place] [address] Thomas Hanks, OD [address] [place] [phone] Health Maintenance Due Date Last Done Comments Influenza (#1) 2023 01/28/2023, 07/2021, 03/10/2021, Additional history exists Mammogram 2024 10/01/2023, 10/2022, 09/10/2021, Additional history exists Medicare Annual Wellness Visit 2024 10/01/2023, 09/29/2022, 10/09/2021, Additional history exists Colonoscopy 08/22/2025 08/22/2020, 09/25, 06/19/2011 (Completed), Additional history exists Dexa 01/13/2028 01/12/2023 DTaP/Tdap/Td (3 - Tdap) 05/23/2028 05/23/19 19, 11/17/2007, 06/05/1999 Cholesterol 2028 10/01/2023, 10/2022, 10/09/2021, Additional history exists Hep C Screening (Preventive Services) Completed 08/01/2013 Zoster/Shingles Completed 12/01/2020, 10/01/2020 Pneumococcal 65+ Yrs Completed 10/09/2021 COVID-19 Vaccine Completed 07/14/2023, 08/2022, 08/21/2022, Additional history exists HepA Aged Out No longer eligi ble based on patient's age to complete this topic HepB Aged Out No longer eligi ble based on patient's age to complete this topic Hib Aged Out No longer eligi ble based on patient's age to complete this topic IPV (Polio) Aged Out No longer eligi ble based on patient's age to complete this topic MCV4 Aged Out No longer eligi ble based on patient's age to complete this topic Medical Devices Implanted Type Area Customer Service Specialist Device Identifier Shelf Expiration Date Model / Serial / Lot Lens Intraocular Dib00 21.5 - [employer] - [id number] Implanted:Qty: 1 on 10/04/2023 by Maria Alejandra Patel MD at [facility] DEVICE Left: EYE [employer] 07/25/2026 [id number] / [id number] / Lens Intraocular Dib00 21.0 - [employer] - [id number] Implanted:Qty: 1 on 10/18/2023 by Maria Alej[facility] Patel MD at [facility] Right: EYE [employer] 05/03/2026 [id number] / [id number] / Procedures Procedure Name Priority Date/Time Associated Diagnosis Comments MM BREAST SPECIMEN Routine 10/27/2023 10 :04 AM CDT Mass of left breast, unspecified quadrant NM BREAST SENT NODE INJ LT Routine 10/26 8:58 AM CDT Mass of left breast, unspecified quadrant EKG 10/27/2023 BASIC METABOLIC PANEL Routine 10/21/2023 9:22 AM CDT Preop examination ECG 12 LEAD OUTPATIENT Routine 9:07 AM CDT Preop examination MM POST MAMMOGRAM LT Routine 10/20/2023 9:02 AM CDT Mass of left breast, unspecified quadrant MM US BREAST SEED LOC LT Routine 024 8:54 AM CDT Mass of left breast, unspecified quadrant PHACOEMULSIFICATION WITH IMPLANT INTRAOCULAR LENS 10/18/2023 12:44 PM CDT Combined forms of age-related cataract of both eyes MM POST MAMMOGRAM LT Routine 10/07/2023 1:18 PM CDT Abnormal finding on breast imaging MM US BX BREAST LT Routine 10/07/2023 1: 08 PM CDT Abnormal finding on breast imaging SURGICAL PATHOLOGY, BREAST Routine 10/06 11:51 AM CDT Abnormal finding on breast imaging YMM US BREAST LT Routine 10/05/2023 10:3 1 AM CDT Abnormal mammogram M MAMMOGRAM DIAG LT W 3D ERIC Routine 10/05/2023 10:00 AM CDT Abnormal mammogram PHACOEMULSIFICATION WITH IMPLANT INTRAOCULAR LENS 10/04/2023 12:55 PM CDT Combined forms of age-related cataract of both eyes MM MAMMOGRAM SCREENING BILAT W 3D ERIC W CAD Routine 10/01/2023 10:48 AM CDT Visit for screening mammogram LIPID PANEL & DIRECT LDL (IF NEEDED) Routine 10/01/2023 9:53 AM CDT Screening, lipid GLUCOSE Routine 10/01/2023 9:53 AM CDT Screening for diabetes mellitus DXA BONE DENSITY SPINE/HIP Routine 01/12 8:55 AM CDT Post-menopausal ENDOSCOPY, COLON, SCREENING/DIAGNOSTIC Routine 08/22/2020 11:16 AM CDT Screening for colon cancer HEPATITIS C ANTIBODY, WITH REFLEX Routine 08/01/2013 5:15 PM CDT Need for hepatitis C screening test from Last 3 Months or Most Recently Relevant to Health Maintenance Results * MM Breast Specimen (10/27/2023 10:04 [...] the specimen. Viviana Kirkland MD RAD LEIA * NM Breast Sent Node Inj Lt (10/27/2023 8:58 AM CDT) Anatomical Region Laterality Modality Breast Left Nuclear Medicine Narrative 10/27/2023 8:59 AM CDT These images were obtained during a surgical procedure. Viviana Kirkland MD RAD NM * EKG (10/27/2023) Interface Provider EKG * Basic Metabolic Panel (10/21/2023 9:22 AM CDT) Sodium 140 136 - 145 mmol/L 10/21/2023 5:04 PM [facility] Potassium 4.3 3.5 - 5.1 mmol/L 10/21/2023 5:04 PM [facility] Chloride 105 98 - 109 mmol/L 10/21/2023 5:04 PM [facility] CO2 24 20 - 29 mmol/L 10/21/2023 5:04 PM [facility] Anion Gap 11 6 - 16 mmol/L 10/21/2023 5:04 PM [facility] Calcium 9.8 8.4 - 10.4 mg/dL 10/21/2023 5:04 PM [facility] BUN 26 7 - 26 mg/dL 10/21/2023 5:04 PM [facility] Creatinine 0.99 0.55 - 1.02 mg/dL 10/21/2023 5:04 PM [facility] Glucose 99 70 - 100 mg/dL 10/21/2023 5:04 PM [facility] Comment:The given reference range is for the fasting state. Non-fasting reference range for glucose is 70 - 180 mg/dL. GFR, Estimated >60 >60 mL/min/1.7 3m2 10/21/2023 5:04 PM CDT [facility] Hours Fasting 14.0 8 - 12 Hours 10/21/2023 5:04 PM CDT [facility] ([facility]) Blood Venipuncture / Unknown 10/21/2023 9:22 AM CDT 10/21/2023 9:22 AM CDT Amelia Johnson PA-C LAB_1 Performing Organization Address [facility]/ZIP Co de Phone Number [facility] [address] [place] [address], [facility] (PN) [address] [place] [address] * ECG 12 Lead Outpatient (10/21/2023 9:07 AM CDT) Ventricular Rate 61 BPM [facility] Atrial Rate 61 BPM [facility] P-R Interval 164 ms [facility] QRS Duration 76 ms [facility] QT 398 ms [facility] QTc 400 ms [facility] P Welsh 62 degrees [facility] R Welsh 18 degrees [facility] T Welsh 48 degrees [facility] 10/21/2023 9:07 AM CDT Narrative [facility] - 10/21/2023 9:48 AM CDT Sinus rhythm Normal ECG When compared with ECG of 16-SEP-2016 10:20, Premature ventricular complexes are no longer Present Confirmed by Kuldeep Henning ([id number]) on 10/21/2023 9:48:51 AM Procedure Note Kuldeep Henning MD - 10/21/2023 Sinus rhythm Normal ECG When compared with ECG of 16-SEP-2016 10:20, Premature ventricular complexes are no longer Present Confirmed by Kuldeep Henning ([id number]) on 10/21/2023 9:48:51 AM Amelia Johnson PA-C PN ECG ORDERABLES Performing Organization Address City/[facility]/ZIP Co de Phone Number [facility] [address] [place] [address] * MM Post Mammogram Lt (10/20/2023 9:02 AM CDT) Only the most recent of2 resultswithin the time period is included. Anatomical Region Laterality Modality Breast Left Mammography 10/20/2023 9:02 AM CDT Impressions 10/20/2023 9:22 AM CDT ULTRASOUND GUIDED SMARTCLIP! PLACEMENT HISTORY: ??Malignant spindle cell neoplasm. Seed localization for surgical excision. PROCEDURE: ??The risks and benefits of the procedure, including the risks of bleeding and infection, were explained to the patient and the patient gave consent. ?? The patient was positioned on the ultrasound table. ??Sterile technique was utilized. ??The mass at 9 o'clock, 2 cm from the nipple was localized with ultrasound. ??4 mL 1% lidocaine was used for local anesthesia. Under ultrasound guidance, a pink SmartClip! was advanced to the mass from a lateral approach. ??There were no immediate complications. ?? POST PROCEDURE MAMMOGRAM: ??The seed is in satisfactory position. IMPRESSION: ??Successful ultrasound guided pink SmartClip! placement to the mass at the 9 o'clock position in the left breast. ?? Narrative Procedure Note Rani Garcia MD - 10/20/2023 IMPRESSION ULTRASOUND GUIDED SMARTCLIP! PLACEMENT HISTORY: Malignant spindle cell neoplasm. Seed localization for surgicalexcision. PROCEDURE: The risks and benefits of the procedure, including the risksof bleeding and infection, were explained to the patient and the patientgave consent. The patient was positioned on the ultrasound table. Sterile technique wasutilized. The mass at 9 o'clock, 2 cm from the nipple was localized withultrasound. 4 mL 1% lidocaine was used for local anesthesia. Underultrasound guidance, a pink SmartClip! was advanced to the mass from alateral approach. There were no immediate complications. POST PROCEDURE MAMMOGRAM: The seed is in satisfactory position. IMPRESSION: Successful ultrasound guided pink SmartClip! placement tothe mass at the 9 o'clock position in the left breast. Viviana Kirkland MD RAD [facility] * MM US Breast Seed Loc Lt (10/20/2023 8:54 AM CDT) Anatomical Region Laterality Modality Breast Left Ultrasound 10/20/2023 8:47 AM CDT Impressions 10/20/2023 9:22 AM CDT ULTRASOUND GUIDED SMARTCLIP! PLACEMENT HISTORY: ??Malignant spindle cell neoplasm. Seed localization for surgical excision. PROCEDURE: ??The risks and benefits of the procedure, including the risks of bleeding and infection, were explained to the patient and the patient gave consent. ?? The patient was positioned on the ultrasound table. ??Sterile technique was utilized. ??The mass at 9 o'clock, 2 cm from the nipple was localized with ultrasound. ??4 mL 1% lidocaine was used for local anesthesia. Under ultrasound guidance, a pink SmartClip! was advanced to the mass from a lateral approach. ??There were no immediate complications. ?? POST PROCEDURE MAMMOGRAM: ??The seed is in satisfactory position. IMPRESSION: ??Successful ultrasound guided pink SmartClip! placement to the mass at the 9 o'clock position in the left breast. ?? Narrative Procedure Note Rani Garcia MD - 10/20/2023 IMPRESSION ULTRASOUND GUIDED SMARTCLIP! PLACEMENT HISTORY: Malignant spindle cell neoplasm. Seed localization for surgicalexcision. PROCEDURE: The risks and benefits of the procedure, including the risksof bleeding and infection, were explained to the patient and the patientgave consent. The patient was positioned on the ultrasound table. Sterile technique wasutilized. The mass at 9 o'clock, 2 cm from the nipple was localized withultrasound. 4 mL 1% lidocaine was used for local anesthesia. Underultrasound guidance, a pink SmartClip! was advanced to the mass from alateral approach. There were no immediate complications. POST PROCEDURE MAMMOGRAM: The seed is in satisfactory position. IMPRESSION: Successful ultrasound guided pink SmartClip! placement tothe mass at the 9 o'clock position in the left breast. Viviana Kirkland MD RAD LEIA * MM US Bx Breast Lt (10/07/2023 1:08 PM CDT) Anatomical Region Laterality Modality Breast Left Ultrasound 10/07/2023 12:4 9 PM CDT Impressions 10/18/2023 8:45 AM CDT ULTRASOUND GUIDED BREAST BIOPSY ? HISTORY: ??Left breast mass measuring 1.6 cm at 9 o'clock position, 2 cm from nipple. PROCEDURE: ??The risks and benefits of the procedure were explained to the patient and the patient signed a written consent form. ??Patient identification, the proper side, and site of the procedure were verified. ??The patient was positioned on the ultrasound table. ??Sterile technique was utilized. ??The lesion was localized with ultrasound. 1% lidocaine was used for local anesthesia. ??Under ultrasound guidance, a 12 gauge Celero ??vacuum-assisted biopsy needle system was used to obtain 2 core specimens through the lesion from a lateral approach. ??A hydromark coil biopsy marking clip was placed. ??There were no immediate complications. ??Pressure was held at the biopsy site for 5 minutes. Discharge instructions were given. ?? POST PROCEDURE MAMMOGRAM FOR MARKER PLACEMENT: ?? The biopsy marking clip is in the expected location. ? SUMMARY: Ultrasound-guided biopsy of a mass in the left breast at 9 o'clock, 2 cm from the nipple, marked with a hydromark coil marking clip. PATHOLOGY: ?? FINAL DIAGNOSIS A. ??Breast, left, 9: o'clock ultrasound, needle core biopsy: - ??Malignant spindle cell neoplasm with necrosis, see comment Comment: ??Immunohistochemical stains performed show the neoplasm stains positive for p63, patchy positive for SMA, negative for CK Mj, AE1AE3, 34BE12, CK5-6, S100, ER, TX, CD31, Sox10 and Gata3. ??The findings are not entirely specific, but a breast metaplastic carcinoma is favored over a primary sarcoma or malignant phyllodes tumor. ??Recommend excision for definitive diagnosis. ? RAD/PATH CONCORDANCE: Concordant RECOMMENDATION: Surgical consultation ? Narrative Procedure Note Moraima Sal MD - 10/18/2023 IMPRESSION ULTRASOUND GUIDED BREAST BIOPSY HISTORY: Left breast mass measuring 1.6 cm at 9 o'clock position, 2 cmfrom nipple. PROCEDURE: The risks and benefits of the procedure were explained to thepatient and the patient signed a written consent form. Patientidentification, the proper side, and site of the procedure were verified.The patient was positioned on the ultrasound table. Sterile technique wasutilized. The lesion was localized with ultrasound. 1% lidocaine was usedfor local anesthesia. Under ultrasound guidance, a 12 gauge Celerovacuum-assisted biopsy needle system was used to obtain 2 core specimensthrough the lesion from a lateral approach. A hydromark coil biopsymarking clip was placed. There were no immediate complications. Pressurewas held at the biopsy site for 5 minutes. Discharge instructions weregiven. POST PROCEDURE MAMMOGRAM FOR MARKER PLACEMENT: The biopsy marking clipis in the expected location. SUMMARY: Ultrasound-guided biopsy of a mass in the left breast at 9o'clock, 2 cm from the nipple, marked with a hydromark coil markingclip. PATHOLOGY: FINAL DIAGNOSIS A. Breast, left, 9: o'clock ultrasound, needle core biopsy: - Malignant spindle cell neoplasm with necrosis, see comment Comment: Immunohistochemical stains performed show the neoplasm stainspositive for p63, patchy positive for SMA, negative for CK Mj, AE1AE3,34BE12, CK5-6, S100, ER, TX, CD31, Sox10 and Gata3. The findings are notentirely specific, but a breast metaplastic carcinoma is favored over aprimary sarcoma or malignant phyllodes tumor. Recommend excision fordefinitive diagnosis. ? RAD/PATH CONCORDANCE: Concordant RECOMMENDATION: Surgical consultation Connie Kuhn MD RAD [facility]IA * Surgical Path, Breast (10/07/2023 11:51 AM CDT) Case Report Surgical Pathology ?Case: [id number] ? Authorizing Provider: ??Connie Kuhn MD ? Collected: ? 10/07/2023 1151 ? Ordering Location: ? [facility] ? Received: ?10/07/2023 1439 ? [facility] ? [facility] [address] ? Pathologist: ? Kyle Upton, MD ? Specimen: ?Breast, left, 9: o'clock ultrasound ? 10/15/2023 1:37 PM CDT [facility] FINAL DIAGNOSIS A. Breast, left, 9: o'clock ultrasound, needle core biopsy: Malignant spindle cell neoplasm with necrosis, see comment Comment: Immunohistochemical stains performed show the neoplasm stains positive for p63, patchy positive for SMA, negative for CK Mj, AE1AE3, 34BE12, CK5-6, S100, ER, TX, CD31, Sox10 and Gata3. The findings are not entirely specific, but a breast metaplastic carcinoma is favored over a primary sarcoma or malignant phyllodes tumor. Recommend excision for definitive diagnosis. SMD has reviewed this case and concurs with the diagnosis. 10/15/2023 1:37 PM CDT [facility] Addendum electronically signed by Kyle Upton MD on 10/15/2023 at 1:37 PM Synoptic Report Breast Biomarker Reporting Template (Added in Addendum) BREAST BIOMARKER REPORTING TEMPLATE - All Specimens Protocol posted: 04/07/2023 ?? Test(s) Performed: ? Estrogen Receptor (ER) Status: ?Negative (less than 1%) ? : ?Internal control cells absent ? Test Type: ?Laboratory-develope d test ? Primary Antibody: ?EP1 ??Agilent/Dako ?? Test(s) Performed: ? Progesterone Receptor (PgR) Status: ?Negative (less than 1%) ? : ?Internal control cells absent ? Test Type: ?Laboratory-develope d test ? Primary Antibody: ?16 ?? Test(s) Performed: ? HER2 by Immunohistochemistry: ?Negative (Score 0) ? Test Type: ?Food and Drug Administration (FDA) cleared (test / vendor): Agilent/Dako ? Primary Antibody: ?HercepTest ?? Cold Ischemia and Fixation Times: ?Meet requirements specified in latest version of the ASCO / CAP Guidelines ?? Comment(s): ?HER2 Technical component performed at [place], [place] 10/15/2023 1:37 PM CDT [facility] Clinical Information non palpable 10/15/2023 1:37 PM CDT [facility] Microscopic Description Microscopic examination is performed. 10/15/2023 1:37 PM CDT [facility] Special Stains The stain controls have been reviewed and stain appropriately. 10/15/2023 1:37 PM CDT [facility] Gross Description A: The specimen is received in formalin and labeled with the patient's name and Breast, left, 9: o'clock ultrasound. The specimen consists of multiple (3) huffman-yellow soft tissue needle core biopsies ranging from 0.6 cm up to 1.5 cm in length and 0.2 cm in average diameter. The specimen is inked black. The specimen was collected and placed in formalin at 1:00 PM, 10/07/2023. The specimen is entirely submitted in 1 cassette. DJ 10/15/2023 1:37 PM CDT [facility] Embedded Images 10/15/2023 1:37 PM CDT [facility] Tissue BREAST STRUCTURE / Unknown 10/07/2023 11:51 AM CDT 10/07/2023 2:39 PM CDT Connie Kuhn MD LAB PATHOLOGY [facility] [address] [place] [address], [facility] * (ABNORMAL) [facility] US Breast Lt (10/05/2023 10:31 AM CDT) Anatomical Region Laterality Modality Breast Left Ultrasound 10/05/2023 10:1 9 AM CDT Impressions 10/05/2023 10:44 AM CDT HISTORY: callback COMPARISON: Mammogram dated 10/01/2023, 2022, 09/10/2021, 08/19/2020. ? FINDINGS: Left CC and MLO spot C-Views with tomosynthesis. There are scattered areas of fibroglandular density. Persistence of the mass with associated distortion posteriorly at the 9 o'clock position, middle depth. Left breast ultrasound at the 9 o'clock position, 2 cm from the nipple was performed. Hypoechoic 1.6 x 1.6 x 1.6 cm mass with indistinct margins, correlating with the mammogram finding. No left axillary lymph node enlargement. Findings were confirmed with real-time imaging. ?? RECOMMENDATIONS: ??Left breast ultrasound-guided biopsy at the 9 o'clock position, 2 cm from the nipple. Imaging findings and recommended and follow-up was discussed with the patient and her . The [facility] will attempt to schedule the recommended follow up with the patient. ?? IMPRESSION: ??ACR BI-RADS CATEGORY 4: ??Suspicious. Narrative Procedure Note Yoel Reyez MD - 10/05/2023 IMPRESSION HISTORY: callback COMPARISON: Mammogram dated 10/01/2023, 2022, 09/10/2021,08/19/2020. FINDINGS: Left CC and MLO spot C-Views with tomosynthesis. There arescattered areas of fibroglandular density. Persistence of the mass withassociated distortion posteriorly at the 9 o'clock position, middledepth. Left breast ultrasound at the 9 o'clock position, 2 cm from the nipple wasperformed. Hypoechoic 1.6 x 1.6 x 1.6 cm mass with indistinct margins,correlating with the mammogram finding. No left axillary lymph nodeenlargement. Findings were confirmed with real-time imaging. RECOMMENDATIONS: Left breast ultrasound-guided biopsy at the 9 o'clockposition, 2 cm from the nipple. Imaging findings and recommended and follow-up was discussed with thepatient and her . [facility] will attempt to schedule the recommendedfollow up with the patient. IMPRESSION: ACR BI-RADS CATEGORY 4: Suspicious. Connie Kuhn MD [facility] * (ABNORMAL) [facility] Mammogram Diag Lt W 3D Eric (10/05/2023 10:00 AM CDT) Anatomical Region Laterality Modality Breast Left Mammography 10/05/2023 10:0 0 AM CDT Impressions 10/05/2023 10:44 AM CDT HISTORY: callback COMPARISON: Mammogram dated 10/01/2023, 2022, 09/10/2021, 08/19/2020. ? FINDINGS: Left CC and MLO spot C-Views with tomosynthesis. There are scattered areas of fibroglandular density. Persistence of the mass with associated distortion posteriorly at the 9 o'clock position, middle depth. Left breast ultrasound at the 9 o'clock position, 2 cm from the nipple was performed. Hypoechoic 1.6 x 1.6 x 1.6 cm mass with indistinct margins, correlating with the mammogram finding. No left axillary lymph node enlargement. Findings were confirmed with real-time imaging. ?? RECOMMENDATIONS: ??Left breast ultrasound-guided biopsy at the 9 o'clock position, 2 cm from the nipple. Imaging findings and recommended and follow-up was discussed with the patient and her . The [facility] will attempt to schedule the recommended follow up with the patient. ?? IMPRESSION: ??ACR BI-RADS CATEGORY 4: ??Suspicious. Narrative Procedure Note Yoel Reyez MD - 10/05/2023 IMPRESSION HISTORY: callback COMPARISON: Mammogram dated 10/01/2023, 2022, 09/10/2021,08/19/2020. FINDINGS: Left CC and MLO spot C-Views with tomosynthesis. There arescattered areas of fibroglandular density. Persistence of the mass withassociated distortion posteriorly at the 9 o'clock position, middledepth. Left breast ultrasound at the 9 o'clock position, 2 cm from the nipple wasperformed. Hypoechoic 1.6 x 1.6 x 1.6 cm mass with indistinct margins,correlating with the mammogram finding. No left axillary lymph nodeenlargement. Findings were confirmed with real-time imaging. RECOMMENDATIONS: Left breast ultrasound-guided biopsy at the 9 o'clockposition, 2 cm from the nipple. Imaging findings and recommended and follow-up was discussed with thepatient and her . [facility] will attempt to schedule the recommendedfollow up with the patient. IMPRESSION: ACR BI-RADS CATEGORY 4: Suspicious. Connie Kuhn MD [facility] * (ABNORMAL) [facility] Mammogram Screening Bilat W 3D Eric W CAD (10/01/2023 10:48 AM CDT) Anatomical Region Laterality Modality Breast Bilateral Mammography Impressions 10/01/2023 11:30 AM CDT : ACR BI-RADS Category: 0 - Incomplete: Needs Additional Imaging Evaluation (left) RECOMMENDATION: Spot Tomosynthesis and Ultrasound The results and recommendations of this examination will be communicated to the patient and the imaging center will attempt to schedule any recommended follow up with the patient. As a result of the Cures Act, all medical imaging exams are released immediately to [facility]. ??You may be viewing this report before our scheduling staff and your referring provider. ??We will attempt to contact you by phone within one business day of this report to schedule any recommended follow-up exams. ??If you have questions, please contact your health care provider. Narrative 10/01/2023 11:30 AM CDT MM MAMMOGRAM SCREENING BILAT W 3D ERIC W CAD performed on 10/01/23 Compared to: 2022 [facility] Mammogram Screening Bilat W 3D Eric W CAD, 09/10/2021 [facility] Mammogram Screening Bilat W 3D Eric W CAD, and 08/19/2020 [facility] Mammogram Screening Bilat W 3D Eric W CAD ?? FINDINGS: Bilateral screening mammogram was performed with the assistance of Computer-Aided Detection and breast tomosynthesis. The breasts have scattered areas of fibroglandular density. There is a focal asymmetry in the left breast at the 8 o'clock position at middle depth. The remainder of the breast tissue is unremarkable. Connie Kuhn MD [facility] * (ABNORMAL) Lipid Panel & Direct LDL (if Needed) (10/01/2023 9:53 AM CDT) Cholesterol 282(H) 0 - 199 mg/dL 10/01/2023 4:49 PM [facility] Triglyceride 71 <=149 mg/dL 10/01/2023 4:49 PM [facility] HDL Cholesterol 74 >=40 mg/dL 4:49 PM [facility] LDL, Calculated 194(H) <130 mg/dL 4:49 PM [facility] Non HDL Chol, Calculated 208(H) <=159 mg/dL 10/01/2023 4:49 PM [facility] Cholesterol/HDL Ratio 3.8 <=5.0 10/01/2023 4:49 PM T [facility] Hours Fasting 12.0 8 - 12 Hours 10/01/2023 4:49 PM CDT [facility] ([facility]) Blood Venipuncture / Unknown 10/01/2023 9:53 AM CDT 10/01/2023 9:53 AM CDT Connie Kuhn MD LAB_1 Performing Organization Address [facility] de Phone Number [facility] [address] [place] [address], [facility] ([facility]) [address] [place] [id number] * Glucose (10/01/2023 9:53 AM CDT) [facility] Glucose 85 70 - 100 mg/dL 10/01/2023 4:49 PM CDT [facility] Comment:The given reference range is for the fasting state. Non-fasting reference range for glucose is 70 - 180 mg/dL. Hours Fasting 12.0 8 - 12 Hours 10/01/2023 4:49 PM CDT [facility] ([facility]) Blood Venipuncture / Unknown 10/01/2023 9:53 AM CDT 10/01/2023 9:53 AM CDT Connie Kuhn MD LAB_1 Performing Organization Address [facility] de Phone Number [facility] [address] [place] [address], [facility] (PN) [address] [place] [phone], [facility] * DXA Bone Density Spine/Hip (01/12/2023 8:55 AM CDT) [facility] DXA Hip Left Bone Mineral Density 0.849 gm/cm2 EXTERNAL RESULTS DXA Hip Left T-Score -0.8 EXTERNAL RESULTS DXA Hip Left Z-Score 0.8 EXTERNAL RESULTS DXA Femur Left Bone Mineral Density 0.719 gm/cm2 EXTERNAL RESULTS DXA Femur Left T-Score -1.2 EXTERNAL RESULTS DXA Femur Left Z-Score 0.6 EXTERNAL RESULTS DXA Lumbar Spine Bone Mineral Density 0.998 gm/cm2 EXTERNAL RESULTS DXA Lumbar Spine T-Score -0.4 EXTERNAL RESULTS DXA Lumbar Spine Z-Score 1.7 EXTERNAL RESULTS % Change Spine -7.2 % EXTER NAL RESULTS % Change Left Hip (Total) -14.1 % EXTERNAL RESULTS Anatomical Region Laterality Modality Lower Extremity, Spine, Hip, L-Spine Radiographic Imaging Narrative 01/15/2023 10:45 AM CDT Table formatting from the original result was not included. Patient Name: Eboni Waggoner Densitometer: [employer] [facility] W Appt Dept/Resource: [facility] BONE Demographics Age: 72 y.o. Gender: Female Height: 5' 7 (1.702 m) Height at age 27: 5.7 Weight: 187 lb (84.8 kg) Race: Medical/Surgical History Menstrual periods: None Age of menopause: 48 ?? Able to stand from a chair easily without use of the arms?: Yes, easily How many falls indoors/outdoors within the last 12 months?: 0 History of fractures in parents: No History of previous fractures?: No ?? Hip replacement?: No Oral cortisone or steroid medication for more than 3 months?: No ?? Currently or have taken medications to treat osteoporosis?: No ?? Taking any aromatase inhibitor medication for breast cancer - anti-estrogen excluding tamoxifen?: No ?? Have had the following medical conditions: None Dietary/Habit Alcohol 3 units or more per day on average?: No Currently smoking tobacco? No Daily servings of calcium rich food: 2 Do you take a daily calcium supplement?: No Dual-X-ray Absorptiometry (DXA) Results Skeletal Site BMD (gm/cm2) T-Score Z-Score % Change from Previous Scan dated: 03/26/2003 Spine (L1, L2, L3, L4) 0.998 -0.4 1.7 -7.2% Left Hip (Total) 0.849 -0.8 0.8 -14.1% Left Hip (Femoral neck) 0.719 -1.2 0.6 N/A ??*N/A indicates that measurements were either not needed or not valid TBS: Trabecular Bone Score (TBS): 1.135 FRAX Score: 10 Year Risk Hip Fracture: 1.5% 10 Year Risk Major Osteoporotic Fracture: 11.5% Comments: *Decrease in bone density of spine and hip is clinically significant. Diagnosis: *Low bone mass (osteopenia) of left hip. Patient has a mildly increased risk of fracture Recommendations:. *Recommend lifestyle modifications as needed, including proper calcium/vitamin d intake, weight bearing exercises, and fall prevention. *Consider follow up DXA in 4-5 years, unless clinical circumstances change. Changes of spine and total hip bone density = 0.03 g/cm2 are beyond densitometer precision error and generally are considered significant when the current and prior studies were done on the same densitometer. FRAX Explanation: The 10 year risks of hip and major osteoporotic fractures (clinical spine, forearm, hip or shoulder fracture) are calculated by the FRAX algorithm based on femoral neck bone density, age, gender, race/ethnicity, weight, height, previous fracture, parental hip fracture, smoking status, glucocorticoid intake, history of RA, secondary osteoporosis, and high alcohol consumption. FRAX fracture risk estimates are adjusted for Trabecular Bone Score (TBS) when available. Trabecular Bone Score (TBS) is a measure of the microarchitectural integrity of trabecular bone, and is derived from the [id number] changes of bone density embedded in the AP spine BMD image. TBS is only modestly correlated with BMD, and is modestly associated with incident major osteoporotic and hip fractures independent of BMD and other risk factors. FRAX Fracture Risk Categories in terms of major osteoporotic fractures: < 10% = low fracture risk = 10% and <15% = mildly increased fracture risk = 15% and <20% = moderately increased fracture risk = 20% and <30% = high fracture risk = 30% = very high fracture risk National Osteoporosis Foundation Treatment Guideline A clinician may consider FDA-approved medical therapies in postmenopausal women and men aged 50 years and older, if one or more of the following is present (clinical correlation required and therapy may not always be indicated): The patient has a hip or vertebral fracture. T-score = -2.5 at the femoral neck, hip, or spine after appropriate evaluation to exclude secondary causes. Low bone mass (T-score between -1.0 and -2.5 at the femoral neck, hip or spine) and a 10-year probability of a hip fracture = 3% or a 10-year probability of a major osteoporosis-related fracture = 20% based on the FRAX scores. ?? Connie Kuhn MD RAD [facility]EXA * Endoscopy, Colon, Screening/Diagnostic (08/22/2020 11:16 AM CDT) 08/22/2020 11:1 6 AM CDT Narrative GI ([facility]) - 08/22/2020 11:16 AM CDT Patient Name: Eboni Waggoner Procedure Date: 08/22/2020 11:16 AM Date of : 1950 Admit Type: Outpatient Age: 69 Gender: Female Note Status: Finalized Attending MD: Leonardo Armando , Procedure: ? Colonoscopy Indications: ? High risk colon cancer surveillance: ? Personal history of multiple (3 or ? more) adenomas, Last colonoscopy: ? September 2016. Of note, her father had ? colon polyps. Providers: ? Leonardo Armando, Flor Ventura Referring MD: ?Connie Kuhn Medicines: ? Midazolam 4 mg IV, Fentanyl 150 ? micrograms IV Complications: ? No immediate complications. Procedure: ? After I obtained informed consent, ? the scope was passed under direct ? vision. Throughout the procedure, the ? patient's blood pressure, pulse, and ? oxygen saturations were monitored ? continuously. The [id number] was ? introduced through the anus and ? advanced to the terminal ileum, with ? identification of the appendiceal ? orifice and IC valve. The colonoscopy ? was performed without difficulty. The ? patient tolerated the procedure well. ? The quality of the bowel preparation ? was good. Findings: ? The perianal and digital rectal examinations were ? normal. ? The terminal ileum appeared normal. ? Three sessile and semi-sessile polyps were found in ? the sigmoid colon, descending colon and cecum. The ? polyps were 4 to 5 mm in size. These polyps were ? removed with a cold snare. Resection and retrieval ? were complete. Verification of patient identification ? for the specimen was done. Estimated blood loss was ? minimal. ? Retroflexion in the right colon was performed. ? Non-bleeding internal hemorrhoids were found during ? retroflexion. ? The exam was otherwise normal throughout the examined ? colon. Moderate Sedation: ? Moderate (conscious) sedation was administered by the ? endoscopy nurse and supervised by the endoscopist. ? The following parameters were monitored: oxygen ? saturation, heart rate, blood pressure, and response ? to care. Total physician intraservice time was 24 ? minutes. Impression: ?- The examined portion of the ileum ? was normal. ? - Three 4 to 5 mm polyps in the ? sigmoid colon, in the descending ? colon and in the cecum, removed with ? a cold snare. Resected and retrieved. ? - Non-bleeding internal hemorrhoids. Recommendation: ?- Discharge patient to home. ? - Await pathology results. ? - Repeat colonoscopy for surveillance ? based on pathology results. ? - The findings and recommendations ? were discussed with the patient. Procedure Code(s): ?? --- Professional --- ? 73916, Colonoscopy, flexible; with ? removal of tumor(s), polyp(s), or ? other lesion(s) by snare technique ? 01497, Moderate sedation; each ? additional 15 minutes intraservice ? time ? G0500, Moderate sedation services ? provided by the same physician or ? other qualified health care ? professional performing a ? gastrointestinal endoscopic service ? that sedation supports, requiring the ? presence of an independent trained ? observer to assist in the monitoring ? of the patient's level of ? consciousness and physiological ? status; initial 15 minutes of ? intra-service time; patient age 5 ? years or older (additional time may ? be reported with 36403, as ? appropriate) Diagnosis Code(s): ?? --- Professional --- ? Z86.010, Personal history of colonic ? polyps ? K64.8, Other hemorrhoids ? K63.5, Polyp of colon CPT copyright 2019 [employer]. All rights reserved. The codes documented in this report are preliminary and upon hazardous waste material technician review may be revised to meet current compliance requirements. Leonardo Armando, 08/22/2020 12:05:21 PM Number of Addenda: 0 Note Initiated On: 08/22/2020 11:16 AM ? Endoscopy Report Procedure Note Provider, MD Nikita - 08/22/2020 Patient Name: Eboni Waggoner Procedure Date: 08/22/2020 11:16 AM Date of : 1950 Admit Type: Outpatient Age: 69 Gender: Female Note Status: Finalized Attending MD: Leonardo Armando , Procedure: Colonoscopy Indications: High risk colon cancer surveillance: Personal history of multiple (3 or more) adenomas, Last colonoscopy: September 2016. Of note, her father had colon polyps. Providers: Flor Berry Referring MD: Connie Kuhn Medicines: Midazolam 4 mg IV, Fentanyl 150 micrograms IV Complications: No immediate complications. Procedure: After I obtained informed consent, the scope was passed under direct vision. Throughout the procedure, the patient's blood pressure, pulse, and oxygen saturations were monitored continuously. The [id number] was introduced through the anus and advanced to the terminal ileum, with identification of the appendiceal orifice and IC valve. The colonoscopy was performed without difficulty. The patient tolerated the procedure well. The quality of the bowel preparation was good. Findings: The perianal and digital rectal examinations were normal. The terminal ileum appeared normal. Three sessile and semi-sessile polyps were found in the sigmoid colon, descending colon and cecum. The polyps were 4 to 5 mm in size. These polyps were removed with a cold snare. Resection and retrieval were complete. Verification of patient identification for the specimen was done. Estimated blood loss was minimal. Retroflexion in the right colon was performed. Non-bleeding internal hemorrhoids were found during retroflexion. The exam was otherwise normal throughout the examined colon. Moderate Sedation: Moderate (conscious) sedation was administered by the endoscopy nurse and supervised by the endoscopist. The following parameters were monitored: oxygen saturation, heart rate, blood pressure, and response to care. Total physician intraservice time was 24 minutes. Impression: - The examined portion of the ileum was normal. - Three 4 to 5 mm polyps in the sigmoid colon, in the descending colon and in the cecum, removed with a cold snare. Resected and retrieved. - Non-bleeding internal hemorrhoids. Recommendation: - Discharge patient to home. - Await pathology results. - Repeat colonoscopy for surveillance based on pathology results. - The findings and recommendations were discussed with the patient. Procedure Code(s): --- Professional --- 90237, Colonoscopy, flexible; with removal of tumor(s), polyp(s), or other lesion(s) by snare technique 19684, Moderate sedation; each additional 15 minutes intraservice time G0500, Moderate sedation services provided by the same physician or other qualified health career guidance technician performing a gastrointestinal endoscopic service that sedation supports, requiring the presence of an independent trained observer to assist in the monitoring of the patient's level of consciousness and physiological status; initial 15 minutes of intra-service time; patient age 5 years or older (additional time may be reported with 06393, as appropriate) Diagnosis Code(s): --- Professional --- Z86.010, Personal history of colonic polyps K64.8, Other hemorrhoids K63.5, Polyp of colon CPT copyright 2019 [employer]. All rights reserved. The codes documented in this report are preliminary and upon hazardous waste material technician review may be revised to meet current compliance requirements. Leonardo Armando, 08/22/2020 12:05:21 PM Number of Addenda: 0 Note Initiated On: 08/22/2020 11:16 AM Endoscopy Report Connie Kuhn MD PN GI PROCEDURE ORD ERABLES Performing Organization Address City/[facility] Co de Phone Number GI (PROVATION) [place], [place] * Hepatitis C Antibody, with Reflex (08/01/2013 5:15 PM CDT) Hepatitis C Antibody Non-React Non-Reacti ve HP CONVERSION Urine:clean catch 08/01/2013 5:15 PM CDT Karen Munson MD LAB_1 HP CONVERSION from Last 3 Months or Most Recently Relevant to Health Maintenance Advance Directives * Full Code (Latest Code Status on File) Date Activated Date Inactivated Comments 10/27/2023 9:10 AM 10/27/2023 3:12 PM * Full Code Date Activated Date Inactivated Comments 05/24/2018 3:15 PM 05/24/2018 6:41 PM * Full Code Date Activated Date Inactivated Comments 09/23/2016 1:42 PM 09/23/2016 6:36 PM * Full Code Date Activated Date Inactivated Comments 08/23/2014 11:05 AM 08/23/2014 2:05 PM Care Teams Cytotechnologist/Cytology Supervisor Relationship Specialty Start Date End Date Connie Kuhn MD [address] [place] [address] PCP - General Family Practice 05/23/18
--- OUTSIDE RECORDS SUMMARY | 2023-10-31 02:15 | XMS_ITS | Encounter Summary ---
Author Organization [employer] Address [address], [place] [address] Care Team Providers Care Entertainment Production Professional Name Role Phone Connie Kuhn MD Primary Care Provider [phone] Reason for Visit * Procedure/Equipment (Routine) - Incomplete Specialty Diagnoses / Procedures Referred By Charlie t Referred To Contact Diagnoses Mass of left breast, unspecified quadrant Procedures MM Post Mammogram Lt Viviana Kirkland MD [address] [facility] [address] [place] [address] Referral ID Status Reason Start Date Expiration Date V isits Requested Visits Authorized [id number] Incomplete 10/12/2023 01/10/2025 1 1 Encounter Details Date Type Department Care Team (Late st Contact Info) Description 10/20/2023 9:30 AM CDT Ancillary Procedure [facility] Mammography at [facility] [place] [address] [address] [facility] [place], [place] [address] Viviana Kirkland MD [address] [facility] [address] [place], [place] [address] Mass of left breast, unspecified quadrant Social [...] Appointment Specialty Center 3931 General Surgery [address] [facility] [address] [place] [address] Viviana Kirkland MD [address] [facility] [address] [place], [place] [address] 11/09/2023 2:30 PM CDT Appointment [facility] Cancer Care at [facility] Oncology [address] [place] [address] Shayla Bland MBBS [address] [place] [address] 11/15/2023 11:00 AM CDT Appointment [facility] [address] [place] [address] Thomas Hanks, OD [address] [place] [phone] documented as of this encounter Procedures Procedure Name Priority Date/Time Associated Diagnosis Comments MM POST MAMMOGRAM LT Routine 10/20/2023 9:02 AM CDT Mass of left breast, unspecified quadrant documented in this encounter Results * MM Post Mammogram Lt (10/20/2023 9:02 AM CDT) Anatomical Region Laterality Modality Breast [...] the left breast. Viviana Kirkland MD RAD [facility] documented in this encounter Visit Diagnoses Diagnosis Mass of left breast, unspecified quadrant Mass of left breast, unspecified quadrant documented in this encounter Care Teams Entertainment Production Professional Relationship Specialty Start Date End Date Connie Kuhn MD [address] [place] [address] PCP - General Family Practice 05/23/18 documented as of this encounter
--- OUTSIDE RECORDS SUMMARY | 2023-10-31 02:15 | XMS_ITS | Encounter Summary ---
Author Organization [employer] Address [address] [address] Care Team Providers Care Shipping And Receiving Supervisor Name Role Phone Connie Kuhn MD Primary Care Provider [phone] Reason for Visit * Auth/Cert (Routine) Specialty Diagnoses / Procedures Referred By Charlie christianson Referred To Contact Diagnoses Mass of left breast, unspecified quadrant Procedures LUMPECTOMY LEFT BREAST WITH SEED LOCALIZATION AND SENTINEL LYMPH NODE BIOPSY Referral ID Status Reason Start Date Expiration Date Visits Re quested Visits Authorized [id number] 1 1 Encounter Details Date Type Department Care Team (Late st Contact Info) Description 10/27/2023 8:20 AM CDT - 10/27/2023 10:55 AM CDT [facility] [address] [facility] [place], [place] [id number] Viviana Kirkland MD [address] [facility] [address] [place], [place] [phone] LUMPECTOMY LEFT BREAST WITH SEED LOCALIZATION AND SENTINEL LYMPH NODE BIOPSY Social History Tobacco Use Types Packs/Day Years [...] Sign Reading Time Taken Comments Blood Pressure 156/86 10/27/2023 7:30 AM CDT Pulse 79 10/27/2023 7:30 AM CDT Temperature 36.2 ??C (97.1 ??F) 10/27/2023 7:30 AM CD T Respiratory Rate 20 10/27/2023 7:30 AM CDT Oxygen Saturation 97% 10/27/2023 7:30 AM CDT Inhaled Oxygen Concentration - - Weight [...] 8 pm Please call surgery clinic at [phone] Isael Phillips's nurse if [...] LOCALIZATION AND SENTINEL LYMPH NODE BIOPSY Location [facility] Procedure Date 10/27/2023 Donal Lyn is a [...] Note: Added automatically from request for surgery [id number] Acute iritis, left eye 07/19/2012 Adenomatous polyp [...] LAP CHOLECYSTECTOMY 09/23/2016 Viviana Kirkland MD at [facility] SINUS SURGERY 05/24/2018 FESS, fungal ball removal TONSILLECTOMY VAGINAL HYSTERECTOMY LW Problem: Hysterectomy Vaginal s/p LW Modifier: w/ SSF, TVT 2000 LW Onset: Current Outpatient Medications Medication Instructions ALBUterol sulfate HFA 108 (90 Base) MCG/ACT inhaler 2 Puffs, Inhalation, Q4H PRN kvihnmknreqt-mqngmgtqnlwy-rfaphecnj (EASY DROPS) 1-0.5-0.075 % SUSP 1 Drop, Left Eye, QID, Starting1 day BEFORE cataract surgery, place 1 drop in the LEFT eye 4 times per day. Then follow the drop instructions given in clinic. iaakyaecrgay-jyuvtytbohxi-jpaakdzyb (EASY DROPS) 1-0.5-0.075 % SUSP 1 Drop, Right Eye, QID, Starting 1 day BEFORE cataract surgery, place 1 drop into the RIGHT eye 4 times per day. Then follow the drop instructions given in clinic. 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 ICD-10-CM 1. Preop examination Z01.818 Basic Metabolic Panel ECG 12 Lead Outpatient Special risks: Patient's pulmonary status medically optimized. Medication recommendations: Patient Instructions Follow your individualized medication recommendations as described above. In addition, please stop all adtg-nec-cqnyfbr medications including aspirin, ibuprofen (Advil, Motrin), naproxen [...] PROCEDURES: 1. left breast partial mastectomy using [employer] SmartClip navigation. 2. left deep axillary sentinel [...] removed. N/A ATTENDING SURGEON: Viviana Kirkland MD STRUCTURAL ANALYSIS ENGINEER: Chantell Lewis MD - [facility] Surgery Resident ANESTHESIA: General EBL: 30 ccs [...] Appointment Specialty Center 3931 General Surgery [address] [facility] [address] [place] [address] Viviana Kirkland MD [address] [facility] [address] [place] [address] 11/09/2023 2:30 PM CDT Appointment [facility] Oncology [address] [place] [address] Shayla Bland, JAMES [address] [place] [address] 11/15/2023 11:00 AM CDT Appointment [facility] [address] [place], [place] [address] Thomas Hanks, OD [address] [place] [phone] Pending Results Name Type Priority Associated Diagnoses [...] Date Dose Rate Site BUPivacaine-EPINEPHrine (SENSORCAINE) 0.25% -[id number] injection ONCE PRN, Starting on Wed10/27/23 at [...] Carmelina Weeks RN)0915 (Given - Provider: Birdie Mcdonald APRN, UMBRELLA TIPPER) Continuous Medication Order 10/25/2023 10/26/2023 10/27/2023 lactated [...] (all pain scores)., Post-op BUPivacaine-EPINEPHrine (SENSORCAINE) 0.25% -1:[id number] injection ONCE PRN, Starting on Wed10/27/23 at [...] Pre-op documented in this encounter Care Teams Shipping And Receiving Supervisor Relationship Specialty Start Date End Date Connie Kuhn MD [address] [place] [address] PCP - General Family Practice 05/23/18 documented as of this encounter
--- OUTSIDE RECORDS SUMMARY | 2023-10-31 02:15 | XMS_ITS | Encounter Summary ---
Author Organization [employer] Address [address] [address] Care Team Providers Care Cafeteria Manager Name Role Phone Connie Kuhn MD Primary Care Provider [phone] Reason for Visit * Reason Comments Post-Op Check Encounter Details Date Type Department Care Team (Late st Contact Info) Description 10/25/2023 9:20 AM CDT Office Visit [facility] [address] [place] [address] [place] [address] [place], [place] [phone] Pseudophakia, right eye (Primary Dx) Social History Tobacco Use Types Packs/Day Years [...] on file documented as of this encounter Progress Notes * Maria Alejandra Patel MD - 10/25/2023 9:20 AM CDT Comprehensive Ophthalmology: Visit Summary Chief Complaint: POW1 s/p phaco IOL, Right Eye Subjective: HPI Eboni Waggoner presents for 1 week PO #2 evaluation of PCIOL in right eye. Date of surgery: 10/18/23 Right Eye Target: plano 10/04/23 Left Eye Target: plano Context of the chief complaint/aggravating factors: She reports that she was diagnoses with breast cancer last week and is scheduled for a lumpectomy. Severity: mod Location: right eye Associated symptoms: She still sees an occasional arc of light in the LE but is getting better. Eye meds: Combo RE QID using BID LE last dose in 7am General Medical Observation: Alert, no apparent distress. Last edited by Inga Guerrero on 10/25/2023 9:06 AM. Review of Systems 10 systems reviewed, all negative except for what is documented in HPI. General medical evaluation: Eboni is in no acute distress. A&O x 3. Objective: Physical Exam Base Eye Exam Visual Acuity (Snellen - Linear) Right Left Dist sc 20/15 20/25 -2 Dist ph sc 20/20 +2 Tonometry (Applanation, 9:14 AM) Right Left Pressure 12 11 Slit Lamp and Fundus Exam External Exam Right Left External Normal Normal Slit Lamp Exam Right Left Lids/Lashes Normal Normal Conjunctiva/Sclera White and quiet White and quiet Cornea Clear Clear Anterior Chamber deep, rare cell deep, quiet Iris Round Round Lens PCIOL PCIOL Refraction Manifest Refraction Sphere Cylinder Dist VA Add Near VA Right Kenna 20/15 +2.50 J1+ Left -0.50 Sphere 20/15 +2.50 J1+ Assessment: ICD-10-CM 1. Pseudophakia, right eye Z96.1 Plan: Discussed findings and options in detail and answered questions. # POW1 s/p CE/PCIOL, Right Eye (10/18/23) - doing well - continue combo drop 3 times per day for 1 week, then 2 times per day for 1 week, then 1 time per day for 1 week, then stop. - No swimming pools/hot tubs for 1 more week - retinal detachment/endophthalmitis return precautions given, including but not limited to: increased pain/redness, decreased vision, flashers/floaters or any other concerns. # s/p CE/PCIOL, Left Eye (10/04/23) - doing well - complete drop taper as previously directed - MRx/DFE next visit RTC PO#3 as scheduled, sooner prn. Maria Alejandra Patel MD Comprehensive Ophthalmology [facility] documented in this encounter Plan of Treatment Upcoming Encounters Date Type Department Care Team (Late st Contact Info) Description 11/09/2023 11:50 AM CDT Appointment Specialty Center 3931 General Surgery [address] [facility] [address] [place] [address] Viviana Kirkland MD [address] [facility] [address] [place], [place] [address] 11/09/2023 2:30 PM CDT Appointment [facility] Cancer Care at [facility] Oncology [address] [place] [address] Shayla Bland MBBS [address] [place] [address] 11/15/2023 11:00 AM CDT Appointment [facility] [address] [place], [place] [address] Thomas Hanks, OD [address] [place] [phone] documented as of this encounter Visit Diagnoses Diagnosis Pseudophakia, right eye- Primary Lens replaced by other means documented in this encounter Care Teams Cafeteria Manager Relationship Specialty Start Date End Date Connie Kuhn MD [address] [place], [place] [id number] PCP - General Family Practice 05/23/18 documented as of this encounter
--- OUTSIDE RECORDS SUMMARY | 2023-10-31 02:15 | XMS_ITS | Encounter Summary ---
Author Organization [employer] Address [address], [place] [address] Care Team Providers Care Boston Cutter Name Role Phone Connie Kuhn MD Primary Care Provider [phone] Reason for Visit * Procedure/Equipment (Routine) - Incomplete Specialty Diagnoses / Procedures Referred By Charlyac t Referred To Contact Diagnoses Mass of left breast, unspecified quadrant Procedures MM US Breast Seed Loc Lt Viviana Kirkland MD [address] [facility] [address] [place] [address] Referral ID Status Reason Start Date Expiration Date V isits Requested Visits Authorized [id number] Incomplete 10/12/2023 01/10/2025 1 1 Encounter Details Date Type Department Care Team (Late st Contact Info) Description 10/20/2023 9:00 AM CDT Ancillary Procedure [facility] Mammography at [facility] [place] [address] [address] [facility] [place], [place] [address] Viviana Kirkland MD [address] [facility] [address] [place], [place] [id number] Mass of left breast, unspecified quadrant Social [...] Specialty Center [address] General Surgery [address] [facility] [address] [place] [address] Viviana Kirkland MD [address] [facility] [address] [place], [place] [address] 11/09/2023 2:30 PM CDT [facility] at [facility] Oncology [address] [place] [address] Shayla Bland MBBS [address] [place] [address] 11/15/2023 11:00 AM CDT Appointment [facility] [address] [place] [address] Thomas Hanks, OD [address] [place] [phone] documented as of this encounter Procedures Procedure Name Priority Date/Time Associated Diagnosis Comments MM US BREAST SEED LOC LT Routine 10/20/2023 8:54 AM CDT Mass of left breast, [...] the left breast. Viviana Kirkland MD RAD [facility] documented in this encounter Visit Diagnoses Diagnosis Mass of left breast, unspecified quadrant Mass of left breast, unspecified quadrant documented in this encounter Administered Medications Inactive Administered Medications - up to 3 most recent administrations Medication Order MAR Action Action Date Dose Rate Site lidocaine (XYLOCAINE) 1 % injection 10 mL 10 mL, Subcutaneous, ONCE, On Wed10/20/23 at 0915, For 1 dose Given 10/20/2023 8:54 AM CDT 4 mL Other documented in this encounter Care Teams Boston Cutter Relationship Specialty Start Date End Date Connie Kuhn MD [address] [place] [address] PCP - General Family Practice 05/23/18 documented as of this encounter
--- OUTSIDE RECORDS SUMMARY | 2023-10-31 02:15 | XMS_ITS | Encounter Summary ---
Author Organization [employer] Address [address], [place] [address] Care Team Providers Care Automotive Fuel Injection Servicer Name Role Phone Connie Kuhn MD Primary Care Provider [phone] Reason for Referral * Procedure/Equipment (Routine) - Incomplete Specialty Diagnoses / Procedures Referred By Charlie christianson Referred To Contact Diagnoses Mass of left breast, unspecified quadrant Procedures NM Breast Sent Node Inj Lt Viviana Kirkland MD [address] [facility] [address] [place] [address] Referral ID Status Reason Start Date Expiration Date V isits Requested Visits Authorized [id number] Incomplete 10/12/2023 01/10/2025 6 6 Reason for Visit * Auth/Cert (Routine) Specialty Diagnoses / Procedures Referred By Charlie christianson Referred To Contact Diagnoses Mass of left breast, unspecified quadrant Procedures LUMPECTOMY LEFT BREAST WITH SEED LOCALIZATION AND SENTINEL LYMPH NODE BIOPSY Referral ID Status Reason Start Date Expiration Date Visits Re quested Visits Authorized [id number] 1 1 Encounter Details Date Type Department Care Team (Late st Contact Info) Description 10/27/2023 8:39 AM CDT - 10/27/2023 11:59 PM CDT Hospital Encounter [facility] [address] [place] [address] Viviana Kirkland MD [address] [facility] [address] [place] [address] Mass of left breast, unspecified quadrant Discharge [...] on file documented as of this encounter Medications at Time of Discharge [...] 10/01/2023 2024 documented as of this encounter Plan of Treatment Upcoming Encounters Date Type Department Care Team (Late st Contact Info) Description 11/09/2023 11:50 AM CDT Appointment Specialty Center 3931 General Surgery [address] [facility] [address] [place] [address] Viviana Kirkland MD [address] [facility] [address] [place], [place] [address] 11/09/2023 2:30 PM CDT [facility] Oncology [address] [place] [address] Shayla Bland MBBS [address] [place] [address] 11/15/2023 11:00 AM CDT Appointment [facility] [address] [place] [address] Thomas Hanks, OD [address] [place] [phone] documented as of this encounter Procedures Procedure Name Priority Date/Time Associated Diagnosis Comments NM BREAST SENT NODE INJ LT Routine 10/27/2023 8:58 AM CDT Mass of left breast, unspecified quadrant documented in this encounter Results * NM Breast Sent Node Inj Lt (10/27/2023 8:58 AM CDT) Anatomical Region Laterality Modality Breast Left Nuclear Medicine Narrative 10/27/2023 8:59 AM CDT These images were obtained during a surgical procedure. Viviana Kirkland MD RAD [facility] documented in this encounter Visit Diagnoses Diagnosis Mass of left breast, unspecified quadrant documented in this encounter Administered Medications Inactive Administered Medications - up to 3 most recent administrations Medication Order MAR Action Action Date Dose Rate Site technetium TC-99M sodium thiosulfate filtered (SULFUR COLLOID) injection 2.17 millicurie 2.17 millicurie, Intradermal, ONCE, On Wed10/27/23 at 0915, For 1 dose, Radiology Given 10/27/2023 8:59 AM CDT 2.17 millicuries documented in this encounter Care Teams Automotive Fuel Injection Servicer Relationship Specialty Start Date End Date Connie Kuhn MD [address] [place] [address] PCP - General Family Practice 05/23/18 documented as of this encounter
--- OUTSIDE RECORDS SUMMARY | 2023-10-31 02:15 | XMS_ITS | Encounter Summary ---
Author Organization [employer] Address [address], [place] [address] Care Team Providers Care Commercial Lines Sales Executive Name Role Phone Connie Kuhn MD Primary Care Provider [phone] Reason for Visit * Reason Comments PRE-OP EXAM Encounter Details Date Type Department Care Team (Late st Contact Info) Description 10/21/2023 9:00 AM CDT Pre-Op Visit [facility] [address] [place] [address] [place] [id number] Amelia Johnson PA-C [address] [place] [address] [place] [phone] Preop examination (Primary Dx) Social History Tobacco Use Types [...] Sign Reading Time Taken Comments Blood Pressure 134/74 10/21/2023 8:48 AM CDT Pulse 63 10/21/2023 8:48 AM CDT Temperature - - Respiratory Rate - - Oxygen Saturation - - Inhaled Oxygen Concentration - - Weight 86.2 kg (190 lb) 10/21/2023 8:48 AM CDT Height - - Body Mass Index 29.76 10/15/2023 1:23 PM CDT documented in this encounter Patient Instructions * Patient Instructions* Amelia Johnson PA-C - 10/21/2023 9:00 AM CDT Follow your individualized medication recommendations as described above. In addition, please stop all srtq-qtm-wdgycqu medications including aspirin, ibuprofen (Advil, Motrin), naproxen [...] health-related equipment or devices you use daily documented in this encounter Progress Notes * Amelia Johnson PA-C - 10/21/2023 9:00 AM CDT Pre-Operative Assessment 10/21/2023 ET Amb PreOp Assessment Details Procedure LUMPECTOMY LEFT WITH SEED LOCALIZATION AND SENTINEL LYMPH NODE BIOPSY Location [facility] Procedure Date 10/27/2023 Donal Lyn is a [...] Note: Added automatically from request for surgery [id number] Acute iritis, left eye 07/19/2012 Adenomatous polyp [...] LAP CHOLECYSTECTOMY 09/23/2016 Viviana Kirkland MD at [facility] SINUS SURGERY 05/24/2018 FESS, fungal ball removal TONSILLECTOMY VAGINAL HYSTERECTOMY LW Problem: Hysterectomy Vaginal s/p LW Modifier: w/ SSF, TVT 2000 LW Onset: Current Outpatient Medications Medication Instructions ALBUterol sulfate HFA 108 (90 Base) MCG/ACT inhaler 2 Puffs, Inhalation, Q4H PRN rvitxkhtjsdo-jehfzzvlqoff-frytikqlv (EASY DROPS) 1-0.5-0.075 % SUSP 1 Drop, Left Eye, QID, Starting1 day BEFORE cataract surgery, place 1 drop in the LEFT eye 4 times per day. Then follow the drop instructions given in clinic. mtyfhqtanaol-udisrwiwcche-fdsshfzim (EASY DROPS) 1-0.5-0.075 % SUSP 1 Drop, Right Eye, QID, Starting 1 day BEFORE cataract surgery, place 1 drop into the RIGHT eye 4 times per day. Then follow the drop instructions given in clinic. 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 ICD-10-CM 1. Preop examination Z01.818 Basic Metabolic Panel ECG 12 Lead Outpatient Special risks: Patient's pulmonary status medically optimized. Medication recommendations: Patient Instructions Follow your individualized medication recommendations as described above. In addition, please stop all vtef-oup-vnyplqi medications including aspirin, ibuprofen (Advil, Motrin), naproxen [...] 10/21/2023, 7:21 AM documented in this encounter Plan of Treatment Upcoming Encounters Date Type Department Care Team (Late st Contact Info) Description 11/09/2023 11:50 AM CDT Appointment [facility] General Surgery 39[address] [facility] [address] [place] [address] Viviana Kirkland MD [address] [facility] [address] [place] [address] 11/09/2023 2:30 PM CDT Appointment [facility] Oncology [address] [place] [address] Shayla Bland MBBS [address] [place] [address] 11/15/2023 11:00 AM CDT Appointment [facility] [address] [place] [address] Thomas Hanks, OD [address] [place] [phone] documented as of this encounter Procedures Procedure Name Priority Date/Time Associated Diagnosis Comments ECG 12 LEAD OUTPATIENT Routine 10/21/2023 9:07 AM CDT Preop examination documented in this encounter Results * Basic Metabolic Panel (10/21/2023 9:22 AM CDT) Sodium 140 136 - 145 mmol/L 10/21/2023 5:04 PM [facility] Potassium 4.3 3.5 - 5.1 mmol/L 10/21/2023 5:04 PM [facility] Chloride 105 98 - 109 mmol/L 10/21/2023 5:04 PM [facility] CO2 24 20 - 29 mmol/L 10/21/2023 5:04 PM [facility] Anion Gap 11 6 - 16 mmol/L 10/21/2023 5:04 PM [facility] Calcium 9.8 8.4 - 10.4 mg/dL 10/21/2023 5:04 PM [facility] BUN 26 7 - 26 mg/dL 10/21/2023 5:04 PM [facility] Creatinine 0.99 0.55 - 1.02 mg/dL 10/21/2023 5:04 PM [facility] Glucose 99 70 - 100 mg/dL 10/21/2023 5:04 PM [facility] Comment:The given reference range is for the fasting state. Non-fasting reference range for glucose is 70 - 180 mg/dL. GFR, Estimated >60 >60 mL/min/1.7 3m2 10/21/2023 5:04 PM [facility] Hours Fasting 14.0 8 - 12 Hours 10/21/2023 5:04 PM [facility] (PN) Blood Venipuncture / Unknown 10/21/2023 9:22 AM CDT 10/21/2023 9:22 AM CDT Amelia Johnson PA-C LAB_1 [facility] [address] [place] [address], [facility] (PN) [address] [place] [address] * ECG 12 Lead Outpatient (10/21/2023 9:07 AM CDT) Ventricular Rate 61 BPM MUSE G[facility] Atrial Rate 61 BPM [facility]USE [facility] P-R Interval 164 ms MUSE GHP QRS Duration 76 ms MUSE GHP QT 398 ms MUSE GHP QTc 400 ms MUSE GHP P [place] 62 degrees MUSE GHP R [place] 18 degrees MUSE GHP T [place] 48 degrees MUSE GHP 10/21/2023 9:07 AM CDT Narrative MUSE [facility] - 10/21/2023 9:48 AM CDT Sinus rhythm Normal ECG When compared with ECG of 16-SEP-2016 10:20, Premature ventricular complexes are no longer Present Confirmed by Kuldeep Henning ([id number]) on 10/21/2023 9:48:51 AM Procedure Note Kuldeep Henning MD - 10/21/2023 Sinus rhythm Normal ECG When compared with ECG of 16-SEP-2016 10:20, Premature ventricular complexes are no longer Present Confirmed by Kuldeep Henning ([id number]) on 10/21/2023 9:48:51 AM Amelia Johnson PA-C PN ECG ORDERABLES MUSE [facility] [address] [place] [address] documented in this encounter Visit Diagnoses Diagnosis Preop examination- Primary Preoperative examination, unspecified documented in this encounter Care Teams Commercial Lines Sales Executive Relationship Specialty Start Date End Date Connie Kuhn MD [address] [place] [address] PCP - General Family Practice 05/23/18 documented as of this encounter
--- OUTSIDE RECORDS SUMMARY | 2023-10-31 02:15 | XMS_ITS | Encounter Summary ---
Author Organization [employer] Address [address] [address] Care Team Providers Care Proj Engineer Name Role Phone Connie Kuhn MD Primary Care Provider [phone] Reason for Visit * Auth/Cert (Routine) Specialty Diagnoses / Procedures Referred By Charlie christianson Referred To Contact Diagnoses Mass of left breast, unspecified quadrant Procedures LUMPECTOMY LEFT BREAST WITH SEED LOCALIZATION AND SENTINEL LYMPH NODE BIOPSY Referral ID Status Reason Start Date Expiration Date Visits Re quested Visits Authorized [id number] 1 1 Encounter Details Date Type Department Care Team (Late st Contact Info) Description 10/27/2023 9:09 AM CDT Anesthesia Event [facility] [address] [facility] [place], [place] [address] Harris Conner MD [address] [place], [place] [address] Birdie Mcdonald APRN, CRNA [address] [place], [place] [address] Anesthesia Record Procedure Summary Procedure Name Responsible Anesthesiologist Anesthesia Start Time Anesthesia Stop Time LUMPECTOMY LEFT BREAST WITH SEED LOCALIZATION AND SENTINEL LYMPH NODE BIOPSY (Left) Harris Conner MD 10/27/23 0909 10/27/23 1105 Events Date Time Event Comment 10/27/2023 0718 0909 An Start 0912 An Start Data 0915 An Induction 0915 MD/DO Present 0917 An LMA 1017 MD/DO Present 1055 MD/DO Present 1055 An LMA Removed Spontaneous r espirations with adequate air exchange. LMA removed without complications. Transported with oxygen to recovery. 1100 an stop data 1105 Care Handoff Note I discusse d with the receiving nurse and we: 1) Identified the patient, childress family member(s) or patient surrogate 2) Identified the responsible practitioner 3) Reviewed the pertinent medical history 4) Discussed the surgical/procedure course 5) Reviewed intra-op anesthesia management and issues during anesthesia 6) Set expectations for the post-procedure period 7) Allowed opportunity for questions and acknowledgement of understanding of report Electronically signed by Birdie Mcdonald APRN, LOAN REVIEWER 1105 An Stop Care transferre d. Meds Name Total midazolam injection 2 mg/2 mL (VERSED) 2 mg fentaNYL injection (SUBLIMAZE) 100 mcg lidocaine 1% PF injection (XYLOCAINE) 10 0 mg propofol 10 mg/mL for procedural sedatio n (aka diPRIvan) 160 mg propofol 10 mg/mL for procedural sedatio n (aka diPRIvan) 762.61 mg ondansetron injection (ZOFRAN) 4 mg dexamethasone 4 mg/mL injection (aka DEC ADRON) 8 mg phenylephrine 100 mcg/mL in NaCl 0.9% sy ringe 750 mcg ePHEDrine 10 mg/mL injection 15 mg NO pre-op antibiotics needed 1 Each dexmedeTOMIDine (PRECEDEX) 2 00 mcg in sodium chloride 0.9 % 50 mL (4 mcg/mL) infusion 31.83 mcg ketorolac 15 mg/mL injection (TORADOL) 1 5 mg lactated ringers infusion 500 mL dextrose 5% infusion 0 mL * Agents Name Identified Agent Name O2 N2O Air Sevoflurane (inspired) Nitrous Oxide () * Blood No blood administrations on file. Lines, Drains, and Airways Type Details Placement Removal Incision/Surgical Site 10/27/23; #1; No; Breast; Left 10/27/23 0000 by Sher Arrieta RN Incision/Surgical Site 10/27/23; #2; Axi lla; Left, Proximal 10/27/23 0000 by Sher Arrieta RN Peripheral IV Placement Date: 10/27/23; Placement Time: 727; Pre-existing: No; Inserted by?: RN; Size (Gauge): 20 G; Orientation: Right; Site Prep: ChloraPrep; Local Anesthetic: Injectable, Lidocaine 1%; Patient Tolerance: Tolerated well; Removal Date: 10/27/23; Removal Time: 125; Removal Reason: Patient discharged; Catheter Tip: Intact 10/27/23 0728 by Carmelina Weeks RN 10/27/23 1255 by Michael Garcia RN LMA Placement Date: 10/27/23; Placement Time: 916; Placed By: NICCI; Induction Type: Pre-O2, IV; Airway masking: Easy; Size (mm): 4; Placement details: Prepped and lubricated, Cuff inflated with minimum volume to create seal, Placed with ease; Difficulty: Easy; Placement verification: BBSE, auscultation, Positive EtCO2; Teeth and lips: Unchanged; Removal Date: 10/27/23; Removal Time: 10510/27/23 09 by Birdie Mcdonald APRN, CRNA 10/27/23 105 by Birdie Mcdonald APRN, CRNA documented in this encounter Social History Tobacco Use Types Packs/Day Years [...] on file documented as of this encounter Miscellaneous Notes * Anesthesia Postprocedure Evaluation - Harris Conner MD - 10/27/2023 2:04 PM CDT [facility] Anesthesia Post-op Note Patient: Eboni Waggoner Post-Op Diagnosis: Pre-Op Diagnosis Codes: * Mass of left breast, unspecified quadrant [N63.20] Procedure Performed: Procedure(s): Left - LUMPECTOMY LEFT BREAST WITH SEED LOCALIZATION AND SENTINEL LYMPH NODE BIOPSY - Wound Class: 1 CLEAN Anesthesia Type: General Post-op vital signs: Vitals Value Taken Time BP 112/68 10/27/23 1250 Temp 36.2 ??C (97.1 ??F) 10/27/23 1122 Pulse 88 10/27/23 1250 Resp 16 10/27/23 1250 SpO2 96 % 10/27/23 1250 Pain Score: Preferred Pain Scale: number (Numeric Rating Pain Scale) (0-10) Pain Rating: Rest: 0 (0-10) Pain Rating: Activity: 0 Post-op assessment: Patient location: Phase 2 Airway Status: Patent Cardiovascular function: Satisfactory Hydration status: Satisfactory PONV: None Level of Consciousness: Awake Fully Participates Postop Assessment: Patient tolerated procedure well. Electronically signed by: Harris Conner MD 10/27/2023 2:04 PM * Anesthesia Preprocedure Evaluation - Harris Conner MD - 10/27/2023 7:00 AM CDT [facility] Anesthesia Pre-op Evaluation Procedure: LUMPECTOMY LEFT BREAST WITH SEED LOCALIZATION AND SENTINEL LYMPH NODE BIOPSY, Left HPI: 73 y.o. old female. Pre-Op Diagnosis Codes: * Mass of left breast, unspecified quadrant [N63.20] No Known Allergies Past Medical History: Diagnosis Date Breast cancer (HRC) Cataract Iritis (ACG) S/P bunionectomy 08/13/2014 left foot, 2010 S/P foot surgery 08/23/2014 Left 2nd MTPJ capsule repair and metatarsal osteotomy S/P tonsillectomy 08/13/2014 Patient Active Problem List Diagnosis Prolapse of vaginal wall Pure hypercholesterolemia Adenomatous polyp of colon Acute iritis, left eye Chronic maxillary sinusitis Mild intermittent asthma without complication (HRC) Osteopenia of left hip Combined forms of age-related cataract 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) Malignant neoplasm of overlapping sites of left breast in female, estrogen receptor negative (HRC) Mass of left breast Past Surgical History: Procedure Laterality Date ADENOIDECTOMY CATARACT REMOVAL Left 10/04/2023 [employer] DIB00 21.5 diopter lens CATARACT REMOVAL Right 10/18/2023 [employer] DIB00 21.0 diopter lens JSKL ECTOPIC SURGERY LAP CHOLECYSTECTOMY 09/23/2016 Viviana Kirkland MD at [facility] SINUS SURGERY 05/24/2018 FESS, fungal ball removal TONSILLECTOMY VAGINAL HYSTERECTOMY LW Problem: Hysterectomy Vaginal s/p LW Modifier: w/ SSF, TVT 2000 LW Onset: Outpatient Medications as of 10/27/2023 Medication Sig ALBUterol sulfate HFA 108 (90 Base) MCG/ACT inhaler Inhale 2 Puffs every 4 hours as needed for Wheezing. hvoazijvbzjk-bxrjssankmuw-wpbuqowob (EASY DROPS) 1-0.5-0.075 % SUSP Place 1 Drop into left eye 4 times a day. Starting 1 day BEFORE cataract surgery, place 1 drop in the LEFT eye 4 times per day. Then follow the drop instructions given in clinic. vmxdtxgkntzr-otxcjvjtfieq-uknitawry (EASY DROPS) 1-0.5-0.075 % SUSP Place 1 Drop into right eye 4 times a day. Starting 1 day BEFORE cataract surgery, place 1 drop into the RIGHT eye 4 times per day.Then follow the drop instructions given in clinic. sertraline (ZOLOFT) 25 MG tablet Take 1 Tablet (25 mg) by mouth daily. Facility-Administered Medications as of 10/27/2023 Medication Dose Route Frequency lactated ringers infusion 25 mL/hr Intravenous Continuous lactated ringers infusion lidocaine PF (XYLOCAINE) 1 % injection - ADS Override Pull lidocaine PF (XYLOCAINE) 1 % injection 0.1-0.3 mL 0.1-0.3 mL Intradermal Once And lidocaine PF (XYLOCAINE) 1 % injection 0.1-0.3 mL 0.1-0.3 mL Intradermal PRN [COMPLETED] moxifloxacin (VIGAMOX) 0.5 % ophthalmic solution 1 Drop 1 Drop Right Eye Other (See Comments) NO pre-op antibiotics needed Miscellaneous Once [COMPLETED] phenylephrine (AK-DILATE) 2.5 % ophthalmic solution 1 Drop 1 Drop See Admin Instructions Other (See Comments) [COMPLETED] tetracaine (PONTOCAINE) 0.5 % ophthalmic solution 1 Drop 1 Drop See Admin Instructions Once Or [COMPLETED] proparacaine (OPHTHETIC) 0.5 % ophthalmic solution 1 Drop 1 Drop See Admin InstructionsOnce sodium chloride 0.9% injection 10 mL 10 mL Intravenous PRN See Admin [COMPLETED] tropicamide (MYDRIACYL) 1 % ophthalmic solution 1 Drop 1 Drop See Admin Instructions Other (See Comments) Labs: Lab Results Component Value Date/Time SODIUM 140 10/21/2023 09:22 AM K 4.3 10/21/2023 09:22 AM CHLORIDE 105 10/21/2023 09:22 AM BUN 26 10/21/2023 09:22 AM CREATININE 0.99 10/21/2023 09:22 AM GLUCOSE 99 10/21/2023 09:22 AM Lab Results Component Value Date/Time WBC 8.7 05/23/2018 02:19 PM HGB 15.1 05/23/2018 02:19 PM HCT 44.4 05/23/2018 02:19 PM PLTS 280 05/23/2018 02:19 PM No results found for: INR Blood Bank: No results found for: ABO, ABSCR EKG: No results found for this or any previous visit. Physical Exam: Ht 5' 7 Wt 86.2 kg (190 lb) BMI 29.76 kg/m?? Assessment/Plan: Review of Systems Patient does not have GERD. Patient is not a current smoker. Patient is a former smoker. The patient reports alcohol use. Patient denies any recent URI. History of PONV: No. History of motion sickness: No. Patient denies any personal or family history of anesthesia complications. NPO Status: Acceptable. Exam Mental Status: Alert and oriented. Mallampati score: I (One). Mouth opening: Normal Thyromental Distance: > 3 finger breadths and Normal Neck Extension: Full Neck Circumference > 40 cm?: No Previous airway assessment: No prior intubations. Current airway assessment:Normal Dentition: Age appropriate. Cardiac Exam: Regular rate and rhythm. Respiratory Exam: Breath sounds clear to auscultation Assessment ASA Status: 2 . Plan Anesthesia type: General and LMA Induction: Propofol Maintenance: TIVA PONV Risk Score Adult: 2 PONV Prophylaxis (planned): Ondansetron and Decadron (250 d5) Anesthetic plan, risks, benefits and alternatives discussed with the patient who agrees to the anesthesia treatment plan. H&P Reviewed and Patient examined, no change observed IV access Antibiotics per surgery Electronically signed by: Harris Conner MD 10/27/2023 7:00 AM documented in this encounter Plan of Treatment Upcoming Encounters Date Type Department Care Team (Late st Contact Info) Description 11/09/2023 11:50 AM CDT Appointment [facility] 39[address] General Surgery [address] [facility] [address] [place] [address] Viviana Kirkland MD [address] [facility] [address] [place], [place] [address] 11/09/2023 2:30 PM CDT Appointment [facility] [address] [place], [place] [phone] Shayla Bland MBBS [address] [place] [address] 11/15/2023 11:00 AM CDT Appointment [facility] [address] [place] [address] Thomas Hanks OD [address] [place] [phone] documented as of this encounter Visit Diagnoses Not on filedocumented in this encounter Administered Medications Inactive Administered Medications - up to 3 most recent administrations Medication Order MAR Action Action Date Dose Rate Site dexAMETHasone (DECADRON) injection Intravenous, Starting on Wed10/27/23 at 0915, Until Wed10/27/23 at 1105 Given 10/27/2023 9:15 AM CDT 8 mg dexmedeTOMIDine (PRECEDEX) 200 mcg in sodium chloride 0.9 % 50 mL (4 mcg/mL) infusion Intravenous, Starting on Wed10/27/23 at 0915 Rate/Dose Change 10/27/2023 9:50 AM CDT 0.3 mcg/kg/hr 4.62 mL/hr Started 10/27/2023 9:15 AM CDT 0.5 mcg/kg/hr 7.7 mL/hr dextrose 5 % infusion Intravenous, Starting on Wed10/27/23 at 1035 Started 10/27/2023 10:35 AM CDT ePHEDrine 10 mg/mL injection Intravenous, Starting on Wed10/27/23 at 0925, Until Wed10/27/23 at 1105 Given 10/27/2023 9:50 AM CDT 5 mg Given 10/27/2023 9:25 AM CDT 10 mg fentaNYL (SUBLIMAZE) injection Intravenous, Starting on Wed10/27/23 at 0915, Until Wed10/27/23 at 1105 Given 10/27/2023 9:15 AM CDT 100 mcg ketorolac (TORADOL) injection Intravenous, Starting on Wed10/27/23 at 1045, Until Wed10/27/23 at 1105 Given 10/27/2023 10:45 AM CDT 15 mg lactated ringers infusion 25 mL/hr, Intravenous, CONTINUOUS, Starting on Wed10/27/23 at 0715, Administer on all preop surgery patients, ages 12 and older, unless specified differently in the Protocol for Preop Initiation of IV fluids Order Set., Pre-op Continued by Anesthesia 10/27/2023 9:09 AM CDT 25 mL/hr Started 10/27/2023 7:30 AM CDT 25 mL/hr 25 mL/hr lidocaine PF (XYLOCAINE) 1 % injection Intravenous, Starting on Wed10/27/23 at 0915 Given 10/27/2023 9:15 AM C DT 100 mg midazolam (VERSED) injection Intravenous, Starting on Wed10/27/23 at 0909, Until Wed10/27/23 at 1105 Given 10/27/2023 9:09 AM CDT 2 mg NO pre-op antibiotics needed ONCE, On Wed10/27/23 at 0715, For 1 dose, Pre-op Given 10/27/2023 9:15 AM CDT 1 Each ondansetron (ZOFRAN) injection Intravenous, Starting on Wed10/27/23 at 0915, Until Wed10/27/23 at 1105 Given 10/27/2023 9:15 AM CDT 4 mg phenylephrine-NaCl 0.9% (ALTHEA-SYNEPHRINE) injection Intravenous, Starting on Wed10/27/23 at 0921, Until Wed10/27/23 at 1105 Given 10/27/2023 10:48 AM CDT 100 mcg Given 10/27/2023 10:33 AM CDT 100 mcg Given 10/27/2023 10:30 AM CDT 50 mcg propofol (DIPRIVAN) 10 mg/mL injection Intravenous, Starting on Wed10/27/23 at 0915, Until Wed10/27/23 at 1105 Given 10/27/2023 9:15 AM CDT 160 mg propofol (DIPRIVAN) 10 mg/mL injection Intravenous, Starting on Wed10/27/23 at 0915, Until Wed10/27/23 at 1105 Rate/Dose Change 10/27/2023 10:40 AM CDT 50 mcg/kg/min 18.48 mL/hr Rate/Dose Change 10/27/2023 10:37 AM CDT 100 mcg/kg/min 36 .96 mL/hr Rate/Dose Change 10/27/2023 10:16 AM CDT 130 mcg/kg/min 48 .048 mL/hr documented in this encounter Care Teams Proj Engineer Relationship Specialty Start Date End Date Connie Kuhn MD [address] [place] [address] PCP - General Family Practice 05/23/18 documented as of this encounter
--- OUTSIDE RECORDS SUMMARY | 2023-10-31 02:16 | XMS_ITS | Encounter Summary ---
Author Organization [employer] Address [address] [address] Care Team Providers Care Alteration Specialist Name Role Phone Connie Kuhn MD Primary Care Provider [phone] Reason for Visit * Auth/Cert (Routine) Specialty Diagnoses / Procedures Referred By Charlie t Referred To Contact Diagnoses Combined forms of age-related cataract of both eyes Procedures CATARACT EXTRACTION WITH INTRAOCULAR LENS IMPLANT Referral ID Status Reason Start Date Expiration Date Visits Re quested Visits Authorized [id number] 1 1 Encounter Details Date Type Department Care Team (Late st Contact Info) Description 10/04/2023 1:40 PM CDT - 10/04/2023 2:20 PM CDT [facility] [address] [place] [phone] [place] [address] [place], [place] [id number] CATARACT EXTRACTION WITH INTRAOCULAR LENS IMPLANT Social History Tobacco Use Types Packs/Day Years [...] Sign Reading Time Taken Comments Blood Pressure 130/83 10/04/2023 1:31 PM CDT Pulse 80 10/04/2023 1:31 PM CDT Temperature 36.8 ??C (98.2 ??F) 10/04/2023 1:25 PM CD T Respiratory Rate 18 10/04/2023 1:31 PM CDT Oxygen Saturation 93% 10/04/2023 1:31 PM CDT Inhaled Oxygen Concentration - - Weight 84.8 kg (186 lb 15.2 oz) 024 10:55 AM CDT Height 170.2 cm (5' 7.01) 08/03/2023 1 0:55 AM CDT Body Mass Index 29.27 08/03/2023 10:55 AM CDT documented in this encounter Medications at Time of Discharge Medication Sig Dispensed Refills Start Date End Date ALBUterol sulfate HFA 108 (90 Base) MCG/ACT inhalerIndications:Mil d intermittent asthma without complication (HRC) Inhale 2 Puffs every 4 hours as needed for Wheezing. 8.5 g 3 10/01/2023 prednisolone-moxifloxa adam-bromfenac (EASY DROPS) 1-0.5-0.075 % SUSP [...] 10/01/2023 2024 documented as of this encounter Progress Notes * Erika Wilde RN - 09/28/2023 10:38 AM CDT PPA call completed by calling [phone] and spoke to patient. Advised of arrival time 1215. Reviewed pre-procedure questions, detailed instructions with NPO guidelines and address given. All questions answered, no other needs at this time. documented in this encounter H&P Notes * Maria Alejandra Patel MD - 10/04/2023 12:47 PM CDT Surgery Update for Preop History and Physical For 10/04/2023 scheduled procedure Update to H&P includes: The patient reports no new medical events or changes in their health since preoperative history andphysical. This patient has been evaluated by me today and has been found to be a suitable candidate for surgery. 10/04/2023 Source Note - Amelia Johnson PA-C - 09/23/2023 9:30 AM CDT Pre-Operative Assessment 09/23/2023 ET Amb PreOp Assessment Details Procedure Cataracts Location [facility] Procedure Date 10/04/2023 Second Procedure Date 10/18/2023 Donal Lyn is a 72 y.o. old female here for pre-operative evaluation for procedure noted above. Patient Active Problem List Diagnosis Date Noted Combined forms of age-related cataract of both eyes 07/20/2023 Osteopenia of left hip 01/15/2023 Overview Note: Noted on DEXA December 2022 Mild intermittent asthma without complication (HRC) 03/31/2022 Chronic maxillary sinusitis 05/20/2018 Overview Note: Added automatically from request for surgery [id number] Acute iritis, left eye 07/19/2012 Adenomatous polyp of colon 04/11/2009 Overview Note: Colonoscopy completed 07/2020. Repeat in 5 years (07/2025). Pure hypercholesterolemia 11/17/2007 Overview Note: Not currently on treatment Prolapse of vaginal wall 10/22/2004 Overview Note: LW Onset: [id number] ; Rectocele Past Medical History: Diagnosis Date Breast injury 01/24/2019 left breast- fell. lateral breast bruise. large Cataract Iritis (ACG) S/P bunionectomy 08/13/2014 left foot, 2010 S/P foot surgery 08/23/2014 Left 2nd MTPJ capsule repair and metatarsal osteotomy S/P tonsillectomy 08/13/2014 Past Surgical History: Procedure Laterality Date ADENOIDECTOMY ECTOPIC SURGERY LAP CHOLECYSTECTOMY 09/23/2016 Viviana Kirkland MD at [facility] SINUS SURGERY 05/24/2018 FESS, fungal ball removal TONSILLECTOMY VAGINAL HYSTERECTOMY LW Problem: Hysterectomy Vaginal s/p LW Modifier: w/ SSF, TVT 2000 LW Onset: Current Outpatient Medications Medication Instructions ALBUterol sulfate HFA 108 (90 Base) MCG/ACT inhaler 2 Puffs, Inhalation, Q4H PRN moxifloxacin (VIGAMOX) 0.5 % eye drop solution Starting 3 days BEFORE surgery, place 1 drop in the right eye 4 times per day. Then continue the drops 4 times per day after surgery and follow the instructions given in clinic. prednisoLONE acetate (PRED FORTE) 1 % eye drop suspension 1 Drop, Left Eye, QID, Starting AFTER surgery, place 1 drop into the left eye 4 times per day. Then follow the instructions given in clinic. ecubybgtlbiy-htcrpeghchmt-jvivqupzd (EASY DROPS) 1-0.5-0.075 % SUSP 1 Drop, Left Eye, QID, Starting1 day BEFORE cataract surgery, place 1 drop in the LEFT eye 4 times per day. Then follow the drop instructions given in clinic. cxcgjdeeptcw-bfmzxwchghug-tsxuwiodk (EASY DROPS) 1-0.5-0.075 % SUSP 1 Drop, Right Eye, QID, Starting 1 day BEFORE cataract surgery, place 1 drop into the RIGHT eye 4 times per day. Then follow the drop instructions given in clinic. 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 Patient is postmenopausal. Family History Problem Relation Age of Onset Coronary Artery Disease Mother 60 smoker Cataract Mother Hypertension Mother Heart Disease Mother Cancer, Lung Father Cancer Father Hypertension Brother Depression Brother Hyperlipidemia Brother Obesity Brother Cancer, Breast Maternal Grandmother 60 Cancer, Ovary Negative Family History Glaucoma Negative Family History Retinal Detachment Negative Family History Macular Degeneration Negative Family History Amblyopia/Strabismus Negative Family History Review of Systems: 09/23/2023 ET Amb PreOp Assessment Sx Have you [...] is more than or equal to 4 METS- patient cycles and participate in other forms of cardiovascular activity regularly. Objective BP (!) 144/85 (BP Location: Right Arm, BP Cuff Size: Regular - Long) Pulse 64 Wt 195 lb (88.5 kg) Comment: pt reported BMI 30.53 kg/m?? Physical Exam: General Appearance: alert, well [...] facial droop, and normal gait Data: Labs: Not indicated for this procedure ECG: Not indicated for this procedure. Assessment/Plan Patient is medically optimized for planned procedure(s). ICD-10-CM 1. Preop examination Z01.818 Special risks: Patient's pulmonary status medically optimized.-rarely requires albuterol inhaler Medication recommendations: Patient Instructions Follow your individualized medication recommendations as described above. In addition, please stop all mouu-cza-jtbxcka medications including aspirin, ibuprofen (Advil, Motrin), naproxen [...] daily Electronically signed by: Amelia Johnson PA-C 09/23/2023, 9:30 AM documented in this encounter Procedure Notes * Maria Alejandra Patel MD - 10/04/2023 1:24 PM CDT OPERATIVE REPORT DATE OF OPERATION: 10/04/2023 : 1950 PREOPERATIVE DIAGNOSIS: Visually significant nuclear sclerotic age-related cataract, Left eye POSTOPERATIVE DIAGNOSIS: Visually significant nuclear sclerotic age-related cataract, Left eye INDICATIONS FOR PROCEDURE: The patient has a visually significant cataract of the Left eye that is adversely affecting their activities of daily living. The risks, benefits, alternatives, expectations and the procedure itself have been discussed at length with the patient who voiced understanding and wishes to proceed with [facility]. All questions were answered to the patient's satisfaction. The stated procedure is still clinically indicated. PROCEDURE: 1. Phacoemulsification and extraction of lens, Left eye 2. Intraocular lens implantation, Left eye LENS IMPLANT: [employer] DIB00 21.5 diopter lens SURGEON: Maria Alejandra Patel MD INVENTORY SPECIALIST MANAGER: None. ANESTHESIA: Monitored anesthesia care/Topical and intraocular nonpreserved lidocaine. EBL: Less than 1 ml. COMPLICATIONS: None. DESCRIPTION OF PROCEDURE: The patient was identified in the preoperative area where the operative eye was marked. Prior to the procedure, appropriate cardiac and respiratory monitors were applied to the patient. The patient as brought to the operative room where a surgical pause was carried out to identify with all members of the surgical team the correct surgical site. Topical 4% Xylocaine was placed in the operative eye. With adequate anesthesia, the Left eye was prepped and draped in the usual sterile fashion. A lid speculum was placed, and the operative microscope was rotated into position. A paracentesis was created. Through the limbal paracentesis, the anterior chamber was filled with preservative-free lidocaine followed by viscoelastic. A temporal clear corneal incision was created at the limbus using a 2.5mm blade. A capsulorhexis was initiated using a cystotome and was completed in continuous and circular fashion using the capsulorrhexis forceps. The lens nucleus was hydrodissected. The lens nucleus was rotated and removed using phacoemulsification in a stop and chop technique. Residual cortical material was removed using irrigation-aspiration. The capsular bag was reinflated with cohesive viscoelastic. The intraocular lens was inserted into the capsular bag and noted to be well centered. The residual viscoelastic was aspirated. The anterior chamber was inflated with balanced salt solution andthe wounds were hydrated and found to be self-sealing. Intracameral moxifloxacin was administered. The eye was palpated and found to be of normal physiologic pressure. The speculum and drapes were removed, and vigamox and prednisolone drops were placed in the operative eye. A clear shield was placed over the eye. The patient tolerated the procedure well and there were no intraoperative complications. PLAN: The patient will be discharged to home and will follow up in the eye clinic tomorrow. Implant Name Type Inv. Item Serial No. Penology Professor Lot No. LRB No. Used Action LENS INTRAOCULAR DIB00 21.5 - EYHANCE - [id number] DEVICE LENS INTRAOCULAR DIB00 21.5 - EYHANCE [id number] Demario [employer] Dem[employer] Vision Left 1 Implanted documented in this encounter Plan of Treatment Upcoming Encounters Date Type Department Care Team (Late st Contact Info) Description 11/09/2023 11:50 AM CDT Appointment [facility] [address] General Surgery [address] [facility] [address] [place] [address] Viviana Kirkland MD [address] [facility] [address] [place] [address] 11/09/2023 2:30 PM CDT Appointment [facility] [address] [place] [address] Shayla Bland MBBS [address] [place], [place] [address] 11/15/2023 11:00 AM CDT Appointment [facility] [address] [place] [address] Thomas Hanks, OD [address] [place] [phone] documented as of this encounter Procedures Procedure Name Priority Date/Time Associated Diagnosis Comments PHACOEMULSIFICATION WITH IMPLANT INTRAOCULAR LENS 10/04/2023 12:55 PM CDT Combined forms of age-related cataract of both eyes documented in this encounter Visit Diagnoses Diagnosis Combined forms of age-related cataract of both eyes- Primary Other and combined forms of senile cataract Combined forms of age-related cataract of both eyes Other and combined forms of senile cataract Combined forms of age-related cataract of both eyes Other and combined forms of senile cataract documented in this encounter Admitting Diagnoses Diagnosis Combined forms of age-related cataract of both eyes Other and combined forms of senile cataract documented in this encounter Administered Medications Inactive Administered Medications - up to 3 most recent administrations Medication Order MAR Action Action Date Dose Rate Site balance salt (BSS) ophthalmic solution ONCE PRN, Starting on Wed10/04/23 at 1307, Until Wed10/04/23 at 1546, Intra-op Given 10/04/2023 1:07 PM CDT 10 mL chondroitin sulfate-sodium hyaluronate (VISCOAT) eye injection ONCE PRN, Starting on Wed10/04/23 at 1307, Until Wed10/04/23 at 1546, Intra-op Given 10/04/2023 1:07 PM CDT 0.5 mL Left Eye EPINEPHrine 0.025%-lidocaine 0.75% PF 0.8mL syringe ONCE PRN, Starting on Wed10/04/23 at 1307, Until Wed10/04/23 at 1546, Intra-op Given 10/04/2023 1:07 PM CDT 0.8 mL Left Eye EPINEPHrine PF 0.5 mg in balance salt (BSS) 500 mL ONCE PRN, Starting on Wed10/04/23 at 1307, Intra-op Given 10/04/2023 1:07 PM CDT 450 mL Left Eye fentaNYL (SUBLIMAZE) injection 25 mcg 25 mcg, Intravenous, [id number], Pain, The immediate postop period when faster on-set, short acting agent is desired., Starting on Wed10/04/23 at 1224, Until Wed10/04/23 at 1546, Administer every 5 minutes as needed, to a maximum cumulative dose of 250 mcg. Call Anesthesiologist if additional or greater doses needed For patients with a regional, spinal, or local anesthetic, may give for anticipated pain as the anesthetic wears off. Use fentanyl initially for a short acting agent for treatment of acute post-operative pain.?May be used in conjunction with alonger acting agent if ordered for optimal pain control.?Respiratory rate must be greater than 10 to administer medications., PACU/Recovery fentaNYL (SUBLIMAZE) injection 25-50 mcg 25-50 mcg, Intravenous, [id number], Pain, Procedure, Starting on Wed10/04/23 at 1230, Until Wed10/04/23 at 1546, For 2 doses, As directed by anesthesiologist, Pre-op hyaluronate (HEALON) intraocular injection ONCE PRN, Starting on Wed10/04/23 at 1308, Until Wed10/04/23 at 1546, Intra-op Given 10/04/2023 1:08 PM CDT 10 mg Left Eye HYDROmorphone (DILAUDID) injection 0.25 mg 0.25 mg, Intravenous, Q10MIN PRN, Pain, The immediate postop period when longer acting agent is desired., Starting on Wed10/04/23 at 1224, Until Wed10/04/23 at 1546, Maximum cumulative dose is 2 mg in PACU, call Anesthesiologist if additional or greater dosing is needed. For patients with a regional, spinal, or local anesthetic, may give for anticipated pain as the anesthetic wears off. , PACU/Recovery labetalol (NORMODYNE) injection 5 mg 5 mg, Intravenous, Q10MIN PRN, Other, High Blood Pressure, MAX 5 doses, hold for HR <50, Starting on Wed10/04/23 at 1224, Until Wed10/04/23 at 1546, For 5 doses, Call Anesthesiologist before administration. Give as directed by Anesthesiologist., PACU/Recovery lidocaine PF (XYLOCAINE) 1 % injection 0.1-0.3 mL 0.1-0.3 mL, Subcutaneous, PRN, Other, for IV insertion, Starting on Wed10/04/23 at 1219, For 1 day, Lidocaine to be used for IV starts unless patient refuses., Pre-op lidocaine PF (XYLOCAINE) 1 % injection ONCE PRN, Starting on Wed10/04/23 at 1308, Intra-op Given 10/04/2023 1:08 PM CDT 1 mL Both Eyes midazolam (VERSED) injection 1-2 mg 1-2 mg, Intravenous, [id number], Sedation, Anxiety, Procedure, Starting on Wed10/04/23 at 1230, Until Wed10/04/23 at 1546, As directed by anesthesiologist MAX Dose 2mg, Pre-op moxifloxacin (VIGAMOX) 0.5 % ophthalmic solution 1 Drop 1 Drop, Left Eye, OTHER, Starting on Wed10/04/23 at 1230, Until Wed10/04/23 at 1235, For 3 doses, If patient uses multiple eye drops, allow approximately 5 minutes between instillation of each medication., Pre-op Given 10/04/2023 12:35 PM CDT 1 Drop Given 10/04/2023 12:30 PM CDT 1 Drop Given 10/04/2023 12:25 PM CDT 1 Drop moxifloxacin (VIGAMOX) 0.5 % ophthalmic solution ONCE PRN, Starting on Wed10/04/23 at 1308, Until Wed10/04/23 at 1546, Intra-op Given 10/04/2023 1:08 PM CDT 1 Drop moxifloxacin-BSS 1 MG/ML intracameral injection ONCE PRN, Starting on Wed10/04/23 at 1308, Until Wed10/04/23 at 1546, Intra-op Given 10/04/2023 1:08 PM CDT 0.3 mg Left Eye naloxone (NARCAN) injection 0.08 mg 0.08 mg, Intravenous, PRN, Other, For respiratory rate less than 8/minute or patient difficult to arouse, Starting on Wed10/04/23 at 1224, Until Wed10/04/23 at 1546, May repeat every 3 minutes or until patient is responsive to physical stimulation and is able to take deep breaths. Maximum cumulative dose is 0.4 mg (1 mL). Continue to observe; if no response after administering total dose of 0.4 mg notify anesthesiologist STAT., PACU/Recovery naloxone (NARCAN) injection 0.4 mg 0.4 mg, Intravenous, ONCE PRN, Opioid Reversal, Starting on Wed10/04/23 at 1224, Until Wed10/04/23 at 1546, For 1 dose, For imminent respiratory arrest. Notify MD if naloxone is given., PACU/Recovery ondansetron (ZOFRAN) injection 4 mg 4 mg, Intravenous, Q4H PRN, Nausea, Vomiting, Starting on Wed10/04/23 at 1224, Until Wed10/04/23 at 1546, If multiple medications are ordered for nausea or vomiting - administer in the following priority based on medications ordered, effectiveness and availability: ondansetron (ZOFRAN) > prochlorperazine (COMPAZINE) > diphenhydrAMINE (BENADRYL) > hydrOXYzine HCl (VISTARIL)> ePHEDrine > scopolamine (TRANSDERM-SCOP)., PACU/Recovery phenylephrine (AK-DILATE) 2.5 % ophthalmic solution 1 Drop 1 Drop, See Admin Instructions, OTHER, Starting on Wed10/04/23 at 1219, Until Wed10/04/23 at 1235, For 3 doses, Following tetracaine eye drop, instill 1 drop into operative eye every 5-10 minutes x 3, Pre-op Given 10/04/2023 12:35 PM CDT 1 Drop Given 10/04/2023 12:30 PM CDT 1 Drop Given 10/04/2023 12:25 PM CDT 1 Drop povidone-iodine (BETADINE) 5 % ophthalmic solution ONCE PRN, Starting on Wed10/04/23 at 1308, Until Wed10/04/23 at 1546, Intra-op Given 10/04/2023 1:08 PM CDT 2 Drops prednisoLONE acetate (PRED FORTE) 1 % ophthalmic suspension ONCE PRN, Starting on Wed10/04/23 at 1308, Until Wed10/04/23 at 1546, Intra-op Given 10/04/2023 1:08 PM CDT 1 Drop sodium chloride 0.9% injection 10 mL 10 mL, Intravenous, PRN, Line Patency, Starting on Wed10/04/23 at 1219, Until Wed10/04/23 at 1546, Pre-op tetracaine (PONTOCAINE) 0.5 % ophthalmic solution 1 Drop 1 Drop, See Admin Instructions, ONCE, On Wed10/04/23 at 1245, For 1 dose, Tetracaine is preferred. Use Proparacaine if Tetracaine is not available. Instill into operative eye prior to all other eye drops., Pre-op Given 10/04/2023 12:20 PM CDT 1 Drop tetracaine (PONTOCAINE) 0.5 % ophthalmic solution ONCE PRN, Starting on Wed10/04/23 at 1308, Intra-op Given 10/04/2023 1:08 PM CDT 1 Drop tropicamide (MYDRIACYL) 1 % ophthalmic solution 1 Drop 1 Drop, See Admin Instructions, OTHER, Starting on Wed10/04/23 at 1219, Until Wed10/04/23 at 1235, For 3 doses, Following tetracaine eye drop, instill 1 drop into operative eye every 5-10 minutes x 3, Pre-op Given 10/04/2023 12:35 PM CDT 1 Drop Given 10/04/2023 12:30 PM CDT 1 Drop Given 10/04/2023 12:25 PM CDT 1 Drop documented in this encounter Active and Recently Administered Medications Times are shown in CDT. Scheduled Medication Order 10/02/2023 10/03/2023 10/04/2023 EPINEPHrine 0.025%-lidocaine 0.75% PF 0.8mL syringe 0.8 mL, Intraocular, ONCE, On Wed10/04/23 at 1245, For 1 dose, To be administered by the surgeon, Pre-op 1245 (Due) moxifloxacin (VIGAMOX) 0.5 % ophthalmic solution 1 Drop (COMPLETED) 1 Drop, Left Eye, OTHER, Starting on Wed10/04/23 at 1230, Until Wed10/04/23 at 1235, For 3 doses, If patient uses multiple eye drops, allow approximately 5 minutes between instillation of each medication., Pre-op 1225 (Given - Provid er: Maria Alejandra Chavira RN)1230 (Given - Provider: Maria Alejandra Chavira RN)1235 (Given - Provider: Maria Alejandra Chavira RN) phenylephrine (AK-DILATE) 2.5 % ophthalmic solution 1 Drop (COMPLETED) 1 Drop, See Admin Instructions, OTHER, Starting on Wed10/04/23 at 1219, Until Wed10/04/23 at 1235, For 3 doses, Following tetracaine eye drop, instill 1 drop into operative eye every 5-10 minutes x 3, Pre-op 1225 (Given - Provid er: Maria Alejandra Chavira RN)1230 (Given - Provider: Maria Alejandra Chavira RN)1235 (Given - Provider: Maria Alejandra Chavira RN) tetracaine (PONTOCAINE) 0.5 % ophthalmic solution 1 Drop (COMPLETED)(Linked Group 1) 1 Drop, See Admin Instructions, ONCE, On Wed10/04/23 at 1245, For 1 dose, Tetracaine is preferred. Use Proparacaine if Tetracaine is not available. Instill into operative eye prior to all other eye drops., Pre-op 1220 (Given - Provid er: Maria Alejandra Chavira RN) tropicamide (MYDRIACYL) 1 % ophthalmic solution 1 Drop (COMPLETED) 1 Drop, See Admin Instructions, OTHER, Starting on Wed10/04/23 at 1219, Until Wed10/04/23 at 1235, For 3 doses, Following tetracaine eye drop, instill 1 drop into operative eye every 5-10 minutes x 3, Pre-op 1225 (Given - Provid er: Maria Alejandra Chavira RN)1230 (Given - Provider: Maria Alejandra Chavira RN)1235 (Given - Provider: Maria Alejandra Chavira RN) PRN Medication Order 10/02/2023 10/03/2023 10/04/2023 balance salt (BSS) ophthalmic solution ONCE PRN, Starting on Wed10/04/23 at 1307, Until Wed10/04/23 at 1546, Intra-op 1307 (Given - Provid er: Maria Alejandra Patel MD) chondroitin sulfate-sodium hyaluronate (VISCOAT) eye injection ONCE PRN, Starting on Wed10/04/23 at 1307, Until Wed10/04/23 at 1546, Intra-op 1307 (Given - Provid er: Maria Alejandra Patel MD) EPINEPHrine 0.025%-lidocaine 0.75% PF 0.8mL syringe ONCE PRN, Starting on Wed10/04/23 at 1307, Until Wed10/04/23 at 1546, Intra-op 1307 (Given - Provid er: Maria Alejandra Patel MD) EPINEPHrine PF 0.5 mg in balance salt (BSS) 500 mL ONCE PRN, Starting on Wed10/04/23 at 1307, Intra-op 1307 (Given - Provid er: Maria Alejandra Patel MD) fentaNYL (SUBLIMAZE) injection 25 mcg 25 mcg, Intravenous, [id number], Pain, The immediate postop period when faster on-set, short acting agent is desired., Starting on Wed10/04/23 at 1224, Until Wed10/04/23 at 1546, Administer every 5 minutes as needed, to a maximum cumulative dose of 250 mcg. Call Anesthesiologist if additional or greater doses needed For patients with a regional, spinal, or local anesthetic, may give for anticipated pain as the anesthetic wears off. Use fentanyl initially for a short acting agent for treatment of acute post-operative pain.?May be used in conjunction with alonger acting agent if ordered for optimal pain control.?Respiratory rate must be greater than 10 to administer medications., PACU/Recovery fentaNYL (SUBLIMAZE) injection 25-50 mcg 25-50 mcg, Intravenous, [id number], Pain, Procedure, Starting on Wed10/04/23 at 1230, Until Wed10/04/23 at 1546, For 2 doses, As directed by anesthesiologist, Pre-op hyaluronate (HEALON) intraocular injection ONCE PRN, Starting on Wed10/04/23 at 1308, Until Wed10/04/23 at 1546, Intra-op 1308 (Given - Provid er: Maria Alejandra Patel MD) HYDROmorphone (DILAUDID) injection 0.25 mg 0.25 mg, Intravenous, Q10MIN PRN, Pain, The immediate postop period when longer acting agent is desired., Starting on Wed10/04/23 at 1224, Until Wed10/04/23 at 1546, Maximum cumulative dose is 2 mg in PACU, call Anesthesiologist if additional or greater dosing is needed. For patients with a regional, spinal, or local anesthetic, may give for anticipated pain as the anesthetic wears off. , PACU/Recovery labetalol (NORMODYNE) injection 5 mg 5 mg, Intravenous, Q10MIN PRN, Other, High Blood Pressure, MAX 5 doses, hold for HR <50, Starting on Wed10/04/23 at 1224, Until Wed10/04/23 at 1546, For 5 doses, Call Anesthesiologist before administration. Give as directed by Anesthesiologist., PACU/Recovery lidocaine PF (XYLOCAINE) 1 % injection 0.1-0.3 mL 0.1-0.3 mL, Subcutaneous, PRN, Other, for IV insertion, Starting on Wed10/04/23 at 1219, For 1 day, Lidocaine to be used for IV starts unless patient refuses., Pre-op lidocaine PF (XYLOCAINE) 1 % injection ONCE PRN, Starting on Wed10/04/23 at 1308, Intra-op 1308 (Given - Provid er: Maria Alejandra Patel MD) midazolam (VERSED) injection 1-2 mg 1-2 mg, Intravenous, [id number], Sedation, Anxiety, Procedure, Starting on Wed10/04/23 at 1230, Until Wed10/04/23 at 1546, As directed by anesthesiologist MAX Dose 2mg, Pre-op moxifloxacin (VIGAMOX) 0.5 % ophthalmic solution ONCE PRN, Starting on Wed10/04/23 at 1308, Until Wed10/04/23 at 1546, Intra-op 1308 (Given - Provid er: Anh Figueroa RN) moxifloxacin-BSS 1 MG/ML intracameral injection ONCE PRN, Starting on Wed10/04/23 at 1308, Until Wed10/04/23 at 1546, Intra-op 1308 (Given - Provid er: Maria Alejandra Patel MD) naloxone (NARCAN) injection 0.08 mg 0.08 mg, Intravenous, PRN, Other, For respiratory rate less than 8/minute or patient difficult to arouse, Starting on Wed10/04/23 at 1224, Until Wed10/04/23 at 1546, May repeat every 3 minutes or until patient is responsive to physical stimulation and is able to take deep breaths. Maximum cumulative dose is 0.4 mg (1 mL). Continue to observe; if no response after administering total dose of 0.4 mg notify anesthesiologist STAT., PACU/Recovery naloxone (NARCAN) injection 0.4 mg 0.4 mg, Intravenous, ONCE PRN, Opioid Reversal, Starting on Wed10/04/23 at 1224, Until Wed10/04/23 at 1546, For 1 dose, For imminent respiratory arrest. Notify MD if naloxone is given., PACU/Recovery ondansetron (ZOFRAN) injection 4 mg 4 mg, Intravenous, Q4H PRN, Nausea, Vomiting, Starting on Wed10/04/23 at 1224, Until Wed10/04/23 at 1546, If multiple medications are ordered for nausea or vomiting - administer in the following priority based on medications ordered, effectiveness and availability: ondansetron (ZOFRAN) > prochlorperazine (COMPAZINE) > diphenhydrAMINE (BENADRYL) > hydrOXYzine HCl (VISTARIL)> ePHEDrine > scopolamine (TRANSDERM-SCOP)., PACU/Recovery povidone-iodine (BETADINE) 5 % ophthalmic solution ONCE PRN, Starting on Wed10/04/23 at 1308, Until Wed10/04/23 at 1546, Intra-op 1308 (Given - Provid er: Anh Figueroa RN) prednisoLONE acetate (PRED FORTE) 1 % ophthalmic suspension ONCE PRN, Starting on Wed10/04/23 at 1308, Until Wed10/04/23 at 1546, Intra-op 1308 (Given - Provid er: Anh Figueroa RN) sodium chloride 0.9% injection 10 mL 10 mL, Intravenous, PRN, Line Patency, Starting on Wed10/04/23 at 1219, Until Wed10/04/23 at 1546, Pre-op tetracaine (PONTOCAINE) 0.5 % ophthalmic solution ONCE PRN, Starting on Wed10/04/23 at 1308, Intra-op 1308 (Given - Provid er: Anh Figueroa RN) Linked Groups Order Group 1: tetracaine (PONTOCAINE) 0.5 % ophthalmic solution 1 Drop (COMPLETED)Jump to med 1 Drop, See Admin Instructions, ONCE, On Wed10/04/23 at 1245, For 1 dose, Tetracaine is preferred. Use Proparacaine if Tetracaine is not available. Instill into operative eye prior to all other eye drops., Pre-op Or proparacaine (OPHTHETIC) 0.5 % ophthalmic solution 1 Drop (COMPLETED) 1 Drop, See Admin Instructions, ONCE, On Wed10/04/23 at 1245, For 1 dose, Tetracaine is preferred. Use Proparacaine if Tetracaine is not available. Instill into operative eye prior to all other eye drops., Pre-op documented in this encounter Care Teams Alteration Specialist Relationship Specialty Start Date End Date Connie Kuhn MD [address] [place] [address] PCP - General Family Practice 05/23/18 documented as of this encounter
--- OUTSIDE RECORDS SUMMARY | 2023-10-31 02:16 | XMS_ITS | Encounter Summary ---
Author Organization [employer] Address [address], [place] [address] Care Team Providers Care Museum Attendant Name Role Phone Connie Kuhn MD Primary Care Provider [phone] Reason for Visit * Auth/Cert (Routine) Specialty Diagnoses / Procedures Referred By Charlie t Referred To Contact Diagnoses Combined forms of age-related cataract of both eyes Procedures CATARACT EXTRACTION WITH INTRAOCULAR LENS IMPLANT Referral ID Status Reason Start Date Expiration Date Visits Re quested Visits Authorized [id number] 1 1 Encounter Details Date Type Department Care Team (Latest Contact Info) Description 10/04/2023 12:14 PM CDT - 10/04/2023 1:46 PM CDT Hospital Encounter [facility] [address] [place] [phone] [place] [address] [place], [place] [id number] Combined forms of age-related cataract of both eyes Discharge Disposition: Home Social History Tobacco Use [...] AM CDT PPA call completed by calling [phone] and spoke to patient. Advised of arrival [...] Amb PreOp Assessment Details Procedure Cataracts Location [facility] Ambulatory Surgery Procedure Date 10/04/2023 Second Procedure [...] Note: Added automatically from request for surgery [id number] Acute iritis, left eye 07/19/2012 Adenomatous polyp of colon 04/11/2009 Overview Note: Colonoscopy completed 07/2020. Repeat in 5 years (07/2025). Pure hypercholesterolemia 11/17/2007 Overview Note: Not currently on treatment Prolapse of vaginal wall 10/22/2004 Overview Note: LW Onset: [id number] ; Rectocele Past Medical History: Diagnosis Date Breast injury 01/24/2019 left breast- fell. lateral breast bruise. large Cataract Iritis (ACG) S/P bunionectomy 08/13/2014 left foot, 2010 S/P foot surgery 08/23/2014 Left 2nd MTPJ capsule repair and metatarsal osteotomy S/P tonsillectomy 08/13/2014 Past Surgical History: Procedure Laterality Date ADENOIDECTOMY ECTOPIC SURGERY LAP CHOLECYSTECTOMY 09/23/2016 Viviana Kirkland MD at [facility] SINUS SURGERY 05/24/2018 FESS, fungal ball [...] Then follow the instructions given in clinic. rzwuljwaxbob-dpzlydyaxyrp-ofjllenef (EASY DROPS) 1-0.5-0.075 % SUSP 1 Drop, Left Eye, QID, Starting1 day BEFORE cataract surgery, place 1 drop in the LEFT eye 4 times per day. Then follow the drop instructions given in clinic. rgbdrizzhfct-attkixoqyjiq-inyfxggvo (EASY DROPS) 1-0.5-0.075 % SUSP 1 Drop, Right Eye, QID, Starting 1 day BEFORE cataract surgery, place 1 drop into the RIGHT eye 4 times per day. Then follow the drop instructions given in clinic. 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 Comment: PACU Tobacco Use Smoking status: Former [...] described above. In addition, please stop all ebqu-zcg-wldzorq medications including aspirin, ibuprofen (Advil, Motrin), naproxen [...] voiced understanding and wishes to proceed with [facility]. All questions were answered to the patient's satisfaction. The stated procedure is still clinically indicated. PROCEDURE: 1. Phacoemulsification and extraction of lens, Left eye 2. Intraocular lens implantation, Left eye LENS IMPLANT: [employer] DIB00 21.5 diopter lens SURGEON: Maria Alejandra Patel MD DERRICK WORKER WELL SERVICE: None. ANESTHESIA: Monitored anesthesia care/Topical and intraocular [...] Implant Name Type Inv. Item Serial No. Entry Specialist Lot No. LRB No. Used Action LENS INTRAOCULAR DIB00 21.5 - EYHANCE - [id number] DEVICE LENS INTRAOCULAR DIB00 21.5 - EYHANCE [id number] [employer] Vision Left 1 Implanted documented in this encounter Plan of Treatment Upcoming Encounters Date Type Department Care Team (Late st Contact Info) Description 11/09/2023 11:50 AM CDT Appointment Specialty [facility] General Surgery [address] [facility] [address] [place] [address] Viviana Kirkland MD [address] [facility] [address] [place] [address] 11/09/2023 2:30 PM CDT Appointment [facility] Oncology [address] [place] [address] Shayla Bland MBBS [address] [place], [place] [address] 11/15/2023 11:00 AM CDT Appointment [facility] [address] [place] [address] Thomas Hanks, OD [address] [place] [phone] documented as of this encounter Procedures Procedure [...] (SUBLIMAZE) injection 25 mcg 25 mcg, Intravenous, [id number], Pain, The immediate postop period when faster [...] (SUBLIMAZE) injection 25-50 mcg 25-50 mcg, Intravenous, [id number], Pain, Procedure, Starting on Wed10/04/23 at 1230, [...] (VERSED) injection 1-2 mg 1-2 mg, Intravenous, [id number], Sedation, Anxiety, Procedure, Starting on Wed10/04/23 at [...] (SUBLIMAZE) injection 25 mcg 25 mcg, Intravenous, [id number], Pain, The immediate postop period when faster [...] (SUBLIMAZE) injection 25-50 mcg 25-50 mcg, Intravenous, [id number], Pain, Procedure, Starting on Wed10/04/23 at 1230, [...] (VERSED) injection 1-2 mg 1-2 mg, Intravenous, [id number], Sedation, Anxiety, Procedure, Starting on Wed10/04/23 at 1230, Until 6/10/24 at 1546, As directed by anesthesiologist MAX [...] Pre-op documented in this encounter Care Teams Museum Attendant Relationship Specialty Start Date End Date Connie Kuhn MD [address] [place] [address] PCP - General Family Practice 05/23/18 documented as of this encounter
--- OUTSIDE RECORDS SUMMARY | 2023-10-31 02:16 | XMS_ITS | Encounter Summary ---
Author Organization [employer] Address [address] [address] Care Team Providers Care Rivet Hole Machine Operator Name Role Phone Connie Kuhn MD Primary Care Provider [phone] Reason for Visit * Auth/Cert (Routine) Specialty Diagnoses / Procedures Referred By Contbabar t Referred To Contact Diagnoses Combined forms of age-related cataract of both eyes Procedures CATARACT EXTRACTION WITH INTRAOCULAR LENS IMPLANT Referral ID Status Reason Start Date Expiration Date Visits Re quested Visits Authorized [id number] 1 1 Encounter Details Date Type Department Care Team (Late st Contact Info) Description 10/18/2023 12:46 PM CDT Anesthesia Event [facility] [address] [place] [phone] Owen Bar MD [facility] [place] [address] Riley Petersen APRN, CRNA [address] [place] [address] Anesthesia Record Procedure Summary Procedure Name Responsible Anesthesiologist Anesthesia Start Time Anesthesia Stop Time CATARACT EXTRACTION WITH INTRAOCULAR LENS IMPLANT (Right: Eye) Owen Bar MD 10/18/23 1246 10/18/23 1315 Events Date Time Event Comment 10/18/2023 1242 1246 An Start Anesthesia star t time denotes sedation started by TUFTER HAND currently on case; patient continuously monitored to O.R. By TUFTER HAND 1249 An Start Data 1250 MD/DO Present 1251 Nasal Canula/O2 Mask 1301 MD/DO Present 1310 an stop data 1315 An Stop Care transferre d. 1315 Care Handoff Note I discusse d with [...] of understanding of report Electronically signed by Riley Petersen APRN, CRNA Meds Name Total midazolam injection 2 mg/2 mL (VERSED) 1 .5 mg fentaNYL injection (SUBLIMAZE) 75 mcg Lidocaine 3.5% Ophthalmic Gel 1 Drop sodium chloride 0.9% for injection (for flushes) 5 mL * Agents Name 02 Delivery Device O2 N2O Air Nitrous Oxide () * Blood No blood administrations on file. Lines, Drains, and Airways Type Details Placement Removal Peripheral IV Placement Date: 10/18/23; Placement Time: 1211; Inserted by?: RN; Size (Gauge): 22 G; Orientation: Right; Site Prep: ChloraPrep; Insertion attempts: 1; Patient Tolerance: Tolerated well; Removal Date: 10/18/23; Removal Time: 1323 10/18/23 1211 by Grace Mcguire RN 10/18/23 1323 by Grace Mcguire, JENIFFER Incision/Surgical Site 10/18/23; 1258; # 1; Eye; Right; 10/18/23; 1323 10/18/23 1258 by Gayathri Ramirez RN 10/18/23 1323 by Grace Mcguire RN documented in this encounter Social History Tobacco [...] Miscellaneous Notes * Anesthesia Postprocedure Evaluation - Owen Bar MD - 10/18/2023 1:45 PM CDT [facility] Post-op Note Patient: Eboni Waggoner Post-Op Diagnosis: Pre-Op Diagnosis Codes: * Combined forms of age-related cataract of both eyes [H25.813] Procedure Performed: Procedure(s): Right - CATARACT EXTRACTION WITH INTRAOCULAR LENS IMPLANT - Wound Class: 1 CLEAN Anesthesia Type: MAC Post-op vital signs: Vitals Value Taken Time BP 131/76 10/18/23 1321 Temp 36.6 ??C (97.9 ??F) 10/18/23 1318 Pulse 82 10/18/23 1321 Resp 16 10/18/23 1321 SpO2 96 % 10/18/23 1321 Pain Score: Preferred Pain Scale: number (Numeric Rating Pain Scale) (0-10) Pain Rating: Rest: 0 (0-10) Pain Rating: Activity: 0 Post-op assessment: Patient location: Phase 2 Airway Status: Patent Cardiovascular function: Satisfactory Hydration status: Satisfactory PONV: None Level of Consciousness: Awake Fully Participates Postop Assessment: Patient tolerated procedure well. Electronically signed by: Owen Bar MD 10/18/2023 1:45 PM * Anesthesia Preprocedure Evaluation - Owen Bar MD - 10/18/2023 12:16 PM CDT [facility] Pre-op Evaluation Procedure: CATARACT EXTRACTION WITH INTRAOCULAR LENS IMPLANT, Right HPI: 73 y.o. old female. Pre-Op Diagnosis Codes: * Combined forms of age-related cataract of both eyes [H25.813] Last Fluid Intake Time: 0800 Last Fluid Intake Date: 10/18/23 Last Food Intake Date: 10/17/23 Last Food Intake Time: 1900 No Known Allergies Past Medical History: Diagnosis Date Cataract Iritis (ACG) S/P bunionectomy 08/13/2014 left [...] [employer] DIB00 21.5 diopter lens ECTOPIC SURGERY LAP CHOLECYSTECTOMY 09/23/2016 Viviana Kirkland MD at [facility] SINUS SURGERY 05/24/2018 FESS, fungal ball removal TONSILLECTOMY VAGINAL HYSTERECTOMY LW Problem: Hysterectomy Vaginal s/p LW Modifier: w/ SSF, TVT 2000 LW Onset: No current outpatient medications on file as of 10/18/2023. Facility-Administered Medications as of 10/18/2023 Medication Dose Route Frequency dextrose 5 % infusion Intravenous ONCE PRN EPINEPHrine 0.025%-lidocaine 0.75% PF 0.8mL syringe 0.8 mL Intraocular Once fentaNYL (SUBLIMAZE) injection 50 mcg 50 mcg Intravenous Q5MIN PRN HYDROmorphone (DILAUDID) injection 0.4 mg 0.4 mg Intravenous Q10MIN PRN lidocaine PF (XYLOCAINE) 1 % injection 0.1-0.3 mL 0.1-0.3 mL Subcutaneous PRN meperidine (DEMEROL) injection 12.5 mg 12.5 mg Intravenous Q5MIN PRN [COMPLETED] moxifloxacin (VIGAMOX) 0.5 % ophthalmic solution 1 Drop 1 Drop Right Eye Other (See Comments) [COMPLETED] moxifloxacin (VIGAMOX) 0.5 % ophthalmic solution 1 Drop 1 Drop Left Eye Other (See Comments) naloxone (NARCAN) injection 0.08 mg 0.08 mg Intravenous PRN naloxone (NARCAN) injection 0.4 mg 0.4 mg Intravenous ONCE PRN ondansetron (ZOFRAN) injection 4 mg 4 mg Intravenous Q4H PRN [COMPLETED] phenylephrine (AK-DILATE) 2.5 % ophthalmic solution 1 Drop 1 Drop See Admin Instructions Other (See Comments) [COMPLETED] phenylephrine (AK-DILATE) 2.5 % ophthalmic solution 1 Drop 1 Drop See Admin Instructions Other (See Comments) [COMPLETED] tetracaine (PONTOCAINE) 0.5 % ophthalmic solution 1 Drop 1 Drop See Admin Instructions Once Or [COMPLETED] proparacaine (OPHTHETIC) 0.5 % ophthalmic solution 1 Drop 1 Drop See Admin InstructionsOnce [COMPLETED] tetracaine (PONTOCAINE) 0.5 % ophthalmic solution 1 Drop 1 Drop See Admin Instructions Once Or [COMPLETED] proparacaine (OPHTHETIC) 0.5 % ophthalmic solution 1 Drop 1 Drop See Admin InstructionsOnce sodium chloride 0.9% injection 10 mL 10 mL Intravenous PRN [COMPLETED] tropicamide (MYDRIACYL) 1 % ophthalmic solution 1 Drop 1 Drop See Admin Instructions Other (See Comments) [COMPLETED] tropicamide (MYDRIACYL) 1 % ophthalmic solution 1 Drop 1 Drop See Admin Instructions Other (See Comments) Labs: Lab Results Component Value Date/Time SODIUM 142 09/16/2016 10:55 AM K 4.3 09/16/2016 10:55 AM CHLORIDE 107 09/16/2016 10:55 AM BUN 21 09/07/2016 10:20 AM CREATININE 1.20 (H) 09/07/2016 10:20 AM GLUCOSE 85 10/01/2023 09:53 AM Lab Results Component Value Date/Time WBC 8.7 05/23/2018 02:19 PM HGB 15.1 05/23/2018 02:19 PM HCT 44.4 05/23/2018 02:19 PM PLTS 280 05/23/2018 02:19 PM No results found for: INR Blood Bank: No results found for: ABO, ABSCR EKG: No results found for this or any previous visit. Physical Exam: BP 135/84 Pulse 80 Temp 36.6 ??C (97.9 ??F) (Skin) Resp 18 Ht 5' 7.01 Wt 84.8 kg (186 lb15.2 oz) SpO2 94% BMI 29.27 kg/m?? Assessment/Plan: Review of Systems Patient does not have GERD. Patient is not a current smoker. Patient is a former smoker. The patient reports alcohol use. Patient denies any recent URI. History of PONV: No. History of motion sickness: No. Patient denies any personal or family history of anesthesia complications. NPO Status: Acceptable. Exam Mental Status: Alert and oriented. Mallampati score: II (Two). Mouth opening: Normal Thyromental Distance: > 3 finger breadths and Normal Neck Extension: Full Neck Circumference > 40 cm?: No Current airway assessment:Normal Dentition: Caps/crowns. Cardiac Exam: Regular rate and rhythm. Respiratory Exam: Breath sounds clear to auscultation Assessment ASA Status: 2 . Plan Anesthesia type: MAC Induction: Maintenance: TIVA Postoperative pain management: Plan for postoperative opioid use PONV Risk Score Adult: 3 Anesthetic plan, risks, benefits and alternatives discussed with the patient who agrees to the anesthesia treatment plan. H&P Reviewed and Patient examined, no change observed IV access Antibiotics per surgery Electronically signed by: Owen Bar MD 10/18/2023 12:16 PM documented in this encounter Plan of Treatment Upcoming Encounters Date Type Department Care Team (Late st Contact Info) Description 11/09/2023 11:50 AM CDT Appointment Specialty Center 39[address] General Surgery [address] [facility] [address] [place] [address] Viviana Kirkland MD [address] [facility] [address] [place], [place] [address] 11/09/2023 2:30 PM CDT [facility]ment [facility] Oncology [address] [place] [address] Shayla Bland MBBS [address] [place] [address] 11/15/2023 11:00 AM CDT Appointment [facility] [address] [place] [address] Thomas Hanks OD [address] [place] [phone] documented as of this encounter Visit Diagnoses Not on filedocumented in this encounter Administered Medications Inactive Administered Medications - up to 3 most recent administrations Medication Order MAR Action Action Date Dose Rate Site fentaNYL (SUBLIMAZE) injection Intravenous, Starting on Wed10/18/23 at 1246, Until Wed10/18/23 at 1315 Given 10/18/2023 12:46 PM CDT 75 mcg lidocaine (AKTEN) 3.5 % ophthalmic gel Both Eyes, Starting on Wed10/18/23 at 1252 Given 10/18/2023 12:52 PM CDT 1 Drop midazolam (VERSED) injection Intravenous, Starting on Wed10/18/23 at 1246, Until Wed10/18/23 at 1315 Given 10/18/2023 12:46 PM CDT 1.5 mg sodium chloride 0.9% injection Intravenous, Starting on Wed10/18/23 at 1246, Until Wed10/18/23 at 1315 Given 10/18/2023 12:46 PM CDT 5 mL documented in this encounter Care Teams Rivet Hole Machine Operator Relationship Specialty Start Date End Date Connie Kuhn MD [facility] [place] [address] PCP - General Family Practice 05/23/18 documented as of this encounter
--- OUTSIDE RECORDS SUMMARY | 2023-10-31 02:16 | XMS_ITS | Encounter Summary ---
Author Organization [facility] Address [address], [place] [address] Care Team Providers Care Blast Furnace Keeper Helper Name Role Phone Connie Kuhn MD Primary Care Provider [phone] Reason for Visit * Auth/Cert (Routine) Specialty Diagnoses / Procedures Referred By Charlie t Referred To Contact Diagnoses Combined forms of age-related cataract of both eyes Procedures CATARACT EXTRACTION WITH INTRAOCULAR LENS IMPLANT Referral ID Status Reason Start Date Expiration Date Visits Re quested Visits Authorized [id number] 1 1 Encounter Details Date Type Department Care Team (Latest Contact Info) Description 10/18/2023 11:50 AM CDT - 10/18/2023 1:27 PM CDT Hospital Encounter [facility] [address] [place] [phone] [place] [address] [place], [place] [address] Combined forms of age-related cataract of both [...] Sign Reading Time Taken Comments Blood Pressure 131/76 10/18/2023 1:21 PM CDT Pulse 82 10/18/2023 1:21 PM CDT Temperature 36.6 ??C (97.9 ??F) 10/18/2023 1:18 PM CD T Respiratory Rate 16 10/18/2023 1:21 PM CDT Oxygen Saturation 96% 10/18/2023 1:21 PM CDT Inhaled Oxygen Concentration - - Weight 84.8 kg (186 lb 15.2 oz) 024 10:58 AM CDT Height 170.2 cm (5' 7.01) 08/03/2023 1 0:58 AM CDT Body Mass Index 29.27 08/03/2023 10:58 AM CDT documented in this encounter Medications [...] as of this encounter Progress Notes * Grace Mcguire RN - 10/13/2023 8:41 AM CDT PPA call completed by calling [phone] and spoke to patient. Advised of arrival time 1200. Reviewed pre-procedure questions, detailed instructions with NPO guidelines and address given. All questions answered, no other needs at this time. .Grace Mcguire RN documented in this encounter H&P Notes * Maria Alejandra Patel MD - 10/18/2023 12:36 PM CDT Surgery Update for Preop History and Physical For 10/18/2023 scheduled procedure Update to H&P includes: The patient reports no new medical events or changes in their health since preoperative history andphysical. This patient has been evaluated by me today and has been found to be a suitable candidate for surgery. 10/18/2023 Source Note - Amelia Johnson PA-C - 09/23/2023 9:30 AM CDT Pre-Operative Assessment 09/23/2023 ET Amb PreOp Assessment Details Procedure Cataracts Location [facility] Procedure Date 10/04/2023 Second Procedure [...] Note: Added automatically from request for surgery [id number] Acute iritis, left eye 07/19/2012 Adenomatous polyp [...] LAP CHOLECYSTECTOMY 09/23/2016 Viviana Kirkland MD at [facility] SINUS SURGERY 05/24/2018 FESS, fungal ball [...] Then follow the instructions given in clinic. jmhllvpvvxji-zhmlnpgjeumb-exkzxrgye (EASY DROPS) 1-0.5-0.075 % SUSP 1 Drop, Left Eye, QID, Starting1 day BEFORE cataract surgery, place 1 drop in the LEFT eye 4 times per day. Then follow the drop instructions given in clinic. fymsyuixapow-fskluizmmxda-lpvaqgywd (EASY DROPS) 1-0.5-0.075 % SUSP 1 Drop, Right Eye, QID, Starting 1 day BEFORE cataract surgery, place 1 drop into the RIGHT eye 4 times per day. Then follow the drop instructions given in clinic. 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 In addition, please stop all mewl-xyu-jfzauup medications including aspirin, ibuprofen (Advil, Motrin), naproxen [...] Notes * Maria Alejandra Patel MD - 10/18/2023 1:13 PM CDT OPERATIVE REPORT DATE OF OPERATION: 10/18/2023 : 1950 PREOPERATIVE DIAGNOSIS: Visually significant nuclear sclerotic age-related cataract, Right eye POSTOPERATIVE DIAGNOSIS: Visually significant nuclear sclerotic age-related cataract, Right eye INDICATIONS FOR PROCEDURE: The patient has a visually significant cataract of the Right eye that is adversely affecting their activities of daily living. The risks, benefits, alternatives, expectations and the procedure itselfhave been discussed at length with the patient who voiced understanding and wishes to proceed with surgery. All questions were answered to the patient's satisfaction. The stated procedure is still clinically indicated. PROCEDURE: 1. Phacoemulsification and extraction of lens, Right eye 2. Intraocular lens implantation, Right eye LENS IMPLANT: [employer] DIB00 21.0 diopter lens SURGEON: Maria Alejandra Patel MD RETAIL WIRELESS ASSOCIATE: None. ANESTHESIA: Monitored anesthesia care/Topical and intraocular [...] the operative eye. With adequate anesthesia, the Right eye was prepped and draped in the usual sterile fashion. A lidspeculum was placed, and the operative microscope was [...] chamber was inflated with balanced salt solution and the wounds were hydrated and found to be self-sealing. Intracameral moxifloxacin was administered.The eye was palpated and found to be [...] Implant Name Type Inv. Item Serial No. Nonprofit Fundraiser Lot No. LRB No. Used Action LENS INTRAOCULAR DIB00 21.0 - EYHANCE - [id number] DEVICE LENS INTRAOCULAR DIB00 21.0 - EYHANCE [id number] [employer] Demario Vision Right 1 Implanted documented in this encounter Plan of Treatment Upcoming Encounters Date Type Department Care Team (Late st Contact Info) Description 11/09/2023 11:50 AM CDT Appointment [facility] General Surgery [address] [facility] [address] [place] [address] Viviana Kirkland MD [address] [facility] [address] [place] [address] 11/09/2023 2:30 PM CDT Appointment [facility] [address] [place] [address] Shayla Bland MBBS [address] [place] [address] 11/15/2023 11:00 AM CDT Appointment [facility] [address] [place] [address] Thomas Hanks, OD [address] [place] [phone] documented as of this encounter Procedures Procedure Name Priority Date/Time Associated Diagnosis Comments PHACOEMULSIFICATION WITH IMPLANT INTRAOCULAR LENS 10/18/2023 12:44 [...] (BSS) ophthalmic solution ONCE PRN, Starting on Wed10/18/23 at 1300, Until Wed10/18/23 at 1527, Intra-op Given 10/18/2023 1:00 PM CDT 30 mL chondroitin sulfate-sodium hyaluronate (VISCOAT) eye injection ONCE PRN, Starting on Wed10/18/23 at 1301, Until Wed10/18/23 at 1527, Intra-op Given 10/18/2023 1:01 PM CDT 0.5 mL Right Eye dextrose 5 % infusion Intravenous, at 250 mL/hr, ONCE PRN, Other, for nausea if all other options have failed and patient is not diabetic., Starting on Wed10/18/23 at 1156, For 1 dose, PACU/Recovery EPINEPHrine 0.025%-lidocaine 0.75% PF in BSS ONCE PRN, Starting on Wed10/18/23 at 1301, Until Wed10/18/23 at 1527, Intra-op Given 10/18/2023 1:01 PM CDT 0.8 mL Right Eye EPINEPHrine PF 0.5 mg in balance salt (BSS) 500 mL ONCE PRN, Starting on Wed10/18/23 at 1301, Intra-op Given 10/18/2023 1:01 PM CDT 300 mL Right Eye fentaNYL (SUBLIMAZE) injection 50 mcg 50 mcg, Intravenous, [id number], Pain, The immediate postop period when faster on-set, short acting agent is desired., Starting on Wed10/18/23 at 1156, Until Wed10/18/23 at 1527, Administer every 5 minutes as needed, to [...] greater than 10 to administer medications., PACU/Recovery hyaluronate (HEALON) intraocular injection ONCE PRN, Starting on Wed10/18/23 at 1302, Until Wed10/18/23 at 1527, Intra-op Given 10/18/2023 1:02 PM CDT 10 mg HYDROmorphone (DILAUDID) injection 0.4 mg 0.4 mg, Intravenous, Q10MIN PRN, Pain, The immediate postop period when longer acting agent is desired., Starting on Wed10/18/23 at 1156, Until Wed10/18/23 at 1527, Maximum cumulative dose is 2 mg in PACU, call Anesthesiologist if additional or greater dosing is needed. For patients with a regional, spinal, or local anesthetic, may give for anticipated pain as the anesthetic wears off. , PACU/Recovery lidocaine PF (XYLOCAINE) 1 % injection 0.1-0.3 mL 0.1-0.3 mL, Subcutaneous, PRN, Other, for IV insertion, Starting on Wed10/18/23 at 1152, For 1 day, Lidocaine to be used for IV starts unless patient refuses., Pre-op lidocaine PF (XYLOCAINE) 1 % injection ONCE PRN, Starting on Wed10/18/23 at 1302, Intra-op Given 10/18/2023 1:02 PM CDT 1 mL Right Eye meperidine (DEMEROL) injection 12.5 mg 12.5 mg, Intravenous, [id number], Shivering, Starting on Wed10/18/23 at 1156, Until Wed10/18/23 at 1527, For 2 doses, Maximum cumulative dose is 25 mg. Do not give to patients receiving MAO inhibitors (e.g. phenelzine (NARDIL), tranylcypromine (PARNATE), selegiline (ELDEPRYL))., PACU/Recovery moxifloxacin (VIGAMOX) 0.5 % ophthalmic solution 1 Drop 1 Drop, Right Eye, OTHER, Starting on Wed10/18/23 at 1152, Until Wed10/18/23 at 1220, For 3 doses, If patient uses multiple eye drops, allow approximately 5 minutes between instillation of each medication., Pre-op Given 10/18/2023 12:20 PM CDT 1 Drop Given 10/18/2023 12:15 PM CDT 1 Drop Given 10/18/2023 12:10 PM CDT 1 Drop moxifloxacin (VIGAMOX) 0.5 % ophthalmic solution ONCE PRN, Starting on Wed10/18/23 at 1302, Until Wed10/18/23 at 1527, Intra-op Given 10/18/2023 1:02 PM CDT 1 Drop moxifloxacin-BSS 1 MG/ML intracameral injection ONCE PRN, Starting on Wed10/18/23 at 1302, Until Wed10/18/23 at 1527, Intra-op Given 10/18/2023 1:02 PM CDT 0.3 mg Right Eye naloxone (NARCAN) injection 0.08 mg 0.08 mg, Intravenous, PRN, Other, For respiratory rate less than 8/minute or patient difficult to arouse, Starting on Wed10/18/23 at 1156, Until Wed10/18/23 at 1527, May repeat every 3 minutes or until patient is responsive to physical stimulation and is able to take deep breaths. Maximum cumulative dose is 0.4 mg (1 mL). Continue to observe; if no response after administering total dose of 0.4 mg notify anesthesiologist STAT., PACU/Recovery naloxone (NARCAN) injection 0.4 mg 0.4 mg, Intravenous, ONCE PRN, Opioid Reversal, Starting on Wed10/18/23 at 1156, Until Wed10/18/23 at 1527, For 1 dose, For imminent respiratory arrest. Notify MD if naloxone is given., PACU/Recovery ondansetron (ZOFRAN) injection 4 mg 4 mg, Intravenous, Q4H PRN, Nausea, Vomiting, Starting on Wed10/18/23 at 1156, Until Wed10/18/23 at 1527, If multiple medications are ordered for nausea or vomiting - administer in the following priority based on medications ordered, effectiveness and availability: ondansetron (ZOFRAN) > prochlorperazine (COMPAZINE) > diphenhydrAMINE (BENADRYL) > hydrOXYzine HCl (VISTARIL)> ePHEDrine > scopolamine (TRANSDERM-SCOP)., PACU/Recovery phenylephrine (AK-DILATE) 2.5 % ophthalmic solution 1 Drop 1 Drop, See Admin Instructions, OTHER, Starting on Wed10/18/23 at 1152, Until Wed10/18/23 at 1220, For 3 doses, Following tetracaine eye drop, instill 1 drop into operative eye every 5-10 minutes x 3, Pre-op Given 10/18/2023 12:20 PM CDT 1 Drop Given 10/18/2023 12:15 PM CDT 1 Drop Given 10/18/2023 12:10 PM CDT 1 Drop povidone-iodine (BETADINE) 5 % ophthalmic solution ONCE PRN, Starting on Wed10/18/23 at 1303, Until Wed10/18/23 at 1527, Intra-op Given 10/18/2023 1:03 PM CDT 1 Drop prednisoLONE acetate (PRED FORTE) 1 % ophthalmic suspension ONCE PRN, Starting on Wed10/18/23 at 1303, Until Wed10/18/23 at 1527, Intra-op Given 10/18/2023 1:03 PM CDT 1 Drop sodium chloride 0.9% injection 10 mL 10 mL, Intravenous, PRN, Line Patency, Starting on Wed10/18/23 at 1152, Until Wed10/18/23 at 1527, Pre-op Given 10/18/2023 12:11 PM CDT 10 mL tetracaine (PONTOCAINE) 0.5 % ophthalmic solution 1 Drop 1 Drop, See Admin Instructions, ONCE, On Wed10/18/23 at 1215, For 1 dose, Tetracaine is preferred. Use Proparacaine if Tetracaine is not available. Instill into operative eye prior to all other eye drops., Pre-op Given 10/18/2023 12:05 PM CDT 1 Hugo p tetracaine (PONTOCAINE) 0.5 % ophthalmic solution ONCE PRN, Starting on Wed10/18/23 at 1303, Intra-op Given 10/18/2023 1:03 PM CDT 1 Drop tropicamide (MYDRIACYL) 1 % ophthalmic solution 1 Drop 1 Drop, See Admin Instructions, OTHER, Starting on Wed10/18/23 at 1152, Until Wed10/18/23 at 1220, For 3 doses, Following tetracaine eye drop, instill 1 drop into operative eye every 5-10 minutes x 3, Pre-op Given 10/18/2023 12:2 0 PM CDT 1 Drop Given 10/18/2023 12:15 PM CDT 1 Drop Given 10/18/2023 12:10 PM CDT 1 Drop documented in this encounter Active and Recently Administered Medications Times are shown in CDT. Scheduled Medication Order 10/16/2023 10/17/2023 10/18/2023 EPINEPHrine 0.025%-lidocaine 0.75% PF 0.8mL syringe 0.8 mL, Intraocular, ONCE, On Wed10/18/23 at 1215, For 1 dose, To be administered by the surgeon, Pre-op 1215 (Due) moxifloxacin (VIGAMOX) 0.5 % ophthalmic solution 1 Drop (COMPLETED) 1 Drop, Right Eye, OTHER, Starting on Wed10/18/23 at 1152, Until Wed10/18/23 at 1220, For 3 doses, If patient uses multiple eye drops, allow approximately 5 minutes between instillation of each medication., Pre-op 1210 (Given - Provid er: Grace Mcguire RN)1215 (Given - Provider: Grace Mcguire RN)1220 (Given - Provider: Grace Mcguire RN) phenylephrine (AK-DILATE) 2.5 % ophthalmic solution 1 Drop (COMPLETED) 1 Drop, See Admin Instructions, OTHER, Starting on Wed10/18/23 at 1152, Until Wed10/18/23 at 1220, For 3 doses, Following tetracaine eye drop, instill 1 drop into operative eye every 5-10 minutes x 3, Pre-op 1210 (Given - Provid er: Grace Mcguire RN)1215 (Given - Provider: Grace Mcguire RN)1220 (Given - Provider: Grace Mcguire RN) tetracaine (PONTOCAINE) 0.5 % ophthalmic solution 1 Drop (COMPLETED)(Linked Group 1) 1 Drop, See Admin Instructions, ONCE, On Wed10/18/23 at 1215, For 1 dose, Tetracaine is preferred. Use Proparacaine if Tetracaine is not available. Instill into operative eye prior to all other eye drops., Pre-op 1205 (Given - Provid er: Grace Mcguire RN) tropicamide (MYDRIACYL) 1 % ophthalmic solution 1 Drop (COMPLETED) 1 Drop, See Admin Instructions, OTHER, Starting on Wed10/18/23 at 1152, Until Wed10/18/23 at 1220, For 3 doses, Following tetracaine eye drop, instill 1 drop into operative eye every 5-10 minutes x 3, Pre-op 1210 (Given - Provid er: Grace Mcguire RN)1215 (Given - Provider: Grace Mcguire RN)1220 (Given - Provider: Grace Mcguire RN) PRN Medication Order 10/16/2023 10/17/2023 10/18/2023 balance salt (BSS) ophthalmic solution ONCE PRN, Starting on Wed10/18/23 at 1300, Until Wed10/18/23 at 1527, Intra-op 1300 (Given - Provid er: Maria Alejandra Patel MD) chondroitin sulfate-sodium hyaluronate (VISCOAT) eye injection ONCE PRN, Starting on Wed10/18/23 at 1301, Until Wed10/18/23 at 1527, Intra-op 1301 (Given - Provid er: Maria Alejandra Patel MD) dextrose 5 % infusion Intravenous, at 250 mL/hr, ONCE PRN, Other, for nausea if all other options have failed and patient is not diabetic., Starting on Wed10/18/23 at 1156, For 1 dose, PACU/Recovery EPINEPHrine 0.025%-lidocaine 0.75% PF in BSS ONCE PRN, Starting on Wed10/18/23 at 1301, Until Wed10/18/23 at 1527, Intra-op 1301 (Given - Provid er: Maria Alejandra Patel MD) EPINEPHrine PF 0.5 mg in balance salt (BSS) 500 mL ONCE PRN, Starting on Wed10/18/23 at 1301, Intra-op 1301 (Given - Provid er: Maria Alejandra Patel MD) fentaNYL (SUBLIMAZE) injection 50 mcg 50 mcg, Intravenous, [id number], Pain, The immediate postop period when faster on-set, short acting agent is desired., Starting on Wed10/18/23 at 1156, Until Wed10/18/23 at 1527, Administer every 5 minutes as needed, to [...] greater than 10 to administer medications., PACU/Recovery hyaluronate (HEALON) intraocular injection ONCE PRN, Starting on Wed10/18/23 at 1302, Until Wed10/18/23 at 1527, Intra-op 1302 (Given - Provid er: Maria Alejandra Patel MD) HYDROmorphone (DILAUDID) injection 0.4 mg 0.4 mg, Intravenous, Q10MIN PRN, Pain, The immediate postop period when longer acting agent is desired., Starting on Wed10/18/23 at 1156, Until Wed10/18/23 at 1527, Maximum cumulative dose is 2 mg in PACU, call Anesthesiologist if additional or greater dosing is needed. For patients with a regional, spinal, or local anesthetic, may give for anticipated pain as the anesthetic wears off. , PACU/Recovery lidocaine PF (XYLOCAINE) 1 % injection 0.1-0.3 mL 0.1-0.3 mL, Subcutaneous, PRN, Other, for IV insertion, Starting on Wed10/18/23 at 1152, For 1 day, Lidocaine to be used for IV starts unless patient refuses., Pre-op lidocaine PF (XYLOCAINE) 1 % injection ONCE PRN, Starting on Wed10/18/23 at 1302, Intra-op 1302 (Given - Provid er: Maria Alejandra Patel MD) meperidine (DEMEROL) injection 12.5 mg 12.5 mg, Intravenous, [id number], Shivering, Starting on Wed10/18/23 at 1156, Until Wed10/18/23 at 1527, For 2 doses, Maximum cumulative dose is 25 mg. Do not give to patients receiving MAO inhibitors (e.g. phenelzine (NARDIL), tranylcypromine (PARNATE), selegiline (ELDEPRYL))., PACU/Recovery moxifloxacin (VIGAMOX) 0.5 % ophthalmic solution ONCE PRN, Starting on Wed10/18/23 at 1302, Until Wed10/18/23 at 1527, Intra-op 1302 (Given - Provid er: Maria Alejandra Patel MD) moxifloxacin-BSS 1 MG/ML intracameral injection ONCE PRN, Starting on Wed10/18/23 at 1302, Until Wed10/18/23 at 1527, Intra-op 1302 (Given - Provid er: Maria Alejandra Patel MD) naloxone (NARCAN) injection 0.08 mg 0.08 mg, Intravenous, PRN, Other, For respiratory rate less than 8/minute or patient difficult to arouse, Starting on Wed10/18/23 at 1156, Until Wed10/18/23 at 1527, May repeat every 3 minutes or until patient is responsive to physical stimulation and is able to take deep breaths. Maximum cumulative dose is 0.4 mg (1 mL). Continue to observe; if no response after administering total dose of 0.4 mg notify anesthesiologist STAT., PACU/Recovery naloxone (NARCAN) injection 0.4 mg 0.4 mg, Intravenous, ONCE PRN, Opioid Reversal, Starting on Wed10/18/23 at 1156, Until Wed10/18/23 at 1527, For 1 dose, For imminent respiratory arrest. Notify MD if naloxone is given., PACU/Recovery ondansetron (ZOFRAN) injection 4 mg 4 mg, Intravenous, Q4H PRN, Nausea, Vomiting, Starting on Wed10/18/23 at 1156, Until Wed10/18/23 at 1527, If multiple medications are ordered for nausea or vomiting - administer in the following priority based on medications ordered, effectiveness and availability: ondansetron (ZOFRAN) > prochlorperazine (COMPAZINE) > diphenhydrAMINE (BENADRYL) > hydrOXYzine HCl (VISTARIL)> ePHEDrine > scopolamine (TRANSDERM-SCOP)., PACU/Recovery povidone-iodine (BETADINE) 5 % ophthalmic solution ONCE PRN, Starting on Wed10/18/23 at 1303, Until Wed10/18/23 at 1527, Intra-op 1303 (Given - Provid er: Gayathri Ramirez RN - Comment: 1 drop plus 15 ml for prep) prednisoLONE acetate (PRED FORTE) 1 % ophthalmic suspension ONCE PRN, Starting on Wed10/18/23 at 1303, Until Wed10/18/23 at 1527, Intra-op 1303 (Given - Provid er: Gayathri Ramirez RN) sodium chloride 0.9% injection 10 mL 10 mL, Intravenous, PRN, Line Patency, Starting on Wed10/18/23 at 1152, Until Wed10/18/23 at 1527, Pre-op 1211 (Given - Provid er: Grace Mcguire RN) tetracaine (PONTOCAINE) 0.5 % ophthalmic solution ONCE PRN, Starting on Wed10/18/23 at 1303, Intra-op 1303 (Given - Provid er: Gayathri Ramirez RN) Linked Groups Order Group 1: tetracaine (PONTOCAINE) 0.5 % ophthalmic solution 1 Drop (COMPLETED)Jump to med 1 Drop, See Admin Instructions, ONCE, On Wed10/18/23 at 1215, For 1 dose, Tetracaine is preferred. Use Proparacaine if Tetracaine is not available. Instill into operative eye prior to all other eye drops., Pre-op Or proparacaine (OPHTHETIC) 0.5 % ophthalmic solution 1 Drop (COMPLETED) 1 Drop, See Admin Instructions, ONCE, On Wed10/18/23 at 1215, For 1 dose, Tetracaine is preferred. Use Proparacaine if Tetracaine is not available. Instill into operative eye prior to all other eye drops., Pre-op documented in this encounter Care Teams Blast Furnace Keeper Helper Relationship Specialty Start Date End Date Connie Kuhn MD [address] [place] [address] PCP - General Family Practice 05/23/18 documented as of this encounter
--- OUTSIDE RECORDS SUMMARY | 2023-10-31 02:16 | XMS_ITS | Encounter Summary ---
Author Organization [employer] Address [address], [place] [address] Care Team Providers Care Laminator Hand Name Role Phone Connie Kuhn MD Primary Care Provider [phone] Reason for Visit * Procedure/Equipment (Routine) - Incomplete Specialty Diagnoses / Procedures Referred By Charlie christianson Referred To Contact Diagnoses Abnormal mammogram Procedures [facility] Breast Connie Kuhn MD [address] [place] [id number] Referral ID Status Reason Start Date Expiration Date V isits Requested Visits Authorized [id number] Incomplete 10/01/2023 12/30/2024 1 1 Encounter Details Date Type Department Care Team (Late st Contact Info) Description 10/05/2023 10:30 AM CDT Ancillary Procedure [facility] at [facility] [place] [address] [place] [address]. [place] [address] Connie Kuhn MD [address] [place] [id number] Abnormal mammogram Social History Tobacco Use Types Packs/Day Years [...] Appointment Specialty [facility] General Surgery [address] [facility] [address] [place] [address] Viviana Kirkland MD [address] [facility] [address] [place] [address] 11/09/2023 2:30 PM CDT Appointment [facility] [address] [place] [address] Shayla Bland MBBS [address] [place] [address] 11/15/2023 11:00 AM CDT Appointment [facility] [address] [place] [address] Thomas Hanks, OD [address] [place] [phone] documented as of this encounter Procedures Procedure Name Priority Date/Time Associated Diagnosis Comments [facility] US BREAST LT Routine 10/05/2023 10:3 1 AM CDT Abnormal mammogram documented in this encounter Results * (ABNORMAL) [facility] US Breast Lt (10/05/2023 10:31 AM [...] with the patient and her . [facility] will attempt to schedule the recommended follow [...] discussed with thepatient and her . [facility] will attempt to schedule the recommendedfollow up with the patient. IMPRESSION: ACR BI-RADS CATEGORY 4: Suspicious. Connie Kuhn MD RAD LEIA * (ABNORMAL) [facility] Mammogram Diag Lt [address] [...] with the patient and her . [facility] will attempt to schedule the recommended follow [...] discussed with thepatient and her . [facility] will attempt to schedule the recommendedfollow up with the patient. IMPRESSION: ACR BI-RADS CATEGORY 4: Suspicious. Connie Kuhn MD RAD LEIA documented in this encounter Visit Diagnoses Diagnosis Abnormal mammogram Abnormal mammogram, unspecified Abnormal mammogram Abnormal mammogram, unspecified documented in this encounter Care Teams Laminator Hand Relationship Specialty Start Date End Date Connie Kuhn MD [address] [place] [address] PCP - General Family Practice 05/23/18 documented as of this encounter
--- OUTSIDE RECORDS SUMMARY | 2023-10-31 02:16 | XMS_ITS | Encounter Summary ---
Author Organization [employer] Address [address] [address] Care Team Providers Care Primary Class Teacher Name Role Phone Connie Kuhn MD Primary Care Provider [phone] Reason for Visit * Procedure/Equipment (Routine) - Incomplete Specialty Diagnoses / Procedures Referred By Charlie christianson Referred To Contact Diagnoses Abnormal finding on breast imaging Procedures MM Post Mammogram Lt Connie Khun MD [address] [place] [id number] Referral ID Status Reason Start Date Expiration Date V isits Requested Visits Authorized [id number] Incomplete 10/05/2023 01/03/2025 1 1 Encounter Details Date Type Department Care Team (Late st Contact Info) Description 10/07/2023 1:30 PM CDT Ancillary Procedure [facility] Mammography at [facility] and [facility] [place] [address] [place] [address]. [place] [address] Connie Kuhn MD [address] [id number] Abnormal finding on breast imaging Social History Tobacco Use Types Packs/Day Years [...] Appointment Specialty Center 3931 General Surgery 3931 [facility] [address] [place] [address] Viviana Kirkland MD [address] [facility] [address] [place] [address] 11/09/2023 2:30 PM CDT Appointment [facility] Oncology [address] [place] [address] Shayla Bland MBBS [address] [place] [address] 11/15/2023 11:00 AM CDT Appointment [facility] [address] [place] [address] Thomas Hanks, OD [address] [place] [phone] documented as of this encounter Procedures Procedure Name Priority Date/Time Associated Diagnosis Comments MM POST MAMMOGRAM LT Routine 10/07/2023 1:18 PM CDT Abnormal finding on breast imaging documented in this encounter Results * MM Post Mammogram Lt (10/07/2023 1:18 PM CDT) Anatomical Region Laterality Modality Breast Left Mammography 10/07/2023 12:5 4 PM CDT Impressions 10/18/2023 8:45 AM CDT [...] CK Mj, AE1AE3, 34BE12, CK5-6, S100, ER, TN, CD31, Sox10 and Gata3. ??The findings are not entirely specific, but a breast metaplastic carcinoma is favored over a primary sarcoma or malignant phyllodes tumor. ??Recommend excision for definitive diagnosis. ? RAD/PATH CONCORDANCE: Concordant RECOMMENDATION: Surgical consultation ? Narrative Procedure Note Kim Sal MD - 10/18/2023 IMPRESSION ULTRASOUND GUIDED [...] for CK Mj, AE1AE3,34BE12, CK5-6, S100, ER, TN, CD31, Sox10 and Gata3. The findings are notentirely specific, but a breast metaplastic carcinoma is favored over aprimary sarcoma or malignant phyllodes tumor. Recommend excision fordefinitive diagnosis. ? RAD/PATH CONCORDANCE: Concordant RECOMMENDATION: Surgical consultation Connie Kuhn MD RAD LEIA * MM US Bx [...] CK Mj, AE1AE3, 34BE12, CK5-6, S100, ER, TN, CD31, Sox10 and Gata3. ??The findings are not entirely specific, but a breast metaplastic carcinoma is favored over a primary sarcoma or malignant phyllodes tumor. ??Recommend excision for definitive diagnosis. ? RAD/PATH CONCORDANCE: Concordant RECOMMENDATION: Surgical consultation ? Narrative Procedure Note Kim Sal MD - 10/18/2023 IMPRESSION ULTRASOUND GUIDED [...] for CK Mj, AE1AE3,34BE12, CK5-6, S100, ER, TN, CD31, Sox10 and Gata3. The findings are notentirely specific, but a breast metaplastic carcinoma is favored over aprimary sarcoma or malignant phyllodes tumor. Recommend excision fordefinitive diagnosis. ? RAD/PATH CONCORDANCE: Concordant RECOMMENDATION: Surgical consultation Connie Kuhn MD RAD LEIA documented in this encounter Visit Diagnoses Diagnosis Abnormal finding on breast imaging- Primary Other (abnormal) findings on radiological examination of breast Abnormal finding on breast imaging Other (abnormal) findings on radiological examination of breast documented in this encounter Care Teams Primary Class Teacher Relationship Specialty Start Date End Date Connie Kuhn MD [address] [place] [address] PCP - General Family Practice 05/23/18 documented as of this encounter
--- OUTSIDE RECORDS SUMMARY | 2023-10-31 02:16 | XMS_ITS | Encounter Summary ---
Author Organization [employer] Address [address], [place] [address] Care Team Providers Care Electrical Tryout Person Name Role Phone Connie Kuhn MD Primary Care Provider [phone] Reason for Visit * Reason Comments Post-Op Check Encounter Details Date Type Department Care Team (Late st Contact Info) Description 10/19/2023 9:20 AM CDT Office Visit [facility] [address] [place] [address] [place] [address] [place], [place] [phone] Pseudophakia, right eye (Primary Dx) Social History [...] Notes * Maria Alejandra Patel MD - 10/19/2023 9:20 AM CDT Comprehensive Ophthalmology: Visit Summary Chief Complaint: POD1 s/p phaco IOL, Right Eye Subjective: HPI Eboni Waggoner presents for 1 day PO #1 evaluation of PCOIL in right eye. Date of surgery: 10/18/23 Right Eye Target: plano 10/04/23 Left Eye Target: plano Context of the chief complaint/aggravating factors: Pt states surgery went well. Pt denies pain/irritation. Pt states their vision has improved. (Just diagnosed with breast cancer.) Severity: mod Location: right eye Associated symptoms: Eye meds: * Combo RE QID compliant General Medical Observation: Alert, no apparent distress. Last edited by Slade Velarde on 10/19/2023 9:24 AM. Review of Systems 10 systems reviewed, all negative except for what is documented in HPI. General medical evaluation: Eboni is in no acute distress. A&O x 3. Objective: Physical Exam Base Eye Exam Visual Acuity (Snellen - Linear) Right Left Dist sc 20/20 -2 Tonometry (Applanation, 9:22 AM) Right Left Pressure 16 Pupils Pupils APD Right PERRL None Left PERRL None Slit Lamp and Fundus Exam External Exam Right Left External Normal Slit Lamp Exam Right Left Lids/Lashes Normal Conjunctiva/Sclera White and quiet Cornea incisions michelle negative Anterior Chamber deep, 1-2+cell Iris Round, dilated Lens PCIOL Assessment: No diagnosis found. Plan: Discussed findings and options in detail and answered questions. # POD1 s/p CE/PCIOL, Right Eye (10/18/23) - doing well - cont combo drops 4 times per day for 1 week, then 3 times per day for 1 week, then 2 times per day for 1 week, then 1 time per day for 1 week, then stop. - keep shield on at night for 1-2 weeks - no direct water into the operated eye for 1 week. keep head away from shower or bath during this time. No swimming pools/hot tubs for 2 weeks. - no eye rubbing or heavy lifting/strenuous activity for 1 week. - retinal detachment/endophthalmitis return precautions given, including but not limited to: increased pain/redness, decreased vision, flashers/floaters or any other concerns. # s/p CE/PCIOL, Left Eye (10/04/23) - doing well - complete drop taper as previously directed RTC 1 week for PO#2 RE, sooner prn. Maria Alejandra Patel MD Comprehensive Op[facility] documented in this encounter Plan of Treatment Upcoming Encounters Date Type Department Care Team (Late st Contact Info) Description 11/09/2023 11:50 AM CDT Appointment Specialty Center 3931 General Surgery 39[address] [facility] [address] [place] [address] Viviana Kirkland MD [address] [facility] [address] [place] [address] 11/09/2023 2:30 PM CDT Appointment On license of [facility] at [facility] Oncology [address] [place] [address] Shayla Bland MBBS [address] [place] [address] 11/15/2023 11:00 AM CDT Appointment [facility] [address] [place] [address] Thomas Hanks, OD [address] [place] [phone] documented as of this encounter Visit Diagnoses Diagnosis Pseudophakia, right eye- Primary Lens replaced by other means documented in this encounter Care Teams Electrical Tryout Person Relationship Specialty Start Date End Date Connie Kuhn MD [address] [place] [address] PCP - General Family Practice 05/23/18 documented as of this encounter
--- OUTSIDE RECORDS SUMMARY | 2023-10-31 02:16 | XMS_ITS | Encounter Summary ---
Author Organization [employer] Address [address], [place] [address] Care Team Providers Care Digital Imaging Technician Name Role Phone Connie Kuhn MD Primary Care Provider [phone] Reason for Visit * Reason Comments POST-OP,EXAM Encounter Details Date Type Department Care Team (Late st Contact Info) Description 10/11/2023 1:00 PM CDT Office Visit [facility] [address] [place], [place] [address] Thomas Hanks, OD [address] [place] [phone] Postop check (Primary Dx); Pseudophakia, left eye; Abrasion of left conjunctiva, initial encounter Social History Tobacco Use Types Packs/Day [...] as of this encounter Progress Notes * Thomas Hanks, OD - 10/11/2023 1:00 PM CDT General medical assessment: Patient is alert. Basically healthy. Assessment. Normal postoperative Cataract Surgery visit left eye. Wound Clear Cornea Quiet, (small nasal conj abrasion) Anterior chamber Quiet IOL Centered Capsule Clear Plan. Continue combo drop taper per Dr. Patel. Her right eye is scheduled for next week. documented in this encounter Plan of Treatment Upcoming Encounters Date Type Department Care Team (Late st Contact Info) Description 11/09/2023 11:50 AM CDT Appointment Specialty Center 3931 General Surgery [address] [facility] [address] [place] [address] Viviana Kirkland MD [address] [facility] [address] [place] [address] 11/09/2023 2:30 PM CDT Appointment [facility] Oncology [address] [place] [address] Shayla Bland MBBS [address] [place] [address] 11/15/2023 11:00 AM CDT Appointment [facility] [address] [place] [address] Thomas Hanks, OD [address] [place] [phone] documented as of this encounter Visit Diagnoses Diagnosis Postop check- Primary Follow-up examination, following unspecified surgery Pseudophakia, left eye Lens replaced by other means Abrasion of left conjunctiva, initial encounter documented in this encounter Care Teams Digital Imaging Technician Relationship Specialty Start Date End Date Connie Kuhn MD [address] [place] [address] PCP - General Family Practice 05/23/18 documented as of this encounter
--- OUTSIDE RECORDS SUMMARY | 2023-10-31 02:16 | XMS_ITS | Encounter Summary ---
Author Organization [employer] Address [address], [place] [address] Care Team Providers Care Police And Fire Dispatcher Name Role Phone Connie Kuhn MD Primary Care Provider [phone] Reason for Visit * Procedure/Equipment (Routine) - Incomplete Specialty Diagnoses / Procedures Referred By Charlie christianson Referred To Contact Diagnoses Abnormal mammogram Procedures [facility] Mammogram Diag Lt W 3D Eric Connie Kuhn MD [address] [place] [id number] Referral ID Status Reason Start Date Expiration Date V isits Requested Visits Authorized [id number] Incomplete 10/01/2023 12/30/2024 1 1 Encounter Details Date Type Department Care Team (Late st Contact Info) Description 10/05/2023 10:00 AM CDT Ancillary Procedure [facility] Mammography at [facility] and [facility] [place] [address] [address] [facility] [place] [address] Connie Kuhn MD [address] [id number] Abnormal mammogram Social History Tobacco Use Types [...] Appointment Specialty Center 3931 General Surgery [address] [facility] [address] [place] [address] Viviana Kirkland MD [address] [facility] [address] [place] [address] 11/09/2023 2:30 PM CDT Appointment [facility] at [facility] Oncology [address] [place] [address] Shayla Bland MBBS [address] [place] [address] 11/15/2023 11:00 AM CDT Appointment [facility] [address] [place] [address] Thomas Hanks OD [address] [place] [phone] documented as of this encounter Procedures Procedure Name Priority Date/Time Associated Diagnosis Comments [facility] MAMMOGRAM DIAG LT W 3D ERIC Routine 10/05/2023 10:00 AM CDT Abnormal mammogram documented in this encounter Results * (ABNORMAL) [facility] US Breast Lt (10/05/2023 10:31 AM [...] with the patient and her . [facility] will attempt to schedule the [...] discussed with thepatient and her . [facility] will attempt to schedule the recommendedfollow up with the patient. IMPRESSION: ACR BI-RADS CATEGORY 4: Suspicious. Connie Kuhn MD RAD LEIA * (ABNORMAL) [facility] Mammogram Diag Lt W 3D Eric [...] with the patient and her . [facility] will attempt to schedule the [...] discussed with thepatient and her . [facility] will attempt to schedule the recommendedfollow up with the patient. IMPRESSION: ACR BI-RADS CATEGORY 4: Suspicious. Connie Kuhn MD RAD [facility] documented in this encounter Visit Diagnoses Diagnosis Abnormal mammogram Abnormal mammogram, unspecified Abnormal mammogram Abnormal mammogram, unspecified documented in this encounter Care Teams Police And Fire Dispatcher Relationship Specialty Start Date End Date Connie Kuhn MD [address] [place] [address] PCP - General Family Practice 05/23/18 documented as of this encounter
--- OUTSIDE RECORDS SUMMARY | 2023-10-31 02:16 | XMS_ITS | Encounter Summary ---
Author Organization [employer] Address [address], [place] [address] Care Team Providers Care Technical Architect Name Role Phone Connie Kuhn MD Primary Care Provider [phone] Reason for Visit * Auth/Cert (Routine) Specialty Diagnoses / Procedures Referred By Contac t Referred To Contact Diagnoses Combined forms of age-related cataract of both eyes Procedures CATARACT EXTRACTION WITH INTRAOCULAR LENS IMPLANT Referral ID Status Reason Start Date Expiration Date Visits Re quested Visits Authorized [id number] 1 1 Encounter Details Date Type Department Care Team (Late st Contact Info) Description 10/04/2023 12:58 PM CDT Anesthesia Event [facility] [address] [place] [phone] Nolan Stoner MD [address] [place] [address] Anesthesia Record Procedure Summary Procedure Name Responsible Anesthesiologist Anesthesia Start Time Anesthesia Stop Time CATARACT EXTRACTION WITH INTRAOCULAR LENS IMPLANT (Left: Eye) Nolan Stoner MD 10/04/23 1258 10/04/23 1326 Events Date Time Event Comment 10/04/2023 1253 1258 An Start Anesthesia star t time denotes sedation started by TOMBSTONE ERECTOR HELPER currently on case; patient continuously monitored to O.R. By TOMBSTONE ERECTOR HELPER 1301 An Start Data 1301 Nasal Canula/O2 Mask 1304 MD/DO Present 1322 an stop data 1326 An Stop Care transferre d. 1326 Care Handoff Note I discusse d with [...] report Electronically signed by Riley Petersen APRN, [facility] Meds Name Total midazolam injection 2 mg/2 mL (VERSED) 1 .5 mg fentaNYL injection (SUBLIMAZE) 50 mcg Lidocaine 3.5% Ophthalmic Gel 1 Drop sodium chloride 0.9% for injection (for flushes) 5 mL * Agents Name Identified Agent Name O2 N2O Air Sevoflurane (inspired) Nitrous Oxide () * Blood No blood administrations on file. Lines, Drains, and Airways Type Details Placement Removal Peripheral IV Placement Date: 10/04/23; Placement Time: 1231; Pre-existing: No; Inserted by?: RN (JENIFFER Yoder); Size (Gauge): 22 G; Orientation: Anterior, Right; Site Prep: ChloraPrep; Local Anesthetic: None; Insertion attempts: 1; Blood draw with insertion?: no; Patient Tolerance: Tolerated well; Removal Date: 10/04/23; Removal Time: 1343; Removal Reason: Patient discharged 10/04/23 1231 by Maria Alejandra Chavira RN 10/04/23 1343 by Erika Wilde RN Incision/Surgical Site 10/04/23; 1309; # 1; No; Eye; Left; 10/04/23; 1343 10/04/23 1309 by Anh Figueroa RN 10/04/23 1343 by Erika Wilde RN documented in this encounter Social History [...] Miscellaneous Notes * Anesthesia Postprocedure Evaluation - Nolan Stoner MD - 10/04/2023 2:00 PM CDT [facility] Post-op Note Patient: Eboni Waggoner Post-Op Diagnosis: Pre-Op Diagnosis Codes: * Combined forms of age-related cataract of both eyes [H25.813] Procedure Performed: Procedure(s): Left - CATARACT EXTRACTION WITH INTRAOCULAR LENS IMPLANT - Wound Class: 1 CLEAN Anesthesia Type: MAC Post-op vital signs: Vitals Value Taken Time BP 130/83 10/04/23 1331 Temp 36.8 ??C (98.2 ??F) 10/04/23 1325 Pulse 67 10/04/23 1338 Resp 18 10/04/23 1331 SpO2 93 % 10/04/23 1338 Vitals shown include unfiled device data. Pain Score: Preferred Pain Scale: number (Numeric Rating Pain Scale) (0-10) Pain Rating: Rest: 0 (0-10) Pain Rating: Activity: 0 Post-op assessment: Patient location: Phase 2 Airway Status: Patent Cardiovascular function: Satisfactory Hydration status: Satisfactory PONV: None Level of Consciousness: Awake Fully Participates Postop Assessment: Patient tolerated procedure well. Electronically signed by: Nolan Stoner MD 10/04/2023 2:00 PM * Anesthesia Preprocedure Evaluation - Nolan Stoner MD - 10/04/2023 12:52 PM CDT [facility] Pre-op Evaluation Procedure: CATARACT EXTRACTION WITH INTRAOCULAR LENS IMPLANT, Left HPI: 73 y.o. old female. Pre-Op Diagnosis Codes: * Combined forms of age-related cataract of both eyes [H25.813] Last Fluid Intake Time: 0815 (small sip of water) Last Fluid Intake Date: 10/04/23 Last Food Intake Date: 10/02/23 Last Food Intake Time: 1999 No Known Allergies Past Medical History: Diagnosis [...] Mixed emotional features as adjustment reaction (HRC) Past Surgical History: Procedure Laterality Date ADENOIDECTOMY ECTOPIC SURGERY LAP CHOLECYSTECTOMY 09/23/2016 Viviana Kirkland MD at [facility] SINUS SURGERY 05/24/2018 FESS, fungal ball removal TONSILLECTOMY VAGINAL HYSTERECTOMY LW Problem: Hysterectomy Vaginal s/p LW Modifier: w/ SSF, TVT 2000 LW Onset: No current outpatient medications on file as of 10/04/2023. Facility-Administered Medications as of 10/04/2023 Medication Dose Route Frequency EPINEPHrine 0.025%-lidocaine 0.75% PF 0.8mL syringe 0.8 mL Intraocular Once fentaNYL (SUBLIMAZE) injection 25 mcg 25 mcg Intravenous Q5MIN PRN fentaNYL (SUBLIMAZE) injection 25-50 mcg 25-50 mcg Intravenous Q5MIN PRN HYDROmorphone (DILAUDID) injection 0.25 mg 0.25 mg Intravenous Q10MIN PRN labetalol (NORMODYNE) injection 5 mg 5 mg Intravenous Q10MIN PRN lidocaine PF (XYLOCAINE) 1 % injection 0.1-0.3 mL 0.1-0.3 mL Subcutaneous PRN midazolam (VERSED) injection 1-2 mg 1-2 mg Intravenous Q5MIN PRN [COMPLETED] moxifloxacin (VIGAMOX) [...] 02:19 PM No results found for: INR Reason a test was not performed: Post-menopausal. Blood Bank: No results found for: ABO, ABSCR EKG: No results found for this or any previous visit. Physical Exam: BP (!) 164/86 Pulse 72 Temp (!) 36 ??C (96.8 ??F) (Temporal Artery) Resp 18 Ht 5' 7.01 Wt 84.8 kg (186 lb 15.2 oz) SpO2 98% BMI 29.27 kg/m?? Assessment/Plan: Review of Systems [...] > 40 cm?: No Previous airway assessment: Previously EASY intubation.,. Current airway assessment:Normal Dentition: Age appropriate. Cardiac Exam: Regular rate and rhythm. Respiratory Exam: Breath sounds clear to auscultation Assessment ASA Status: 2 . Plan Anesthesia type: MAC Induction: Intravenous Maintenance: PONV Risk Score Adult: 2 Anesthetic plan, risks, benefits and alternatives discussed with the patient who agrees to the anesthesia treatment plan. H&P Reviewed and Patient examined, no change observed IV access Antibiotics per surgery Electronically signed by: Nolan Stoner MD 10/04/2023 12:52 PM documented in this encounter Plan of Treatment Upcoming Encounters Date Type Department Care Team (Late st Contact Info) Description 11/09/2023 11:50 AM CDT Appointment Specialty Center 3931 General Surgery 3931 [facility] [address] [place] [address] Viviana Kirkland MD [address] [facility] [address] [place], [place] [address] 11/09/2023 2:30 PM CDT Appointment [facility] at [facility] Oncology [address] [place] [address] Shayla Bland MBBS [address] [place], [place] [address] 11/15/2023 11:00 AM CDT Appointment [facility] [address] [place], [place] [address] Thomas Hanks, OD [address] [place] [phone] documented as of this encounter Visit Diagnoses Not on filedocumented in this encounter Administered Medications Inactive Administered Medications - up to 3 most recent administrations Medication Order MAR Action Action Date Dose Rate Site fentaNYL (SUBLIMAZE) injection Intravenous, Starting on Wed10/04/23 at 1258, Until Wed10/04/23 at 1326 Given 10/04/2023 12:58 PM CDT 50 mcg lidocaine (AKTEN) 3.5 % ophthalmic gel Both Eyes, Starting on Wed10/04/23 at 1302 Given 10/04/2023 1:02 PM CDT 1 Drop midazolam (VERSED) injection Intravenous, Starting on Wed10/04/23 at 1258, Until Wed10/04/23 at 1326 Given 10/04/2023 12:58 PM CDT 1.5 mg sodium chloride 0.9% injection Intravenous, Starting on Wed10/04/23 at 1258, Until Wed10/04/23 at 1326 Given 10/04/2023 12:58 PM CDT 5 mL documented in this encounter Care Teams Technical Architect Relationship Specialty Start Date End Date Connie Kuhn MD [address] [place] [address] PCP - General Family Practice 05/23/18 documented as of this encounter
--- OUTSIDE RECORDS SUMMARY | 2023-10-31 02:16 | XMS_ITS | Encounter Summary ---
Author Organization [facility] Address [address] [address] Care Team Providers Care Meter Calibrator Name Role Phone Connie Kuhn MD Primary Care Provider [phone] Reason for Visit * Reason Comments Pre-op Teaching Encounter Details Date Type Department Care Team (Late st Contact Info) Description 10/15/[address] [facility] Specialty Center - General Surgery [address] [place], [place] [address] Jacqueline Gonzalez RN Pre-op Teaching Social History Tobacco Use Types Packs/Day Years [...] on file documented as of this encounter Nursing Notes * Jacqueline Gonzalez RN - 10/15/2023 1:24 PM CDT Pre and post operative teaching for LUMPECTOMY LEFT WITH SEED LOCALIZATION AND SENTINEL LYMPH NODE BIOPSY taught per department curriculum by teach back method. Advised patient to stop eating after midnight the evening before surgery and informed drinking clear liquids (water and Gatorade) up until 4 hours prior to surgery is acceptable. Pain Mgmt: if appropriate, 400-600 mg. of Ibuprofen every wpizm-ci-vud hours as needed. May alternate with Acetaminophen 650-1000 mg. every lccvz-fs-rrf hours as needed. Recommended taking the narcotic as prescribed if pain is 7/10 or higher. Encouraged icing 20 minutes out of every hour while awake. Educated about monitoring hydration level and for signed of constipation if taking a narcotic. Discussed calling staff if constipation develops. Will recommend taking a dose of Milk of Magnesia, per directions on the bottle. Medication management (changes/hold): not taking blood thinners or as directed by Primary Care Provider. Dietary changes: not required post-operatively. Lift restrictions (post-operatively): not required post-operatively. Instructed to remove outer bandage(s): 24 hrs after surgery. May shower at that time. Notified to avoid submerging in water until incision(s) are healed and/or sealed. Reviewed signs and symptoms of possible infections to report. Educated about After Hours Care Line option if clinic is closed, if the nurse line is not open or responding as quickly as the Patient can wait, or if the condition is urgent or is an emergency and requires calling 911. Instructed Patient to not drive, drink alcohol or make any major decisions, for 24 hours after surgery (if you had anesthesia) or while taking prescription pain medicine. Answered all questions and direct nurse line number provided. Patient verbalized understanding and will call with any further questions or concerns. Jacqueline Gonzalez RN documented in this encounter Plan of Treatment Upcoming Encounters Date Type Department Care Team (Late st Contact Info) Description 11/09/2023 11:50 AM CDT Appointment Specialty Center 3931 General Surgery [address] [facility] [address] [place] [address] Viviana Kirkland MD [address] [facility] [address] [place] [address] 11/09/2023 2:30 PM CDT Appointment [facility] Oncology [address] [place] [address] Shayla Bland, JAMES [address] [place], [place] [address] 11/15/2023 11:00 AM CDT Appointment [facility] [address] [place] [address] Thomas Hanks, OD [address] [place] [phone] documented as of this encounter Visit Diagnoses Not on filedocumented in this encounter Care Teams Meter Calibrator Relationship Specialty Start Date End Date Connie Kuhn MD [address] [place] [id number] PCP - General Family Practice 05/23/18 documented as of this encounter
--- OUTSIDE RECORDS SUMMARY | 2023-10-31 02:16 | XMS_ITS | Encounter Summary ---
Author Organization [email or web address] Address [address] [address] Care Team Providers Care Bank Officer Name Role Phone Connie Kuhn MD Primary Care Provider [phone] Reason for Visit * Auth/Cert (Routine) Specialty Diagnoses / Procedures Referred By Charlie t Referred To Contact Diagnoses Combined forms of age-related cataract of both eyes Procedures CATARACT EXTRACTION WITH INTRAOCULAR LENS IMPLANT Referral ID Status Reason Start Date Expiration Date Visits Re quested Visits Authorized [id number] 1 1 Encounter Details Date Type Department Care Team (Late st Contact Info) Description 10/18/2023 1:40 PM CDT - 10/18/2023 2:20 PM CDT [facility] [address] [place] [phone] [place] [address] [place], [place] [address] CATARACT EXTRACTION WITH INTRAOCULAR LENS IMPLANT Social [...] AM CDT PPA call completed by calling [phone] and spoke to patient. Advised of arrival [...] Amb PreOp Assessment Details Procedure Cataracts Location [facility] Procedure Date 10/04/2023 Second Procedure [...] Note: Added automatically from request for surgery [id number] Acute iritis, left eye 07/19/2012 Adenomatous polyp [...] LAP CHOLECYSTECTOMY 09/23/2016 Viviana Kirkland MD at [facility] SINUS SURGERY 05/24/2018 FESS, fungal ball removal [...] Then follow the instructions given in clinic. ignyuwmaakhb-zgriycnyulrs-pyycrhyht (EASY DROPS) 1-0.5-0.075 % SUSP 1 Drop, Left Eye, QID, Starting1 day BEFORE cataract surgery, place 1 drop in the LEFT eye 4 times per day. Then follow the drop instructions given in clinic. hnqiexheaflh-xssianyfvwut-nmncuumku (EASY DROPS) 1-0.5-0.075 % SUSP 1 Drop, Right Eye, QID, Starting 1 day BEFORE cataract surgery, place 1 drop into the RIGHT eye 4 times per day. Then follow the drop instructions given in clinic. 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 In addition, please stop all gtnt-qhy-srbcihk medications including aspirin, ibuprofen (Advil, Motrin), naproxen [...] diopter lens SURGEON: Maria Alejandra Patel MD MICROBIOLOGY LAB ANALYST: None. ANESTHESIA: Monitored anesthesia care/Topical and intraocular [...] Implant Name Type Inv. Item Serial No. Post Production Assistant Lot No. LRB No. Used Action LENS INTRAOCULAR DIB00 21.0 - EYHANCE - [id number] DEVICE LENS INTRAOCULAR DIB00 21.0 - [employer]ANCE [id number] [employer] Right 1 Implanted documented in this encounter Plan of Treatment Upcoming Encounters Date Type Department Care Team (Late st Contact Info) Description 11/09/2023 11:50 AM CDT Appointment Specialty Center 3931 General Surgery [address] [facility] [address] [place] [address] Viviana Kirkland MD [address] [facility] [address] [place] [address] 11/09/2023 2:30 PM CDT Appointment [facility] Oncology [address] [place] [address] Shayla Bland MBBS [address] [place] [address] 11/15/2023 11:00 AM CDT Appointment [facility] [address] [place] [address] Thomas Hanks, OD [address] [place] [phone] documented as of this encounter Procedures Procedure [...] (SUBLIMAZE) injection 50 mcg 50 mcg, Intravenous, [id number], Pain, The immediate postop period when faster [...] (DEMEROL) injection 12.5 mg 12.5 mg, Intravenous, [id number], Shivering, Starting on Wed10/18/23 at 1156, Until [...] (SUBLIMAZE) injection 50 mcg 50 mcg, Intravenous, [id number], Pain, The immediate postop period when faster [...] (DEMEROL) injection 12.5 mg 12.5 mg, Intravenous, [id number], Shivering, Starting on Wed10/18/23 at 1156, Until [...] Pre-op documented in this encounter Care Teams Bank Officer Relationship Specialty Start Date End Date Connie Kuhn MD [address] [place] [address] PCP - General Family Practice 05/23/18 documented as of this encounter
--- OUTSIDE RECORDS SUMMARY | 2023-10-31 02:16 | XMS_ITS | Encounter Summary ---
Author Organization [facility] Address [address], [place] [address] Care Team Providers Care Car Loader Name Role Phone Connie Kuhn MD Primary Care Provider [phone] Reason for Referral * Therapies (Routine) - New Request Specialty Diagnoses / Procedures Referred By Contac t Referred To Contact Diagnoses Malignant neoplasm of overlapping sites of left breast in female, estrogen receptor negative (HRC) Viviana Kirkland MD [address] [facility] [address] [place] [address] Referral ID Status Reason Start Date Expiration Date V isits Requested Visits Authorized [id number] New Request 10/13/2023 12/12/2023 1 1 Scheduling Instructions This order is your clinician's recommendation for a service and is not an insurance referral which authorizes payment. The recommended service and/or location may not be covered by your insurance plan. Please call the number on your insurance card to find out your specific benefits and coverage for the recommended services and/or location. If you need help scheduling the recommended services, please ask your clinician's staff to assist you. Question Answer Appointment Urgency? Non-Urgent Surgery within the last seven days? No Concurrent Chemotherapy? No Chemotherapy in the past month? No Reason for visit? Consult for new breast cancer. 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 Scheduled for left breast lump and SLNB with Dr. Kirkland on 10/27/23. Would like [facility]. * Consult/Transfer Care (Routine) - New Request Specialty Diagnoses / Procedures Referred By Charlie t Referred To Contact Diagnoses Malignant neoplasm of overlapping sites of left breast in female, estrogen receptor negative (HRC) Viviana Kirkland MD [address] [facility] [address] [place] [address] Referral ID Status Reason Start Date Expiration Date V isits Requested Visits Authorized [id number] New Request 10/13/2023 01/11/2025 1 1 Scheduling Instructions Your clinician has recommended an appointment with [facility]. You can quickly make your appointment online at [employer]/schedule. You can also call [phone] for help scheduling your appointment. We suggest you call your health insurance company about your coverage and benefits for this appointment. Question Answer Appointment Urgency? Within 1 Week (Urgent) Reason for visit? Consult for new breast cancer. 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 Scheduled for left breast lump and SLNB with Dr. Kirkland on 10/27/23. Would like [facility]. Reason for Visit * Reason Onset Date Comments RESULTS, TEST 10/08/2023 Breast biopsy re esha Encounter Details Date Type Department Care Team (Late st Contact Info) Description 10/08/[address] [facility] [address] [facility] [address] [facility] [place], [place] [id number] Celso Dejesus RN RESULTS, TEST (Breast biopsy results) Social History Tobacco Use Types Packs/Day Years [...] as of this encounter Progress Notes * Celso Dejesus RN - 10/13/2023 11:49 AM CDTAddended by: CELSO DEJESUS on: 10/13/2023 11:49 AM Modules accepted: Orders documented in this encounter Nursing Notes * Celso Dejesus RN - 10/08/2023 3:27 PM CDT Breast Cancer Diagnosis Call Called and spoke with patient following breast biopsy. Patient reports biopsy site is as expected. Patient was agreeable to discussing results. Explained new diagnosis of breast cancer. Introduced self as [facility] Breast Cancer Nurse Specialist and role as nurse navigator for breast cancer patients. Patient chose to schedule recommended appointments as documented in checklist below. Reviewed history as documented below. Provided education about new diagnosis as documented in checklistbelow. Scheduling (checked boxes indicate current needs): [] Additional imaging. Awaiting concordance and radiology direction on biopsy note. [x] Nurse education. Scheduled to be on after initial surgery, likely. We did discuss this diagnosis, what we know so far and we will await further information. I did offer a teach appointment, but nothing set yet at this time. .Declined teach. [x] General surgery consult. Scheduled with Dr. Kirkland on 11/02/23. Have sent Dr. Kirkland to see if she has anything sooner. 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 Kirkland also did her cholecystectomy. [] Genetic counseling. Does not meet criteria. [x] Radiation oncology consult. Will help arrange if lumpectomy is pursued. [x] Medical oncology consult. Will help arrange once surgery date is known. [x] Plastic surgery consult. Will offer to arrange if mastectomy is pursued. [x] Support services. Began discussion Demographics: [facility] 73 [facility] Insurance: Medicare and BCBS Medicare supplement. Presentation: Screening mammogram. Previous mammogram date: 2022. Breast Specific History: No previous breast biopsies or surgeries reported. History of cyst aspiration of her left breast, many years ago. The breasts have scattered areas of fibroglandular density. Family History: Maternal grandmother with breast cancer diagnosed at 60 years old. She of this disease soon after she was diagnosed. Father with lung cancer and was a smoker. Two paternal cousins with colon cancer. She has 5 brothers and no sisters. She has no known Ashkenazi Jew ancestry. Other Relevant Medical History: Asthma, hypercholesterolemia, adenomatous polyp of colon, mixed emotional features as adjustment reaction, chronic maxillary sinusitis, combined forms of age-related cataracts of both eyes. Acute iritis of left eye, prolapse of vaginal wall, history of intradermal, melanocytic nevus, osteopenia of left hip. BMI 29.76. History of autoimmune concern or connective tissue disorder that could impact candidacy for radiation therapy (iritis). Eboni had her first period at age 13. She went into menopause at age 48 and then had irregular bleeding and had a vaginal hysterectomy, her ovaries are still intact. with one and one ectopic . She was 40 at the time of her daughter's . She did breastfeed for 2.5 years. She used oral contraception for 18 years. She did not use HRT or do fertility treatments. She has no known exposure to AUREA. She has no personal or family history of problems with anesthesia or bleeding or clotting issues. She is not on any anticoagulation and has NKA. She had smoker for 20 years prior to quitting in 1988.She has 1-2 glasses of wine per week. 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 Per verbalfrom pathologist, this is TNBC. Pathology recommends excision for definitive diagnosis. Breast MRI Awaiting recommendation for radiologist Social History: Eboni is to [place] Waggoner. They have a grown daughter named Rani. 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 They just moved into her dream home in [place]. They are getting a new puppy this weekend. She enjoys biking, exercise, lifting weights and using her rowing machine. Surgery Preference: Lumpectomy. Oncotype: Will review eligibility at a later time. Education (checked boxes were discussed): [x] Reviewed imaging report(s) with patient. [x] Discussed size of breast cancer. [] Explained location of breast cancer. [x] Reviewed pathology report(s) with patient. [] Explained grade. [] Explained atypia. [] Explained ductal carcinoma in situ. [] Explained invasive ductal carcinoma. [] Explained invasive lobular carcinoma. [] Explained estrogen receptor status. [] Explained progesterone receptor status. [] Explained HER2. [] Explained Ki-67. [x] Discussed eligibility and purpose of genetic testing. [] Discussed concept of clinical stage. [] Explained how final stage is not determined until after surgery (does not apply for patients receiving neoadjuvant treatment). [x] Discussed lumpectomy. [] Discussed seed localization for lumpectomy. [] Discussed possibility of re-excision following lumpectomy. [] Discussed mastectomy. [] Discussed bilateral mastectomy. [] Discussed prosthetic options following mastectomy. [] Discussed reconstruction options following mastectomy. [] Discussed surgical drain(s) with mastectomy. [] Discussed sentinel lymph node biopsy. [] Discussed seed localization of lymph node. [] Discussed frozen section to evaluate lymph node involvement intraoperatively. [] Discussed axillary dissection. [] Discussed surgical drain with axillary dissection. [] Discussed lymphedema risk. [] Discussed radiation therapy. [] Discussed endocrine therapy. [] Discussed Oncotype. [] Discussed chemotherapy. [] Discussed HER2 targeted therapy. [x] Educational materials provided. [] [employer] message sent with written information. Breast cancer guide. [] [employer]ah[employer] message sent with surgical drain video. Patient aware this note will be routed to ordering provider to provide update regarding notification of breast cancer. Eboni had done some research on metaplastic breast cancer, <1% of all breast cancers, before I called her this afternoon. She is on vacation from 10/24 to 10/29 and then they will be driving their [facility] [place]. Will continue to follow case and be a resource for patient moving forward. Patient was encouraged to call with any questions or concerns. Direct phone number provided. Patient verbalized understanding of conversation. CARISA HusseinN, RN, OCN, CBCN Breast Cancer Nurse Navigator [phone] documented in this encounter Plan of Treatment Upcoming Encounters Date Type Department Care Team (Late st Contact Info) Description 11/09/2023 11:50 AM CDT Appointment Specialty Center 3931 General Surgery [address] [facility] [address] [place] [address] Viviana Kirkland MD [address] [facility] [address] [place] [address] 11/09/2023 2:30 PM CDT Appointment [facility] Oncology [address] [place] [address] Shayla Bland MBBS [address] [place] [address] 11/15/2023 11:00 AM CDT Appointment [facility] [address] [place] [address] Thomas Hanks, OD [address] [place] [phone] Scheduled Referrals Name Type Priority Associated Diagnoses Orde r Schedule ONCOLOGY CONSULT-ADULTS Referral Routine Malignant neoplasm of overlapping sites of left breast in female, estrogen receptor negative (HRC) Ordered: 10/13/2023 Radiation Therapy Referral Routine Malignant neoplasm of overlapping sites of left breast in female, estrogen receptor negative (HRC) Ordered: 10/13/2023 documented as of this encounter Visit Diagnoses Diagnosis Malignant neoplasm of overlapping sites of left breast in female, estrogen receptor negative (HRC)- Primary documented in this encounter Care Teams Car Loader Relationship Specialty Start Date End Date Connie Kuhn MD [address] [place] [address] PCP - General Family Practice 05/23/18 documented as of this encounter
--- OUTSIDE RECORDS SUMMARY | 2023-10-31 02:16 | XMS_ITS | Encounter Summary ---
Author Organization [facility] Address [address], [place] [address] Care Team Providers Care Canned Food Reconditioning Inspector Name Role Phone Connie Kuhn MD Primary Care Provider [phone] Reason for Visit * Procedure/Equipment (Routine) - Incomplete Specialty Diagnoses / Procedures Referred By Charlie christianson Referred To Contact Diagnoses Abnormal finding on breast imaging Procedures MM US Bx Breast Lt Connie Kuhn MD [address] [place] [address] Referral ID Status Reason Start Date Expiration Date V isits Requested Visits Authorized [id number] Incomplete 10/05/2023 01/03/2025 1 1 Encounter Details Date Type Department Care Team (Late st Contact Info) Description 10/07/2023 1:00 PM CDT Ancillary Procedure [facility] at [facility] [place] [address] [address] [facility] [place] [address] Connie Kuhn MD [address] [id number] Abnormal finding on breast imaging (Primary Dx) Social History Tobacco Use Types [...] Surgery [address] [facility] [address] [place] [address] Viviana Kirkland MD [address] [facility] [address] [place], [place] [address] 11/09/2023 2:30 PM CDT Appointment [facility] Cancer Care at [facility] Oncology [address] [place] [address] Shayla Bland MBBS [address] [place] [address] 11/15/2023 11:00 AM CDT Appointment [facility] [address] [place], [place] [address] Thomas Hanks OD [address] [place] [phone] documented as of this encounter Procedures Procedure Name Priority Date/Time Associated Diagnosis Comments MM US BX BREAST LT Routine 10/07/2023 1: 08 PM CDT Abnormal finding on breast imaging SURGICAL PATHOLOGY, BREAST Routine 10/07/2023 11:51 AM CDT Abnormal finding on breast imaging documented [...] CK Mj, AE1AE3, 34BE12, CK5-6, S100, ER, DC, CD31, Sox10 and Gata3. ??The findings are [...] for CK Mj, AE1AE3,34BE12, CK5-6, S100, ER, DC, CD31, Sox10 and Gata3. The findings are [...] CK Mj, AE1AE3, 34BE12, CK5-6, S100, ER, DC, CD31, Sox10 and Gata3. ??The findings are [...] for CK Mj, AE1AE3,34BE12, CK5-6, S100, ER, DC, CD31, Sox10 and Gata3. The findings are notentirely specific, but a breast metaplastic carcinoma is favored over aprimary sarcoma or malignant phyllodes tumor. Recommend excision fordefinitive diagnosis. ? RAD/PATH CONCORDANCE: Concordant RECOMMENDATION: Surgical consultation Connie Kuhn MD RAD LEIA * Surgical Path, Breast (10/07/2023 11:51 AM CDT) Case Report Surgical Pathology ?Case: [id number] ? Authorizing Provider: ??Connie Kuhn MD ? Collected: ? 10/07/2023 1151 ? Ordering Location: ? [facility] ? Received: ?10/07/2023 1439 ? [facility] ? [facility] [place] ? [place] [address] ? Pathologist: ? Kyle Upton MD ? Specimen: ?Breast, left, 9: o'clock ultrasound ? 10/15/2023 1:37 PM CDT [facility] FINAL DIAGNOSIS A. Breast, left, 9: o'clock ultrasound, needle core biopsy: Malignant spindle cell neoplasm with necrosis, see comment Comment: Immunohistochemical stains performed show the neoplasm stains positive for p63, patchy positive for SMA, negative for CK Mj, AE1AE3, 34BE12, CK5-6, S100, ER, DC, CD31, Sox10 and Gata3. The findings are not entirely specific, but a breast metaplastic carcinoma is favored over a primary sarcoma or malignant phyllodes tumor. Recommend excision for definitive diagnosis. [facility] has reviewed this case and concurs with the diagnosis. 10/15/2023 1:37 PM CDT [facility] Addendum electronically signed by Kyle Upton [...] ?? Comment(s): ?HER2 Technical component performed at [place], [place] 10/15/2023 1:37 PM CDT [facility] Clinical Information non palpable 10/15/2023 1:37 PM CDT [facility] Microscopic Description Microscopic examination is performed. 10/15/2023 1:37 PM CDT [facility] Special Stains The stain controls have been reviewed and stain appropriately. 10/15/2023 1:37 PM CDT [facility] Gross Description A: The specimen is [...] 1 cassette. DJ 10/15/2023 1:37 PM CDT [facility] Embedded Images 10/15/2023 1:37 PM CDT [facility] Tissue BREAST STRUCTURE / Unknown 10/07/2023 11:51 AM CDT 10/07/2023 2:39 PM CDT Connie Kuhn MD LAB PATHOLOGY [facility] [address] [place], [place] [address] documented in this encounter Visit Diagnoses Diagnosis Abnormal finding on breast imaging- Primary Other (abnormal) findings on radiological examination of breast Abnormal finding on breast imaging Other (abnormal) findings on radiological examination of breast documented in this encounter Administered Medications Inactive Administered Medications - up to 3 most recent administrations Medication Order MAR Action Action Date Dose Rate Site lidocaine (XYLOCAINE) 1 % injection 10 mL 10 mL, Subcutaneous, ONCE, On Berkley 10/07/23 at 1315, For 1 dose Given 10/07/2023 1:08 PM CDT 10 mL Other documented in this encounter Care Teams Canned Food Reconditioning Inspector Relationship Specialty Start Date End Date Connie Kuhn MD [facility] [place] [address] PCP - General Family Practice 05/23/18 documented as of this encounter
--- OUTSIDE RECORDS SUMMARY | 2023-10-31 02:16 | XMS_ITS | Encounter Summary ---
Author Organization [employer] Address [address] [address] Care Team Providers Care Diagram Clerk Name Role Phone Connie Kuhn MD Primary Care Provider [phone] Reason for Visit * Reason Comments Post-Op Check Encounter Details Date Type Department Care Team (Late st Contact Info) Description 10/05/2023 8:00 AM CDT Office Visit [facility] [address] [place] [address] [place] [address] [place], [place] [phone] Pseudophakia, left eye (Primary Dx) Social History Tobacco Use [...] Notes * Maria Alejandra Patel MD - 10/05/2023 8:00 AM CDT [facility]: Visit Summary Chief Complaint: POD1 s/p phaco IOL, Left Eye Subjective: HPI Eboni Waggoner presents for 1 day PO #1 evaluation of PCOIL in left eye. Date of surgery: 10/18/23 Right Eye Target: plano 10/04/23 Left Eye Target: plano Context of the chief complaint/aggravating factors: Pt states surgery went well. Pt denies pain/irritation. Pt states their vision has improved. Severity: mod Location: left eye Associated symptoms: FBS in LE. Eye meds: * Combo LE QID - have not put them this morning. LD: last night at 8 pm General Medical Observation: Alert, no apparent distress. Last edited by Slade Velarde on 10/05/2023 8:15 AM. Review of Systems 10 systems reviewed, all negative except for what is documented in HPI. General medical evaluation: Eboni is in no acute distress. A&O x 3. Objective: Physical Exam Base Eye Exam Visual Acuity (Snellen - Linear) Right Left Dist sc 20/20 -2 Tonometry (Applanation, 8:15 AM) Right Left Pressure 19 Pupils LE >RE Slit Lamp and Fundus Exam External Exam Right Left External Normal Slit Lamp Exam Right Left Lids/Lashes Normal Conjunctiva/Sclera tr injection Cornea incisions michelle negative Anterior Chamber deep, 1-2+cell Iris Round Lens PCIOL Assessment: ICD-10-CM 1. Pseudophakia, left eye Z96.1 Plan: Discussed findings and options in detail and answered questions. # POD1 s/p CE/PCIOL, Left Eye (10/04/23) - doing well - cont combo drops [...] vision, flashers/floaters or any other concerns. # Cataract, Right Eye - scheduled for surgery on 10/18/23 - has combo drops RTC 1 week for PO#2 LE, sooner prn. Maria Alejandra Patel MD Comprehensive Op[facility] documented in this encounter Plan of Treatment Upcoming Encounters Date Type Department Care Team (Late st Contact Info) Description 11/09/2023 11:50 AM CDT Appointment Specialty [facility] 3931 General Surgery [address] [facility] [address] [place] [address] Viviana Kirkland MD [address] [facility] [address] [place] [address] 11/09/2023 2:30 PM CDT Appointment [facility] Cancer Care at [facility] Oncology [address] [place] [address] Shayla Bland MBBS [address] [place] [address] 11/15/2023 11:00 AM CDT Appointment [facility] [address] [place] [address] Thomas Hanks, OD [address] [place] [phone] documented as of this encounter Visit Diagnoses Diagnosis Pseudophakia, left eye- Primary Lens replaced by other means documented in this encounter Care Teams Diagram Clerk Relationship Specialty Start Date End Date Connie Kuhn MD [address] [place] [address] PCP - General Family Practice 05/23/18 documented as of this encounter
--- OUTSIDE RECORDS SUMMARY | 2023-10-31 02:16 | XMS_ITS | Encounter Summary ---
Author Organization [facility] Address [address] [address] Care Team Providers Care Chemist Instrumentation Name Role Phone Connie Kuhn MD Primary Care Provider [phone] Encounter Details Date Type Department Care Team (Late Contact Info) Description 10/08/2023 E-Visit [facility] [address] [facility] [address] [facility]. [place], [place] [address] Elodia, [place] [address] Social History Tobacco Use Types Packs/Day Years [...] Encounters Date Type Department Care Team (Late Contact Info) Description 11/09/2023 11:50 AM CDT Appointment Specialty Center 3931 General Surgery [address] [facility] [address] [place] [address] Viviana Kirkland MD [address] [facility] [address] [place] [address] 11/09/2023 2:30 PM CDT Appointment [facility] at [facility] Oncology [address] [place] [address] Shayla Bland MBBS [address] [place] [address] 11/15/2023 11:00 AM CDT Appointment [facility] [address] [place] [address] Thomas Hanks, OD [address] [place] [phone] documented as of this encounter Visit Diagnoses Not on filedocumented in this encounter Care Teams Chemist Instrumentation Relationship Specialty Start Date End Date Connie Kuhn MD [address] [place] [address] PCP - General Family Practice 05/23/18 documented as of this encounter
--- OUTSIDE RECORDS SUMMARY | 2023-10-31 02:16 | XMS_ITS | Encounter Summary ---
Author Organization [facility] Address [address] [address] Care Team Providers Care Nurse Discharge Name Role Phone Connie Kuhn MD Primary Care Provider [phone] Reason for Referral * Procedure/Equipment (Routine) - Incomplete Specialty Diagnoses / Procedures Referred By Contac t Referred To Contact Diagnoses Mass of left breast, unspecified quadrant Procedures MM US Breast Seed Loc Lt Viviana Kirkland MD [address] [facility] [address] [place] [address] Referral ID Status Reason Start Date Expiration Date V isits Requested Visits Authorized [id number] Incomplete 10/12/2023 01/10/2025 1 1 * Procedure/Equipment (Routine) - Incomplete Specialty Diagnoses / Procedures Referred By Contac t Referred To Contact Diagnoses Mass of left breast, unspecified quadrant Procedures NM Breast Sent Node Inj Lt Viviana Kirkland MD [address] [facility] [address] [place] [address] Referral ID Status Reason Start Date Expiration Date V isits Requested Visits Authorized [id number] Incomplete 10/12/2023 01/10/2025 6 6 * Procedure/Equipment (Routine) - Incomplete Specialty Diagnoses / Procedures Referred By Charlie christianson Referred To Contact Diagnoses Mass of left breast, unspecified quadrant Procedures Case Request OR - General/Vascular Surg: LUMPECTOMY LEFT WITH SEED LOCALIZATION AND SENTINEL LYMPH NODE BIOPSY Viviana Kirkland MD [address] [facility] [address] [place] [address] Referral ID Status Reason Start Date Expiration Date V isits Requested Visits Authorized [id number] Incomplete 10/12/2023 01/10/2025 1 1 Reason for Visit * Reason Comments CONSULT Encounter Details Date Type Department Care Team (Late st Contact Info) Description 10/12/2023 11:30 AM CDT Office Visit Specialty Center 3931 General Surgery [address] [facility] [address] [place] [address] Viviana Kirkland MD [address] [facility] [address] [place] [address] Mass of left breast, unspecified quadrant (Primary Dx); Mild intermittent asthma without complication (HRC) Social History Tobacco Use Types Packs/Day Years [...] Sign Reading Time Taken Comments Blood Pressure - - Pulse - - Temperature - - Respiratory Rate - - Oxygen Saturation - - Inhaled Oxygen Concentration - - Weight 86.2 kg (190 lb) 10/12/2023 11:37 AM CDT Height 170.2 cm (5' 7) 10/12/2023 11:37 AM CDT Body Mass Index 29.76 10/12/2023 11:37 AM CDT documented in this encounter Progress Notes * Viviana Kirkland MD - 10/12/2023 11:30 AM CDT Breast Clinic Consultation 10/12/2023 Reason for consultation: LEFT breast mass Referring Provider: Self-referred History of Present Illness: Eboni Waggoner is a 73 y.o. F who was undergoing screening mammography when she was noted to have an abnormality in the left breast. Subsequent diagnostic imaging was performed which confirmed the finding of a mass at the 9 o'clock position middle depth in the left breast. Ultrasound showed this usha 1.6 cm in size in the left axilla was negative on ultrasonography. 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 Unclear based on core needle biopsy alone if this is a metaplastic carcinoma, primary sarcoma, or malignant phyllodes tumor. Excisionwas recommended for definitive diagnosis. She is being seen today in surgery clinic to discuss this. Past Medical History: Reviewed Past Surgical History: Reviewed No history of issues with bleeding, clotting or anesthetic difficulties. Family History: Her maternal grandmother was diagnosed with breast cancer in her 60s, no other family history of breast, pancreas, prostate, ovarian cancer. Social History: Patient is ; she is here today with her . Medications and Allergies: Reviewed - of note, she takes no anti-coagulants or immuno-suppressant medications. Physical Exam: Ht 5' 7 (170.2 cm) Wt 190 lb (74112 g) BMI 29.76 kg/m?? Alert and oriented, no apparent distress Head is normocephalic and atraumatic Sclera anicteric, conjunctiva non-injected Mucous membranes moist Breathing comfortably at rest Breasts examined there are no palpable abnormalities in the breast. Labs and Imaging: Personally reviewed and reviewed with the patient. Imaging shows a mass measuring approximately 1.6 cm in size of the 9 o'clock position middle depth in the left breast. The left axilla is negative. Pathology confirms spindle cell lesion of undetermined etiology, favor metaplastic carcinoma versusprimary sarcoma versus malignant phyllodes tumor. Assessment and Plan: Eboni Waggoner is a 73 y.o. F with a newly diagnosed abnormality of the left breast, suspicious formetaplastic carcinoma. The natural history of breast cancer and the multi-disciplinary nature of treatment of this at [facility] was discussed with the patient and her family today. At this point in time she has been diagnosed with a clinically suspicious lesion of the left breast. We did discuss that core needle biopsy alone has not defined exactly what this is.. Would recommend proceeding with excisional biopsy to further determine what this represents. We talked about placement of a localizing seed to help assist with identification of the lesion. Wediscussed intraoperative evaluation with x-rays as well as pathologic evaluation to try to reduce the risk of positive margins. Depending on the pathology of the lesion the necessary size of the margin varies, because of this Iwould not attempt to excise this with wide margins at this point in time; however, if this returns as something like a phyllodes tumor we may have to return to the operating room for further excision. We discussed the pros and cons of moving forward with an axillary sentinel lymph node biopsy and the method in which this is performed. [place] node biopsy will only be helpful in the setting of a breast cancer, not a sarcoma or a malignant phyllodes tumor. We discussed the benefit of moving forward with this now is that we would not further delay her care if this turns out to be a triple negative breast cancer. She would like to move forward with this which I think is very reasonable. Ultimately, we will move forward with excisional biopsy and sentinel node biopsy. Based upon the results of this we will determine what other steps of care need to be taken. We talked about the fact that if it is a triple negative breast cancer she would qualify for meeting with our genetic counseling team. If it is a triple negative breast cancer she also will need post surgical chemotherapy as well as radiation therapy. We will move forward with scheduling for surgery so we can get some answers and move forward from here. Questions addressed today. TT: Greater than 60 mins in chart review; personal review of imaging, discussion with other providers, face to face time and documentation. Viviana Kirkland MD 10/14/2023, 4:00 PM documented in this encounter Plan of Treatment Upcoming Encounters Date Type Department Care Team (Late st Contact Info) Description 11/09/2023 11:50 AM CDT Appointment Specialty Center 3931 General Surgery [address] [facility] [address] [place] [address] Viviana Kirkland MD [address] [facility] [address] [place], [place] [address] 11/09/2023 2:30 PM CDT Appointment [facility] Cancer Care at [facility] Oncology [address] [place] [address] Shayla Bland MBBS [address] [place] [address] 11/15/2023 11:00 AM CDT Appointment [facility] [address] [place], [place] [address] Thomas Hanks OD [address] [place] [phone] documented as of this encounter Results * NM Breast Sent Node Inj Lt (10/27/2023 8:58 AM CDT) Anatomical Region Laterality Modality Breast Left Nuclear Medicine Narrative 10/27/2023 8:59 AM CDT These images were obtained during a surgical procedure. Viviana Kirkland MD RAD NM * MM US Breast Seed Loc Lt [...] the left breast. Viviana Kirkland MD RAD [facility] documented in this encounter Visit Diagnoses Diagnosis Mass of left breast, unspecified quadrant- Primary Mild intermittent asthma without complication (HRC) Unspecified asthma Mass of left breast, unspecified quadrant Mass of left breast, unspecified quadrant documented in this encounter Care Teams Nurse Discharge Relationship Specialty Start Date End Date Connie Kuhn MD [address] [place] [address] PCP - General Family Practice 05/23/18 documented as of this encounter
--- OUTSIDE RECORDS SUMMARY | 2023-10-31 02:16 | XMS_ITS | Encounter Summary ---
Author Organization [facility] Address [address] [address] Care Team Providers Care Cork Sorter Name Role Phone Connie Kuhn MD Primary Care Provider [phone] Encounter Details Date Type Department Care Team (Late Contact Info) Description 10/08/2023 E-Visit [facility] [address] [facility] [address] [facility]. [place], [place] [address] [place]odia, [place] [address] Social History Tobacco Use Types Packs/Day Years [...] Appointment Specialty Center 3931 General Surgery [address] [facility] [address] [place] [address] Viviana Kirkland MD [address] [facility] [address] [place] [address] 11/09/2023 2:30 PM CDT Appointment [facility] Cancer Care at [facility] Oncology [address] [place] [address] Shayla Bland MBBS [address] [place] [address] 11/15/2023 11:00 AM CDT Appointment [facility] [address] [place] [address] Thomas Hanks, OD [address] [place] [phone] documented as of this encounter Visit Diagnoses Not on filedocumented in this encounter Care Teams Cork Sorter Relationship Specialty Start Date End Date Connie Kuhn MD [address] [place] [address] PCP - General Family Practice 05/23/18 documented as of this encounter
--- OUTSIDE RECORDS SUMMARY | 2023-10-31 02:17 | XMS_ITS | Encounter Summary ---
Author Organization [employer] Address [address], [place] [address] Care Team Providers Care Environmental Field Professional Name Role Phone Connie Kuhn MD Primary Care Provider [phone] Encounter Details Date Type Department Care Team (Latest Contact Info) Description 07/20/2023 Orders Only HIM DEPARTMENT Provider, [place] [address] Social History Tobacco Use Types Packs/Day Years Used Date Smoking Tobacco: Former Cigarettes 1 20 0 04/26/1968 - 04/26/1988 Smokeless Tobacco: Never Alcohol Use Standard Drinks/Week Comments Yes 0 (1 standard drink = 0.6 oz pur [...] Surgery [address] [facility] [address] [place] [address] Viviana Kirkland MD [address] [facility] [address] [place], [place] [address] 11/09/2023 2:30 PM CDT Appointment [facility] Cancer Care at [facility] Oncology [address] [place] [address] Shayla Bland MBBS [address] [place] [address] 11/15/2023 11:00 AM CDT Appointment [facility] [address] [place] [address] Thomas Hanks, OD [address] [place] [phone] documented as of this encounter Procedures Procedure Name Priority Date/Time Associated Diagnosis Comments EYE PENTACAM 07/20/2023 documented in this encounter Results * EYE PENTACAM (07/20/2023) Interface Provider DUMMY/OTHER/AR documented in this encounter Visit Diagnoses Not on filedocumented in this encounter Care Teams Environmental Field Professional Relationship Specialty Start Date End Date Connie Kuhn MD [address] [place] [id number] PCP - General Family Practice 05/23/18 documented as of this encounter
--- OUTSIDE RECORDS SUMMARY | 2023-10-31 02:17 | XMS_ITS | Encounter Summary ---
Author Organization [employer] Address [address], [place] [address] Care Team Providers Care Staff Scientist Name Role Phone Connie Kuhn MD Primary Care Provider [phone] Reason for Visit * Reason Comments Test Results Encounter Details Date Type Department Care Team (Late st Contact Info) Description 10/01/2023 Telephone [facility] [address] [place] [address] [place] [phone] Connie Kuhn MD [address] [place], [place] [address] [id number] Test Results Social History Tobacco Use Types Packs/Day Years [...] as of this encounter Nursing Notes * Vicki Mccarthy LPN - 10/01/2023 5:05 PM CDT Patient will be notified by the breast center as additional imaging is needed. Vicki Mccarthy LPN 10/01/2023, 5:06 PM * Evin Contreras - 10/01/2023 11:52 AM CDT Test Results What test are you calling about? mammogram Primary Process Development Technician: Connie Kuhn MD Who ordered the test? annual When and where was the test done? 10/01/23 [facility] Additional comments (related to the above concern): Pt sees abnormal results on myChart and wants to discuss If a prescription is needed, patient would like it filled at the pharmacy listed in Medication Management. Is it okay to leave a detailed message on your voicemail? Yes Is there anything else I can help you with today? documented in this encounter Plan of Treatment Upcoming Encounters Date Type Department Care Team (Late st Contact Info) Description 11/09/2023 11:50 AM CDT Appointment [facility] 3931 General Surgery 3931 [facility] [address] [place] [address] Viviana Kirkland MD 3931 [facility] [address] [place], [place] [address] 11/09/2023 2:30 PM CDT [facility]ointment [facility] at [facility] Oncology [address] [place] [address] Shayla Bland MBBS 3931 [place] [address] 11/15/2023 11:00 AM CDT Appointment [facility] [address], [place] [address] Thomas Hanks, PJ [address] [place] [phone] documented as of this encounter Visit Diagnoses Not on filedocumented in this encounter Care Teams Staff Scientist Relationship Specialty Start Date End Date Connie Kuhn MD [address] [place] [address] PCP - General Family Practice 05/23/18 documented as of this encounter
--- OUTSIDE RECORDS SUMMARY | 2023-10-31 02:17 | XMS_ITS | Encounter Summary ---
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) Social History Tobacco Use Types Packs/Day Years Used Date Smoking Tobacco: Former Cigarettes 1 20 0 04/26/1968 - 04/26/1988 Smokeless Tobacco: Never Alcohol Use Standard Drinks/Week Comments Yes 0 (1 standard drink = 0.6 oz pur e alcohol) Social drinker...wine PHQ-2 Answer Date Recorded PHQ-2 Score 0 09/29/2022 Sex and Gender Information Value Date Recorded Sex Assigned at Not on file Gender Identity Not on file Sexual Orientation Not on file documented as of this encounter Progress Notes * Inga Guerrero - 07/26/2023 3:15 PM CDT Axial Length w/ IM 700: OD - 23.36 OS - 23.45 Pentacam done OU documented in this encounter Plan of Treatment Upcoming Encounters Date Type Department Care Team (Late st Contact Info) Description 11/09/2023 11:50 AM CDT Appointment [facility]ty [facility] 3931 General Surgery 3931 [facility] [address] [place] [address] Viviana Kirkland MD 39[address] [facility] [address] [place] [address] 11/09/2023 2:30 PM CDT Appointment [facility] Cancer Care at [facility] Oncology [address] [place] [address] Shayla Bland MBBS [address]31 [place], [place] [address] 11/15/2023 11:00 AM CDT Appointment [facility] [address] [place] [address] Thomas Hanks, OD 3900 [place] [phone] documented as of this encounter Visit Diagnoses Diagnosis Combined forms of age-related cataract of both eyes- Primary Other and combined forms of senile cataract documented in this encounter Care Teams Rip Saw Operator Relationship Specialty Start Date End Date Connie Kuhn MD [address] [place] [address] PCP - General Family Practice 05/23/18 documented as of this encounter
--- OUTSIDE RECORDS SUMMARY | 2023-10-31 02:17 | XMS_ITS | Encounter Summary ---
Author Organization [facility] Address [address] [address] Care Team Providers Care Rodding Anode Worker Name Role Phone Connie Kuhn MD Primary Care Provider [phone] Encounter Details Date Type Department Care Team (Latest Contact Info) Description 07/26/2023 Orders Only [facility] Provider, [place] [address] Social History Tobacco Use Types Packs/Day Years [...] Appointment [facility]ty Center 3931 General Surgery 3931 [facility] [address] [place] [address] Viviana Kirkland MD [address] [facility] [address] [place] [address] 11/09/2023 2:30 PM CDT Appointment [facility] Care at [facility] Oncology [address] [place] [address] Shayla Bland MBBS [address] [place] [address] 11/15/2023 11:00 AM CDT Appointment [facility] [address] [place], [place] [address] Thomas Hanks, OD [address] [place] [phone] documented as of this encounter Procedures Procedure Name Priority Date/Time Associated Diagnosis Comments EYE PENTACAM 07/26/2023 documented in this encounter Results * EYE PENTACAM (07/26/2023) Interface Provider MD DUMMY/OTHER/AR documented in this encounter Visit Diagnoses Not on filedocumented in this encounter Care Teams Rodding Anode Worker Relationship Specialty Start Date End Date Connie Kuhn MD [address] [place] [address] PCP - General Family Practice 05/23/18 documented as of this encounter
--- OUTSIDE RECORDS SUMMARY | 2023-10-31 02:17 | XMS_ITS | Encounter Summary ---
Author Organization [employer] Address [address], [place] [address] Care Team Providers Care Thread Inspector Name Role Phone Connie Kuhn MD Primary Care Provider [phone] Reason for Visit * Procedure/Equipment (Routine) - Incomplete Specialty Diagnoses / Procedures Referred By Charlie christianson Referred To Contact Diagnoses Visit for screening mammogram Procedures MM Mammogram Screening Bilat W 3D Eric W CAD Connie Kuhn MD [address] [place], [place] [address] Referral ID Status Reason Start Date Expiration Date V isits Requested Visits Authorized [id number] Incomplete 09/13/2023 12/12/2024 1 1 Encounter Details Date Type Department Care Team (Late st Contact Info) Description 10/01/2023 10:40 AM CDT Ancillary Procedure [facility] at [facility] [address] [address] Connie Kuhn MD [address] [place] [id number] Visit for screening mammogram Social History Tobacco Use Types Packs/Day [...] Appointment [facility]ty [facility] 3931 General Surgery 3931 [facility] [address] [place] [address] Viviana Kirkland MD 3931 [facility] [address] [place] [address] 11/09/2023 2:30 PM CDT Appointment [facility] at [facility] Oncology [address] [place] [address] Shayla Bland MBBS 3931 [place] [address] 11/15/2023 11:00 AM CDT Appointment [facility] [address] [place] [address] Thomas Hanks, PJ [address] [place] [phone] documented as of this encounter Procedures Procedure Name Priority Date/Time Associated Diagnosis Comments MM MAMMOGRAM SCREENING BILAT W 3D ERIC W CAD Routine 10/01/2023 10:48 AM CDT Visit for screening mammogram documented in this encounter Results * (ABNORMAL) MM Mammogram Screening Bilat W [...] medical imaging exams are released immediately to [facility]. ??You may be viewing this report before [...] is unremarkable. Connie Kuhn MD RAD LEIA documented in this encounter Visit Diagnoses Diagnosis Visit for screening mammogram Other screening mammogram documented in this encounter Care Teams Thread Inspector Relationship Specialty Start Date End Date Connie Kuhn MD [address] [place] [address] PCP - General Family Practice 05/23/18 documented as of this encounter
--- OUTSIDE RECORDS SUMMARY | 2023-10-31 02:17 | XMS_ITS | Encounter Summary ---
Author Organization [facility] Address [address], [place] [address] Care Team Providers Care Heater Room Helper Name Role Phone Connie Kuhn MD Primary Care Provider [phone] Reason for Visit * Reason Comments CATARACTS Pt sched surgery on 10-03 & 10-18-23. Pt would like combo easy drop from [facility]. Encounter Details Date Type Department Care Team (Late Contact Info) Description 08/03/2023 Telephone [facility] [address] [place] [address] [place] [address] [place] [phone] CATARACTS (Pt sched surgery on 10-03 & 10-18-23. Pt would like combo easy drop from [facility]. ) Social History Tobacco Use Types Packs/Day Years [...] Appointment Specialty [facility] 3931 General Surgery [address] [facility] [address] [place] [address] Viviana Kirkland MD 3931 [facility] [address] [place], [place] [address] 11/09/2023 2:30 PM CDT Appointment [facility] at [facility] Oncology [address] [place] [address] Shayla Bland MBBS [address] [place], [place] [address] 11/15/2023 11:00 AM CDT Appointment [facility] [address] [place], [place] [address] Thomas Hanks, OD [address] [place] [phone] documented as of this encounter Visit Diagnoses Not on filedocumented in this encounter Care Teams Heater Room Helper Relationship Specialty Start Date End Date Connie Kuhn MD [address] [place] [id number] PCP - General Family Practice 05/23/18 documented as of this encounter
--- OUTSIDE RECORDS SUMMARY | 2023-10-31 02:17 | XMS_ITS | Encounter Summary ---
Author Organization [facility] Address [address] [address] Care Team Providers Care Inspector Packer Glass Container Name Role Phone Connie Kuhn MD Primary Care Provider [phone] Encounter Details Date Type Department Care Team (Latest Contact Info) Description 07/20/2023 Orders Only [facility] Provider, MD [place] [address] Social History Tobacco Use Types Packs/Day Years [...] Appointment Specialty Center 3931 General Surgery [address] [facility] [address] [place] [address] Viviana Kirkland MD [address] [facility] [address] [place] [address] 11/09/2023 2:30 PM CDT Appointment [facility] Cancer Care at [facility] Oncology [address] [place] [address] Shayla Bland MBBS [address] [place] [address] 11/15/2023 11:00 AM CDT Appointment [facility] [address] [place], [place] [address] Thomas Hanks, OD [address] [place] [phone] documented as of this encounter Procedures Procedure Name Priority Date/Time Associated Diagnosis Comments EYE PENTACAM 07/20/2023 documented in this encounter Results * EYE PENTACAM (07/20/2023) Interface Provider MD DUMMY/OTHER/AR documented in this encounter Visit Diagnoses Not on filedocumented in this encounter Care Teams Inspector [employer]acker Glass Container Relationship Specialty Start Date End Date Connie Kuhn MD [address] [place] [address] PCP - General Family Practice 05/23/18 documented as of this encounter
--- OUTSIDE RECORDS SUMMARY | 2023-10-31 02:17 | XMS_ITS | Encounter Summary ---
Author Organization [employer] Address [address] [place] [address] Care Team Providers Care Automotive Glass Technician Name Role Phone Connie Kuhn MD Primary Care Provider [phone] Reason for Visit * Reason Comments Patient Calling Back Encounter Details Date Type Department Care Team (Late st Contact Info) Description 08/15/2012 Nurse Triage [facility] [address] [place] [address] Serina Landin MD [address] [place] [address] Patient Calling Back Social History Tobacco Use Types Packs/Day Years Used Date Smoking Tobacco: Never Assessed Sex and Gender Information Value Date Recorded Sex Assigned at Not on file Gender Identity Not on file Sexual Orientation Not on file documented as of this encounter Nursing Notes * Kelly Shaikh LPN - 08/15/2012 3:15 PM CDT patient called and scheduled for 9;00 08/16/2012. * Katie Mas - 08/15/2012 2:57 PM CDT pt calling =to ck status and requests to speak to nurse * Serina Landin MD - 08/15/2012 2:38 PM CDT i cannot see her today, but I could see her tomorrow at 9. Please make sure she is not suicidal, ifshe is, she will have to go to the hospital. * Sarah Gaitan RN - 08/15/2012 2:30 PM CDT Action requested: Appt. Work In Request TODAY requested by the pt. - to Dr. Landin Additional Info: Called the pt. back. Has been feeling depressed/anxious, would like to be seen today by PCP to discuss this, possibly start on medication for this, states it won't take much time. Denies thoughts/plans to harm herself. Has called MH dept., was advised to see her PCP for this. Pt.could leave work now to come in, works tomorrow. Has tried Starla's Wort, not helping. Has been on zoloft (caused dizziness) and prozac in the past, is wondering about trying Celexa. Declined Crisis center phone numbers. Please advise on appt. for today. Contact# [phone] work, no vm or -poor etcher machine at work though Protocol: [id number] Affirmative: Patient sounds very upset or severely depressed (e.g., multiple symptoms of depression) Disposition of Call Local [facility] (refer to dosage table reference) suggested. (Spoke with [facility] nurse, PCP booked today, urgent note sent.) * Maria Alejandra Hahn - 08/15/2012 1:20 PM CDT Pt is calling for a work in today with Dr Landin states she needs to be seen about depression states it's really bad please advise. documented in this encounter Plan of Treatment Upcoming Encounters Date Type Department Care Team (Late st Contact Info) Description 11/09/2023 11:50 AM CDT Appointment Specialty [facility] 3931 General Surgery 3931 [facility] [address] [place] [address] Viviana Kirkland MD 39[address] [facility] [address] [place] [address] 11/09/2023 2:30 PM CDT Appointment [facility] Cancer Care at [facility] Oncology [address] [place] [address] Shayla Bland MBBS [address] [place], [place] [address] 11/15/2023 11:00 AM CDT Appointment [facility] [address] [place], [place] [address] Thomas Hanks, OD [address] [place] [phone] documented as of this encounter Visit Diagnoses Not on filedocumented in this encounter Care Teams Automotive Glass Technician Relationship Specialty Start Date End Date Connie Kuhn MD [address] [place] [address] PCP - General Family Practice 05/23/18 documented as of this encounter
--- OUTSIDE RECORDS SUMMARY | 2023-10-31 02:17 | XMS_ITS | Encounter Summary ---
Author Organization [employer] Address [address], [place] [address] Care Team Providers Care Manager Transplant Name Role Phone Connie Kuhn MD Primary Care Provider [phone] Reason for Visit * Reason Comments BACK PAIN, LOW Encounter Details Date Type Department Care Team (Late st Contact Info) Description 10/06/2018 Nurse Triage [facility] [address] [place] [address] [place], [place] [phone] Connie Kuhn MD [address] [place] [phone] BACK PAIN, LOW Social History Tobacco Use Types Packs/Day Years Used Date Smoking Tobacco: Former Smokeless Tobacco: Never Alcohol Use Standard Drinks/Week Comments Yes 0 (1 standard drink = 0.6 oz pure alcohol) Alcoholic Drinks/day: Amount:1-2 drinks; Freq occas Sex and Gender Information Value Date Recorded Sex Assigned at Not on file Gender Identity Not on file Sexual Orientation Not on file documented as of this encounter Nursing Notes * Mai Silva LPN - 10/06/2018 3:17 PM CDT Immunizations updated. Please advise regarding request for PT referral. * Sarah Best LPN - 10/06/2018 3:00 PM CDT Patient was seen on 05/23/18 for a preop with PCP. She said she was given a Tdap and it was not recorded on her immunization list. She remembers having it done as her arm hurt. Per OV dictation it wasnoted by PCP that it was given. Please advise. * Sarah Best LPN - 10/06/2018 2:51 PM CDT Patient has had low back pain that radiates down her right leg to her knee for the last year. She has been getting chiropractic treatment which helps but for a very short time. Chiropractor has told her it is her SI joint. She has been using ice/heat. She rates the pain a 6-7 at times. 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 She had scheduled an appt with PT as she thought she would try this but was told she needs a referral. She is calling for this today. No bowel or bladder symptoms, no abdominal pain, inability to walk, no fever or other symptoms. Advised an appt is needed to see PCP as she does not fit standing order. She is unable to be seen for 5 days due to work. Offered an E-Visit. She agreed. Reason for Disposition ??? [1] Pain radiates into the thigh or further down the leg AND [2] one leg Protocols used: BACK [id number] FOR PNHS - PN TRIAGE ONLY * Edilson Sloan - 10/06/2018 2:34 PM CDT Symptoms Describe your symptoms (if pain, include location): Low back pain When did they start? About a year Additional comments (related to the above concern): Pt asking for referral, PCP has not seen her for back pain. If a prescription is needed, patient would like it filled at the pharmacy listed in Meds & Orders. (Verify the pharmacy patient would like to use for this request is highlighted in blue in Pharmacy Selection under Meds & Orders) Is it okay to leave a detailed message on your voicemail? Yes (Advise caller that the PN call back number will end with [phone] or unknown) For urgent symptoms: Please route and transfer to: Triage Pool (high priority) For routine symptoms: Please route to: Triage Pool (only transfer if caller insists) documented in this encounter Plan of Treatment Upcoming Encounters Date Type Department Care Team (Late st Contact Info) Description 11/09/2023 11:50 AM CDT Appointment [facility] 3931 General Surgery 3931 [facility] [address] [place], [place] [address] Viviana Kirkland MD [address] [facility] [address] [place], [place] [address] 11/09/2023 2:30 PM CDT Appointment [facility] Cancer Care at [facility] Oncology [address] [place] [address] Shayla Bland MBBS [address] [place], [place] [address] 11/15/2023 11:00 AM CDT Appointment [facility] [address] [place], [place] [address] Thomas Hanks, PJ [address] [place] [phone] documented as of this encounter Visit Diagnoses Not on filedocumented in this encounter Care Teams Manager Transplant Relationship Specialty Start Date End Date Connie Kuhn MD [address] [place] [address] PCP - General Family Practice 05/23/18 documented as of this encounter
--- OUTSIDE RECORDS SUMMARY | 2023-10-31 02:17 | XMS_ITS | Encounter Summary ---
Author Organization [employer] Address [address] [address] Care Team Providers Care Supervisor Wash House Name Role Phone Connie Kuhn MD Primary Care Provider [phone] Encounter Details Date Type Department Care Team (Late st Contact Info) Description 10/01/2023 10:50 AM CDT Lab Visit [facility] [address] [place] [phone] Screening for diabetes mellitus; Screening, lipid Social History Tobacco Use Types Packs/Day Years [...] [facility] [address] [place], [place] [address] Viviana Kirkland MD [address]31 [facility] [address] [place], [place] [address] 11/09/2023 2:30 PM CDT [facility] [address] [place], [place] [address] Shayla Bland MBBS [address] [place] [address] 11/15/2023 11:00 AM CDT Appointment [facility] [address] [place], [place] [phone] Thomas Hanks, OD [address] [place] [phone] documented as of this encounter Procedures Procedure Name Priority Date/Time Associated Diagnosis Comments LIPID PANEL & DIRECT LDL (IF NEEDED) Routine 10/01/2023 9:53 AM CDT Screening, lipid GLUCOSE Routine 10/01/2023 9:53 AM CDT Screening for diabetes mellitus documented in this encounter Results * (ABNORMAL) Lipid Panel & Direct LDL (if Needed) (10/01/2023 9:53 AM CDT) Cholesterol 282(H) 0 - 199 mg/dL 10/01/2023 4:49 PM [facility] Triglyceride 71 <=149 mg/dL 10/01/2023 4:49 PM [facility] HDL Cholesterol 74 >=40 mg/dL 4:49 PM [facility] LDL, Calculated 194(H) <130 mg/dL 4:49 PM [facility] Non HDL Chol, Calculated 208(H) <=159 mg/dL 10/01/2023 4:49 PM [facility] Cholesterol/HDL Ratio 3.8 <=5.0 10/01/2023 4:49 PM [facility] Hours Fasting 12.0 8 - 12 Hours 10/01/2023 4:49 PM [facility] (PN) Blood Venipuncture / Unknown 10/01/2023 9:53 AM CDT 10/01/2023 9:53 AM CDT Connie Kuhn MD LAB_1 Performing Organization Address [facility]/ZIP Co de Phone Number [facility] [address] [place] [phone] (PN) [address] [place] [phone] * Glucose (10/01/2023 9:53 AM CDT) [facility] Signature Glucose 85 70 - 100 mg/dL 10/01/2023 4:49 PM CDT [facility] Comment:The given reference range is for the fasting state. Non-fasting reference range for glucose is 70 - 180 mg/dL. Hours Fasting 12.0 8 - 12 Hours 10/01/2023 4:49 PM CDT [facility] (PN) Blood Venipuncture / Unknown 10/01/2023 9:53 AM CDT 10/01/2023 9:53 AM CDT Connie Kuhn MD LAB_1 Performing Organization Address [facility] Co de Phone Number [facility] [address] [place] [address], [facility] (PN) [address] [place] [phone] documented in this encounter Visit Diagnoses Diagnosis Screening for diabetes mellitus Screening, lipid Screening for lipoid disorders documented in this encounter Care Teams Supervisor Wash House Relationship Specialty Start Date End Date Connie Kuhn MD [address] [place], [place] [address] [address] PCP - General Family Practice 05/23/18 documented as of this encounter
--- OUTSIDE RECORDS SUMMARY | 2023-10-31 02:17 | XMS_ITS | Encounter Summary ---
Author Organization [employer] Address [address] [address] Care Team Providers Care Locomotive Repairer Diesel Name Role Phone Connie Kuhn MD Primary Care Provider [phone] Reason for Visit * Reason Comments Medicare Annual Wellness Encounter Details Date Type Department Care Team (Late st Contact Info) Description 10/01/2023 9:00 AM CDT Office Visit [facility] [place], [place] [id number] Connie Kuhn MD [address] [place] [address] [place] [address] Encounter for Medicare annual wellness exam (Primary Dx); Screening, lipid; Screening for diabetes mellitus; Mixed emotional features as adjustment reaction (HRC); Pure hypercholesterolemia; Mild intermittent asthma without complication (HRC) Social [...] Sign Reading Time Taken Comments Blood Pressure 131/82 10/01/2023 8:46 AM CDT Pulse 67 10/01/2023 8:46 AM CDT Temperature - - Respiratory Rate - - Oxygen Saturation - - Inhaled Oxygen Concentration - - Weight 86.2 kg (190 lb) 10/01/2023 8:46 AM CDT Height 170.2 cm (5' 7) 10/01/2023 8:46 AM CDT Body Mass Index 29.76 10/01/2023 8:46 AM CDT documented in this encounter Patient Instructions * Patient Instructions* Vicki Mccarthy LPN - 10/01/2023 9:00 AM CDT Annual Wellness Visit Summary Your care team is recommending the following tests, procedures or services. Some of these recommendations may not be fully covered by Medicare or your insurance. If you have questions, check with your insurance to determine coverage before completing these services. Health Maintenance Due Health Maintenance Due Topic Date Due ??? Mammogram 10/01/2023 If your Medicare Welcome or Annual Wellness Visit is showing you are due in the above list, this will be updated after this visit. You had this completed today and are not due for another year. Thank you for coming in for your Medicare Wellness Visit. To make sure we are doing our best to meet your care needs, here are a few important reminders. We want to know your thoughts as we work together to create your care plan, including stopping and starting medications. When we work together on next steps, it's called shared decision making. If there is anything else you would like to discuss, please reach out or schedule a follow-up appointmentif needed. We are here to listen. We want to help you address any concerns you have about the cost of your medications. To find options for the most cost-effective medications near you, go to https://www.[employer]/hp/pharmacy/drug-cost/index.html You can also find more information in this handout. Health care can be complicated. Sometimes, it can help to share your health information with your family or caregivers. (Caregivers can be friends as well as family.) How much you share is up to you.Here is a helpful link: https://[email or web address]/blog/twyukx-ohvr-virau-benefits/ We care about nutrition, how much physical activity you get and how much stress, worry or sadness you have in your life. Please reach out to your care team if you have additional information to shareor would like more resources or support. documented in this encounter Progress Notes * Connie Kuhn MD - 10/01/2023 9:00 AM CDT Medicare Annual Wellness Visit Subjective/Historical: Eboni Waggoner is a 73 y.o. old female Chief Complaint Patient presents with Medicare Annual Wellness Current Concerns: 1. Encounter for Medicare annual wellness exam 2. Screening, lipid 3. Screening for diabetes mellitus 4. Mixed emotional features as adjustment reaction (HRC) 5. Pure hypercholesterolemia 6. Mild intermittent asthma without complication (HRC) Asthma: has not had any problems. Mental health: Eboni is tolerating the medication and treatment plan without any ill side effects. Lipid: exercising regularly. Going on adventures. Biking 50-60 miles per week. Rides gravel bike and ebike. Does NOT want to be on statin. She has tried 2 different statins and had side effects. Heart Health: As recommended by the [place] [employer], we use information about your health to estimate your risk for a heart attack or stroke. Your risk in the next 10 years is 11.6%. The information we used to estimate your risk is: Your age 73, sex, blood pressure of 131/82 mm Hg, no use of blood pressure lowering medication, total cholesterol of 295 mg/dl, HDL (good cholesterol) of 76 mg/dl, no diagnosis of diabetes, no tobacco or nicotine use. You can improve your heart health by doing the following in order of priority: Start or increase your dose of cholesterol medication (statin or other medication to lower cholesterol). For information on self-directed lifestyle change for weight management, go to www.myhealthwizard.org PriorityWizard Advance Directives: No advance directives are on file. Discussed completing advance directives. Written information for advance directives was given. Observed Vitals: BP 131/82 (BP Location: Left Arm, BP Cuff Size: Regular - Long) Pulse 67 Ht 5' 7 (1.702 m) Wt 190 lb (86.2 kg) BMI 29.76 kg/m?? Physical Exam: General Appearance: alert, well appearing, and in no apparent distress HEENT: lids normal, sclera clear, conjunctiva normal, EOMs intact, and pupils equal round and reactive to light and oropharynx clear Neck: no lymphadenopathy and no thyromegaly or nodules Heart: regular rate and rhythm and no murmurs, gallops or rubs Lungs: clear to auscultation and no wheezes, rales or rhonchi Extremities: no edema Psychiatric: affect/mood normal, cooperative, normal judgement/insight, and memory intact Assessment/Plan Encounter for Medicare annual wellness exam Screening, lipid - Lipid Panel & Direct LDL (if Needed); Future Screening for diabetes mellitus - Glucose; Future 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 No change in current medication or treatment plan - sertraline (ZOLOFT) 25 MG tablet; Take 1 Tablet (25 mg) by mouth daily. Pure hypercholesterolemia -she does not want to be on cholesterol-lowering medication. We discussed the possibility of checking a CT coronary calcium score and even if her score was abnormal, she would not want to start a cholesterol-lowering medication. She has tried 2 different statins in the past and did not tolerate either 1 of them. She would like to check the cholesterol to see where it is at. She will continue to work on healthy lifestyle of nutrition and exercise Mild intermittent asthma without complication (HRC)-not having any symptoms.- controlled/stable. No change in current medication or treatment plan - ALBUterol sulfate HFA 108 (90 Base) MCG/ACT inhaler; Inhale 2 Puffs every 4 hours as needed for Wheezing. Quick Schedule Follow Up Visits Return With: Me (Clinician) Return On or After: 09/30/24 Reason: Medicare Wellness Counseling and education provided today includes proper nutrition and health habits, fall prevention, and for those items ordered above. See plan for future preventive services in Patient Instructions. Connie Kuhn MD 10/01/2023, 1:09 PM documented in this encounter Plan of Treatment Upcoming Encounters Date Type Department Care Team (Late st Contact Info) Description 11/09/2023 11:50 AM CDT Appointment [facility] 3931 General Surgery [address] [facility] [address] [place] [address] Viviana Kirkland MD [address] [facility] [address] [place], [place] [address] 11/09/2023 2:30 PM CDT [facility] Oncology [address] [place] [address] Shayla Bland MBBS [address] [place], [place] [address] 11/15/2023 11:00 AM CDT Appointment [facility] [address] [place], [place] [address] Thomas Hanks, PJ [address] [place] [phone] documented as of this encounter Results * (ABNORMAL) Lipid Panel & Direct LDL (if Needed) (10/01/2023 9:53 AM CDT) Cholesterol 282(H) 0 - 199 mg/dL 10/01/2023 4:49 PM [facility] Triglyceride 71 <=149 mg/dL 10/01/2023 4:49 PM [facility] HDL Cholesterol 74 >=40 mg/dL 4:49 PM [facility] LDL, Calculated 194(H) <130 mg/dL 4:49 PM [facility] Non HDL Chol, Calculated 208(H) <=159 mg/dL 10/01/2023 4:49 PM [facility] Cholesterol/HDL Ratio 3.8 <=5.0 10/01/2023 4:49 PM [facility] Hours Fasting 12.0 8 - 12 Hours 10/01/2023 4:49 PM [facility] (PN) Blood Venipuncture / Unknown 10/01/2023 9:53 AM CDT 10/01/2023 9:53 AM CDT Connie Kuhn MD LAB_1 Performing Organization Address [facility]/ZIP Co de Phone Number [facility] [address] [place] [address], [facility] (PN) [address] [place] [address] [[email or web address]] * Glucose (10/01/2023 9:53 AM CDT) Glucose 85 70 - 100 mg/dL 10/01/2023 4:49 PM CDT [facility] Comment:The given reference range is for the fasting state. Non-fasting reference range for glucose is 70 - 180 mg/dL. Hours Fasting 12.0 8 - 12 Hours 10/01/2023 4:49 PM CDT [facility] (PN) Blood Venipuncture / Unknown 10/01/2023 9:53 AM CDT 10/01/2023 9:53 AM CDT Connie Kuhn MD LAB_1 Performing Organization Address [facility]/ZIP Co de Phone Number [facility] [address] [place] [address], [facility] (PN) [address] [place] [address], [facility] documented in this encounter Visit Diagnoses Diagnosis Encounter for Medicare annual wellness exam- Primary Screening, lipid Screening for lipoid disorders Screening for diabetes mellitus Mixed emotional features as adjustment reaction (HRC) Adjustment disorder with mixed anxiety and depressed mood Pure hypercholesterolemia Mild intermittent asthma without complication (HRC) Unspecified asthma documented in this encounter Care Teams Locomotive Repairer Diesel Relationship Specialty Start Date End Date Connie Kuhn MD [facility] [place] [address] PCP - General Family Practice 05/23/18 documented as of this encounter
--- OUTSIDE RECORDS SUMMARY | 2023-10-31 02:17 | XMS_ITS | Encounter Summary ---
Author Organization [employer] Address [address], [place] [address] Care Team Providers Care Senior Naval Parachutist Name Role Phone Connie Kuhn MD Primary Care Provider [phone] Reason for Visit * Reason Comments PRE-OP EXAM Encounter Details Date Type Department Care Team (Late st Contact Info) Description 09/23/2023 9:30 AM CDT Pre-Op Visit [facility] [address] [place] [address] [place] [id number] Amelia Johnson PA-C [address] [place] [address] [place] [phone] Preop examination (Primary Dx) Social History Tobacco [...] Sign Reading Time Taken Comments Blood Pressure 144/85 09/23/2023 9:27 AM CDT Pulse 64 09/23/2023 9:27 AM CDT Temperature - - Respiratory Rate - - Oxygen Saturation - - Inhaled Oxygen Concentration - - Weight 88.5 kg (195 lb) 09/23/2023 9:18 AM CDT p t reported Height - - Body Mass Index 30.53 08/03/2023 10:58 AM CDT documented in this encounter Patient Instructions * Patient Instructions* Amelia Johnson PA-C - 09/23/2023 9:30 AM CDT Follow your individualized medication recommendations as described above. In addition, please stop all seva-xhy-xppcjtk medications including aspirin, ibuprofen (Advil, Motrin), naproxen [...] Progress Notes * Amelia Johnson PA-C - 09/23/2023 9:30 AM CDT Pre-Operative Assessment 09/23/2023 ET Amb PreOp Assessment Details Procedure Cataracts Location [facility] Ambulatory Surgery Procedure Date 10/04/2023 [...] Note: Added automatically from request for surgery [id number] Acute iritis, left eye 07/19/2012 Adenomatous polyp [...] LAP CHOLECYSTECTOMY 09/23/2016 Viviana Kirkland MD at [facility] SINUS SURGERY 05/24/2018 FESS, fungal ball removal [...] Then follow the instructions given in clinic. nenhdxxcrokh-tbbbmfbqdgbb-vbgphvvtx (EASY DROPS) 1-0.5-0.075 % SUSP 1 Drop, Left Eye, QID, Starting1 day BEFORE cataract surgery, place 1 drop in the LEFT eye 4 times per day. Then follow the drop instructions given in clinic. qvbnwtkybeek-xfossgpebalz-hmonzumni (EASY DROPS) 1-0.5-0.075 % SUSP 1 Drop, Right Eye, QID, Starting 1 day BEFORE cataract surgery, place 1 drop into the RIGHT eye 4 times per day. Then follow the drop instructions given in clinic. 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 In addition, please stop all otoh-ybe-ywicswr medications including aspirin, ibuprofen (Advil, Motrin), naproxen [...] 09/23/2023, 9:30 AM documented in this encounter Plan of Treatment Upcoming Encounters Date Type Department Care Team (Late st Contact Info) Description 11/09/2023 11:50 AM CDT Appointment Specialty [facility] 3931 General Surgery [address] [facility] [address] [place] [address] Viviana Kirkland MD [address] [facility] [address] [place] [address] 11/09/2023 2:30 PM CDT Appointment [facility] at [facility] Oncology [address] [place] [address] Shayla Bland MBBS [address] [place], [place] [address] 11/15/2023 11:00 AM CDT Appointment [facility] [address] [place] [address] Thomas Hanks, OD [address] [place] [phone] documented as of this encounter Visit Diagnoses Diagnosis Preop examination- Primary Preoperative examination, unspecified documented in this encounter Care Teams Senior Naval Parachutist Relationship Specialty Start Date End Date Connie Kuhn MD [address] [place] [address] PCP - General Family Practice 05/23/18 documented as of this encounter
--- OUTSIDE RECORDS SUMMARY | 2023-10-31 02:17 | XMS_ITS | Encounter Summary ---
Author Organization [employer] Address [address] [address] Care Team Providers Care Bellows Filler Name Role Phone Connie Kuhn MD Primary Care Provider [phone] Encounter Details Date Type Department Care Team (Latest Contact Info) Description 07/26/2023 Orders Only HIM DEPARTMENT Provider, [place] [address] Social History Tobacco Use Types Packs/Day Years [...] Surgery [address] [facility] [address] [place] [address] Viviana Kirkland MD [address] [facility] [address] [place], [place] [address] 11/09/2023 2:30 PM CDT Appointment [facility] Cancer Care at [facility] Oncology [address] [place] [address] Shayla Bland MBBS [address] [place] [address] 11/15/2023 11:00 AM CDT Appointment [facility] [address] [place] [address] Thomas Hanks, OD [address] [place] [phone] documented as of this encounter Procedures Procedure Name Priority Date/Time Associated Diagnosis Comments EYE PENTACAM 07/26/2023 documented in this encounter Results * EYE PENTACAM (07/26/2023) Interface Provider DUMMY/OTHER/AR documented in this encounter Visit Diagnoses Not on filedocumented in this encounter Care Teams Bellows Filler Relationship Specialty Start Date End Date Connie Kuhn MD [address] [place] [id number] PCP - General Family Practice 05/23/18 documented as of this encounter
[2023-10-31 02:54] LABS: Appearance Urine Clear (Clear); Bilirubin Urine Negative (Negative); Blood Urine Negative (Negative); Color Urine Dark yellow (Yellow); Glucose Urine Negative (Negative); Ketones Urine Negative (Negative); Leukocyte Esterase Urine Negative (Negative); Nitrite Urine Negative (Negative); Protein Urine Negative (Negative); Urobilinogen Urine 0.2 (0.2-1.0); pH Urine 6.5 (5.0-8.5)
[2023-10-31 04:29] LABS: Chloride* 106 mmol/L (96-114); Sodium* 136 mmol/L (135-149)
[2023-10-31 04:30] LABS: Potassium* 4.2 mmol/L (3.6-5.1)
[2023-10-31 04:32] LABS: Anion Gap 5 mEq/L (7-15); Carbon Dioxide* 25 mmol/L (20-32); Estimated Glomerular Filt Rate 60 ml/min
[2023-10-31 04:33] LABS: Blood Urea Nitrogen* 20 mg/dL (7-30); Calcium* 8.9 mg/dL (8.4-10.6); Glucose* 101 mg/dL (60-115)
[2023-10-31 04:46] LABS: Troponin I* < 0.01 ng/mL (0.01-0.04)
== END 2023-10-31 03:30 | disposition home or self-care (01) ==
PROVIDERS: Emergency Provider Internal Medicine
DX: R55 Syncope and collapse (principal)
CPT/HCPCS: 36415; 70450; 71045; 80048; 81003; 84484; 85025; 93005; 99283; 99284; 99285; J7030

== ENCOUNTER 2024-03-29 10:21 | Outpatient (RCR) | payer MEDICARE, BC, SELFPAY ==
--- NOTE | 2024-03-29 14:43 | ONC.NURNOTE ---
Breast Care Coordination Pt will have annual bilateral screening mammogram and q 6 mo left whole/complete ultrasound. Pt has followed at [facility] with [facility] until recently moving to [place]. She will continue to have her imaging at that breast center and will follow here for medical oncology. Imaging orders and visit note faxed; they will call pt to schedule. Pt updated with plan. [facility] P: [phone] F: [phone]
--- NOTE | 2024-09-05 11:41 | ONC.NURNOTE ---
Patient called to schedule her six month follow up. She notes that she left multiple messages to schedule this following my original call on 08/23. Hearing Dog Trainer did not receive these messages. She requests that her scans that are due be sent to [facility], orders faxed to [phone]. Patient scheduled in September to see Chantel d/t janineation not allowing time to see Valeria before her leave.
--- NOTE | 2024-09-25 16:00 | ONC.NURNOTE ---
Pt called to cancel appt with Chantel Nam PA-C on 10/16/24. Pt did not want to reschedule her appt at this time. Pt stated she is doing well and just had a mammogram. Left message with breast care navigators to follow up with pt.
== END 2024-09-25 23:59 | disposition home or self-care (01) ==
LOC: CCIC 10:21
PROVIDERS: Visit Provider Internal Medicine Hematology & Oncology
DX: D48.61 Neoplasm of uncertain behavior of right breast (principal)
CPT/HCPCS: 99202; 99205